=== PATIENT | female | born 1930 | race Caucasian/White ===

== ENCOUNTER 2016-07-10 12:25 | Emergency (ER) | payer OTHER ==
[2016-07-10 12:43] VITALS: BP 145/77; PULSE 73; TEMP 97.9; BMI 31.8
--- NOTE | 2016-07-10 13:23 | PDOC ---
History of Present Illness - General Chief Complaint: Rash Stated Complaint: FEVER Time Seen by Provider: 07/10/16 13:22 History Source: Patient Exam Limitations: No Limitations - History of Present Illness Timing/Duration: reports: other, constant Past History - Travel Traveled outside of the country in the last 30 days: No Close contact w/someone who was outside of country & ill: No - Past Medical History Allergies/Adverse Reactions: Allergies Allergy/AdvReac Type Severity Reaction Status Date / Time Penicillins Allergy Rash Verified 07/10/16 12:43 Home Medications: Ambulatory Orders Aspirin [ASA -] 81 mg PO DAILY 03/24/13 Multivitamin [Multivitamins] 1 each PO DAILY 03/24/13 Rosuvastatin Calcium [Crestor] 5 mg PO DAILY 03/24/13 Amlodipine Besylate [Norvasc -] 5 mg PO DAILY 12/28/13 Docusate Sodium [Colace] 100 mg PO HS 12/28/13 Omeprazole Magnesium [Prilosec (OTC)] 20 mg PO DAILY 12/28/13 Tiotropium [place] [Spiriva -] 1 inh PO DAILY 12/28/13 Valsartan/Hydrochlorothiazide [Diovan Hct 160-25 mg Tablet] 80 combo PO DAILY Chlorhexidine Gluconate [Peridex -] 15 ml MM BID #480 cup 05/27/14 HTN: Yes Hypercholesterolemia: Yes - Surgical History Orthopedic Surgery: Yes (R. Shoulder) - Psycho/Social/Smoking Cessation Hx Anxiety: No Suicidal Ideation: No Smoking Status: No Smoking History: Never smoked Have you smoked in the past 12 months: No Number of Cigarettes Smoked Daily: 0 Information on smoking cessation initiated: No Hx Alcohol Use: No Drug/Substance Use Hx: No Substance Use Type: None Hx Substance Use Treatment: No Review of Systems - Review of Systems Able to Perform ROS?: Yes Is the patient limited [place]ani proficient: Yes Constitutional: Yes: Symptoms Reported, See HPI. No: Malaise HEENTM: No: Symptoms Reported Respiratory: Yes: See HPI. No: Symptoms reported Integumentary: Yes: Symptoms Reported, See HPI, Lesions Neurological: Yes: See HPI. No: Symptoms reported All Other Systems: Reviewed and Negative *Physical Exam - Vital Signs Last Vital Signs Temp Pulse Resp BP Pulse Ox 97.9 F 73 18 145/77 97 07/10/16 12:39 07/10/16 12:39 07/10/16 12:39 07/10/16 12:39 07/10/16 12:39 - Physical Exam General Appearance: Yes: Nourished, Appropriately Dressed. No: Apparent Distress HEENT: positive: ANDREZ, Normal ENT Inspection, TMs Normal, Pharynx Normal (no facial swelling or lip swelling tongue swelling or problems with airway) Neck: positive: Tender, Supple. negative: Lymphadenopathy (R), Lymphadenopathy (L) Respiratory/Chest: positive: Lungs Clear, Respiratory Distress Cardiovascular: positive: Regular Rhythm Extremity: positive: Normal Capillary Refill, Normal Inspection, Normal Range of Motion Integumentary: positive: Normal Color, Pale, Bruising (has some healing bruising to anterior thigh, with 2 faint erythematous lesions, none elevated, nonvesicular, without any evidence of cellulitis. 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 Potential insect bites, discussed use of antihistamines and conservative measures as there is no evidence of anaphylaxis , cellulitis, contagiousness to any of these lesions. *DC/Admit/Observation/Transfer Diagnosis at time of Disposition: Insect bite Qualifiers: Encounter type: initial encounter Qualified Code(s): W57.XXXA - Bitten or stung by nonvenomous insect and other nonvenomous arthropods, initial encounter - Discharge Dispostion Disposition: HOME Condition at time of disposition: Stable Admit: No - Patient Instructions Printed Discharge Instructions: DI for Insect Bites and Stings Additional Instructions: Rest, keep cool and dry- avoid strenuous activity or hot /humid environments Less hot showers, no abrasive soaps May use heavy creams like Eucerin or Cetaphil to keep skin moist May apply Aveeno, calamine lotion, [id number] hydrocortisone creams as needed for symptoms May use Benadryl at night for antihistamine, Zyrtec/ Ronda or Claritin for daytime antihistamine use to help with itching May use ucir-jis-fzosfen hydrocortisone cream on all areas except face Try to identify cause for rash and avoid exposures Followup with PMD in one week if no resolution Make appointment with bingo checker for evaluation when possible
[2016-07-10] MEDS ORDERED: diphenhydrAMINE HCL 25 MG CAPSULE (FP) PO ONE ×2 (13:53→13:56)
== END 2016-07-10 14:02 | disposition home or self-care (01) ==
LOC: JERFT 12:25
DX: L29.8 Other pruritus (principal); S70.369A Insect bite (nonvenomous), unspecified thigh, initial encounter; S60.861A Insect bite (nonvenomous) of right wrist, initial encounter; W57.XXXA Bitten or stung by nonvenomous insect and other nonvenomous arthropods, initial encounter; Y93.89 Activity, other specified; Y92.098 Other place in other non-institutional residence as the place of occurrence of the external cause; I10 Essential (primary) hypertension; E78.00 Pure hypercholesterolemia, unspecified
CPT/HCPCS: 99281-25

== ENCOUNTER 2017-07-31 20:17 | Inpatient (IN) | payer OTHER ==
--- NOTE | 2017-07-31 20:24 | PDOC ---
History of Present Illness <Trish Gregg - Last Filed: 07/31/17 23:52> - General History Source: Patient, Family Exam Limitations: No Limitations - History of Present Illness Initial Comments: 07/31/17 21:03 The patient is a 86 year old female, with a significant past medical history of hypertension, hyperlipidemia, arthritis, and GERD, who presents to the emergency department via EMS 3 hours s/p mechanical fall with, back pain. As per patient, she slipped and fell backwards in water in her backyard. She reports pressed her medical alert button, however, did not receive a response. She reports rolling over on her knees and crawling into the house where her son found her after work 2 hours later. She reports difficulty ambulating and that she cannot move her back. She does not recall if she had any loss of consciousness. Secondary to her symptoms, the patient reports chills. She denies any head or neck pain. She denies recent fevers or dizziness. She denies recent nausea, vomit, diarrhea or constipation. She denies recent dysuria, frequency, urgency or hematuria. She denies recent chest pain or shortness of breath. Allergies: Penicillin Past surgical history: None reported. Social history: Nonsmoker. Denies EtOH use and recreational drug use. <Maria Luisa Franco - Last Filed: 08/01/17 00:30> - General Stated Complaint: FALL Time Seen by Provider: 07/31/17 20:24 Past History - Past Medical History HTN: Yes Hypercholesterolemia: Yes - Surgical History Orthopedic Surgery: Yes (R. Shoulder) - Suicide/Smoking/Psychosocial Hx Smoking Status: No Smoking History: Unknown if ever smoked Have you smoked in the past 12 months: No Number of Cigarettes Smoked Daily: 0 Hx Alcohol Use: No Drug/Substance Use Hx: No Substance Use Type: None Hx Substance Use Treatment: No <Trish Gregg - Last Filed: 07/31/17 23:52> <Maria Luisa Franco - Last Filed: 08/01/17 00:30> - Past Medical History Allergies/Adverse Reactions: Allergies Allergy/AdvReac Type Severity Reaction Status Date / Time Penicillins Allergy Rash Verified 07/31/17 20:45 Home Medications: Ambulatory Orders Aspirin [ASA -] 81 mg PO DAILY 03/24/13 Multivitamin [Multivitamins] 1 each PO DAILY 03/24/13 Rosuvastatin Calcium [Crestor] 5 mg PO DAILY 03/24/13 Amlodipine Besylate [Norvasc -] 5 mg PO DAILY 12/28/13 Docusate Sodium [Colace] 200 mg PO HS 12/28/13 Omeprazole Magnesium [Prilosec (OTC)] 20 mg PO DAILY 12/28/13 Tiotropium [place] [Spiriva -] 1 inh PO DAILY 12/28/13 Valsartan/Hydrochlorothiazide [Diovan Hct 160-25 mg Tablet] 80 combo PO DAILY Review of Systems - Review of Systems Able to Perform ROS?: Yes Comments:: 07/31/17 21:03 (+)CONSTITUTIONAL: Chills. No fever, no fatigue EYES: No visual changes ENT: No ear pain, no sore throat CARDIOVASCULAR: No chest pain, no palpitations RESPIRATORY: No cough, no SOB GI: No abdominal pain, no nausea, no vomiting, no constipation, no diarrhea GENITOURINARY: No dysuria, no frequency, no hematuria (+)MUSKULOSKELETAL: Back pain.No joint pain, no myalgias SKIN: No rash NEURO: No headache All Other Systems: Reviewed and Negative <Maria Luisa Franco - Last Filed: 08/01/17 00:30> *Physical Exam - Vital Signs Last Vital Signs Temp Pulse Resp BP Pulse Ox 97.5 F L 77 18 162/69 96 07/31/17 20:40 07/31/17 20:40 07/31/17 20:40 07/31/17 20:40 07/31/17 20:40 - Physical Exam Comments: 07/31/17 21:08 GENERAL: The patient is in no acute distress. HEAD: Normal with no signs of trauma. EYES: PERRLA, EOMI, sclera anicteric, conjunctiva clear. ENT: Ears normal, nares patent, oropharynx clear without exudates. Moist mucous membranes. NECK: No midline tenderness. Normal range of motion, supple without lymphadenopathy, JVD, or masses. LUNGS: Breath sounds equal, clear to auscultation bilaterally. No wheezes, and no crackles. HEART:Regular rate and rhythm, normal S1 and S2 without murmur, rub or gallop. ABDOMEN: Soft, nontender, normoactive bowel sounds. No guarding, no rebound. No masses palpable. EXTREMITIES: Normal range of motion, no edema. No clubbing or cyanosis. No erythema, or tenderness. NEUROLOGICAL: Cranial nerves II through XII grossly intact. Normal speech. No focal neurological deficits. MUSCULOSKELETAL: Midline lumbar tenderness without deformity. No CVA tenderness SKIN: Warm, Dry, normal turgor, no rashes or lesions noted. <Maria Luisa Franco - Last Filed: 08/01/17 00:30> ED Treatment Course - LABORATORY CBC & Chemistry Diagram: 07/31/17 21:00 07/31/17 21:00 <Trish Gregg - Last Filed: 07/31/17 23:52> - LABORATORY CBC & Chemistry Diagram: 07/31/17 21:00 07/31/17 21:00 <Maria Luisa Franco - Last Filed: 08/01/17 00:30> Medical Decision Making - Medical Decision Making Ms Tracey is an 86 yo F With a history of hypertension who presents emergency department status post a fall. Patient was in her usual state of health, apparently slipped and fell in her backyard on some water. Patient states she landed on her bottom. She denies head trauma, loss of consciousness, neck pain, nausea, vomiting. Patient was unable to get herself to standing. She was able to roll onto her knees, and crawl back into the home. She was unable to get up to standing position. Her son came home and found on the ground. He call 911 immediately. We estimate that she was on the ground for approximately one and a half hours. On examination: This patient is awake and alert, answers all questions appropriate leg Heart is regular Lungs are clear No midline cervical spine, thoracic tenderness to palpation. Patient had lumbar tenderness to palpation Patient is able to move all extremities independently with no assistance. No deformities, no bruising. DD: Lumbar fracture vs dislocation vs. musculoskeletal pain Pt has no radicular symptoms Will : do basic labs CT head/c spine/lumbar spine Pain management Anticipate discharge 07/31/17 21:56 Laboratory Tests 07/31/17 21:00 WBC 11.4 H D Hgb 13.7 D Hct 41.1 Plt Count 284 D 07/31/17 22:42 Laboratory Tests 07/31/17 21:00 Sodium 138 Potassium 2.8 L* Chloride 99 Carbon Dioxide 31 BUN 19 H Creatinine 0.6 Random Glucose 89 Creatine Kinase 434 H Troponin I 1.10 H* ASA ordered Potassium ordered EKG still pending 07/31/17 23:09 EKG: Normal sinus rhythm, rate of 80 bpm, left axis deviation, LVH ST changes V2, no T wave elevations, QTC prolonged at 567 MS Only EKG available for comparison is from 2011 G at that time was normal Sinus rhythm, rate of 69 bpm, normal axis, no ST elevations or depressions, upright T waves Copy of pt current and prior EKG Agrees with plan for Aspirin and admission All CT imaging is still pending Clinical Impression: mechanical fall, initial presentation 07/31/17 23:18 Case reviewed with Hospitalist Will admit to Tele I have clarified with Dr Salgado plan for management with Aspirin <Trish Gregg - Last Filed: 07/31/17 23:52> - Medical Decision Making 11:[address] Salgado, industrial refrigeration mechanic oncology rn, case was discussed. EXAM: HEAD CT WITHOUT CONTRAST HISTORY: Status post fall COMPARISON: None. FINDINGS: The ventricular system is midline and nondilated. Mild involutional changes are noted. There is no bleed, mass, extra-axial fluid collection or mass effect. No skull fracture or skull lesion is identified. The visualized paranasal sinuses and mastoid air cells are clear. IMPRESSION: No evidence of acute pathology. Read by: Cruz Styles MD <Maria Luisa Franco - Last Filed: 08/01/17 00:30> *DC/Admit/Observation/Transfer - Discharge Dispostion Admit: Yes <Trish Gregg - Last Filed: 07/31/17 23:52> - Attestations Scribe Attestion: 07/31/17 21:03 Documentation prepared by Maria Luisa Franco, acting as emergency medical technician for Trish Gregg MD. <Maria Luisa Franco - Last Filed: 08/01/17 00:30> Diagnosis at time of Disposition: NSTEMI (non-ST elevated myocardial infarction) - Discharge Dispostion Condition at time of disposition: Stable
[2017-07-31] MEDS ORDERED: ACETAMINOPHEN 1000 MG/100 ML VIAL (NON FORMULARY) IVPB ONE (20:53)
[2017-07-31] MEDS ORDERED: METHOCARBAMOL 500 MG TABLET PO ONE (20:56)
[2017-07-31] MEDS ORDERED: METHOCARBAMOL 500 MG TABLET ONE (21:26)
[2017-07-31] MEDS ORDERED: ACETAMINOPHEN INJECTION 100 ML IVPB ONE (21:27)
[2017-07-31 21:43] VITALS: BMI 33.7
[2017-07-31 21:48] LABS: BASO % 0.7 % (0-2.0); EOS % 0.4 % (0-4.5); HEMATOCRIT 41.1 % (32.4-45.2); HEMOGLOBIN 13.7 GM/dL (10.7-15.3); LYMPH % 13.8 % (8-40); MCH 28.5 pg (25.7-33.7); MCHC 33.2 g/dl (32.0-36.0); MEAN CELL VOLUME 85.8 fl (80-96); MEAN PLT VOLUME 9.6 fl (7.5-11.1); MONO % 6.3 % (3.8-10.2); NEUT % 78.8 % (42.8-82.8); PLATELET COUNT 284 K/MM3 (134-434); WHITE BLOOD COUNT 11.4 K/mm3 (4.0-10.0)
[2017-07-31 22:11] LABS: ALBUMIN 3.8 g/dl (3.4-5.0); ANION GAP 8 (8-16); BLOOD UREA NITROGEN 19 mg/dL (7-18); CALCIUM 9.1 mg/dL (8.5-10.1); CHLORIDE 99 mmol/L (98-107); CO2 31 mmol/L (21-32); CREATININE 0.6 mg/dL (0.55-1.02); GLUCOSE,RANDOM 89 mg/dL (74-106); SGOT/AST 24 U/L (15-37); SGPT/ALT 27 U/L (12-78); SODIUM 138 mmol/L (136-145)
[2017-07-31 22:26] LABS: ALK PHOS 62 U/L (45-117); BILIRUBIN,TOTAL 0.4 mg/dL (0.2-1.0); TOT PROT 7.3 g/dl (6.4-8.2)
[2017-07-31 22:33] LABS: POTASSIUM 2.8 mmol/L (3.5-5.1)
[2017-07-31] MEDS ORDERED: POTASSIUM CHLORIDE 20 MEQ PREMIX IVPB 100 ML IVPB ONE (22:34)
[2017-07-31] MEDS ORDERED: ASPIRIN 81 MG CHEWABLE TABLETS PO ONE (22:34)
[2017-07-31] MEDS ORDERED: POTASSIUM CHLORIDE TABS 20 MEQ TABLET.ER (FP) PO ONE ×2 (22:55→22:57)
[2017-07-31] MEDS ORDERED: ASPIRIN 81 MG CHEWABLE TABLETS ONE (22:57)
--- NOTE | 2017-08-01 00:05 | HP ---
CHIEF COMPLAINT: Fall PCP: Not on Staff HISTORY OF PRESENT ILLNESS: 86 year old F with pmh of HTN, HLD, arthritis, and GERD presented s/p mechanical fall. Patient states she was in her backyard, when she slipped on water and fell on concrete. She states she landed on her back and could not get up. She crawled back to the house and her son found her 1 hour later in the bedroom. Patient was brought in by EMS. Patient denies any preceding symptoms, such as chest pain, shortness of breath, or lightheadedness. Patient endorses significant low back pain, nonradiating, 02/02. Patient denies numbness, tingling, weakness, bladder/bowel incontinence. ER course was notable for: (1) VS (2) Labs, cardiac profile (3) EKG Recent Travel: denies PAST MEDICAL HISTORY: as per hpi PAST SURGICAL HISTORY: denies Social History: Smoking: denies Alcohol: denies Drugs: denies Family History: Allergies Penicillins Allergy (Verified 07/31/17 20:45) Rash HOME MEDICATIONS: Home Medications Medication Instructions Recorded Aspirin [ASA -] 81 mg PO DAILY 03/24/13 Multivitamin [Multivitamins] 1 each PO DAILY 03/24/13 Rosuvastatin Calcium [Crestor] 5 mg PO DAILY 03/24/13 Amlodipine Besylate [Norvasc -] 5 mg PO DAILY 12/28/13 Docusate Sodium [Colace] 100 mg PO HS 12/28/13 Omeprazole Magnesium [Prilosec 20 mg PO DAILY 12/28/13 (OTC)] Tiotropium [place] [Spiriva -] 1 inh PO DAILY 12/28/13 Valsartan/Hydrochlorothiazide 80 combo PO DAILY 12/28/13 [Diovan Hct 160-25 mg Tablet] Chlorhexidine Gluconate [Peridex -] 15 ml MM BID #480 cup 05/27/14 REVIEW OF SYSTEMS CONSTITUTIONAL: Absent: fever, chills, diaphoresis, generalized weakness, malaise, loss of appetite, weight change HEENT: Absent: rhinorrhea, nasal congestion, throat pain, throat swelling, difficulty swallowing, mouth swelling, ear pain, eye pain, visual changes CARDIOVASCULAR: Absent: chest pain, syncope, palpitations, irregular heart rate, lightheadedness , peripheral edema RESPIRATORY: Absent: cough, shortness of breath, dyspnea with exertion, orthopnea, wheezing, stridor, hemoptysis GASTROINTESTINAL: Absent: abdominal pain, abdominal distension, nausea, vomiting, diarrhea, constipation, melena, hematochezia GENITOURINARY: Absent: dysuria, frequency, urgency, hesitancy, hematuria, flank pain, genital pain MUSCULOSKELETAL: Absent: myalgia, arthralgia, joint swelling, back pain, neck pain SKIN: Absent: rash, itching, pallor HEMATOLOGIC/IMMUNOLOGIC: Absent: easy bleeding, easy bruising, lymphadenopathy, frequent infections ENDOCRINE: Absent: unexplained weight gain, unexplained weight loss, heat intolerance, cold intolerance NEUROLOGIC: Absent: headache, focal weakness or paresthesias, dizziness, unsteady gait, seizure, mental status changes, bladder or bowel incontinence PSYCHIATRIC: Absent: anxiety, depression, suicidal or homicidal ideation, hallucinations. PHYSICAL EXAMINATION Vital Signs - 24 hr 07/31/17 20:40 Temperature 97.5 F L Pulse Rate 77 Respiratory 18 Rate Blood Pressure 162/69 O2 Sat by Pulse 96 Oximetry (%) GENERAL: Awake, alert, and fully oriented, in no acute distress. HEAD: Normal with no signs of trauma. EYES: Pupils equal, round and reactive to light, extraocular movements intact, sclera anicteric, conjunctiva clear. No lid lag. EARS, NOSE, THROAT: Ears normal, nares patent, oropharynx clear without exudates. Dry mucous membranes. NECK: Normal range of motion, supple without lymphadenopathy, JVD, or masses. LUNGS: Breath sounds equal, clear to auscultation bilaterally. No wheezes, and no crackles. No accessory muscle use. HEART: Irregular rhythm, regular rate, normal S1 and S2, +OZZIE 2/6 ABDOMEN: Soft, obese, mildly distended, nontender, normoactive bowel sounds, no guarding, no rebound, no masses. No hepatomegaly or splenomegaly. MUSCULOSKELETAL: +Lower back paraspinal tenderness bilaterally. no central spine tenderness UPPER EXTREMITIES: 2+ pulses, warm, well-perfused. No cyanosis. No clubbing. No peripheral edema. LOWER EXTREMITIES: 2+ pulses, warm, well-perfused. No calf tenderness. No peripheral edema. NEUROLOGICAL: Cranial nerves II-XII intact. Normal speech. strenght unable to be assessed 2/2 to pain, sensation intact b/l PSYCHIATRIC: Cooperative. Good eye contact. Appropriate mood and affect. SKIN: Warm, dry, normal turgor, no rashes or lesions noted, normal capillary refill. Laboratory Results - last 24 hr 07/31/17 07/31/17 21:00 21:00 WBC 11.4 H D RBC 4.80 Hgb 13.7 D Hct 41.1 MCV 85.8 MCH 28.5 MCHC 33.2 RDW 14.0 Plt Count 284 D MPV 9.6 D Neutrophils % 78.8 D Lymphocytes % 13.8 D Monocytes % 6.3 Eosinophils % 0.4 Basophils % 0.7 Sodium 138 Potassium 2.8 L* Chloride 99 Carbon Dioxide 31 Anion Gap 8 BUN 19 H Creatinine 0.6 Creat Clearance w eGFR > 60 Random Glucose 89 Calcium 9.1 Total Bilirubin 0.4 AST 24 ALT 27 Alkaline Phosphatase 62 Creatine Kinase 434 H Creatine Kinase Index 2.9 CK-MB (CK-2) 12.912 H Troponin I 1.10 H* Total Protein 7.3 Albumin 3.8 ASSESSMENT/PLAN: 86 year old F with pmh of HTN, HLD, arthritis, and GERD presented s/p mechanical fall found to have elevated troponins #mechanical fall, lumbar pain -Pain control -f/u CT pelvis, lumbar spine -Head ct negative #elevated creatine kinase -IVF gentle hydration -monitor in the AM #elevated troponins -Cardiology consult -telemetry monitoring -Asa given in er -No heparin drip per Dr. Salgado -Trend troponins -echocardiogram to evaluate heart function #htn -Continue home meds -Will hold HCTZ given hypokalemia #hld -Continue crestor #overactive bladder -Continue tolterodine #copd -Continue Spiriva #fen/gi -NS @ 42 cc/hr for 500 ml -wnl -sodium/cholesterol diet #ppx -Heparin 5000 sq tid Visit type - Emergency Visit Emergency Visit: Yes ED Registration Date: 07/31/17 Care time: The patient presented to the Emergency Department on the above date and was hospitalized for further evaluation of their emergent condition. - New Patient This patient is new to me today: Yes Date on this admission: 08/01/17 - Critical Care Critical Care patient: No Hospitalist Screening - Colonoscopy Questionnaire Colonoscopy Questionnaire: Colonoscopy Questionnaire - Patient: 50 - 75 years old and never had a screening colonoscopy: Unknown History of colon or rectal polyps, or CA: Unknown History of IBD, Crohn's disease or UC: Unknown History of abdominal radiation therapy as a child: Unknown - Relative: 1 with colon or rectal CA, or polyps at age 60 or younger: Unknown Colon or rectal CA diagnosed at age 45 or younger: Unknown Multiple relatives with colon or rectal CA: Unknown - Outcome: Screening Result: Negative Screen
[2017-08-01] MEDS ORDERED: POTASSIUM CHLORIDE TABS 10 MEQ TABLET.ER (FP) PO ONE (00:59)
--- NOTE | 2017-08-01 01:05 | PN ---
Teaching Attending Note Name of Resident: Carlitos Cortés ATTENDING PHYSICIAN STATEMENT I saw and evaluated the patient. Chart, data, imaging reviewed. I reviewed the resident's note and discussed the case with the resident. I agree with the resident's findings and plan as documented. SUBJECTIVE: 86 year old F with pmh of HTN, HLD, arthritis, and GERD presented after a mechanical on 07/31 after she slipped on a wet surface and landed on her back. She was subsequently brought to hospital and complained of some mild back pain. She denied any shortness of breath, chest pain, or syncope episode. She was coincidentally found to have elevated troponin and CK -MB on blood work. OBJECTIVE: Last Vital Signs Temp Pulse Resp BP Pulse Ox 97.5 F L 77 18 162/69 96 07/31/17 20:40 07/31/17 20:40 07/31/17 20:40 07/31/17 20:40 07/31/17 20:40 general- nad, not in visible pain, aaox3, obese heent- at, normocephalic neck -supple, no neck masses cv - s1+s2+ mumur+ chest - cta b/l abdomen- obese, nt, BS+ Back - perispinal tenderness skin - no rashes Abnormal Lab Results 07/31/17 07/31/17 21:00 21:00 WBC 11.4 H D Potassium 2.8 L* BUN 19 H Creatine Kinase 434 H CK-MB (CK-2) 12.912 H Troponin I 1.10 H* EKG- normal sinus rhythm CXR- wnl Head CT -reviewed, no acute intracranial events C spine - no fracture pending pelvis CT ASSESSMENT AND PLAN: #86yo woman s/p fall with elevated cardiac markers, however clinically lacking signs of ACS. Cardiology - telecommunications manager (Dr. Salgado) was contacted and recommended to treat with aspirin and trend troponins. -admit to telemetry -ASA 81mg -trend troponin -repeat EKG -transthoracic echo -cardiology evaluation #Mechanical fall -bed rest -gait evaluation with physical therapy -r/o pelvic/lower back fracture with CT of lumbar spine/sacrum -ibuprofen and robaxin for back pain #Elevated CK -mild IV fluid hydration #DVT ppx -heparin sc
[2017-08-01] MEDS ORDERED: SODIUM CHLORIDE 500 ML IV SCH (01:15)
[2017-08-01] MEDS ORDERED: POTASSIUM CHLORIDE TABS 20 MEQ TABLET.ER (FP) PO ONE ×2 (01:35→01:36)
[2017-08-01] MEDS: HEPARIN NA (PORCINE) 5,000 UNITS/ML 1ML VIAL SQ SCH ×2 (06:00→14:20)
[2017-08-01 06:27] LABS: BASO % 0.8 % (0-2.0); EOS % 0.8 % (0-4.5); HEMOGLOBIN 13.2 GM/dL (10.7-15.3); LYMPH % 27.6 % (8-40); MCH 28.9 pg (25.7-33.7); MCHC 33.8 g/dl (32.0-36.0); MEAN CELL VOLUME 85.5 fl (80-96); MEAN PLT VOLUME 8.4 fl (7.5-11.1); MONO % 8.7 % (3.8-10.2); NEUT % 62.1 % (42.8-82.8); PLATELET COUNT 274 K/MM3 (134-434); RBC 4.56 M/mm3 (3.60-5.2); RDW 13.9 % (11.6-15.6); WHITE BLOOD COUNT 7.4 K/mm3 (4.0-10.0)
[2017-08-01] MEDS ORDERED: HEPARIN NA (PORCINE) 5,000 UNITS/ML 1ML VIAL ONE (06:52)
[2017-08-01 07:17] LABS: ANION GAP 7 (8-16); BLOOD UREA NITROGEN 20 mg/dL (7-18); CALCIUM 8.7 mg/dL (8.5-10.1); CHLORIDE 103 mmol/L (98-107); CO2 30 mmol/L (21-32); CREATININE 0.5 mg/dL (0.55-1.02); GLUCOSE,RANDOM 126 mg/dL (74-106); PHOSPHOROUS 3.6 mg/dL (2.5-4.9); POTASSIUM 3.6 mmol/L (3.5-5.1); SODIUM 140 mmol/L (136-145)
--- NOTE | 2017-08-01 09:01 | EKG ---
Test Reason : Blood Pressure : / mmHG Vent. Rate : 080 BPM Atrial Rate : 080 BPM P-R Int : 178 ms QRS Dur : 114 ms QT Int : 492 ms P-R-T Axes : 064 -44 012 degrees QTc Int : 567 ms NORMAL SINUS RHYTHM LEFT AXIS DEVIATION VOLTAGE CRITERIA FOR LEFT VENTRICULAR HYPERTROPHY CANNOT RULE OUT SEPTAL INFARCT , AGE UNDETERMINED PROLONGED QT ABNORMAL ECG WHEN COMPARED WITH ECG OF 19-DEC-2011 09:42, QUESTIONABLE CHANGE IN QRS DURATION MINIMAL CRITERIA FOR SEPTAL INFARCT ARE NOW PRESENT Confirmed by MARINO HOYT, VIVIENNE ([id number]) on 08/01/2017 9:01:06 AM Referred By: Confirmed By:VIVIENNE PICHARDO MD
--- NOTE | 2017-08-01 10:11 | CON.CARD ---
Consult Consult Specialty:: Cardiology Referred by:: Hospitalist Medicine Reason for Consultation:: +Troponins - History of Present Illness Chief Complaint: s/p mechanical fall and back pain History of Present Illness: 86 year old F with pmh of HTN, HLD, arthritis, and GERD presented after a mechanical fall without near or true syncope on 07/31 after she slipped on a wet surface and landed on her back. She was subsequently brought to hospital and complained of some mild back pain. She denied any shortness of breath, chest pain, palpitations, orthopnea, mear or syncope episode. She was coincidentally found to have elevated troponin and CK -MB on blood work. - History Source History Provided By: Family Member Limitations to Obtaining History: Poor Historian - Past Medical History Cardio/Vascular: Yes: HTN, Hyperlipdemia - Alcohol/Substance Use Hx Alcohol Use: No - Smoking History Smoking history: Unknown if ever smoked Have you smoked in the past 12 months: No Aproximately how many cigarettes per day: 0 Home Medications - Allergies Allergies/Adverse Reactions: Allergies Allergy/AdvReac Type Severity Reaction Status Date / Time Penicillins Allergy Rash Verified 07/31/17 20:45 - Home Medications Home Medications: Ambulatory Orders Aspirin [ASA -] 81 mg PO DAILY 03/24/13 Multivitamin [Multivitamins] 1 each PO DAILY 03/24/13 Rosuvastatin Calcium [Crestor] 5 mg PO DAILY 03/24/13 Amlodipine Besylate [Norvasc -] 5 mg PO DAILY 12/28/13 Docusate Sodium [Colace] 200 mg PO HS 12/28/13 Omeprazole Magnesium [Prilosec (OTC)] 20 mg PO DAILY 12/28/13 Tiotropium [place] [Spiriva -] 1 inh PO DAILY 12/28/13 Valsartan/Hydrochlorothiazide [Diovan Hct 160-25 mg Tablet] 80 combo PO DAILY Diclofenac Sodium [Voltaren] 0 gm TP QID PRN 08/01/17 Diphenhydramine HCl [Benadryl -] 25 mg PO Q6H PRN 08/01/17 Ibuprofen 600 mg PO BID PRN 08/01/17 Neomycin/Polymyx/Hc Ophth Susp [Cortisporin Ophthalmic Suspension -] 1 - 4 drop AU TID 08/01/17 Review of Systems - Review of Systems Musculoskeletal: reports: Back Pain Vital Signs: Vital Signs Temperature 98.3 F 08/01/17 07:45 Pulse Rate 86 08/01/17 07:45 Respiratory Rate 16 08/01/17 07:45 Blood Pressure 131/60 08/01/17 07:45 O2 Sat by Pulse Oximetry (%) 96 08/01/17 07:45 Constitutional: Yes: No Distress, Calm Neck: Yes: Supple Respiratory: Yes: Regular, Diminished Gastrointestinal: Yes: Normal Bowel Sounds, Soft, Abdomen, Obese Cardiovascular: Yes: Regular Rate and Rhythm JVD: No Carotid Bruit: No Heart Sounds: Yes: S1, S2 - Other Data Labs, Other Data: CBC, BMP 08/01/17 06:20 08/01/17 06:20 Troponin, BNP 07/31/17 21:00 Troponin I 1.10 H* Troponin, BNP 07/31/17 21:00 Troponin I 1.10 H* NSR @ 80 LAD, LVH Echo: Pending Problem List - Problems (1) Demand ischemia Code(s): I24.8 - OTHER FORMS OF ACUTE ISCHEMIC HEART DISEASE (2) Hypertensive cardiovascular disease Code(s): I11.9 - HYPERTENSIVE HEART DISEASE WITHOUT HEART FAILURE Qualifiers: Heart failure presence: without heart failure Qualified Code(s): I11.9 - Hypertensive heart disease without heart failure (3) Hyperlipidemia Code(s): E78.5 - HYPERLIPIDEMIA, UNSPECIFIED Qualifiers: Hyperlipidemia type: pure hypercholesterolemia Qualified Code(s): E78.00 - Pure hypercholesterolemia, unspecified; E78.0 - Pure hypercholesterolemia (4) Antiplatelet or antithrombotic long-term use Code(s): 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 s/p mechanical slip and fall without syncope 2. Demand ischemia 3. HTN/HCVD 4. Hyperlipidemia P:1. Troponins have peaked 2. F/u echocardiogram to assess ventricular and valve fxn 3. Pharm stress as outpatient to assess severity of CAD 4. Continue ASA 8 qd, Crestor 5 qd, Exforge HCT 5/160/25 qd 5. Analgesia as needed, PT as tolerated, GI and DVT prophylaxis 6. Thank you for consultative opportunity
[2017-08-01] MEDS: amLODIPine BESYLATE 5 MG TABLET (FP) PO SCH (10:20)
[2017-08-01] MEDS: TOLTERODINE TARTRATE LA 4 MG CAP.SR.24H (FP) PO SCH (10:20)
[2017-08-01] MEDS: VALSARTAN 80 MG TABLET (UD) PO SCH (10:20)
[2017-08-01] MEDS: PANTOPRAZOLE 20 MG TABLET (FP) PO SCH (10:20)
[2017-08-01] MEDS: ASPIRIN 81 MG CHEWABLE TABLETS PO SCH (10:20)
[2017-08-01] MEDS: TIOTROPIUM BROMIDE 18 MCG CAPSULES IH SCH (10:24)
[2017-08-01] MEDS: IBUPROFEN 400 MG TABLET (FP) PO PRN ×2 (13:34→21:26)
[2017-08-01 17:21] LABS: URINE APPEARANCE CLEAR; URINE BILIRUBIN NEGATIVE (<2.0 mg/dL); URINE BLOOD NEGATIVE (NEGATIVE); URINE COLOR YELLOW; URINE GLUCOSE (UA) NEGATIVE (NEGATIVE); URINE KETONE TRACE (NEGATIVE); URINE NITRITE NEGATIVE (NEGATIVE); URINE PROTEIN NEGATIVE (NEGATIVE); URINE UROBILINOGEN NEGATIVE mg/dL (0.2-1.0)
[2017-08-01 17:22] LABS: URINE LEUK ESTERASE 1+ (NEGATIVE)
[2017-08-01 17:25] LABS: EPI CELLS RARE /HPF (FEW); URINE BACTERIA RARE /hpf (NONE SEEN)
--- NOTE | 2017-08-01 19:41 | PN ---
Physical Exam: SUBJECTIVE: Patient seen and examined. She complains of constipation. OBJECTIVE: Vital Signs Period Temp Pulse Resp BP Sys/Seth Pulse Ox Last 24 Hr 97.5 F-99.2 F 77-104 16-18 131-162/60-95 92-96 GENERAL: The patient is awake, alert, and fully oriented, in no acute distress. LUNGS: Breath sounds equal, clear to auscultation bilaterally, no wheezes, no crackles, no accessory muscle use. HEART: Regular rate and rhythm, S1, S2 without murmur, rub or gallop. ABDOMEN: Soft, nontender, distended, normoactive bowel sounds, no guarding, no rebound, no hepatosplenomegaly, no masses. EXTREMITIES: 2+ pulses, warm, well-perfused, no edema. Laboratory Results - last 24 hr 07/31/17 07/31/17 08/01/17 21:00 21:00 06:20 WBC 11.4 H D 7.4 D RBC 4.80 4.56 Hgb 13.7 D 13.2 Hct 41.1 39.0 MCV 85.8 85.5 MCH 28.5 28.9 MCHC 33.2 33.8 RDW 14.0 13.9 Plt Count 284 D 274 MPV 9.6 D 8.4 D Neutrophils % 78.8 D 62.1 D Lymphocytes % 13.8 D 27.6 D Monocytes % 6.3 8.7 Eosinophils % 0.4 0.8 D Basophils % 0.7 0.8 Sodium 138 Potassium 2.8 L* Chloride 99 Carbon Dioxide 31 Anion Gap 8 BUN 19 H Creatinine 0.6 Creat Clearance w eGFR > 60 Random Glucose 89 Calcium 9.1 Phosphorus Magnesium Total Bilirubin 0.4 AST 24 ALT 27 Alkaline Phosphatase 62 Creatine Kinase 434 H Creatine Kinase Index 2.9 CK-MB (CK-2) 12.912 H Troponin I 1.10 H* Total Protein 7.3 Albumin 3.8 Urine Color Urine Appearance Urine pH Ur Specific [place] Urine Protein Urine Glucose (UA) Urine Ketones Urine Blood Urine Nitrite Urine Bilirubin Urine Urobilinogen Ur Leukocyte Esterase Urine WBC (Auto) Urine RBC (Auto) Ur Epithelial Cells Urine Bacteria 08/01/17 08/01/17 08/01/17 06:20 09:30 17:08 WBC RBC Hgb Hct MCV MCH MCHC RDW Plt Count MPV Neutrophils % Lymphocytes % Monocytes % Eosinophils % Basophils % Sodium 140 Potassium 3.6 Chloride 103 Carbon Dioxide 30 Anion Gap 7 L BUN 20 H Creatinine 0.5 L Creat Clearance w eGFR Random Glucose 126 H Calcium 8.7 Phosphorus 3.6 Magnesium 2.0 Total Bilirubin AST ALT Alkaline Phosphatase Creatine Kinase 522 H Cancelled Creatine Kinase Index 2.0 CK-MB (CK-2) 10.473 H Troponin I 0.93 H* Cancelled Total Protein Albumin Urine Color Yellow Urine Appearance Clear Urine pH 6.0 Ur Specific [place] 1.023 Urine Protein Negative Urine Glucose (UA) Negative Urine Ketones Trace H Urine Blood Negative Urine Nitrite Negative Urine Bilirubin Negative Urine Urobilinogen Negative Ur Leukocyte Esterase 1+ H Urine WBC (Auto) 8 Urine RBC (Auto) 1 Ur Epithelial Cells Rare Urine Bacteria Rare Active Medications Generic Name Dose Route Start Last Admin Trade Name Freq PRN Reason Stop Dose Admin Amlodipine Besylate 5 mg 08/01/17 10:00 08/01/17 10:20 Norvasc - PO 5 mg DAILY GIOVANNA Administration Aspirin 81 mg 08/01/17 10:00 08/01/17 10:20 Asa - PO 81 mg DAILY GIOVANNA Administration Heparin Sodium (Porcine) 5,000 unit 08/01/17 06:00 08/01/17 14:20 Heparin - SQ 5,000 unit TID GIOVANNA Administration Ibuprofen 400 mg 08/01/17 01:30 08/01/17 13:34 Motrin - PO 400 mg Q6H PRN Administration PAIN LEVEL 6-10 Pantoprazole Sodium 20 mg 08/01/17 10:00 08/01/17 10:20 Protonix - PO 20 mg DAILY GIOVANNA Administration Rosuvastatin Calcium 5 mg 08/01/17 22:00 Crestor - PO HS GIOVANNA Tiotropium [place] 1 puff 08/01/17 10:00 08/01/17 10:24 Spiriva - IH Not Given DAILY GIOVANNA Tolterodine Tartrate 4 mg 08/01/17 10:00 08/01/17 10:20 Detrol La - PO 4 mg DAILY GIOVANNA Administration Valsartan 80 mg 08/01/17 10:00 08/01/17 10:20 Diovan - PO 80 mg DAILY GIOVANNA Administration ASSESSMENT/PLAN: This is an 86 year old woman with a history of HTN, hyperlipidemia, DJD, GERD who presented to the ED after a fall and who was found to have elevated troponin. #mechanical fall, lumbar pain -Pain control -f/u CT pelvis, lumbar spine -Head ct negative #elevated creatine kinase -IVF gentle hydration -monitor in the AM #elevated troponins -Cardiology consult -telemetry monitoring -Asa given in er -No heparin drip per Dr. Salgado -Trend troponins -echocardiogram to evaluate heart function #htn -Continue home meds -Will hold HCTZ given hypokalemia #hld -Continue crestor #overactive bladder -Continue tolterodine #copd -Continue Spiriva
[2017-08-01] MEDS ORDERED: IBUPROFEN 400 MG TABLET (FP) PO ONE (21:18)
[2017-08-01] MEDS: ROSUVASTATIN CA 5 MG TABLET (FP) PO SCH (22:47)
[2017-08-02] MEDS ORDERED: HEPARIN NA (PORCINE) 5,000 UNITS/ML 1ML VIAL ONE (00:24)
[2017-08-02] MEDS: HEPARIN NA (PORCINE) 5,000 UNITS/ML 1ML VIAL SQ SCH ×4 (07:12→23:15)
[2017-08-02] MEDS ORDERED: IBUPROFEN 400 MG TABLET (FP) PO ONE (08:22)
[2017-08-02] MEDS: IBUPROFEN 400 MG TABLET (FP) PO PRN ×2 (08:31→20:33)
[2017-08-02] MEDS: ASPIRIN 81 MG CHEWABLE TABLETS PO SCH (10:14)
[2017-08-02] MEDS: PANTOPRAZOLE 20 MG TABLET (FP) PO SCH (10:54)
[2017-08-02] MEDS: amLODIPine BESYLATE 5 MG TABLET (FP) PO SCH (10:54)
[2017-08-02] MEDS: TOLTERODINE TARTRATE LA 4 MG CAP.SR.24H (FP) PO SCH (10:54)
[2017-08-02] MEDS: VALSARTAN 80 MG TABLET (UD) PO SCH (10:54)
--- NOTE | 2017-08-02 10:57 | PN ---
Progress Note, Physician History of Present Illness: 86 year old F with pmh of HTN, HLD, arthritis, and GERD presented after a mechanical fall without near or true syncope on 07/31 after she slipped on a wet surface and landed on her back. She was subsequently brought to hospital and complained of some mild back pain. She denied any shortness of breath, chest pain, palpitations, orthopnea, mear or syncope episode. She was coincidentally found to have elevated troponin and CK -MB on blood work. PMH Cholelithiasis 2011 HTN Hyperlipidemia Negative MIBI stress test [address] Nov 2011 [place] - Current Medication List Current Medications: Active Medications Amlodipine Besylate (Norvasc -) 5 mg PO DAILY [facility] Last Admin: 08/01/17 10:20 Dose: 5 mg Aspirin (Asa -) 81 mg PO DAILY [facility] Last Admin: 08/01/17 10:20 Dose: 81 mg Heparin Sodium (Porcine) (Heparin -) 5,000 unit SQ TID [facility] Last Admin: 08/02/17 07:12 Dose: 5,000 unit Ibuprofen (Motrin -) 400 mg PO Q6H PRN PRN Reason: PAIN LEVEL 6-10 Last Admin: 08/02/17 08:31 Dose: 400 mg Pantoprazole Sodium (Protonix -) 20 mg PO DAILY [facility] Last Admin: 08/01/17 10:20 Dose: 20 mg Rosuvastatin Calcium (Crestor -) 5 mg PO HS [facility] Last Admin: 08/01/17 22:47 Dose: 5 mg Tiotropium [place] (Spiriva -) 1 puff IH DAILY [facility] Last Admin: 08/01/17 10:24 Dose: Not Given Tolterodine Tartrate (Detrol La -) 4 mg PO DAILY [facility] Last Admin: 08/01/17 10:20 Dose: 4 mg Valsartan (Diovan -) 80 mg PO DAILY [facility] Last Admin: 08/01/17 10:20 Dose: 80 mg - Objective Vital Signs: Vital Signs Temperature 98.5 F 08/02/17 07:35 Pulse Rate 84 08/02/17 07:35 Respiratory Rate 16 08/02/17 07:57 Blood Pressure 110/56 08/02/17 07:35 O2 Sat by Pulse Oximetry (%) 98 08/02/17 07:57 Eyes: Yes: WNL, Conjunctiva Clear, EOM Intact HENT: Yes: WNL, Atraumatic, Normocephalic Neck: Yes: WNL, Supple, Trachea Midline Cardiovascular: Yes: WNL, Regular Rate and Rhythm Respiratory: Yes: WNL, Regular, CTA Bilaterally Gastrointestinal: Yes: WNL, Normal Bowel Sounds Genitourinary: Yes: WNL Musculoskeletal: Yes: WNL Extremities: Yes: WNL Edema: No Integumentary: Yes: WNL Neurological: Yes: WNL, Alert, Oriented ...Motor Strength: WNL Psychiatric: Yes: WNL Labs: CBC, BMP 08/01/17 06:20 08/01/17 06:20 Problem List - Problems (1) Antiplatelet or antithrombotic long-term use Code(s): Z79.02 - ALF (CURRENT) USE OF ANTITHROMBOTICS/ANTIPLATELETS (2) Demand ischemia Code(s): I24.8 - OTHER FORMS OF ACUTE ISCHEMIC HEART DISEASE (3) Hyperlipidemia Code(s): E78.5 - HYPERLIPIDEMIA, UNSPECIFIED Qualifiers: Hyperlipidemia type: pure hypercholesterolemia Qualified Code(s): E78.00 - Pure hypercholesterolemia, unspecified; E78.0 - Pure hypercholesterolemia (4) Hypertensive cardiovascular disease Code(s): I11.9 - HYPERTENSIVE HEART DISEASE WITHOUT HEART FAILURE Qualifiers: Heart failure presence: without heart failure Qualified Code(s): I11.9 - Hypertensive heart disease without heart failure (5) NSTEMI (non-ST elevated myocardial infarction) Code(s): I21.4 - NON-ST ELEVATION (NSTEMI) MYOCARDIAL INFARCTION (6) Back pain Code(s): M54.9 - DORSALGIA, UNSPECIFIED Qualifiers: Back pain location: low back pain Chronicity: acute (7) DJD (degenerative joint disease) Code(s): M19.90 - UNSPECIFIED OSTEOARTHRITIS, UNSPECIFIED SITE (8) Insect bite Code(s): W57.XXXA - BIT/STUNG BY NONVENOM INSECT & OTH NONVENOM ARTHROPODS, INIT Qualifiers: Encounter type: initial encounter Qualified Code(s): W57.XXXA - Bitten or stung by nonvenomous insect and other nonvenomous arthropods, initial encounter (9) Knee pain Code(s): M25.569 - PAIN IN UNSPECIFIED KNEE (10) Skin irritation due to topical agent Code(s): R23.8 - OTHER SKIN CHANGES; T49.95XA - ADVERSE EFFECT OF UNSPECIFIED TOPICAL AGENT, INIT ENCNTR (11) Ulcer (traumatic) of oral mucosa Code(s): K12.1 - OTHER FORMS OF STOMATITIS Assessment/Plan s/p fall - mechanical no syncope positive tni's hypokalemia HTN Hyperlipidemia Negative MIBI stress test 2013 Negative Persantine MIBI Nov 2011 [place] Plan asa bp control dvt plx telemetry monitoring risk stratification with MIBI ?outpatient depending on echo and patient course
[2017-08-02] MEDS: TIOTROPIUM BROMIDE 18 MCG CAPSULES IH SCH (14:13)
[2017-08-02] MEDS: POLYETHYLENE GLYCOL 3350 119 GM BTL PO SCH (16:25)
--- NOTE | 2017-08-02 16:34 | PN ---
Physical Exam: SUBJECTIVE: Patient seen and examined No acute events overnight. Patient continues to have low back pain. Desaturating on room air. OBJECTIVE: Vital Signs Period Temp Pulse Resp BP Sys/Seth Pulse Ox Last 24 Hr 98.3 F-99.2 F 83-104 16-18 108-155/53-95 92-99 GENERAL: Awake, alert, and fully oriented, in no acute distress. HEAD: Normal with no signs of trauma. EYES: Pupils equal, round and reactive to light, Extraocular movements intact, sclera anicteric, conjunctiva clear. No lid lag. EARS, NOSE, THROAT: Oropharynx clear without exudates. Dry mucous membranes. NECK: Normal range of motion, supple without lymphadenopathy, JVD, or masses. LUNGS: Breath sounds equal, mild crackles at bases. No wheezes. No accessory muscle use. HEART: Regular rhythm, regular rate, normal S1 and S2, +OZZIE 2/6 ABDOMEN: Soft, obese, mildly distended, nontender, normoactive bowel sounds, no guarding, no rebound, no masses. No hepatomegaly or splenomegaly. MUSCULOSKELETAL: +Lower back paraspinal tenderness bilaterally. no central spine tenderness UPPER EXTREMITIES: 2+ pulses, warm, well-perfused. No cyanosis. No clubbing. No peripheral edema. LOWER EXTREMITIES: 2+ pulses, warm, well-perfused. No calf tenderness. No peripheral edema. NEUROLOGICAL: Cranial nerves II-XII intact. Normal speech. strenght unable to be assessed 2/2 to pain, sensation intact b/l PSYCHIATRIC: Cooperative. Good eye contact. Appropriate mood and affect. SKIN: Warm, dry, normal turgor, no rashes or lesions noted, normal capillary refill. Laboratory Results - last 24 hr 08/01/17 17:08 Urine Color Yellow Urine Appearance Clear Urine pH 6.0 Ur Specific [place] 1.023 Urine Protein Negative Urine Glucose (UA) Negative Urine Ketones Trace H Urine Blood Negative Urine Nitrite Negative Urine Bilirubin Negative Urine Urobilinogen Negative Ur Leukocyte Esterase 1+ H Urine WBC (Auto) 8 Urine RBC (Auto) 1 Ur Epithelial Cells Rare Urine Bacteria Rare Active Medications Generic Name Dose Route Start Last Admin Trade Name Freq PRN Reason Stop Dose Admin Albuterol/Ipratropium 1 amp 08/02/17 15:19 Duoneb - NEB Q4H PRN SHORTNESS OF BREATH Amlodipine Besylate 5 mg 08/01/17 10:00 08/02/17 10:54 Norvasc - PO 5 mg DAILY GIOVANNA Administration Aspirin 81 mg 08/01/17 10:00 08/02/17 10:14 Asa - PO 81 mg DAILY GIOVANNA Administration Heparin Sodium (Porcine) 5,000 unit 08/01/17 06:00 08/02/17 14:13 Heparin - SQ 5,000 unit TID GIOVANNA Administration Ibuprofen 400 mg 08/01/17 01:30 08/02/17 08:31 Motrin - PO 400 mg Q6H PRN Administration PAIN LEVEL 6-10 Pantoprazole Sodium 20 mg 08/01/17 10:00 08/02/17 10:54 Protonix - PO 20 mg DAILY GIOVANNA Administration Polyethylene Glycol 17 gm 08/02/17 15:45 08/02/17 16:25 Miralax (For Daily Use) - PO 17 gm DAILY GIOVANNA Administration Rosuvastatin Calcium 5 mg 08/01/17 22:00 08/01/17 22:47 Crestor - PO 5 mg HS GIOVANNA Administration Tiotropium [place] 1 puff 08/01/17 10:00 08/02/17 14:13 Spiriva - IH 1 puff DAILY GIOVANNA Administration Tolterodine Tartrate 4 mg 08/01/17 10:00 08/02/17 10:54 Detrol La - PO 4 mg DAILY GIOVANNA Administration Valsartan 80 mg 08/01/17 10:00 08/02/17 10:54 Diovan - PO 80 mg DAILY GIOVANNA Administration ASSESSMENT/PLAN: 86 year old F with pmh of HTN, HLD, arthritis, and GERD presented s/p mechanical fall found to have elevated troponins #mechanical fall, lumbar pain -Pain control -CT pelvis negative -Abd xray- no acute fx -Head ct negative #COPD -Duonebs qidr prn -Incentive spirometer -Spiriva -CXR reviewed -Ventimask, wean as tolerated #elevated creatine kinase -Continue to monitor #elevated troponins -Cardiology consult -telemetry monitoring -Asa given in er -No heparin drip per Dr. Salgado -Troponins improving -echocardiogram pending #htn -Continue home meds -Will hold HCTZ given hypokalemia #hld -Continue crestor #overactive bladder -Continue tolterodine #fen/gi -no ivf -wnl -sodium/cholesterol diet #ppx -Heparin 5000 sq tid Visit type - Emergency Visit Emergency Visit: Yes ED Registration Date: 07/31/17 Care time: The patient presented to the Emergency Department on the above date and was hospitalized for further evaluation of their emergent condition. - New Patient This patient is new to me today: No - Critical Care Critical Care patient: No
--- NOTE | 2017-08-02 17:56 | PN ---
Teaching Attending Note Name of Resident: Carlitos Cortés ATTENDING PHYSICIAN STATEMENT I saw and evaluated the patient. I reviewed the resident's note and discussed the case with the resident. I agree with the resident's findings and plan as documented. SUBJECTIVE: Patient complains of back pain. She had bowel movement and denies having abdominal pain. OBJECTIVE: Vital Signs Period Temp Pulse Resp BP Sys/Seth Pulse Ox Last 24 Hr 98.3 F-99.2 F 83-104 16-24 108-155/53-95 92-99 HEART: S1S2, RRR LUNGS: Clear ABDOMEN: Soft, distended, non-tender, normal BS EXTREMITIES: No edema Current Medications Generic Name Dose Route Start Last Admin Trade Name Freq PRN Reason Stop Dose Admin Albuterol/Ipratropium 1 amp 08/02/17 15:19 Duoneb - NEB Q4H PRN SHORTNESS OF BREATH Amlodipine Besylate 5 mg 08/01/17 10:00 08/02/17 10:54 Norvasc - PO 5 mg DAILY GIOVANNA Administration Aspirin 81 mg 08/01/17 10:00 08/02/17 10:14 Asa - PO 81 mg DAILY GIOVANNA Administration Heparin Sodium (Porcine) 5,000 unit 08/01/17 06:00 08/02/17 14:13 Heparin - SQ 5,000 unit TID GIOVANNA Administration Ibuprofen 400 mg 08/01/17 01:30 08/02/17 08:31 Motrin - PO 400 mg Q6H PRN Administration PAIN LEVEL 6-10 Pantoprazole Sodium 20 mg 08/01/17 10:00 08/02/17 10:54 Protonix - PO 20 mg DAILY GIOVANNA Administration Polyethylene Glycol 17 gm 08/02/17 15:45 08/02/17 16:25 Miralax (For Daily Use) - PO 17 gm DAILY GIOVANNA Administration Rosuvastatin Calcium 5 mg 08/01/17 22:00 08/01/17 22:47 Crestor - PO 5 mg HS GIOVANNA Administration Tiotropium [place] 1 puff 08/01/17 10:00 08/02/17 14:13 Spiriva - IH 1 puff DAILY GIOVANNA Administration Tolterodine Tartrate 4 mg 08/01/17 10:00 08/02/17 10:54 Detrol La - PO 4 mg DAILY GIOVANNA Administration Valsartan 80 mg 08/01/17 10:00 08/02/17 10:54 Diovan - PO 80 mg DAILY GIOVANNA Administration ASSESSMENT AND PLAN:
[2017-08-02] MEDS: ROSUVASTATIN CA 5 MG TABLET (FP) PO SCH (23:14)
[2017-08-03] MEDS: HEPARIN NA (PORCINE) 5,000 UNITS/ML 1ML VIAL SQ SCH (06:55)
[2017-08-03 08:08] LABS: ANION GAP 7 (8-16); BLOOD UREA NITROGEN 26 mg/dL (7-18); CALCIUM 8.3 mg/dL (8.5-10.1); CHLORIDE 103 mmol/L (98-107); CO2 32 mmol/L (21-32); CREATININE 0.7 mg/dL (0.55-1.02); GLUCOSE,RANDOM 125 mg/dL (74-106); POTASSIUM 3.8 mmol/L (3.5-5.1); SODIUM 142 mmol/L (136-145)
[2017-08-03 08:17] LABS: BASO % 0.5 % (0-2.0); EOS % 3.3 % (0-4.5); HEMATOCRIT 36.8 % (32.4-45.2); HEMOGLOBIN 12.3 GM/dL (10.7-15.3); LYMPH % 25.3 % (8-40); MCH 29.2 pg (25.7-33.7); MCHC 33.3 g/dl (32.0-36.0); MEAN CELL VOLUME 87.5 fl (80-96); MEAN PLT VOLUME 9.1 fl (7.5-11.1); MONO % 9.4 % (3.8-10.2); NEUT % 61.5 % (42.8-82.8); PLATELET COUNT 205 K/MM3 (134-434); RBC 4.21 M/mm3 (3.60-5.2); RDW 14.6 % (11.6-15.6); WHITE BLOOD COUNT 6.9 K/mm3 (4.0-10.0)
[2017-08-03] MEDS: ALBUTEROL SO4 2.5/IPRATROPIUM 0.5 INH SOL 3 ML VIAL.NEB. NEB PRN (08:36)
[2017-08-03] MEDS ORDERED: PT OWN MED DRAWER 7, Y5N ONE ×3 (11:07→11:17)
[2017-08-03] MEDS: ASPIRIN 81 MG CHEWABLE TABLETS PO SCH (11:10)
[2017-08-03] MEDS: TOLTERODINE TARTRATE LA 4 MG CAP.SR.24H (FP) PO SCH (11:11)
[2017-08-03] MEDS: PANTOPRAZOLE 20 MG TABLET (FP) PO SCH (11:11)
[2017-08-03] MEDS: VALSARTAN 80 MG TABLET (UD) PO SCH (11:11)
[2017-08-03] MEDS: amLODIPine BESYLATE 5 MG TABLET (FP) PO SCH (11:11)
[2017-08-03] MEDS: TIOTROPIUM BROMIDE 18 MCG CAPSULES IH SCH (11:12)
[2017-08-03 11:38] LABS: ARTERIAL BLD GAS O2 SATURATION 94.5 % (90-98.9); ARTERIAL BLOOD GAS BASE EXCESS 4.5 meq/l (-2-2); ARTERIAL BLOOD GAS PCO2 42.9 mmHg (35-45); ARTERIAL BLOOD GAS PO2 67.7 mmHg (68-100); ARTERIAL BLOOD GAS pH 7.44 (7.35-7.45)
--- NOTE | 2017-08-03 11:38 | PN ---
Physical Exam: SUBJECTIVE: Patient seen and examined Overnight, patient continued to be hypoxic on venti mask. Still complains of low back pain. OBJECTIVE: Vital Signs Period Temp Pulse Resp BP Sys/Seth Pulse Ox Last 24 Hr 97.7 F-99.2 F 84-99 20-24 114-130/51-57 94-95 GENERAL: Awake, alert, and fully oriented, in mild respiratory distress. HEAD: Normal with no signs of trauma. EYES: Pupils equal, round and reactive to light, Extraocular movements intact, sclera anicteric, conjunctiva clear. No lid lag. EARS, NOSE, THROAT: Oropharynx clear without exudates. Dry mucous membranes. NECK: Normal range of motion, supple without lymphadenopathy, JVD, or masses. LUNGS: Breath sounds equal, mild crackles at bases. No wheezes. No accessory muscle use. HEART: Regular rhythm, regular rate, normal S1 and S2, +OZZIE 2/6 ABDOMEN: Soft, obese, mildly distended, nontender, normoactive bowel sounds, no guarding, no rebound, no masses. No hepatomegaly or splenomegaly. MUSCULOSKELETAL: +Lower back paraspinal tenderness bilaterally. no central spine tenderness UPPER EXTREMITIES: 2+ pulses, warm, well-perfused. No cyanosis. No clubbing. No peripheral edema. LOWER EXTREMITIES: 2+ pulses, warm, well-perfused. No calf tenderness. No peripheral edema. NEUROLOGICAL: Cranial nerves II-XII intact. Normal speech. strenght unable to be assessed 2/2 to pain, sensation intact b/l PSYCHIATRIC: Cooperative. Good eye contact. Appropriate mood and affect. SKIN: Warm, dry, normal turgor, no rashes or lesions noted, normal capillary refill. Laboratory Results - last 24 hr 08/03/17 08/03/17 07:00 07:00 WBC 6.9 RBC 4.21 Hgb 12.3 Hct 36.8 MCV 87.5 MCH 29.2 MCHC 33.3 RDW 14.6 Plt Count 205 D MPV 9.1 Neutrophils % 61.5 Lymphocytes % 25.3 Monocytes % 9.4 Eosinophils % 3.3 D Basophils % 0.5 Sodium 142 Potassium 3.8 Chloride 103 Carbon Dioxide 32 Anion Gap 7 L BUN 26 H Creatinine 0.7 Random Glucose 125 H Calcium 8.3 L Creatine Kinase 1480 H Creatine Kinase Index 0.6 CK-MB (CK-2) 10.265 H Active Medications Generic Name Dose Route Start Last Admin Trade Name Freq PRN Reason Stop Dose Admin Albuterol/Ipratropium 1 amp 08/02/17 15:19 08/03/17 08:36 Duoneb - NEB 1 amp Q4H PRN Administration SHORTNESS OF BREATH Amlodipine Besylate 5 mg 08/01/17 10:00 08/03/17 11:11 Norvasc - PO 5 mg DAILY GIOVANNA Administration Aspirin 81 mg 08/01/17 10:00 08/03/17 11:10 Asa - PO 81 mg DAILY GIOVANNA Administration Heparin Sodium (Porcine) 5,000 unit 08/01/17 06:00 08/03/17 06:55 Heparin - SQ 5,000 unit TID GIOVANNA Administration Ibuprofen 400 mg 08/01/17 01:30 08/02/17 20:33 Motrin - PO 400 mg Q6H PRN Administration PAIN LEVEL 6-10 Pantoprazole Sodium 20 mg 08/01/17 10:00 08/03/17 11:11 Protonix - PO 20 mg DAILY GIOVANNA Administration Polyethylene Glycol 17 gm 08/02/17 15:45 08/02/17 16:25 Miralax (For Daily Use) - PO 17 gm DAILY GIOVANNA Administration Rosuvastatin Calcium 5 mg 08/01/17 22:00 08/02/17 23:14 Crestor - PO 5 mg HS GIOVANNA Administration Tiotropium [place] 1 puff 08/01/17 10:00 08/03/17 11:12 Spiriva - IH 1 puff DAILY GIOVANNA Administration Tolterodine Tartrate 4 mg 08/01/17 10:00 08/03/17 11:11 Detrol La - PO 4 mg DAILY GIOVANNA Administration Valsartan 80 mg 08/01/17 10:00 08/03/17 11:11 Diovan - PO 80 mg DAILY GIOVANNA Administration ASSESSMENT/PLAN: 86 year old F with pmh of HTN, HLD, arthritis, and GERD presented s/p mechanical fall found to have elevated troponins #mechanical fall, lumbar pain -Pain control -CT pelvis negative -Abd xray- no acute fx -Head ct negative #Pulmonary embolism -ABG unremarkable -Chest CTA- extensive pulmonary embolism -Pulmonary Consult, Dr. Lerma -IR consult, Dr. Murillo -Ventimask, wean as tolerated -Tx to ICU #elevated creatine kinase, increasing -Continue to monitor -may consider ivf if echocardiogram allows #elevated troponins -Cardiology consult -telemetry monitoring -Asa given in er -No heparin drip per Dr. Salgado -Troponins improving -echocardiogram pending #htn -Continue home meds -Will hold HCTZ given hypokalemia #hld -Continue crestor #overactive bladder -Continue tolterodine #fen/gi -no ivf -wnl -sodium/cholesterol diet #ppx -Heparin 5000 sq tid Visit type - Emergency Visit Emergency Visit: Yes ED Registration Date: 07/31/17 Care time: The patient presented to the Emergency Department on the above date and was hospitalized for further evaluation of their emergent condition. - New Patient This patient is new to me today: No - Critical Care Critical Care patient: No
[2017-08-03 11:40] LABS: ALLENS TEST POSITIVE
[2017-08-03] MEDS ORDERED: HEPARIN NA (PORCINE) 5,000 UNITS/ML 1ML VIAL IVPUSH PRN ×2 (12:57)
[2017-08-03] MEDS ORDERED: HEPARIN - 25,000 UNIT in SODIUM CHLORIDE 495 ML IV SCH (13:00)
[2017-08-03] MEDS ORDERED: ALTEPLASE 50MG 25 MG in SODIUM CHLORIDE 250 ML IVPB ONE ×2 (13:40→14:40)
[2017-08-03] MEDS: POLYETHYLENE GLYCOL 3350 119 GM BTL PO SCH (14:32)
--- NOTE | 2017-08-03 14:41 | PN ---
Progress Note, Physician Chief Complaint: Pt alert & oriented; conversant, but in respiratory distress. Son is at bedside. History of Present Illness: The patient is an 86 year old female, with a significant past medical history of hypertension, hyperlipidemia, arthritis, and GERD, who presents to the emergency department via EMS 3 hours s/p mechanical fall with, back pain. As per patient, she slipped and fell backwards in water in her backyard. She reports pressed her medical alert button, however, did not receive a response. She reports rolling over on her knees and crawling into the house where her son found her after work 2 hours later. She reports difficulty ambulating and that she cannot move her back. She does not recall if she had any loss of consciousness. Secondary to her symptoms, the patient reports chills. She denies any head or neck pain. She denies recent fevers or dizziness. She denies recent nausea, vomit, diarrhea or constipation. She denies recent dysuria, frequency, urgency or hematuria. She denies recent chest pain or shortness of breath. Allergies: Penicillin Past surgical history: None reported. Social history: Nonsmoker. Denies EtOH use and recreational drug use. - Current Medication List Current Medications: Active Medications Albuterol/Ipratropium (Duoneb -) 1 amp NEB Q4H PRN PRN Reason: SHORTNESS OF BREATH Last Admin: 08/03/17 08:36 Dose: 1 amp Amlodipine Besylate (Norvasc -) 5 mg PO DAILY [facility] Last Admin: 08/03/17 11:11 Dose: 5 mg Aspirin (Asa -) 81 mg PO DAILY [facility] Last Admin: 08/03/17 11:10 Dose: 81 mg Heparin Sodium (Porcine) (Heparin -) 1,000 unit IVPUSH PRN PRN PRN Reason: Heparin Heparin Sodium (Porcine) (Heparin -) 5,000 unit IVPUSH PRN PRN PRN Reason: Heparin Heparin Sodium (Porcine) 25, (000 unit/ Sodium Chloride) 500 mls @ 32.4 mls/hr IV TITR GIOVANNA; 1,620 UNIT/HR PRN Reason: Protocol Ibuprofen (Motrin -) 400 mg PO Q6H PRN PRN Reason: PAIN LEVEL 6-10 Last Admin: 08/02/17 20:33 Dose: 400 mg Pantoprazole Sodium (Protonix -) 20 mg PO DAILY [facility] Last Admin: 08/03/17 11:11 Dose: 20 mg Polyethylene Glycol (Miralax (For Daily Use) -) 17 gm PO DAILY [facility] Last Admin: 08/03/17 14:32 Dose: Not Given Rosuvastatin Calcium (Crestor -) 5 mg PO HS [facility] Last Admin: 08/02/17 23:14 Dose: 5 mg Tiotropium [place] (Spiriva -) 1 puff IH DAILY [facility] Last Admin: 08/03/17 11:12 Dose: 1 puff Tolterodine Tartrate (Detrol La -) 4 mg PO DAILY [facility] Last Admin: 08/03/17 11:11 Dose: 4 mg Valsartan (Diovan -) 80 mg PO DAILY [facility] Last Admin: 08/03/17 11:11 Dose: 80 mg - Objective Vital Signs: Vital Signs Temperature 97.7 F 08/03/17 06:00 Pulse Rate 84 08/03/17 06:00 Respiratory Rate 20 08/03/17 06:00 Blood Pressure 114/57 08/03/17 06:00 O2 Sat by Pulse Oximetry (%) 94 L 08/02/17 21:00 Constitutional: Yes: Anxious, Moderate Distress Eyes: Yes: WNL HENT: Yes: WNL Neck: Yes: WNL Cardiovascular: Yes: S1, S2 Respiratory: Yes: Diminished, Tachypnea Gastrointestinal: Yes: Soft ...Rectal Exam: Yes: Deferred Genitourinary: No: Anuria Breast(s): Yes: WNL Musculoskeletal: Yes: Muscle Weakness Extremities: Yes: Cool Edema: No Peripheral Pulses WNL: Yes Integumentary: Yes: WNL Neurological: Yes: Alert, Oriented Labs: CBC, BMP 08/03/17 07:00 08/03/17 07:00 - ....Imaging Chest X-ray: Image Reviewed (pruning of bronchi) Problem List - Problems (1) Pulmonary emboli Assessment/Plan: extensive bilateral pulmonary emboli by CTA. For thrombectomy and tPA. F/u ECHO for LVEF, RVEF, chambers sizes and wall motion. Code(s): I26.99 - OTHER PULMONARY EMBOLISM WITHOUT ACUTE COR PULMONALE (2) Hyperlipidemia Assessment/Plan: on statin; f/u lipid profile; keep LDL cholesterol < 70 mg/dL. Code(s): E78.5 - HYPERLIPIDEMIA, UNSPECIFIED Qualifiers: Hyperlipidemia type: pure hypercholesterolemia Qualified Code(s): E78.00 - Pure hypercholesterolemia, unspecified; E78.0 - Pure hypercholesterolemia (3) Hypertensive cardiovascular disease Code(s): I11.9 - HYPERTENSIVE HEART DISEASE WITHOUT HEART FAILURE Qualifiers: Heart failure presence: without heart failure Qualified Code(s): I11.9 - Hypertensive heart disease without heart failure
[2017-08-03 14:49] LABS: INR 1.1 (0.82-1.09); PROTHROMBIN TIME (PATIENT) 12.4 SEC (9.98-11.88)
[2017-08-03] MEDS: HEPARIN - 25,000 UNIT in SODIUM CHLORIDE 495 ML IV SCH ×2 (14:57→22:47)
--- NOTE | 2017-08-03 15:10 | CONSULT ---
Consult Consult Specialty:: PULMONARY/CCM Referred by:: Dr. Cortés Reason for Consultation:: pulmonary embolism - History of Present Illness Chief Complaint: s/p fall History of Present Illness: 86yo female with h/o HTN, hyperlipidemia, arthritis, GERD who was admitted s/p mechanical fall. She fell on a wet surface with trauma to right arm and back. During admission noted to be short of breath without chest pain. Desaturated to 60s on room air. CTA chest done showing bilateral pulmonary emboli. She denies any chest pain or palpitations. No leg pain or swelling. No prior history of clots. No family history, she is a never smoker, not on any hormone replacement. Reportedly up to date on her colonoscopy, mammogram and pap smears. - History Source History Provided By: Patient, Family Member, Medical Record Limitations to Obtaining History: Clinical Condition - Past Medical History Cardio/Vascular: Yes: HTN, Hyperlipdemia - Alcohol/Substance Use Hx Alcohol Use: No - Smoking History Smoking history: Unknown if ever smoked Have you smoked in the past 12 months: No Aproximately how many cigarettes per day: 0 Home Medications - Allergies Allergies/Adverse Reactions: Allergies Allergy/AdvReac Type Severity Reaction Status Date / Time Penicillins Allergy Rash Verified 07/31/17 20:45 - Home Medications Home Medications: Ambulatory Orders Aspirin [ASA -] 81 mg PO DAILY 03/24/13 Multivitamin [Multivitamins] 1 each PO DAILY 03/24/13 Rosuvastatin Calcium [Crestor] 5 mg PO DAILY 03/24/13 Amlodipine Besylate [Norvasc -] 5 mg PO DAILY 12/28/13 Docusate Sodium [Colace] 200 mg PO HS 12/28/13 Omeprazole Magnesium [Prilosec (OTC)] 20 mg PO DAILY 12/28/13 Tiotropium [place] [Spiriva -] 1 inh PO DAILY 12/28/13 Valsartan/Hydrochlorothiazide [Diovan Hct 160-25 mg Tablet] 80 combo PO DAILY Diclofenac Sodium [Voltaren] 0 gm TP QID PRN 08/01/17 Diphenhydramine HCl [Benadryl -] 25 mg PO Q6H PRN 08/01/17 Ibuprofen 600 mg PO BID PRN 08/01/17 Neomycin/Polymyx/Hc Ophth Susp [Cortisporin Ophthalmic Suspension -] 1 - 4 drop AU TID 08/01/17 Review of Systems - Review of Systems Constitutional: reports: Weakness. denies: Chills, Fever Eyes: denies: Recent Change in Vision HENT: denies: Nasal Congestion, Throat Pain Neck: denies: Pain on Movement, Tenderness Cardiovascular: reports: Shortness of Breath. denies: Chest Pain, Edema, Palpitations Respiratory: denies: Cough, Hemoptysis, SOB on Exertion, Wheezing Gastrointestinal: denies: Abdominal Pain, Nausea, Vomiting Genitourinary: denies: Dysuria, Hematuria Neurological: denies: Dizziness, Headache Physical Exam Vital Signs: Vital Signs Temperature 97.7 F 08/03/17 06:00 Pulse Rate 84 08/03/17 06:00 Respiratory Rate 20 08/03/17 06:00 Blood Pressure 114/57 08/03/17 06:00 O2 Sat by Pulse Oximetry (%) 94 L 08/02/17 21:00 Constitutional: Yes: Mild Distress (mildly tachypneic at rest) Eyes: Yes: Conjunctiva Clear, EOM Intact HENT: Yes: Atraumatic, Normocephalic Neck: Yes: Supple, Trachea Midline Cardiovascular: Yes: Tachycardia Respiratory: Yes: Diminished (decreased breath sounds at the bases) Gastrointestinal: Yes: Normal Bowel Sounds, Soft. No: Tenderness Edema: No Neurological: Yes: Alert, Oriented Labs: CBC, BMP 08/03/17 07:00 08/03/17 07:00 Imaging - Results Chest X-ray: Report Reviewed, Image Reviewed Cat Scan: Report Reviewed, Image Reviewed (bilateral PE, R>L) Assessment/Plan Acute Hypoxic Respiratory Failure Submassive Pulmonary Emboli r/o Right Heart Strain r/o DVT +Troponins likely from above s/p Fall HTN Hyperlipidemia - for catheter directed thrombectomy/thrombolysis - anticoagulation - O2 to keep SpO2 >90% - echocardiogram - LE dopplers - monitor H/H on anticoagulation - will need at least 6 months of anticoagulation for 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
[2017-08-03 17:04] LABS: CHOLESTEROL 127 mg/dL (50-200); HDL CHOLESTEROL 49 mg/dL (40-60); LDL CHOLESTEROL (ONLY SJRH) 70 mg/dL (5-100); TRIGLYCERIDES 124 mg/dL (35-160)
--- NOTE | 2017-08-03 17:13 | PN ---
Teaching Attending Note Name of Resident: Carlitos Cortés ATTENDING PHYSICIAN STATEMENT I saw and evaluated the patient. I reviewed the resident's note and discussed the case with the resident. I agree with the resident's findings and plan as documented. SUBJECTIVE: OBJECTIVE: Vital Signs Period Temp Pulse Resp BP Sys/Seth Pulse Ox Last 24 Hr 97.3 F-99.2 F 80-99 20-24 114-130/53-58 91-94 Laboratory Results - last 24 hr 08/03/17 08/03/17 08/03/17 07:00 07:00 11:26 WBC 6.9 RBC 4.21 Hgb 12.3 Hct 36.8 MCV 87.5 MCH 29.2 MCHC 33.3 RDW 14.6 Plt Count 205 D MPV 9.1 Neutrophils % 61.5 Lymphocytes % 25.3 Monocytes % 9.4 Eosinophils % 3.3 D Basophils % 0.5 PT with INR INR PTT (Actin FS) D-Dimer Puncture Site Left radial ABG pH 7.44 ABG pCO2 at Pt Temp 42.9 ABG pO2 at Pt Temp 67.7 L ABG HCO3 28.7 H ABG O2 Sat (Measured) 94.5 ABG O2 Content 15.5 ABG Base Excess 4.5 H Chuy Test Positive O2 Delivery Device Venturi mask Oxygen Flow Rate 50% Mechanical Rate No PEEP 0.0 Sodium 142 Potassium 3.8 Chloride 103 Carbon Dioxide 32 Anion Gap 7 L BUN 26 H Creatinine 0.7 Random Glucose 125 H Calcium 8.3 L Creatine Kinase 1480 H Creatine Kinase Index 0.6 CK-MB (CK-2) 10.265 H 08/03/17 08/03/17 08/03/17 14:15 14:15 14:15 WBC RBC Hgb Hct MCV MCH MCHC RDW Plt Count MPV Neutrophils % Lymphocytes % Monocytes % Eosinophils % Basophils % PT with INR 12.40 H INR 1.10 PTT (Actin FS) 26.9 D-Dimer 7851 H Puncture Site ABG pH ABG pCO2 at Pt Temp ABG pO2 at Pt Temp ABG HCO3 ABG O2 Sat (Measured) ABG O2 Content ABG Base Excess Chuy Test O2 Delivery Device Oxygen Flow Rate Mechanical Rate PEEP Sodium Potassium Chloride Carbon Dioxide Anion Gap BUN Creatinine Random Glucose Calcium Creatine Kinase Creatine Kinase Index CK-MB (CK-2) Current Medications Generic Name Dose Route Start Last Admin Trade Name Freq PRN Reason Stop Dose Admin Albuterol/Ipratropium 1 amp 08/02/17 15:19 08/03/17 08:36 Duoneb - NEB 1 amp Q4H PRN Administration SHORTNESS OF BREATH Amlodipine Besylate 5 mg 08/01/17 10:00 08/03/17 11:11 Norvasc - PO 5 mg DAILY GIOVANNA Administration Aspirin 81 mg 08/01/17 10:00 08/03/17 11:10 Asa - PO 81 mg DAILY GIOVANNA Administration Heparin Sodium (Porcine) 1,000 unit 08/03/17 12:57 Heparin - IVPUSH PRN PRN Heparin Heparin Sodium (Porcine) 5,000 unit 08/03/17 12:57 Heparin - IVPUSH PRN PRN Heparin Heparin Sodium (Porcine) 25, 500 mls @ 32.4 mls/hr 08/03/17 13:35 08/03/17 14 :57 000 unit/ Sodium Chloride IV 1,620 unit/hr TITR GIOVANNA 32.4 mls/hr Protocol Administration 1,620 UNIT/HR Alteplase, Recombinant 25 mg/ 250 mls @ 5 mls/hr 08/03/17 13:40 Sodium Chloride IVPB 08/05/17 15:39 ONCE ONE Alteplase, Recombinant 25 mg/ 250 mls @ 5 mls/hr 08/03/17 14:40 Sodium Chloride IVPB 08/05/17 16:39 ONCE ONE Ibuprofen 400 mg 08/01/17 01:30 08/02/17 20:33 Motrin - PO 400 mg Q6H PRN Administration PAIN LEVEL 6-10 Pantoprazole Sodium 20 mg 08/01/17 10:00 08/03/17 11:11 Protonix - PO 20 mg DAILY GIOVANNA Administration Polyethylene Glycol 17 gm 08/02/17 15:45 08/03/17 14:32 Miralax (For Daily Use) - PO Not Given DAILY [facility] Rosuvastatin Calcium 5 mg 08/01/17 22:00 08/02/17 23:14 Crestor - PO 5 mg HS GIOVANNA Administration Tiotropium [place] 1 puff 08/01/17 10:00 08/03/17 11:12 Spiriva - IH 1 puff DAILY GIOVANNA Administration Tolterodine Tartrate 4 mg 08/01/17 10:00 08/03/17 11:11 Detrol La - PO 4 mg DAILY GIOVANNA Administration Valsartan 80 mg 08/01/17 10:00 08/03/17 11:11 Diovan - PO 80 mg DAILY GIOVANNA Administration ASSESSMENT AND PLAN:
[2017-08-03] MEDS ORDERED: DOPAMINE 400 MG/D5W - 400,000 MCG/250 ML INFUS.BAG IVPB ONE (21:49)
--- NOTE | 2017-08-03 22:03 | HOSP ---
Subjective - Review of Symptoms Events since last encounter: It's noted that patient's BP was becoming increasingly tachycardic, tachypenic and persistently hypotensive with MAP < 60. After discussing with Dr. Olvera and patient's family, decision was made to start dopamine instead of fluid resuscitation because R heart strain was not ruled out. Family members continue to refuse tPA. Risks and benefits were explained to them at bedside. Pulmonary: Yes: Dyspnea, Cough <Kvng Vidales - Last Filed: 08/03/17 21:52> - Review of Symptoms Subjective: Agree with resident Pt. on Dopamine at bedside with MAP of 65 HR 120-130s IF pressure drops Central line to be placed <Merlin Henry - Last Filed: 08/04/17 06:56> Physical Examination Vital Signs: Vital Signs Temperature 97.6 F 08/03/17 20:28 Pulse Rate 104 H 08/03/17 21:00 Respiratory Rate 29 H 08/03/17 21:00 Blood Pressure 94/55 08/03/17 21:00 O2 Sat by Pulse Oximetry (%) 91 L 08/03/17 21:00 Constitutional: Yes: Moderate Distress Cardiovascular: Yes: Tachycardia, S1, S2 Respiratory: Yes: Accessory Muscle Use, Cough, Rhonchi, SOB, Tachypnea Labs: CBC, BMP 08/03/17 07:00 08/03/17 07:00 <Kvng Vidales - Last Filed: 08/03/17 21:52> Vital Signs: Vital Signs Temperature 98 F 08/04/17 02:00 Pulse Rate 137 H 08/04/17 04:10 Respiratory Rate 29 H 08/04/17 04:10 Blood Pressure 97/63 08/04/17 04:10 O2 Sat by Pulse Oximetry (%) 91 L 08/03/17 21:00 Labs: CBC, BMP 08/04/17 04:00 08/04/17 04:00 <Merlin Henry - Last Filed: 08/04/17 06:56> Visit type - Emergency Visit Emergency Visit: No - New Patient This patient is new to me today: Yes Date on this admission: 08/03/17 - Critical Care Critical Care patient: Yes Total Critical Care Time (in minutes): 15 <Kvng Vidales - Last Filed: 08/03/17 21:52>
[2017-08-03] MEDS ORDERED: ONDANSETRON 4 MG/2 ML VIAL IVPUSH PRN (22:07)
[2017-08-03] MEDS: ROSUVASTATIN CA 5 MG TABLET (FP) PO SCH (22:43)
[2017-08-03] MEDS: CHLORHEXIDINE GLUCONATE 4% CLEANSER FOR DECOLONIZATION TP SCH (22:43)
[2017-08-03] MEDS: DOPAMINE 400 MG/D5W - 400,000 MCG/250 ML INFUS.BAG IVPB SCH ×2 (22:43→23:50)
[2017-08-03] MEDS: MUPIROCIN 2% TOPICAL OINTMENT FOR DECOLONIZATION NS SCH (22:44)
--- NOTE | 2017-08-04 01:50 | PN ---
Progress Note (short form) - Note Progress Note: Anesthesiology Note: Called to bedside by ICU nursing staff for evaluation. Patient is suffering from large pulmonary embolus with right heart strain. Patient was alert and breathing at 30 breaths per minute with saturation of 100% on pulseox. heart rate was in the 130s. The patient was deemed not a candidate for intubation because of her right heart strain, elevated heart rate and hypotension requiring dopamine. She was able to maintain her oxygenation and respiration without the need for mechanical ventilation and her mental status enabled her to protect her own airway. Her son was at bedside and I discussed the risks of intubation. It was agreed that should her condition deteriorate, intubation might become necessary but until then, she will be monitored.
[2017-08-04] MEDS: VASOPRESSIN 50 UNITS in SODIUM CHLORIDE 97.5 ML IVPB SCH ×2 (02:47→06:00)
[2017-08-04] MEDS: DOPAMINE 400 MG/D5W - 400,000 MCG/250 ML INFUS.BAG IVPB SCH ×3 (02:47→05:00)
[2017-08-04 04:28] LABS: HEMATOCRIT 37.6 % (32.4-45.2); HEMOGLOBIN 12.5 GM/dL (10.7-15.3); MCH 29.1 pg (25.7-33.7); MCHC 33.3 g/dl (32.0-36.0); MEAN CELL VOLUME 87.4 fl (80-96); MEAN PLT VOLUME 9.6 fl (7.5-11.1); PLATELET COUNT 225 K/MM3 (134-434); RBC 4.31 M/mm3 (3.60-5.2); RDW 14.5 % (11.6-15.6); WHITE BLOOD COUNT 7.9 K/mm3 (4.0-10.0)
[2017-08-04 04:53] LABS: MAGNESIUM 2.5 mg/dL (1.8-2.4); PHOSPHOROUS 5.3 mg/dL (2.5-4.9)
[2017-08-04 06:28] LABS: ALBUMIN 3.4 g/dl (3.4-5.0); ANION GAP 14 (8-16); BILIRUBIN,TOTAL 0.6 mg/dL (0.2-1.0); BLOOD UREA NITROGEN 33 mg/dL (7-18); CALCIUM 8.4 mg/dL (8.5-10.1); CHLORIDE 102 mmol/L (98-107); CO2 26 mmol/L (21-32); CREATININE 1.4 mg/dL (0.55-1.02); GLUCOSE,RANDOM 193 mg/dL (74-106); POTASSIUM 4.2 mmol/L (3.5-5.1); SGOT/AST 75 U/L (15-37); SGPT/ALT 42 U/L (12-78); SODIUM 142 mmol/L (136-145)
[2017-08-04] MEDS: HEPARIN - 25,000 UNIT in SODIUM CHLORIDE 495 ML IV SCH ×2 (06:30→14:50)
[2017-08-04 06:42] LABS: ALK PHOS 55 U/L (45-117)
[2017-08-04 07:09] LABS: ARTERIAL BLOOD GAS BASE EXCESS -1.8 meq/l (-2-2); ARTERIAL BLOOD GAS PCO2 47.5 mmHg (35-45); ARTERIAL BLOOD GAS PO2 87.3 mmHg (68-100); ARTERIAL BLOOD GAS pH 7.32 (7.35-7.45)
[2017-08-04 07:24] LABS: ALLENS TEST POSITIVE
[2017-08-04 08:34] LABS: BASO % 0.3 % (0-2.0); HEMATOCRIT 38.5 % (32.4-45.2); HEMOGLOBIN 12.6 GM/dL (10.7-15.3); LYMPH % 8.9 % (8-40); MCH 28.5 pg (25.7-33.7); MCHC 32.8 g/dl (32.0-36.0); MEAN CELL VOLUME 86.8 fl (80-96); MEAN PLT VOLUME 9.2 fl (7.5-11.1); NEUT % 80.8 % (42.8-82.8); PLATELET COUNT 219 K/MM3 (134-434); RBC 4.43 M/mm3 (3.60-5.2); RDW 14.6 % (11.6-15.6); WHITE BLOOD COUNT 10.9 K/mm3 (4.0-10.0)
[2017-08-04] MEDS ORDERED: ALTEPLASE 50MG 25 MG in SODIUM CHLORIDE 250 ML IVPB ONE ×2 (09:00→09:30)
[2017-08-04] MEDS ORDERED: ALTEPLASE 50MG 25 MG in SODIUM CHLORIDE 250 ML IVPB SCH (09:00)
[2017-08-04 09:05] LABS: ALBUMIN 3.3 g/dl (3.4-5.0); ALK PHOS 54 U/L (45-117); ANION GAP 13 (8-16); BILIRUBIN,TOTAL 0.7 mg/dL (0.2-1.0); BLOOD UREA NITROGEN 37 mg/dL (7-18); CALCIUM 8.4 mg/dL (8.5-10.1); CHLORIDE 104 mmol/L (98-107); CO2 25 mmol/L (21-32); CREATININE 1.5 mg/dL (0.55-1.02); GLUCOSE,RANDOM 220 mg/dL (74-106); POTASSIUM 4.4 mmol/L (3.5-5.1); SGOT/AST 77 U/L (15-37); SGPT/ALT 45 U/L (12-78); SODIUM 142 mmol/L (136-145); TOT PROT 7.1 g/dl (6.4-8.2)
[2017-08-04] MEDS ORDERED: PT OWN MED DRAWER 7, Y5N ONE (10:03)
[2017-08-04] MEDS: amLODIPine BESYLATE 5 MG TABLET (FP) PO SCH (11:53)
[2017-08-04] MEDS: TOLTERODINE TARTRATE LA 4 MG CAP.SR.24H (FP) PO SCH (11:54)
[2017-08-04] MEDS: VALSARTAN 80 MG TABLET (UD) PO SCH (11:54)
--- NOTE | 2017-08-04 12:13 | PN ---
<Carlitos Cortés - Last Filed: 08/04/17 16:47> Physical Exam: SUBJECTIVE: Patient seen and examined Overnight, patient became hypotensive. She was started on dopamine and vasopressin for pressure support. Family agreed to catheter directed tPA this morning and patient went for procedure in IR. OBJECTIVE: Vital Signs Period Temp Pulse Resp BP Sys/Seth Pulse Ox Last 24 Hr 97.5 F-98.6 F 96-137 20-45 74-121/21-104 91-100 GENERAL: Lethargic, +respiratory distress HEAD: Normal with no signs of trauma. EYES: Extraocular movements intact, sclera anicteric, conjunctiva clear. No lid lag. EARS, NOSE, THROAT: Dry mucous membranes. On Venti mask NECK: Normal range of motion, supple without lymphadenopathy, JVD, or masses. LUNGS: Breath sounds equal, scattered rhonchi. No wheezes. No accessory muscle use. HEART: Regular rhythm, regular rate, normal S1 and S2, +OZZIE 2/6 ABDOMEN: Soft, obese, mildly distended, nontender, normoactive bowel sounds, no guarding, no rebound, no masses. No hepatomegaly or splenomegaly. MUSCULOSKELETAL: +Lower back paraspinal tenderness bilaterally. no central spine tenderness UPPER EXTREMITIES: 2+ pulses, warm, well-perfused. No cyanosis. No clubbing. No peripheral edema. LOWER EXTREMITIES: 2+ pulses, warm, well-perfused. No calf tenderness. No peripheral edema. NEUROLOGICAL: Cranial nerves II-XII intact. Laboratory Results - last 24 hr 08/03/17 08/03/17 08/03/17 07:00 14:15 14:15 WBC RBC Hgb Hct MCV MCH MCHC RDW Plt Count MPV Neutrophils % Lymphocytes % Monocytes % Eosinophils % Basophils % PT with INR 12.40 H INR 1.10 PTT (Actin FS) 26.9 D-Dimer Puncture Site ABG pH ABG pCO2 at Pt Temp ABG pO2 at Pt Temp ABG HCO3 ABG O2 Sat (Measured) ABG O2 Content ABG Base Excess Chuy Test O2 Delivery Device Oxygen Flow Rate Sodium 142 Potassium 3.8 Chloride 103 Carbon Dioxide 32 Anion Gap 7 L BUN 26 H Creatinine 0.7 Creat Clearance w eGFR Random Glucose 125 H Lactic Acid Calcium 8.3 L Phosphorus Magnesium Total Bilirubin AST ALT Alkaline Phosphatase Creatine Kinase 1480 H Creatine Kinase Index 0.6 CK-MB (CK-2) 10.265 H Troponin I Total Protein Albumin Triglycerides 124 Cholesterol 127 Total LDL Cholesterol 70 HDL Cholesterol 49 TSH Free T4 08/03/17 08/03/17 08/03/17 14:15 17:40 20:30 WBC RBC Hgb Hct MCV MCH MCHC RDW Plt Count MPV Neutrophils % Lymphocytes % Monocytes % Eosinophils % Basophils % PT with INR INR PTT (Actin FS) 55.4 H D D-Dimer 7851 H Puncture Site ABG pH ABG pCO2 at Pt Temp ABG pO2 at Pt Temp ABG HCO3 ABG O2 Sat (Measured) ABG O2 Content ABG Base Excess Chuy Test O2 Delivery Device Oxygen Flow Rate Sodium Potassium Chloride Carbon Dioxide Anion Gap BUN Creatinine Creat Clearance w eGFR Random Glucose Lactic Acid Calcium Phosphorus Magnesium Total Bilirubin AST ALT Alkaline Phosphatase Creatine Kinase Creatine Kinase Index CK-MB (CK-2) Troponin I Total Protein Albumin Triglycerides Cholesterol Total LDL Cholesterol HDL Cholesterol TSH 0.26 L Free T4 1.25 08/04/17 08/04/17 08/04/17 00:01 04:00 04:00 WBC 7.9 RBC 4.31 Hgb 12.5 Hct 37.6 MCV 87.4 MCH 29.1 MCHC 33.3 RDW 14.5 Plt Count 225 MPV 9.6 Neutrophils % Lymphocytes % Monocytes % Eosinophils % Basophils % PT with INR INR PTT (Actin FS) 56.2 H D-Dimer Puncture Site ABG pH ABG pCO2 at Pt Temp ABG pO2 at Pt Temp ABG HCO3 ABG O2 Sat (Measured) ABG O2 Content ABG Base Excess Chuy Test O2 Delivery Device Oxygen Flow Rate Sodium Potassium Chloride Carbon Dioxide Anion Gap BUN Creatinine Creat Clearance w eGFR Random Glucose Lactic Acid Calcium Phosphorus Magnesium Total Bilirubin AST ALT Alkaline Phosphatase Creatine Kinase 1526 H Creatine Kinase Index 1.6 CK-MB (CK-2) 25.855 H Troponin I 4.93 H* Total Protein Albumin Triglycerides Cholesterol Total LDL Cholesterol HDL Cholesterol TSH Free T4 08/04/17 08/04/17 08/04/17 04:00 04:00 04:00 WBC RBC Hgb Hct MCV MCH MCHC RDW Plt Count MPV Neutrophils % Lymphocytes % Monocytes % Eosinophils % Basophils % PT with INR INR PTT (Actin FS) D-Dimer Puncture Site ABG pH ABG pCO2 at Pt Temp ABG pO2 at Pt Temp ABG HCO3 ABG O2 Sat (Measured) ABG O2 Content ABG Base Excess Chuy Test O2 Delivery Device Oxygen Flow Rate Sodium 142 Potassium 4.2 Chloride 102 Carbon Dioxide 26 Anion Gap 14 BUN 33 H Creatinine 1.4 H Creat Clearance w eGFR 35.82 Random Glucose 193 H Lactic Acid 1.6 Calcium 8.4 L Phosphorus 5.3 H Magnesium 2.5 H Total Bilirubin 0.6 D AST 75 H ALT 42 Alkaline Phosphatase 55 Creatine Kinase 1500 H Creatine Kinase Index 2.2 CK-MB (CK-2) 33.012 H Troponin I 4.27 H* Total Protein 7.0 Albumin 3.4 Triglycerides Cholesterol Total LDL Cholesterol HDL Cholesterol TSH Free T4 08/04/17 08/04/17 08/04/17 06:40 08:20 08:20 WBC 10.9 H D RBC 4.43 Hgb 12.6 Hct 38.5 MCV 86.8 MCH 28.5 MCHC 32.8 RDW 14.6 Plt Count 219 MPV 9.2 Neutrophils % 80.8 D Lymphocytes % 8.9 D Monocytes % 10.0 Eosinophils % 0.0 D Basophils % 0.3 PT with INR INR PTT (Actin FS) D-Dimer Puncture Site Right radial ABG pH 7.32 L ABG pCO2 at Pt Temp 47.5 H ABG pO2 at Pt Temp 87.3 D ABG HCO3 24.0 ABG O2 Sat (Measured) 96.0 ABG O2 Content 16.9 ABG Base Excess -1.8 Chuy Test Positive O2 Delivery Device Non rebreathable mas Oxygen Flow Rate 100% Sodium 142 Potassium 4.4 Chloride 104 Carbon Dioxide 25 Anion Gap 13 BUN 37 H Creatinine 1.5 H Creat Clearance w eGFR 33.08 Random Glucose 220 H Lactic Acid Calcium 8.4 L Phosphorus Magnesium Total Bilirubin 0.7 AST 77 H ALT 45 Alkaline Phosphatase 54 Creatine Kinase Creatine Kinase Index CK-MB (CK-2) Troponin I Total Protein 7.1 Albumin 3.3 L Triglycerides Cholesterol Total LDL Cholesterol HDL Cholesterol TSH Free T4 Active Medications Generic Name Dose Route Start Last Admin Trade Name Freq PRN Reason Stop Dose Admin Albuterol/Ipratropium 1 amp 08/02/17 15:19 08/03/17 08:36 Duoneb - NEB 1 amp Q4H PRN Administration SHORTNESS OF BREATH Amlodipine Besylate 5 mg 08/01/17 10:00 08/04/17 11:53 Norvasc - PO Not Given DAILY GIOVANNA Chlorhexidine Gluconate 1 applic 08/03/17 22:00 08/03/17 22:43 Hibiclens For Decolonization - TP 1 applic HS GIOVANNA Administration Heparin Sodium (Porcine) 1,000 unit 08/03/17 12:57 Heparin - IVPUSH PRN PRN Heparin Heparin Sodium (Porcine) 5,000 unit 08/03/17 12:57 Heparin - IVPUSH PRN PRN Heparin Heparin Sodium (Porcine) 25, 500 mls @ 32.4 mls/hr 08/03/17 13:35 08/04/17 06 :30 000 unit/ Sodium Chloride IV 1,800 unit/hr TITR GIOVANNA 36 mls/hr Protocol Administration 1,620 UNIT/HR Dopamine HCl/Dextrose 400,000 mcg in 250 mls @ 16.755 mls/hr 08/03/17 22:00 08/04/17 05:00 Dopamine 400 Mg/D5w - IVPB 12 mcg/kg/min TITR GIOVANNA 40.211 mls/hr Protocol Administration 5 MCG/KG/MIN Vasopressin 50 units/ Sodium 100 mls @ 4 mls/hr 08/04/17 02:30 08/04/17 06:00 Chloride IVPB 2.5 units/hr TITR GIOVANNA 5 mls/hr Protocol Administration 2 UNITS/HR Alteplase, Recombinant 25 mg/ 250 mls @ 5 mls/hr 08/04/17 09:30 Sodium Chloride IVPB 08/06/17 11:29 ONCE ONE Alteplase, Recombinant 25 mg/ 250 mls @ 5 mls/hr 08/04/17 09:00 Sodium Chloride IVPB 08/06/17 10:59 ONCE ONE Ceftriaxone Sodium 1 gm/ 100 mls @ 200 mls/hr 08/04/17 12:15 Dextrose IVPB DAILY REPLACED BY [facility] Mupirocin 1 applic 08/03/17 22:00 08/03/17 22:44 Bactroban Ointment (For Decolonization) - NS 08/08/17 21:59 1 applic BID GIOVANNA Administration Ondansetron HCl 4 mg 08/03/17 22:07 Zofran Injection IVPUSH Q4H PRN NAUSEA AND/OR VOMITING Pantoprazole Sodium 40 mg 08/04/17 12:15 Protonix Iv IVPUSH DAILY REPLACED BY [facility] Polyethylene Glycol 17 gm 08/02/17 15:45 04/10/18 14:32 Miralax (For Daily Use) - PO Not Given DAILY GIOVANNA Rosuvastatin Calcium 5 mg 08/01/17 22:00 08/03/17 22:43 Crestor - PO Not Given HS GIOVANNA Tiotropium [place] 1 puff 08/01/17 10:00 08/03/17 11:12 Spiriva - IH 1 puff DAILY GIOVANNA Administration Tolterodine Tartrate 4 mg 08/01/17 10:00 08/04/17 11:54 Detrol La - PO Not Given DAILY GIOVANNA Valsartan 80 mg 08/01/17 10:00 08/04/17 11:54 Diovan - PO Not Given DAILY GIOVANNA ASSESSMENT/PLAN: 86 year old F with pmh of HTN, HLD, arthritis, and GERD presented s/p mechanical fall found to have elevated troponins #Pulmonary embolism, s/p catheter directed tPA -Chest CTA- extensive pulmonary embolism -Pulmonary Consult, Dr. Lerma -IR consult, Dr. Murillo -Nonrebreather, wean as tolerated -ICU management -monitor H/H -Monitor for altered mental status, will get head CT if pt becomes altered -O2 sats >90% -MAP >65 -Taper pressors as tolerated -Patient will need to continue anticoagulation -troponins elevated #elevated creatine kinase -Continue to monitor #mechanical fall, lumbar pain -Pain control -CT pelvis negative -Abd xray- no acute fx -Head ct negative #htn -Continue home meds -Will hold HCTZ given hypokalemia #hld -Continue crestor #overactive bladder -Continue tolterodine #fen/gi -no ivf -wnl -NPO #ppx -Heparin 5000 sq tid Visit type - Emergency Visit Emergency Visit: Yes ED Registration Date: 07/31/17 Care time: The patient presented to the Emergency Department on the above date and was hospitalized for further evaluation of their emergent condition. - New Patient This patient is new to me today: No - Critical Care Critical Care patient: Yes Total Critical Care Time (in minutes): 90 Critical Care Statement: The care of this patient involved high complexity decision making to prevent further life threatening deterioration of the patient 's condition and/or to evaluate & treat vital organ system(s) failure or risk of failure. <Darion Lynn - Last Filed: 08/04/17 18:20> Physical Exam: Patient is s/p catheter directed tPA by IR. Prior to procedure patient's family was at bedside, the son consented for the procedure. Patient returned to ICU on Dopamine now titrating down, off Vasopressin drip now. will continue to monitor the patient in ICU. On TPA drip as per IR, also Vascular surgeon was consulted. On 100% NR. Vital Signs Temperature 98.1 F 08/04/17 17:00 Pulse Rate 95 H 08/04/17 17:00 Respiratory Rate 28 H 08/04/17 17:00 Blood Pressure 97/62 08/04/17 17:00 O2 Sat by Pulse Oximetry (%) 91 L 08/04/17 10:31 CBCD WBC 10.9 K/mm3 (4.0-10.0) H D 08/04/17 08:20 RBC 4.43 M/mm3 (3.60-5.2) 08/04/17 08:20 Hgb 12.6 GM/dL (10.7-15.3) 08/04/17 08:20 Hct 38.5 % (32.4-45.2) 08/04/17 08:20 MCV 86.8 fl (80-96) 08/04/17 08:20 MCHC 32.8 g/dl (32.0-36.0) 08/04/17 08:20 RDW 14.6 % (11.6-15.6) 08/04/17 08:20 Plt Count 219 K/MM3 (134-434) 08/04/17 08:20 MPV 9.2 fl (7.5-11.1) 08/04/17 08:20 CMP Sodium 142 mmol/L (136-145) 08/04/17 08:20 Potassium 4.4 mmol/L (3.5-5.1) 08/04/17 08:20 Chloride 104 mmol/L (98-107) 08/04/17 08:20 Carbon Dioxide 25 mmol/L (21-32) 08/04/17 08:20 Anion Gap 13 (8-16) 08/04/17 08:20 BUN 37 mg/dL (7-18) H 08/04/17 08:20 Creatinine 1.5 mg/dL (0.55-1.02) H 08/04/17 08:20 Creat Clearance w eGFR 33.08 (>60) 08/04/17 08:20 Random Glucose 220 mg/dL (74-106) H 08/04/17 08:20 Calcium 8.4 mg/dL (8.5-10.1) L 08/04/17 08:20 Total Bilirubin 0.7 mg/dL (0.2-1.0) 08/04/17 08:20 AST 77 U/L (15-37) H 08/04/17 08:20 ALT 45 U/L (12-78) 08/04/17 08:20 Alkaline Phosphatase 54 U/L (45-117) 08/04/17 08:20 Total Protein 7.1 g/dl (6.4-8.2) 08/04/17 08:20 Albumin 3.3 g/dl (3.4-5.0) L 08/04/17 08:20 CARDIAC ENZYMES Creatine Kinase 1500 IU/L (26-192) H 08/04/17 04:00 Troponin I 4.27 ng/ml (0.00-0.05) H* 08/04/17 04:00 Current Medications Generic Name Dose Route Start Last Admin Trade Name Freq PRN Reason Stop Dose Admin Albuterol/Ipratropium 1 amp 08/02/17 15:19 08/03/17 08:36 Duoneb - NEB 1 amp Q4H PRN Administration SHORTNESS OF BREATH Amlodipine Besylate 5 mg 08/01/17 10:00 08/04/17 11:53 Norvasc - PO Not Given DAILY GIOVANNA Chlorhexidine Gluconate 1 applic 08/03/17 22:00 08/03/17 22:43 Hibiclens For Decolonization - TP 1 applic HS GIOVANNA Administration Heparin Sodium (Porcine) 1,000 unit 08/03/17 12:57 Heparin - IVPUSH PRN PRN Heparin Heparin Sodium (Porcine) 5,000 unit 08/03/17 12:57 Heparin - IVPUSH PRN PRN Heparin Heparin Sodium (Porcine) 25, 500 mls @ 32.4 mls/hr 08/03/17 13:35 08/04/17 13 :31 000 unit/ Sodium Chloride IV 0 unit/hr TITR GIOVANNA 0 mls/hr Protocol Titration 1,620 UNIT/HR Dopamine HCl/Dextrose 400,000 mcg in 250 mls @ 16.755 mls/hr 08/03/17 22:00 08/04/17 16:30 Dopamine 400 Mg/D5w - IVPB 8 mcg/kg/min TITR GIOVANNA 26.807 mls/hr Protocol Titration 5 MCG/KG/MIN Vasopressin 50 units/ Sodium 100 mls @ 4 mls/hr 08/04/17 02:30 08/04/17 12:30 Chloride IVPB 0 units/hr TITR GIOVANNA 0 mls/hr Protocol Titration 2 UNITS/HR Alteplase, Recombinant 25 mg/ 250 mls @ 5 mls/hr 08/04/17 09:30 Sodium Chloride IVPB 08/06/17 11:29 ONCE ONE Alteplase, Recombinant 25 mg/ 250 mls @ 5 mls/hr 08/04/17 09:00 08/04/17 10: 40 Sodium Chloride IVPB 08/06/17 10:59 20 mls/hr ONCE ONE Administration Ceftriaxone Sodium 1 gm/ 50 mls @ 100 mls/hr 08/04/17 12:15 08/04/17 14:14 Dextrose IVPB 100 mls/hr DAILY GIOVANNA Administration Mupirocin 1 applic 08/03/17 22:00 08/04/17 12:44 Bactroban Ointment (For Decolonization) - NS 08/08/17 21:59 1 applic BID GIOVANNA Administration Ondansetron HCl 4 mg 08/03/17 22:07 Zofran Injection IVPUSH Q4H PRN NAUSEA AND/OR VOMITING Pantoprazole Sodium 40 mg 08/04/17 12:15 08/04/17 17:27 Protonix Iv IVPUSH Not Given DAILY REPLACED BY [facility] Polyethylene Glycol 17 gm 08/02/17 15:45 08/04/17 12:43 Miralax (For Daily Use) - PO Not Given DAILY REPLACED BY [facility] Rosuvastatin Calcium 5 mg 08/01/17 22:00 08/03/17 22:43 Crestor - PO Not Given [facility] Tiotropium [place] 1 puff 08/01/17 10:00 08/04/17 17:44 Spiriva - IH Not Given DAILY REPLACED BY [facility] Tolterodine Tartrate 4 mg 08/01/17 10:00 08/04/17 11:54 Detrol La - PO Not Given DAILY REPLACED BY [facility] Valsartan 80 mg 08/01/17 10:00 08/04/17 11:54 Diovan - PO Not Given DAILY REPLACED BY [facility] Home Medications Medication Instructions Recorded Aspirin [ASA -] 81 mg PO DAILY 03/24/13 Multivitamin [Multivitamins] 1 each PO DAILY 03/24/13 Rosuvastatin Calcium [Crestor] 5 mg PO DAILY 03/24/13 Amlodipine Besylate [Norvasc -] 5 mg PO DAILY 12/28/13 Docusate Sodium [Colace] 200 mg PO HS 12/28/13 Omeprazole Magnesium [Prilosec 20 mg PO DAILY 12/28/13 (OTC)] Tiotropium [place] [Spiriva -] 1 inh PO DAILY 12/28/13 Valsartan/Hydrochlorothiazide 80 combo PO DAILY 12/28/13 [Diovan Hct 160-25 mg Tablet] Diclofenac Sodium [Voltaren] 0 gm TP QID PRN 08/01/17 Diphenhydramine HCl [Benadryl -] 25 mg PO Q6H PRN 08/01/17 Ibuprofen 600 mg PO BID PRN 08/01/17 Neomycin/Polymyx/Hc Ophth Susp 1 - 4 drop AU TID 08/01/17 [Cortisporin Ophthalmic Suspension -] A/P: # Acute extensive PE on TPA drip continue as per IR radiologist. Off VAsopressin now, continue Dopamine taper. Discussed with family member x 2
[2017-08-04] MEDS: POLYETHYLENE GLYCOL 3350 119 GM BTL PO SCH (12:43)
[2017-08-04] MEDS: MUPIROCIN 2% TOPICAL OINTMENT FOR DECOLONIZATION NS SCH ×2 (12:44→21:39)
--- NOTE | 2017-08-04 12:50 | PN ---
Teaching Attending Note Name of Resident: Reta Romano ATTENDING PHYSICIAN STATEMENT I saw and evaluated the patient. I reviewed the resident's note and discussed the case with the resident. I agree with the resident's findings and plan as documented. SUBJECTIVE: Pt seen and examined in the ICU and in the interventional suite after rapid response called for brief ?syncopal episode post tPA initiation. Started on dopamine and vasopressin peripherally for hypotension, family finally agreed to catheter directed thrombolysis this AM. OBJECTIVE: Last Vital Signs Temp Pulse Resp BP Pulse Ox 98 F 103 H 36 H 110/61 91 L 08/04/17 06:00 08/04/17 12:30 08/04/17 12:06 08/04/17 12:30 08/04/17 10:31 Intake & Output 08/01/17 08/02/17 08/03/17 08/04/17 23:59 23:59 23:59 23:59 Intake Total 200 400 830 Balance 200 400 830 Weight 89.358 kg 88 kg Gen: lethargic but arousable Heart: tachycardic, regular Lung: scattered rhonchi Abd: soft, nontender Ext: no edema CBC, BMP 08/04/17 08:20 08/04/17 08:20 Active Medications Albuterol/Ipratropium (Duoneb -) 1 amp NEB Q4H PRN PRN Reason: SHORTNESS OF BREATH Last Admin: 08/03/17 08:36 Dose: 1 amp Amlodipine Besylate (Norvasc -) 5 mg PO DAILY GIOVANNA Last Admin: 08/04/17 11:53 Dose: Not Given Chlorhexidine Gluconate (Hibiclens For Decolonization -) 1 applic TP HS GIOVANNA Last Admin: 08/03/17 22:43 Dose: 1 applic Heparin Sodium (Porcine) (Heparin -) 1,000 unit IVPUSH PRN PRN PRN Reason: Heparin Heparin Sodium (Porcine) (Heparin -) 5,000 unit IVPUSH PRN PRN PRN Reason: Heparin Heparin Sodium (Porcine) 25, (000 unit/ Sodium Chloride) 500 mls @ 32.4 mls/hr IV TITR GIOVANNA; 1,620 UNIT/HR PRN Reason: Protocol Last Admin: 08/04/17 06:30 Dose: 1,800 unit/hr, 36 mls/hr Dopamine HCl/Dextrose (Dopamine 400 Mg/D5w -) 400,000 mcg in 250 mls @ 16.755 mls/hr IVPB TITR GIOVANNA; 5 MCG/KG/MIN PRN Reason: Protocol Last Admin: 08/04/17 05:00 Dose: 12 mcg/kg/min, 40.211 mls/hr Vasopressin 50 units/ Sodium (Chloride) 100 mls @ 4 mls/hr IVPB TITR GIOVANNA; 2 UNITS/HR PRN Reason: Protocol Last Titration: 08/04/17 12:30 Dose: 0 units/hr, 0 mls/hr Alteplase, Recombinant 25 mg/ (Sodium Chloride) 250 mls @ 5 mls/hr IVPB ONCE ONE Stop: 08/06/17 11:29 Alteplase, Recombinant 25 mg/ (Sodium Chloride) 250 mls @ 5 mls/hr IVPB ONCE ONE Stop: 08/06/17 10:59 Last Admin: 08/04/17 10:40 Dose: 20 mls/hr Ceftriaxone Sodium 1 gm/ (Dextrose) 50 mls @ 100 mls/hr IVPB DAILY [facility] Mupirocin (Bactroban Ointment (For Decolonization) -) 1 applic NS BID [facility] Stop: 08/08/17 21:59 Last Admin: 08/04/17 12:44 Dose: 1 applic Ondansetron HCl (Zofran Injection) 4 mg IVPUSH Q4H PRN PRN Reason: NAUSEA AND/OR VOMITING Pantoprazole Sodium (Protonix Iv) 40 mg IVPUSH DAILY [facility] Polyethylene Glycol (Miralax (For Daily Use) -) 17 gm PO DAILY [facility] Last Admin: 08/04/17 12:43 Dose: Not Given Rosuvastatin Calcium (Crestor -) 5 mg PO HS [facility] Last Admin: 08/03/17 22:43 Dose: Not Given Tiotropium [place] (Spiriva -) 1 puff IH DAILY [facility] Last Admin: 08/03/17 11:12 Dose: 1 puff Tolterodine Tartrate (Detrol La -) 4 mg PO DAILY [facility] Last Admin: 08/04/17 11:54 Dose: Not Given Valsartan (Diovan -) 80 mg PO DAILY [facility] Last Admin: 08/04/17 11:54 Dose: Not Given ASSESSMENT AND PLAN: Acute Hypoxic Respiratory Failure Massive Pulmonary Emboli Obstructive Shock Likely Right Heart Strain Acute Kidney Injury +Troponins likely from above s/p Fall HTN Hyperlipidemia r/o UTI - continue catheter directed thrombolysis - O2 to keep SpO2 >90% - monitor H/H - taper vasopressin off, continue dopamine gtt for now for inotropic support - antibiotics for possible UTI - inhaled bronchodilators - will need at least 6 months of 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
--- NOTE | 2017-08-04 13:12 | EKG ---
Test Reason : Blood Pressure : / mmHG Vent. Rate : 108 BPM Atrial Rate : 108 BPM P-R Int : 158 ms QRS Dur : 134 ms QT Int : 366 ms P-R-T Axes : 072 -63 010 degrees QTc Int : 490 ms SINUS TACHYCARDIA RIGHT BUNDLE BRANCH BLOCK LEFT ANTERIOR FASCICULAR BLOCK BIFASCICULAR BLOCK VOLTAGE CRITERIA FOR LEFT VENTRICULAR HYPERTROPHY ABNORMAL ECG WHEN COMPARED WITH ECG OF 31-JUL-2017 22:51, (RBBB AND LEFT ANTERIOR FASCICULAR BLOCK) IS NOW PRESENT MINIMAL CRITERIA FOR SEPTAL INFARCT ARE NO LONGER PRESENT Confirmed by MARINO HOYT, VIVIENNE ([id number]) on 08/04/2017 1:12:06 PM Referred By: Alejandra NIXON Confirmed By:VIVIENNE PICHARDO MD
--- NOTE | 2017-08-04 13:44 | PN ---
Progress Note, Physician History of Present Illness: 86 year old F with pmh of HTN, HLD, arthritis, and GERD presented after a mechanical fall without near or true syncope on 07/31 after she slipped on a wet surface and landed on her back. She was subsequently brought to hospital and complained of some mild back pain. She denied any shortness of breath, chest pain, palpitations, orthopnea, mear or syncope episode. She was coincidentally found to have elevated troponin and CK -MB on blood work. PMH Cholelithiasis 2011 HTN Hyperlipidemia Negative MIBI stress test [address] Nov 2011 [place] - Current Medication List Current Medications: Active Medications Albuterol/Ipratropium (Duoneb -) 1 amp NEB Q4H PRN PRN Reason: SHORTNESS OF BREATH Last Admin: 08/03/17 08:36 Dose: 1 amp Amlodipine Besylate (Norvasc -) 5 mg PO DAILY [facility] Last Admin: 08/04/17 11:53 Dose: Not Given Chlorhexidine Gluconate (Hibiclens For Decolonization -) 1 applic TP HS [facility] Last Admin: 08/03/17 22:43 Dose: 1 applic Heparin Sodium (Porcine) (Heparin -) 1,000 unit IVPUSH PRN PRN PRN Reason: Heparin Heparin Sodium (Porcine) (Heparin -) 5,000 unit IVPUSH PRN PRN PRN Reason: Heparin Heparin Sodium (Porcine) 25, (000 unit/ Sodium Chloride) 500 mls @ 32.4 mls/hr IV TITR [facility]; 1,620 UNIT/HR PRN Reason: Protocol Last Titration: 08/04/17 13:31 Dose: 0 unit/hr, 0 mls/hr Dopamine HCl/Dextrose (Dopamine 400 Mg/D5w -) 400,000 mcg in 250 mls @ 16.755 mls/hr IVPB TITR [facility]; 5 MCG/KG/MIN PRN Reason: Protocol Last Admin: 08/04/17 05:00 Dose: 12 mcg/kg/min, 40.211 mls/hr Vasopressin 50 units/ Sodium (Chloride) 100 mls @ 4 mls/hr IVPB TITR [facility]; 2 UNITS/HR PRN Reason: Protocol Last Titration: 08/04/17 12:30 Dose: 0 units/hr, 0 mls/hr Alteplase, Recombinant 25 mg/ (Sodium Chloride) 250 mls @ 5 mls/hr IVPB ONCE ONE Stop: 08/06/17 11:29 Alteplase, Recombinant 25 mg/ (Sodium Chloride) 250 mls @ 5 mls/hr IVPB ONCE ONE Stop: 08/06/17 10:59 Last Admin: 08/04/17 10:40 Dose: 20 mls/hr Ceftriaxone Sodium 1 gm/ (Dextrose) 50 mls @ 100 mls/hr IVPB DAILY [facility] Mupirocin (Bactroban Ointment (For Decolonization) -) 1 applic NS BID [facility] Stop: 08/08/17 21:59 Last Admin: 08/04/17 12:44 Dose: 1 applic Ondansetron HCl (Zofran Injection) 4 mg IVPUSH Q4H PRN PRN Reason: NAUSEA AND/OR VOMITING Pantoprazole Sodium (Protonix Iv) 40 mg IVPUSH DAILY [facility] Polyethylene Glycol (Miralax (For Daily Use) -) 17 gm PO DAILY [facility] Last Admin: 08/04/17 12:43 Dose: Not Given Rosuvastatin Calcium (Crestor -) 5 mg PO HS [facility] Last Admin: 08/03/17 22:43 Dose: Not Given Tiotropium [place] (Spiriva -) 1 puff IH DAILY [facility] Last Admin: 08/03/17 11:12 Dose: 1 puff Tolterodine Tartrate (Detrol La -) 4 mg PO DAILY [facility] Last Admin: 08/04/17 11:54 Dose: Not Given Valsartan (Diovan -) 80 mg PO DAILY [facility] Last Admin: 08/04/17 11:54 Dose: Not Given - Objective Vital Signs: Vital Signs Temperature 97.7 F 08/04/17 12:30 Pulse Rate 105 H 08/04/17 13:00 Respiratory Rate 29 H 08/04/17 13:00 Blood Pressure 105/65 08/04/17 13:00 O2 Sat by Pulse Oximetry (%) 91 L 08/04/17 10:31 Eyes: Yes: WNL, Conjunctiva Clear, EOM Intact HENT: Yes: WNL, Atraumatic, Normocephalic Neck: Yes: WNL, Supple, Trachea Midline Cardiovascular: Yes: WNL, Regular Rate and Rhythm Respiratory: Yes: WNL, Regular, CTA Bilaterally Gastrointestinal: Yes: WNL, Normal Bowel Sounds Genitourinary: Yes: WNL Musculoskeletal: Yes: WNL Extremities: Yes: WNL Edema: No Integumentary: Yes: WNL Neurological: Yes: WNL, Alert, Oriented ...Motor Strength: WNL Psychiatric: Yes: WNL Labs: CBC, BMP 08/04/17 08:20 08/04/17 08:20 INR, PTT INR 1.10 (0.82-1.09) 08/03/17 14:15 Problem List - Problems (1) Antiplatelet or antithrombotic long-term use Code(s): Z79.02 - POTATO SPOTTER (CURRENT) USE OF ANTITHROMBOTICS/ANTIPLATELETS (2) Demand ischemia Code(s): I24.8 - OTHER FORMS OF ACUTE ISCHEMIC HEART DISEASE (3) Hyperlipidemia Code(s): E78.5 - HYPERLIPIDEMIA, UNSPECIFIED Qualifiers: Hyperlipidemia type: pure hypercholesterolemia Qualified Code(s): E78.00 - Pure hypercholesterolemia, unspecified; E78.0 - Pure hypercholesterolemia (4) Hypertensive cardiovascular disease Code(s): I11.9 - HYPERTENSIVE HEART DISEASE WITHOUT HEART FAILURE Qualifiers: Heart failure presence: without heart failure Qualified Code(s): I11.9 - Hypertensive heart disease without heart failure (5) NSTEMI (non-ST elevated myocardial infarction) Code(s): I21.4 - NON-ST ELEVATION (NSTEMI) MYOCARDIAL INFARCTION (6) Back pain Code(s): M54.9 - DORSALGIA, UNSPECIFIED Qualifiers: Back pain location: low back pain Chronicity: acute (7) DJD (degenerative joint disease) Code(s): M19.90 - UNSPECIFIED OSTEOARTHRITIS, UNSPECIFIED SITE (8) Insect bite Code(s): W57.XXXA - BIT/STUNG BY NONVENOM INSECT & OTH NONVENOM ARTHROPODS, INIT Qualifiers: Encounter type: initial encounter Qualified Code(s): W57.XXXA - Bitten or stung by nonvenomous insect and other nonvenomous arthropods, initial encounter (9) Knee pain Code(s): M25.569 - PAIN IN UNSPECIFIED KNEE (10) Skin irritation due to topical agent Code(s): R23.8 - OTHER SKIN CHANGES; T49.95XA - ADVERSE EFFECT OF UNSPECIFIED TOPICAL AGENT, INIT ENCNTR (11) Ulcer (traumatic) of oral mucosa Code(s): K12.1 - OTHER FORMS OF STOMATITIS Assessment/Plan Builateral PE family refused tPA yesterday hypotension /shock due to PE / obstructive shock s/p tPA Improving - off vassopresine echo tds RV not well visualized ARF s/p fall - mechanical no syncope positive tni's hypokalemia HTN Hyperlipidemia Negative MIBI stress test [address] Nov 2011 [place] Plan cont diopamine and ICU support as per ICU team condition guarded
[2017-08-04] MEDS ORDERED: DEXTROSE 5%-WATER - 50 ML IVPB ONE (14:12)
[2017-08-04] MEDS ORDERED: cefTRIAXone SODIUM 1 GM VIAL ONE (14:12)
[2017-08-04] MEDS: CEFTRIAXONE 1 GM in DEXTROSE 5%-WATER - 50 ML IVPB SCH (14:14)
--- NOTE | 2017-08-04 16:51 | PN ---
Physical Exam: SUBJECTIVE: Patient seen and examined by me at bedside. Patient overnight was brought to the ICU on a heparin drip and started having hypotension. Patient was then placed on Dopamine for pressure support. Son initially refused tPA yesterday and opted for Heparin drip. All risks and benefits were explained to him by the IR team, ICU team, and Primary care team. This morning, patient was hypotensive on two pressors, Dopamine and Vasopressin. She became tachycardic and lethargic. Patient's daughter at bedside and explained to her that she will need emergent IR procedure for catheter directed thrombolysis. Patient's daughter informed me that her brother is the final decision maker. I spoke to son over the phone and he gave consent to proceed with the procedure. Patient was taken to IR and a rapid response was called for rapid AMS and possible syncopal episode s/p tPA initiation. Patient is currently in bed tachycardic and now on weaned off vasopressin and maintining adequate BP control with Dopamine. OBJECTIVE: Vital Signs Period Temp Pulse Resp BP Sys/Seth Pulse Ox Last 24 Hr 97.5 F-98.8 F 96-137 19-45 74-123/21-104 91-100 GENERAL: The patient is ill-appearing, diaphoretic, cool and clammy, lethargic but arousable, in mild resp distress HEAD: Normal with no signs of trauma. LUNGS: Scattered rhonchi throughout lung bases bilaterally. On Non-rebreather in mild respiratory distress. HEART: Tachycardic with regular rhythm, 2/6 systolic ejection murmur ABDOMEN: Soft, nontender, nondistended, normoactive bowel sounds, no guarding or rebound EXTREMITIES: No peripheral edema. NEUROLOGICAL: unable to assess due to patients lethargic state. Laboratory Results - last 24 hr CBC, BMP 08/04/17 08:20 08/04/17 08:20 Laboratory Tests 08/04/17 08/04/17 08/04/17 04:00 06:40 08:20 PTT (Actin FS) 56.2 H Puncture Site Right radial ABG pH 7.32 L ABG pCO2 at Pt Temp 47.5 H ABG pO2 at Pt Temp 87.3 D ABG HCO3 24.0 AST 77 H ALT 45 Alkaline Phosphatase 54 Active Medications Generic Name Dose Route Start Last Admin Trade Name Freq PRN Reason Stop Dose Admin Albuterol/Ipratropium 1 amp 08/02/17 15:19 08/03/17 08:36 Duoneb - NEB 1 amp Q4H PRN Administration SHORTNESS OF BREATH Amlodipine Besylate 5 mg 08/01/17 10:00 08/04/17 11:53 Norvasc - PO Not Given DAILY [facility] Chlorhexidine Gluconate 1 applic 08/03/17 22:00 08/03/17 22:43 Hibiclens For Decolonization - TP 1 applic HS [facility] Administration Heparin Sodium (Porcine) 1,000 unit 08/03/17 12:57 Heparin - IVPUSH PRN PRN Heparin Heparin Sodium (Porcine) 5,000 unit 08/03/17 12:57 Heparin - IVPUSH PRN PRN Heparin Heparin Sodium (Porcine) 25, 500 mls @ 32.4 mls/hr 08/03/17 13:35 08/04/17 13 :31 000 unit/ Sodium Chloride IV 0 unit/hr TITR [facility] 0 mls/hr Protocol Titration 1,620 UNIT/HR Dopamine HCl/Dextrose 400,000 mcg in 250 mls @ 16.755 mls/hr 08/03/17 22:00 08/04/17 15:19 Dopamine 400 Mg/D5w - IVPB 10 mcg/kg/min TITR [facility] 33.509 mls/hr Protocol Titration 5 MCG/KG/MIN Vasopressin 50 units/ Sodium 100 mls @ 4 mls/hr 08/04/17 02:30 08/04/17 12:30 Chloride IVPB 0 units/hr TITR [facility] 0 mls/hr Protocol Titration 2 UNITS/HR Alteplase, Recombinant 25 mg/ 250 mls @ 5 mls/hr 08/04/17 09:30 Sodium Chloride IVPB 08/06/17 11:29 ONCE ONE Alteplase, Recombinant 25 mg/ 250 mls @ 5 mls/hr 08/04/17 09:00 08/04/17 10: 40 Sodium Chloride IVPB 08/06/17 10:59 20 mls/hr ONCE ONE Administration Ceftriaxone Sodium 1 gm/ 50 mls @ 100 mls/hr 08/04/17 12:15 08/04/17 14:14 Dextrose IVPB 100 mls/hr DAILY [facility] Administration Mupirocin 1 applic 08/03/17 22:00 08/04/17 12:44 Bactroban Ointment (For Decolonization) - NS 08/08/17 21:59 1 applic BID [facility] Administration Ondansetron HCl 4 mg 08/03/17 22:07 Zofran Injection IVPUSH Q4H PRN NAUSEA AND/OR VOMITING Pantoprazole Sodium 40 mg 08/04/17 12:15 Protonix Iv IVPUSH DAILY [facility] Polyethylene Glycol 17 gm 08/02/17 15:45 08/04/17 12:43 Miralax (For Daily Use) - PO Not Given DAILY [facility] Rosuvastatin Calcium 5 mg 08/01/17 22:00 08/03/17 22:43 Crestor - PO Not Given HS [facility] Tiotropium [place] 1 puff 08/01/17 10:00 08/03/17 11:12 Spiriva - IH 1 puff DAILY [facility] Administration Tolterodine Tartrate 4 mg 08/01/17 10:00 08/04/17 11:54 Detrol La - PO Not Given DAILY [facility] Valsartan 80 mg 08/01/17 10:00 08/04/17 11:54 Diovan - PO Not Given DAILY [facility] ASSESSMENT/PLAN: Patient is an 86 year old female who presented for s/p mechanical fall and was found to have elevated troponins. Patient throughout her hospital course became hypoxic and was found to have bilateral Pulmonary embolisms. Patient decompensated and was transferred to ICU for further monitoring and management. Pulmonology #Massive Pulmonary Embolism w/ Obstructive shock -Chest CTA revealing Extensive PE -ECHO did not visualize RV but likely right heart strain -Patient is now s/p catheter directed tPA. -Will continue anticoagulation tPA untul 10:30 tomorrow and continue Heparin drip with serial PTT's -Currently saturating mid 90's on nonrebreather. Maintain SpO2>90% -Continue Dopamine for pressure support and inotropic support -Continue Duo-nebs -Continue to monitor BP and maintain MAP >65 -Will need minimum 6months of AC after discharge. Cardiovascular #Elevated Troponins -Likely secondary to demand ischemia from obstructive shock and ELLIS -Troponins trended down -Will repeat EKG -Patient currently on Heparin ggt #Elevated Creatinine Kinase -Trended down today. Will continue to monitor #Hypertension -Patient currently hypotensive on pressors -BP medications on hold -Continue to monitor BP #HLD -Continue Crestor 5mg HS Nephrology #ELLIS -Likely secondary to obstructive shock and Urinary Retention -Patient retaining almost a liter of urine, likely contributing to the ELLIS. -Live order placed -Will continue to monitor BMP Infectious Disease #Rule out UTI -LE +1 w/ WBC >5 -Ceftriaxone 1gm daily started -Live placed to relieve retention Orthopedic #S/P Mechanical Fall w/ Lumbar Pain -Pain currently controlled. Will need to avoid any medications that can potentially lower her Blood pressure in the setting of massive PE. -CT revealed no acute pathology -Head CT negative -Abdominal X-ray negative for acute pathology F/E/N -On no fluids -No electrolytes abnormalities -NPO Prophylaxis -High risk. Heparin drip and tPA for DVT -Protonix 40mg IVP daily for GI Disposition -Full code -Will need to continue tPA for a total of 24 hours and requires ICU monitoring. Reta Romano [id number] Visit type - Emergency Visit Emergency Visit: Yes ED Registration Date: 07/31/17 Care time: The patient presented to the Emergency Department on the above date and was hospitalized for further evaluation of their emergent condition. - New Patient This patient is new to me today: Yes Date on this admission: 08/05/17 - Critical Care Critical Care patient: Yes Total Critical Care Time (in minutes): 45 Critical Care Statement: The care of this patient involved high complexity decision making to prevent further life threatening deterioration of the patient 's condition and/or to evaluate & treat vital organ system(s) failure or risk of failure.
[2017-08-04] MEDS: PANTOPRAZOLE SODIUM 40 MG VIAL IVPUSH SCH (17:27)
[2017-08-04] MEDS: TIOTROPIUM BROMIDE 18 MCG CAPSULES IH SCH (17:44)
[2017-08-04] MEDS ORDERED: DOPAMINE 400 MG/D5W - 400,000 MCG/250 ML INFUS.BAG IVPB ONE (18:29)
[2017-08-04] MEDS ORDERED: ACETAMINOPHEN 1000 MG/100 ML VIAL (NON FORMULARY) IVPB ONE ×2 (19:45→21:15)
[2017-08-04] MEDS: CHLORHEXIDINE GLUCONATE 4% CLEANSER FOR DECOLONIZATION TP SCH (21:40)
[2017-08-04] MEDS: ROSUVASTATIN CA 5 MG TABLET (FP) PO SCH (21:40)
[2017-08-04 21:42] LABS: HEMATOCRIT 35.7 % (32.4-45.2); MCH 29.4 pg (25.7-33.7); MCHC 33.7 g/dl (32.0-36.0); MEAN CELL VOLUME 87.4 fl (80-96); MEAN PLT VOLUME 9.8 fl (7.5-11.1); PLATELET COUNT 171 K/MM3 (134-434); RBC 4.08 M/mm3 (3.60-5.2); RDW 14.6 % (11.6-15.6); WHITE BLOOD COUNT 10.5 K/mm3 (4.0-10.0)
[2017-08-04 22:12] LABS: INR 1.19 (0.82-1.09); PROTHROMBIN TIME (PATIENT) 13.5 SEC (9.98-11.88)
[2017-08-04 22:13] LABS: ANION GAP 8 (8-16); BLOOD UREA NITROGEN 51 mg/dL (7-18); CALCIUM 7.6 mg/dL (8.5-10.1); CHLORIDE 107 mmol/L (98-107); CO2 26 mmol/L (21-32); CREATININE 2.2 mg/dL (0.55-1.02); GLUCOSE,RANDOM 164 mg/dL (74-106); MAGNESIUM 2.6 mg/dL (1.8-2.4); PHOSPHOROUS 6.4 mg/dL (2.5-4.9); POTASSIUM 4.8 mmol/L (3.5-5.1); SODIUM 141 mmol/L (136-145)
[2017-08-04] MEDS ORDERED: ALTEPLASE 50 MG VIAL IVPB ONE (22:57)
[2017-08-04] MEDS ORDERED: SODIUM CHLORIDE IVPB ONE (23:15)
[2017-08-04] MEDS ORDERED: ALTEPLASE IVPB ONE (23:15)
[2017-08-05] MEDS: VASOPRESSIN 50 UNITS in SODIUM CHLORIDE 97.5 ML IVPB SCH (06:30)
[2017-08-05 06:59] LABS: HEMATOCRIT 34.4 % (32.4-45.2); HEMOGLOBIN 11.6 GM/dL (10.7-15.3); MCH 29.4 pg (25.7-33.7); MCHC 33.6 g/dl (32.0-36.0); MEAN CELL VOLUME 87.4 fl (80-96); MEAN PLT VOLUME 9.9 fl (7.5-11.1); PLATELET COUNT 163 K/MM3 (134-434); RBC 3.94 M/mm3 (3.60-5.2); RDW 14.8 % (11.6-15.6); WHITE BLOOD COUNT 10.6 K/mm3 (4.0-10.0)
[2017-08-05 07:23] LABS: BLOOD UREA NITROGEN 60 mg/dL (7-18); CHLORIDE 104 mmol/L (98-107); GLUCOSE,RANDOM 142 mg/dL (74-106); PHOSPHOROUS 6.6 mg/dL (2.5-4.9); POTASSIUM 4.6 mmol/L (3.5-5.1); SGOT/AST 227 U/L (15-37); SODIUM 141 mmol/L (136-145)
[2017-08-05 07:25] LABS: ALK PHOS 52 U/L (45-117); ANION GAP 12 (8-16); BILIRUBIN,TOTAL 0.5 mg/dL (0.2-1.0); CALCIUM 7.5 mg/dL (8.5-10.1); CO2 25 mmol/L (21-32); CREATININE 2.8 mg/dL (0.55-1.02); MAGNESIUM 2.7 mg/dL (1.8-2.4); SGPT/ALT 221 U/L (12-78); TOT PROT 6.5 g/dl (6.4-8.2)
--- NOTE | 2017-08-05 09:15 | PN ---
Physical Exam: SUBJECTIVE: Patient seen and examined. sleeping with venti-mask to maintain O2 TPA catheter in place being weaned off pressors. due to have tpa catheter removed today OBJECTIVE: Vital Signs Period Temp Pulse Resp BP Sys/Seth Pulse Ox Last 24 Hr 97.7 F-100.7 F 81-113 19-45 82-123/31-102 91-100 GENERAL: The patient is no acute distress, HEAD: Normal with no signs of trauma. ENT: oropharynx clear without exudates, moist mucous membranes. NECK: Trachea midline, full range of motion, LUNGS: asuc anterior to avoid moving tpa catheter, poor inspiratory effort, no wheezing HEART: Regular rate and rhythm, S1, S2 +systolic murmur ABDOMEN: Soft, nontender, mildly distended, normoactive bowel sounds, no guarding, EXTREMITIES: 2+ DP and radial pulses, warm, well-perfused, SKIN: Warm, dry, normal turgor, healing bruises around left knee and right lateral side (s/p mechanical fall) Laboratory Results - last 24 hr 08/04/17 08/04/17 08/04/17 12:10 20:55 20:55 WBC RBC Hgb Hct MCV MCH MCHC RDW Plt Count MPV Neutrophils % Lymphocytes % PT with INR INR PTT (Actin FS) 200.9 H 40.6 H D Sodium 141 Potassium 4.8 Chloride 107 Carbon Dioxide 26 Anion Gap 8 BUN 51 H Creatinine 2.2 H Creat Clearance w eGFR Random Glucose 164 H Lactic Acid Calcium 7.6 L Phosphorus 6.4 H Magnesium 2.6 H Total Bilirubin AST ALT Alkaline Phosphatase Total Protein Albumin 08/04/17 08/04/17 08/04/17 20:55 20:55 20:55 WBC 10.5 H RBC 4.08 Hgb 12.0 Hct 35.7 MCV 87.4 MCH 29.4 MCHC 33.7 RDW 14.6 Plt Count 171 D MPV 9.8 Neutrophils % Lymphocytes % PT with INR 13.50 H INR 1.19 H PTT (Actin FS) Sodium Potassium Chloride Carbon Dioxide Anion Gap BUN Creatinine Creat Clearance w eGFR Random Glucose Lactic Acid 2.4 H* Calcium Phosphorus Magnesium Total Bilirubin AST ALT Alkaline Phosphatase Total Protein Albumin 08/05/17 08/05/17 08/05/17 06:20 06:20 06:20 WBC 10.6 H RBC 3.94 Hgb 11.6 Hct 34.4 MCV 87.4 MCH 29.4 MCHC 33.6 RDW 14.8 Plt Count 163 MPV 9.9 Neutrophils % No Result Required. Lymphocytes % No Result Required. PT with INR INR PTT (Actin FS) 51.4 H Sodium 141 Potassium 4.6 Chloride 104 Carbon Dioxide 25 Anion Gap 12 BUN 60 H Creatinine 2.8 H Creat Clearance w eGFR 16.10 Random Glucose 142 H Lactic Acid Calcium 7.5 L Phosphorus 6.6 H Magnesium 2.7 H Total Bilirubin 0.5 D AST 227 H ALT 221 H Alkaline Phosphatase 52 Total Protein 6.5 Albumin 3.0 L Active Medications Albuterol/Ipratropium (Duoneb -) 1 amp NEB Q4H PRN PRN Reason: SHORTNESS OF BREATH Last Admin: 08/03/17 08:36 Dose: 1 amp Amlodipine Besylate (Norvasc -) 5 mg PO DAILY [facility] Last Admin: 08/05/17 12:06 Dose: Not Given Chlorhexidine Gluconate (Hibiclens For Decolonization -) 1 applic TP HS [facility] Last Admin: 08/04/17 21:40 Dose: 1 applic Heparin Sodium (Porcine) (Heparin -) 1,000 unit IVPUSH PRN PRN PRN Reason: Heparin Heparin Sodium (Porcine) (Heparin -) 5,000 unit IVPUSH PRN PRN PRN Reason: Heparin Heparin Sodium (Porcine) 25, (000 unit/ Sodium Chloride) 500 mls @ 32.4 mls/hr IV TITR [facility]; 1,620 UNIT/HR PRN Reason: Protocol Last Titration: 08/05/17 09:00 Dose: 1,700 unit/hr, 34 mls/hr Ceftriaxone Sodium 1 gm/ (Dextrose) 50 mls @ 100 mls/hr IVPB DAILY [facility] Last Admin: 08/05/17 11:27 Dose: 100 mls/hr Sodium Chloride (Normal Saline -) 1,000 mls @ 50 mls/hr IV [facility] Stop: 08/06/17 12:28 Last Admin: 08/05/17 14:13 Dose: 50 mls/hr Mupirocin (Bactroban Ointment (For Decolonization) -) 1 applic NS BID [facility] Stop: 08/08/17 21:59 Last Admin: 08/05/17 11:27 Dose: 1 applic Ondansetron HCl (Zofran Injection) 4 mg IVPUSH Q4H PRN PRN Reason: NAUSEA AND/OR VOMITING Pantoprazole Sodium (Protonix Iv) 40 mg IVPUSH DAILY [facility] Last Admin: 08/05/17 11:27 Dose: 40 mg Polyethylene Glycol (Miralax (For Daily Use) -) 17 gm PO DAILY [facility] Last Admin: 08/05/17 12:06 Dose: Not Given Rosuvastatin Calcium (Crestor -) 5 mg PO HS [facility] Last Admin: 08/04/17 21:40 Dose: Not Given Tiotropium [place] (Spiriva -) 1 puff IH DAILY [facility] Last Admin: 08/05/17 13:45 Dose: Not Given Tolterodine Tartrate (Detrol La -) 4 mg PO DAILY [facility] Last Admin: 08/05/17 12:05 Dose: Not Given Valsartan (Diovan -) 80 mg PO DAILY [facility] Last Admin: 08/05/17 12:05 Dose: Not Given ASSESSMENT/PLAN: 86 year old woman with HTN, HLD, arthritis, and GERD presented s/p mechanical fall found to have elevated troponins and bilataral pulmonary emboli causing #acute bilateral PE likely causing her hypoxia and hypotension -s/p TPA thrombectomy/thrombolysis with catheter to be removed today via IR and to have IVC filter placed - being weaned off pressors - continue heparin drip protocol for PE, will transition to oral when acute treatment completed - may need repeat echo to evaluate cardiac function - will need outpatient evaluation of unprovoked PE and AC for 6months post-dc #elevated troponins, creatine kinase - likely from PE causing obstructive shock - now downtrending #hld -Continue crestor #ELLIS- likely due to pre-renal hypoperfusion due to hypotension vs JEN post CTA - hold diovan and norvasc - gently hydration ns @50cc due to concern for fluid overload - Dr. Heredia consulted #urinary retention - carlos placed -hold tolterodine # Spiriva/duonebs prn #fen/gi -NS @ 42 cc/hr for 500 ml -wnl -sodium/cholesterol diet - gi prophylaxis 40mg IV dialy Visit type - Emergency Visit Emergency Visit: No - New Patient This patient is new to me today: Yes Date on this admission: 08/05/17 - Critical Care Critical Care patient: Yes Total Critical Care Time (in minutes): 32 Critical Care Statement: The care of this patient involved high complexity decision making to prevent further life threatening deterioration of the patient 's condition and/or to evaluate & treat vital organ system(s) failure or risk of failure.
[2017-08-05] MEDS ORDERED: ALTEPLASE (CATHFLO) 25 MG in SODIUM CHLORIDE 250 ML IVPB ONE (11:00)
[2017-08-05] MEDS ORDERED: cefTRIAXone SODIUM 1 GM VIAL ONE (11:23)
[2017-08-05] MEDS ORDERED: DEXTROSE 5%-WATER - 50 ML IVPB ONE (11:23)
[2017-08-05] MEDS: CEFTRIAXONE 1 GM in DEXTROSE 5%-WATER - 50 ML IVPB SCH (11:27)
[2017-08-05] MEDS: PANTOPRAZOLE SODIUM 40 MG VIAL IVPUSH SCH (11:27)
[2017-08-05] MEDS: MUPIROCIN 2% TOPICAL OINTMENT FOR DECOLONIZATION NS SCH ×2 (11:27→21:27)
[2017-08-05] MEDS: VALSARTAN 80 MG TABLET (UD) PO SCH (12:05)
[2017-08-05] MEDS: TOLTERODINE TARTRATE LA 4 MG CAP.SR.24H (FP) PO SCH (12:05)
[2017-08-05] MEDS: amLODIPine BESYLATE 5 MG TABLET (FP) PO SCH (12:06)
[2017-08-05] MEDS: POLYETHYLENE GLYCOL 3350 119 GM BTL PO SCH (12:06)
--- NOTE | 2017-08-05 12:06 | PN ---
Teaching Attending Note Name of Resident: Jaziel Hopkins ATTENDING PHYSICIAN STATEMENT I saw and evaluated the patient. I reviewed the resident's note and discussed the case with the resident. I agree with the resident's findings and plan as documented. SUBJECTIVE: Pt seen and examined in the ICU. Thrombolysis infusing. States breathing is improving. Off vasopressin gtt, dopamine gtt tapered off this AM. No chest pain. No signs of bleeding. OBJECTIVE: Last Vital Signs Temp Pulse Resp BP Pulse Ox 98.5 F 90 26 H 111/55 94 L 08/05/17 10:00 08/05/17 10:00 08/05/17 10:00 08/05/17 10:00 08/04/17 19:55 Intake & Output 08/02/17 08/03/17 08/04/17 08/05/17 23:59 23:59 23:59 23:59 Intake Total 690 710 8613 572 Output Total 900 100 Balance 200 400 753 472 Weight 88 kg 89.6 kg Gen: more alert, awake Heart: RRR Lung: decreased breath sounds at the bases Abd: soft, nontender Ext: no edema CBC, BMP 08/05/17 06:20 08/05/17 06:20 Active Medications Albuterol/Ipratropium (Duoneb -) 1 amp NEB Q4H PRN PRN Reason: SHORTNESS OF BREATH Last Admin: 08/03/17 08:36 Dose: 1 amp Amlodipine Besylate (Norvasc -) 5 mg PO DAILY [facility] Last Admin: 08/04/17 11:53 Dose: Not Given Chlorhexidine Gluconate (Hibiclens For Decolonization -) 1 applic TP HS [facility] Last Admin: 08/04/17 21:40 Dose: 1 applic Heparin Sodium (Porcine) (Heparin -) 1,000 unit IVPUSH PRN PRN PRN Reason: Heparin Heparin Sodium (Porcine) (Heparin -) 5,000 unit IVPUSH PRN PRN PRN Reason: Heparin Heparin Sodium (Porcine) 25, (000 unit/ Sodium Chloride) 500 mls @ 32.4 mls/hr IV TITR [facility]; 1,620 UNIT/HR PRN Reason: Protocol Last Titration: 08/05/17 09:00 Dose: 1,700 unit/hr, 34 mls/hr Dopamine HCl/Dextrose (Dopamine 400 Mg/D5w -) 400,000 mcg in 250 mls @ 16.755 mls/hr IVPB TITR [facility]; 5 MCG/KG/MIN PRN Reason: Protocol Last Titration: 08/05/17 10:00 Dose: 0 mcg/kg/min, 0 mls/hr Vasopressin 50 units/ Sodium (Chloride) 100 mls @ 4 mls/hr IVPB TITR [facility]; 2 UNITS/HR PRN Reason: Protocol Last Admin: 08/05/17 06:30 Dose: Not Given Ceftriaxone Sodium 1 gm/ (Dextrose) 50 mls @ 100 mls/hr IVPB DAILY [facility] Last Admin: 08/05/17 11:27 Dose: 100 mls/hr Alteplase, Recombinant 25 mg/ (Sodium Chloride) 250 mls @ 20 mls/hr IVPB ONCE ONE Stop: 08/05/17 23:29 Last Admin: 08/05/17 11:33 Dose: 20 mls/hr Mupirocin (Bactroban Ointment (For Decolonization) -) 1 applic NS BID [facility] Stop: 08/08/17 21:59 Last Admin: 08/05/17 11:27 Dose: 1 applic Ondansetron HCl (Zofran Injection) 4 mg IVPUSH Q4H PRN PRN Reason: NAUSEA AND/OR VOMITING Pantoprazole Sodium (Protonix Iv) 40 mg IVPUSH DAILY [facility] Last Admin: 08/05/17 11:27 Dose: 40 mg Polyethylene Glycol (Miralax (For Daily Use) -) 17 gm PO DAILY [facility] Last Admin: 08/04/17 12:43 Dose: Not Given Rosuvastatin Calcium (Crestor -) 5 mg PO HS [facility] Last Admin: 08/04/17 21:40 Dose: Not Given Tiotropium [place] (Spiriva -) 1 puff IH DAILY [facility] Last Admin: 08/04/17 17:44 Dose: Not Given Tolterodine Tartrate (Detrol La -) 4 mg PO DAILY [facility] Last Admin: 08/04/17 11:54 Dose: Not Given Valsartan (Diovan -) 80 mg PO DAILY [facility] Last Admin: 08/04/17 11:54 Dose: Not Given ASSESSMENT AND PLAN: Acute Hypoxic Respiratory Failure Massive Pulmonary Emboli on catheter directed thrombectomy/thrombolysis Obstructive Shock improving Likely Right Heart Strain Acute Kidney Injury +Troponins likely from above s/p Fall HTN Hyperlipidemia r/o UTI - continue catheter directed thrombolysis - O2 to keep SpO2 >90% - monitor H/H - monitor off pressors, maintain MAP >65 - antibiotics for possible UTI - inhaled bronchodilators - start IVF - monitor urine output, creatinine - consider renal consult - will need at least 6 months of anticoagulation for presumed unprovoked VTE - continue ICU monitoring critical care time spent in reviewing chart, evaluating patient and formulating plan 35 min
[2017-08-05] MEDS ORDERED: SODIUM CHLORIDE 1,000 ML IV SCH (12:30)
--- NOTE | 2017-08-05 13:33 | PN ---
Progress Note, Physician Chief Complaint: Pt alert & oriented; denies chest pain or dyspnea; feels fatigued and weak. Son is at bedside. History of Present Illness: The patient is an 86 year old female, with a significant past medical history of hypertension, hyperlipidemia, arthritis, and GERD, who presents to the emergency department via EMS 3 hours s/p mechanical fall with, back pain. As per patient, she slipped and fell backwards in water in her backyard. She reports pressed her medical alert button, however, did not receive a response. She reports rolling over on her knees and crawling into the house where her son found her after work 2 hours later. She reports difficulty ambulating and that she cannot move her back. She does not recall if she had any loss of consciousness. Secondary to her symptoms, the patient reports chills. She denies any head or neck pain. She denies recent fevers or dizziness. She denies recent nausea, vomit, diarrhea or constipation. She denies recent dysuria, frequency, urgency or hematuria. She denies recent chest pain or shortness of breath. Allergies: Penicillin Past surgical history: None reported. Social history: Nonsmoker. Denies EtOH use and recreational drug use. - Current Medication List Current Medications: Active Medications Albuterol/Ipratropium (Duoneb -) 1 amp NEB Q4H PRN PRN Reason: SHORTNESS OF BREATH Last Admin: 08/03/17 08:36 Dose: 1 amp Amlodipine Besylate (Norvasc -) 5 mg PO DAILY GIOVANNA Last Admin: 08/05/17 12:06 Dose: Not Given Chlorhexidine Gluconate (Hibiclens For Decolonization -) 1 applic TP HS GIOVANNA Last Admin: 08/04/17 21:40 Dose: 1 applic Heparin Sodium (Porcine) (Heparin -) 1,000 unit IVPUSH PRN PRN PRN Reason: Heparin Heparin Sodium (Porcine) (Heparin -) 5,000 unit IVPUSH PRN PRN PRN Reason: Heparin Heparin Sodium (Porcine) 25, (000 unit/ Sodium Chloride) 500 mls @ 32.4 mls/hr IV TITR GIOVANNA; 1,620 UNIT/HR PRN Reason: Protocol Last Titration: 08/05/17 09:00 Dose: 1,700 unit/hr, 34 mls/hr Vasopressin 50 units/ Sodium (Chloride) 100 mls @ 4 mls/hr IVPB TITR GIOVANNA; 2 UNITS/HR PRN Reason: Protocol Last Admin: 08/05/17 06:30 Dose: Not Given Ceftriaxone Sodium 1 gm/ (Dextrose) 50 mls @ 100 mls/hr IVPB DAILY [facility] Last Admin: 08/05/17 11:27 Dose: 100 mls/hr Alteplase, Recombinant 25 mg/ (Sodium Chloride) 250 mls @ 20 mls/hr IVPB ONCE ONE Stop: 08/05/17 23:29 Last Admin: 08/05/17 11:33 Dose: 20 mls/hr Sodium Chloride (Normal Saline -) 1,000 mls @ 50 mls/hr IV ASDIR [facility] Stop: 08/06/17 12:28 Mupirocin (Bactroban Ointment (For Decolonization) -) 1 applic NS BID [facility] Stop: 08/08/17 21:59 Last Admin: 08/05/17 11:27 Dose: 1 applic Ondansetron HCl (Zofran Injection) 4 mg IVPUSH Q4H PRN PRN Reason: NAUSEA AND/OR VOMITING Pantoprazole Sodium (Protonix Iv) 40 mg IVPUSH DAILY [facility] Last Admin: 08/05/17 11:27 Dose: 40 mg Polyethylene Glycol (Miralax (For Daily Use) -) 17 gm PO DAILY [facility] Last Admin: 08/05/17 12:06 Dose: Not Given Rosuvastatin Calcium (Crestor -) 5 mg PO HS [facility] Last Admin: 08/04/17 21:40 Dose: Not Given Tiotropium [place] (Spiriva -) 1 puff IH DAILY [facility] Last Admin: 08/04/17 17:44 Dose: Not Given Tolterodine Tartrate (Detrol La -) 4 mg PO DAILY [facility] Last Admin: 08/05/17 12:05 Dose: Not Given Valsartan (Diovan -) 80 mg PO DAILY [facility] Last Admin: 08/05/17 12:05 Dose: Not Given - Objective Vital Signs: Vital Signs Temperature 98.5 F 08/05/17 10:00 Pulse Rate 84 08/05/17 12:00 Respiratory Rate 25 H 08/05/17 12:00 Blood Pressure 103/60 08/05/17 12:00 O2 Sat by Pulse Oximetry (%) 94 L 08/05/17 09:00 Constitutional: Yes: Anxious Eyes: Yes: WNL HENT: Yes: WNL Neck: Yes: WNL Cardiovascular: Yes: S1, S2 Respiratory: Yes: Diminished, Tachypnea Gastrointestinal: Yes: Soft ...Rectal Exam: Yes: Deferred Genitourinary: No: Anuria Breast(s): Yes: WNL Musculoskeletal: Yes: Muscle Weakness Extremities: Yes: Cool Edema: No Peripheral Pulses WNL: Yes Integumentary: Yes: WNL Neurological: Yes: Alert, Oriented, Weakness Psychiatric: Yes: WNL, Alert, Oriented Labs: CBC, BMP 08/05/17 06:20 08/05/17 06:20 INR, PTT INR 1.19 (0.82-1.09) H 08/04/17 20:55 Abnormal Lab Results 08/05/17 08/05/17 08/05/17 06:20 06:20 06:20 WBC 10.6 H Monocytes % (Manual) 11 H PTT (Actin FS) 51.4 H BUN 60 H Creatinine 2.8 H Random Glucose 142 H Calcium 7.5 L Phosphorus 6.6 H Magnesium 2.7 H AST 227 H ALT 221 H Troponin I 5.76 H* Albumin 3.0 L Ur Specific [place] Urine Protein Urine Blood Urine Urobilinogen 08/05/17 08/05/17 17:00 17:00 WBC Monocytes % (Manual) PTT (Actin FS) BUN Creatinine Random Glucose Calcium Phosphorus Magnesium AST ALT Troponin I 3.13 H* Albumin Ur Specific [place] 1.044 H Urine Protein 1+ H Urine Blood 2+ H Urine Urobilinogen 2.0 H - ....Imaging Other: Image Reviewed (telemetry: NSR) Problem List - Problems (1) Pulmonary emboli Assessment/Plan: extensive bilateral pulmonary emboli by CTA. s/p mechanical thrombectomy and guided tPA; now on tPA drip. ECHO: normal LVEF; ? Normal RVEF(RV "not well visualized"); mild TR; mild pulmonary HTN.; Now off vasopressors. Cautious use of fluids (renal dysfunction post-CT and thrombectomy);f/u BUN/Cr, electrolytes, Is and Os, daily weight. Code(s): I26.99 - OTHER PULMONARY EMBOLISM WITHOUT ACUTE COR PULMONALE Qualifiers: Pulmonary embolism type: other Chronicity: acute Acute cor pulmonale presence: with acute cor pulmonale Qualified Code(s): I26.09 - Other pulmonary embolism with acute cor pulmonale (2) Hyperlipidemia Assessment/Plan: on statin; f/u lipid profile; keep LDL cholesterol < 70 mg/dL. Code(s): E78.5 - HYPERLIPIDEMIA, UNSPECIFIED Qualifiers: Hyperlipidemia type: pure hypercholesterolemia Qualified Code(s): E78.00 - Pure hypercholesterolemia, unspecified; E78.0 - Pure hypercholesterolemia (3) Hypertensive cardiovascular disease Assessment/Plan: off pressors. Code(s): I11.9 - HYPERTENSIVE HEART DISEASE WITHOUT HEART FAILURE Qualifiers: Heart failure presence: without heart failure Qualified Code(s): I11.9 - Hypertensive heart disease without heart failure (4) Anxiety Assessment/Plan: Pt is anxious (Pt's son is under a great deal of stress; worries whether he made the right decision because his mother "might have a stroke in 10 days due to the thrombectomy", though he simultaneously realizes she may owe her life to the same procedure). Code(s): F41.9 - ANXIETY DISORDER, UNSPECIFIED Assessment/Plan CCU time spent examining pt, forulatin plan: 40 minutes.
[2017-08-05] MEDS: TIOTROPIUM BROMIDE 18 MCG CAPSULES IH SCH (13:45)
--- NOTE | 2017-08-05 15:16 | PN ---
Physical Exam: SUBJECTIVE: Patient seen and examined in ICU. Feeling better, reports no chest pain. Denies fevers, chills. OBJECTIVE: Vital Signs Period Temp Pulse Resp BP Sys/Seth Pulse Ox Last 24 Hr 98.1 F-100.7 F 81-105 17-36 90-132/46-92 94-94 GENERAL: The patient is awake, alert, and fully oriented, in no acute distress. LUNGS: Breath sounds equal, clear to auscultation bilaterally, no wheezes, no crackles, no accessory muscle use. HEART: Regular rate and rhythm, S1, S2 without murmur, rub or gallop. EXTREMITIES: 2+ pulses, warm, well-perfused, no edema. NEUROLOGICAL: Cranial nerves II through XII grossly intact. Normal speech, gait not observed. SKIN: Warm, dry, normal turgor, no rashes or lesions noted Laboratory Results - last 24 hr 08/04/17 08/04/17 08/04/17 20:55 20:55 20:55 WBC 10.5 H RBC 4.08 Hgb 12.0 Hct 35.7 MCV 87.4 MCH 29.4 MCHC 33.7 RDW 14.6 Plt Count 171 D MPV 9.8 Neutrophils % Neutrophils % (Manual) Band Neutrophils % Lymphocytes % Lymphocytes % (Manual) Monocytes % (Manual) Eosinophils % (Manual) Basophils % (Manual) Myelocytes % (Man) Promyelocytes % (Man) Blast Cells % (Manual) Nucleated RBC % Metamyelocytes PT with INR INR PTT (Actin FS) 40.6 H D Sodium 141 Potassium 4.8 Chloride 107 Carbon Dioxide 26 Anion Gap 8 BUN 51 H Creatinine 2.2 H Creat Clearance w eGFR Random Glucose 164 H Lactic Acid Calcium 7.6 L Phosphorus 6.4 H Magnesium 2.6 H Total Bilirubin AST ALT Alkaline Phosphatase Troponin I Total Protein Albumin 08/04/17 08/04/17 08/05/17 20:55 20:55 06:20 WBC RBC Hgb Hct MCV MCH MCHC RDW Plt Count MPV Neutrophils % Neutrophils % (Manual) Band Neutrophils % Lymphocytes % Lymphocytes % (Manual) Monocytes % (Manual) Eosinophils % (Manual) Basophils % (Manual) Myelocytes % (Man) Promyelocytes % (Man) Blast Cells % (Manual) Nucleated RBC % Metamyelocytes PT with INR 13.50 H INR 1.19 H PTT (Actin FS) 51.4 H Sodium Potassium Chloride Carbon Dioxide Anion Gap BUN Creatinine Creat Clearance w eGFR Random Glucose Lactic Acid 2.4 H* Calcium Phosphorus Magnesium Total Bilirubin AST ALT Alkaline Phosphatase Troponin I Total Protein Albumin 08/05/17 08/05/17 06:20 06:20 WBC 10.6 H RBC 3.94 Hgb 11.6 Hct 34.4 MCV 87.4 MCH 29.4 MCHC 33.6 RDW 14.8 Plt Count 163 MPV 9.9 Neutrophils % No Result Required. Neutrophils % (Manual) 68.0 Band Neutrophils % 1.0 Lymphocytes % No Result Required. Lymphocytes % (Manual) 15.0 Monocytes % (Manual) 11 H Eosinophils % (Manual) 0.0 Basophils % (Manual) 0.0 Myelocytes % (Man) 0 Promyelocytes % (Man) 0 Blast Cells % (Manual) 0 Nucleated RBC % 0 Metamyelocytes 0 PT with INR INR PTT (Actin FS) Sodium 141 Potassium 4.6 Chloride 104 Carbon Dioxide 25 Anion Gap 12 BUN 60 H Creatinine 2.8 H Creat Clearance w eGFR 16.10 Random Glucose 142 H Lactic Acid Calcium 7.5 L Phosphorus 6.6 H Magnesium 2.7 H Total Bilirubin 0.5 D AST 227 H ALT 221 H Alkaline Phosphatase 52 Troponin I 5.76 H* Total Protein 6.5 Albumin 3.0 L Active Medications Generic Name Dose Route Start Last Admin Trade Name Freq PRN Reason Stop Dose Admin Albuterol/Ipratropium 1 amp 08/02/17 15:19 08/03/17 08:36 Duoneb - NEB 1 amp Q4H PRN Administration SHORTNESS OF BREATH Amlodipine Besylate 5 mg 08/01/17 10:00 08/05/17 12:06 Norvasc - PO Not Given DAILY GIOVANNA Chlorhexidine Gluconate 1 applic 08/03/17 22:00 08/04/17 21:40 Hibiclens For Decolonization - TP 1 applic HS GIOVANNA Administration Heparin Sodium (Porcine) 1,000 unit 08/03/17 12:57 Heparin - IVPUSH PRN PRN Heparin Heparin Sodium (Porcine) 5,000 unit 08/03/17 12:57 Heparin - IVPUSH PRN PRN Heparin Heparin Sodium (Porcine) 25, 500 mls @ 32.4 mls/hr 08/03/17 13:35 08/05/17 09 :00 000 unit/ Sodium Chloride IV 1,700 unit/hr TITR GIOVANNA 34 mls/hr Protocol Titration 1,620 UNIT/HR Vasopressin 50 units/ Sodium 100 mls @ 4 mls/hr 08/04/17 02:30 08/05/17 06:30 Chloride IVPB Not Given TITR GIOVANNA Protocol 2 UNITS/HR Ceftriaxone Sodium 1 gm/ 50 mls @ 100 mls/hr 08/04/17 12:15 08/05/17 11:27 Dextrose IVPB 100 mls/hr DAILY GIOVANNA Administration Alteplase, Recombinant 25 mg/ 250 mls @ 20 mls/hr 08/05/17 11:00 08/05/17 11: 33 Sodium Chloride IVPB 08/05/17 23:29 20 mls/hr ONCE ONE Administration Sodium Chloride 1,000 mls @ 50 mls/hr 08/05/17 12:30 08/05/17 14:13 Normal Saline - IV 08/06/17 12:28 50 mls/hr ASDIR GIOVANNA Administration Mupirocin 1 applic 08/03/17 22:00 08/05/17 11:27 Bactroban Ointment (For Decolonization) - NS 08/08/17 21:59 1 applic BID GIOVANNA Administration Ondansetron HCl 4 mg 08/03/17 22:07 Zofran Injection IVPUSH Q4H PRN NAUSEA AND/OR VOMITING Pantoprazole Sodium 40 mg 08/04/17 12:15 08/05/17 11:27 Protonix Iv IVPUSH 40 mg DAILY GIOVANNA Administration Polyethylene Glycol 17 gm 08/02/17 15:45 08/05/17 12:06 Miralax (For Daily Use) - PO Not Given DAILY GIOVANNA Rosuvastatin Calcium 5 mg 08/01/17 22:00 08/04/17 21:40 Crestor - PO Not Given HS GIOVANNA Tiotropium [place] 1 puff 08/01/17 10:00 08/05/17 13:45 Spiriva - IH Not Given DAILY GIOVANNA Tolterodine Tartrate 4 mg 08/01/17 10:00 08/05/17 12:05 Detrol La - PO Not Given DAILY GIOVANNA Valsartan 80 mg 08/01/17 10:00 08/05/17 12:05 Diovan - PO Not Given DAILY GIOVANNA ASSESSMENT/PLAN: Patient is an 86 year old female who presented for s/p mechanical fall and was found to have elevated troponins. Patient throughout her hospital course became hypoxic and was found to have bilateral Pulmonary embolisms. Patient decompensated and was transferred to ICU for further monitoring and management. Pulmonology #Massive Pulmonary Embolism w/ Obstructive shock -Chest CTA revealing Extensive PE -ECHO did not visualize RV but likely right heart strain -Patient is now s/p catheter directed tPA. -tPA to be continued until second pulmonary angiogram performed and continue Heparin drip with serial PTT's -IVC filter to be placed this afternoon. -Currently saturating mid 90's on nonrebreather. Maintain SpO2>90% -Dopamine weaned -Continue Duo-nebs -Continue to monitor BP and maintain MAP >65 -Will need minimum 6months of AC after discharge. Cardiovascular #Elevated Troponins -Likely secondary to demand ischemia from obstructive shock and ELLIS -Troponins trended down initially, now 5.2 -Will repeat this afternoon -Patient currently on Heparin ggt #Elevated Creatinine Kinase -Trended down today. Will continue to monitor #Hypertension -Patient currently hypotensive on pressors -BP medications on hold -Continue to monitor BP #HLD -Continue Crestor 5mg HS Nephrology #ELLIS -Likely secondary to obstructive shock and Urinary Retention -Patient retaining almost a liter of urine, likely contributing to the ELLIS. -Live order placed -Cr has continued to rise, now 2.8, up from 1.4 initially -Will continue to monitor BMP Infectious Disease #Rule out UTI -LE +1 w/ WBC >5 -Ceftriaxone 1gm daily started -Live placed to relieve retention Orthopedic #S/P Mechanical Fall w/ Lumbar Pain -Pain currently controlled. Will need to avoid any medications that can potentially lower her Blood pressure in the setting of massive PE. -CT revealed no acute pathology -Head CT negative -Abdominal X-ray negative for acute pathology F/E/N -On no fluids -No electrolytes abnormalities -NPO Prophylaxis -High risk. Heparin drip and tPA for DVT -Protonix 40mg IVP daily for GI Disposition -Full code -Will need to continue tPA for a total of 24 hours and requires ICU monitoring. Visit type - Emergency Visit Emergency Visit: Yes ED Registration Date: 07/31/17 Care time: The patient presented to the Emergency Department on the above date and was hospitalized for further evaluation of their emergent condition. - New Patient This patient is new to me today: No - Critical Care Critical Care patient: Yes Total Critical Care Time (in minutes): 60 Critical Care Statement: The care of this patient involved high complexity decision making to prevent further life threatening deterioration of the patient 's condition and/or to evaluate & treat vital organ system(s) failure or risk of failure.
--- NOTE | 2017-08-05 15:24 | CONSULT ---
Consultation: REQUESTING PROVIDER: hospitalist service CONSULT REQUEST: We have been asked to medically evaluate this patient for ELLIS. HISTORY OF PRESENT ILLNESS: 86 year old F with pmhx of HTN, HLD, arthritis, and GERD presented s/p mechanical fall. Patient suffered a fall at home on 07/31/17 when she slipped on wet surface. She subsequently became SOB and became to desat to 60's on RA. She was taken for CTA which reveled bilateral PE. She has no history of blood clots in past and did not have any leg swelling. She was treated conservatively at first with anticoagulation as per family request but quickly deteriorated and was then taken to IR where emergent thrombectomy was performed and TPA was administered. She then became hypotensive requiring BP support with vasopressin and dopamine. Her subsequent labs showed decrease in kidney function. She has no history of kidney problems in past. Denies HESS,palpitations, abdominal pain, nausea or vomiting. REVIEW OF SYSTEMS: CONSTITUTIONAL: Absent: fever, chills, diaphoresis, generalized weakness, malaise, loss of appetite, weight change HEENT: Absent: rhinorrhea, nasal congestion, throat pain, throat swelling, difficulty swallowing, mouth swelling, ear pain, eye pain, visual changes CARDIOVASCULAR: Absent: chest pain, syncope, palpitations, irregular heart rate, lightheadedness , peripheral edema RESPIRATORY:+ shortness of breath Absent: cough, , dyspnea with exertion, orthopnea, wheezing, stridor, hemoptysis GASTROINTESTINAL: Absent: abdominal pain, abdominal distension, nausea, vomiting, diarrhea, constipation, melena, hematochezia GENITOURINARY: Absent: dysuria, frequency, urgency, hesitancy, hematuria, flank pain, genital pain MUSCULOSKELETAL: Absent: myalgia, arthralgia, joint swelling, back pain, neck pain SKIN: Absent: rash, itching, pallor HEMATOLOGIC/IMMUNOLOGIC: Absent: easy bleeding, easy bruising, lymphadenopathy, frequent infections ENDOCRINE: Absent: unexplained weight gain, unexplained weight loss, heat intolerance, cold intolerance NEUROLOGIC: Absent: headache, focal weakness or paresthesias, dizziness, unsteady gait, seizure, mental status changes, bladder or bowel incontinence PSYCHIATRIC: Absent: anxiety, depression, suicidal or homicidal ideation, hallucinations. PHYSICAL EXAMINATION Vital Signs - 24 hr 08/04/17 08/04/17 08/04/17 15:19 15:29 16:30 Temperature Pulse Rate 105 H 102 H 100 H Respiratory 19 Rate Blood Pressure 123/92 123/92 97/62 O2 Sat by Pulse Oximetry (%) GENERAL: awake and alert. lethargic but arousable. HEAD: NC/AT. EYES: PERRLA,EOMI LUNGS: decreased breath sounds bilaterally, scatter rhonchi, HEART: tachycardic, NL s1s2, 2/6 OZZIE ABDOMEN: Soft, obese, nontender, not distended, normoactive bowel sounds, no guarding, no rebound, no masses. MUSCULOSKELETAL: Normal range of motion at all joints. No bony deformities or tenderness. No CVA tenderness. LOWER EXTREMITIES: 2+ pulses, warm, well-perfused. No calf tenderness. No peripheral edema. Laboratory Results - last 24 hr 08/04/17 08/04/17 08/04/17 20:55 20:55 20:55 WBC 10.5 H RBC 4.08 Hgb 12.0 Hct 35.7 MCV 87.4 MCH 29.4 MCHC 33.7 RDW 14.6 Plt Count 171 D MPV 9.8 Neutrophils % Neutrophils % (Manual) Band Neutrophils % Lymphocytes % Lymphocytes % (Manual) Monocytes % (Manual) Eosinophils % (Manual) Basophils % (Manual) Myelocytes % (Man) Promyelocytes % (Man) Blast Cells % (Manual) Nucleated RBC % Metamyelocytes PT with INR INR PTT (Actin FS) 40.6 H D Sodium 141 Potassium 4.8 Chloride 107 Carbon Dioxide 26 Anion Gap 8 BUN 51 H Creatinine 2.2 H Creat Clearance w eGFR Random Glucose 164 H Lactic Acid Calcium 7.6 L Phosphorus 6.4 H Magnesium 2.6 H Total Bilirubin AST ALT Alkaline Phosphatase Troponin I Total Protein Albumin 08/04/17 08/04/17 08/05/17 20:55 20:55 06:20 WBC RBC Hgb Hct MCV MCH MCHC RDW Plt Count MPV Neutrophils % Neutrophils % (Manual) Band Neutrophils % Lymphocytes % Lymphocytes % (Manual) Monocytes % (Manual) Eosinophils % (Manual) Basophils % (Manual) Myelocytes % (Man) Promyelocytes % (Man) Blast Cells % (Manual) Nucleated RBC % Metamyelocytes PT with INR 13.50 H INR 1.19 H PTT (Actin FS) 51.4 H Sodium Potassium Chloride Carbon Dioxide Anion Gap BUN Creatinine Creat Clearance w eGFR Random Glucose Lactic Acid 2.4 H* Calcium Phosphorus Magnesium Total Bilirubin AST ALT Alkaline Phosphatase Troponin I Total Protein Albumin 08/05/17 08/05/17 06:20 06:20 WBC 10.6 H RBC 3.94 Hgb 11.6 Hct 34.4 MCV 87.4 MCH 29.4 MCHC 33.6 RDW 14.8 Plt Count 163 MPV 9.9 Neutrophils % No Result Required. Neutrophils % (Manual) 68.0 Band Neutrophils % 1.0 Lymphocytes % No Result Required. Lymphocytes % (Manual) 15.0 Monocytes % (Manual) 11 H Eosinophils % (Manual) 0.0 Basophils % (Manual) 0.0 Myelocytes % (Man) 0 Promyelocytes % (Man) 0 Blast Cells % (Manual) 0 Nucleated RBC % 0 Metamyelocytes 0 PT with INR INR PTT (Actin FS) Sodium 141 Potassium 4.6 Chloride 104 Carbon Dioxide 25 Anion Gap 12 BUN 60 H Creatinine 2.8 H Creat Clearance w eGFR 16.10 Random Glucose 142 H Lactic Acid Calcium 7.5 L Phosphorus 6.6 H Magnesium 2.7 H Total Bilirubin 0.5 D AST 227 H ALT 221 H Alkaline Phosphatase 52 Troponin I 5.76 H* Total Protein 6.5 Albumin 3.0 L Active Medications Generic Name Dose Route Start Last Admin Trade Name Freq PRN Reason Stop Dose Admin Albuterol/Ipratropium 1 amp 08/02/17 15:19 08/03/17 08:36 Duoneb - NEB 1 amp Q4H PRN Administration SHORTNESS OF BREATH Amlodipine Besylate 5 mg 08/01/17 10:00 08/05/17 12:06 Norvasc - PO Not Given DAILY GIOVANNA Chlorhexidine Gluconate 1 applic 08/03/17 22:00 08/04/17 21:40 Hibiclens For Decolonization - TP 1 applic HS GIOVANNA Administration Heparin Sodium (Porcine) 1,000 unit 08/03/17 12:57 Heparin - IVPUSH PRN PRN Heparin Heparin Sodium (Porcine) 5,000 unit 08/03/17 12:57 Heparin - IVPUSH PRN PRN Heparin Heparin Sodium (Porcine) 25, 500 mls @ 32.4 mls/hr 08/03/17 13:35 08/05/17 09 :00 000 unit/ Sodium Chloride IV 1,700 unit/hr TITR GIOVANNA 34 mls/hr Protocol Titration 1,620 UNIT/HR Vasopressin 50 units/ Sodium 100 mls @ 4 mls/hr 08/04/17 02:30 08/05/17 06:30 Chloride IVPB Not Given TITR GIOVANNA Protocol 2 UNITS/HR Ceftriaxone Sodium 1 gm/ 50 mls @ 100 mls/hr 08/04/17 12:15 08/05/17 11:27 Dextrose IVPB 100 mls/hr DAILY GIOVANNA Administration Alteplase, Recombinant 25 mg/ 250 mls @ 20 mls/hr 08/05/17 11:00 08/05/17 11: 33 Sodium Chloride IVPB 08/05/17 23:29 20 mls/hr ONCE ONE Administration Sodium Chloride 1,000 mls @ 50 mls/hr 08/05/17 12:30 08/05/17 14:13 Normal Saline - IV 08/06/17 12:28 50 mls/hr ASDIR GIOVANNA Administration Mupirocin 1 applic 08/03/17 22:00 08/05/17 11:27 Bactroban Ointment (For Decolonization) - NS 08/08/17 21:59 1 applic BID GIOVANNA Administration Ondansetron HCl 4 mg 08/03/17 22:07 Zofran Injection IVPUSH Q4H PRN NAUSEA AND/OR VOMITING Pantoprazole Sodium 40 mg 08/04/17 12:15 08/05/17 11:27 Protonix Iv IVPUSH 40 mg DAILY GIOVANNA Administration Polyethylene Glycol 17 gm 08/02/17 15:45 08/05/17 12:06 Miralax (For Daily Use) - PO Not Given DAILY GIOVANNA Rosuvastatin Calcium 5 mg 08/01/17 22:00 08/04/17 21:40 Crestor - PO Not Given HS GIOVANNA Tiotropium [place] 1 puff 08/01/17 10:00 08/05/17 13:45 Spiriva - IH Not Given DAILY GIOVANNA Tolterodine Tartrate 4 mg 08/01/17 10:00 08/05/17 12:05 Detrol La - PO Not Given DAILY GIOVANNA Valsartan 80 mg 08/01/17 10:00 08/05/17 12:05 Diovan - PO Not Given DAILY GIOVANNA ASSESSMENT/PLAN: 86 year old F with pmhx of HTN, HLD, arthritis, and GERD presented s/p mechanical fall found to have massive PE s/p thrombectomy and TPA currently managed in ICU. Dispo: We will continue to follow the patient. Thank you for this consultative opportunity. Problem List - Problems (1) ELLIS (acute kidney injury) Assessment/Plan: most likely pre-renal secondary to hypotension. * continue IV hydration * will order Kidney and bladder US to r/o obstruction. * Urine lytes and Cr. pending. * check UA * avoid nephrotoxic medications. * repeat labs in AM (2) Pulmonary emboli Assessment/Plan: Massive PE seen on CTA s/p thrombectomy * She will go today for repeat CTA * on dopamine for pressure support. * currently on non rebreather for supplemental oxygen. (3) Hyperlipidemia (4) Hypertensive cardiovascular disease Visit type - Emergency Visit Emergency Visit: Yes ED Registration Date: 07/31/17 Care time: The patient presented to the Emergency Department on the above date and was hospitalized for further evaluation of their emergent condition. - New Patient This patient is new to me today: Yes Date on this admission: 08/05/17 - Critical Care Critical Care patient: Yes Total Critical Care Time (in minutes): 47 Critical Care Statement: The care of this patient involved high complexity decision making to prevent further life threatening deterioration of the patient 's condition and/or to evaluate & treat vital organ system(s) failure or risk of failure.
--- NOTE | 2017-08-05 16:48 | PN ---
Teaching Attending Note Name of Resident: Gold Menon ATTENDING PHYSICIAN STATEMENT I saw and evaluated the patient. I reviewed the resident's note and discussed the case with the resident. I agree with the resident's findings and plan as documented. SUBJECTIVE: Patient is in ICU, off the pressors now. OBJECTIVE: Vital Signs Temperature 98.1 F 08/05/17 13:00 Pulse Rate 96 H 08/05/17 16:10 Respiratory Rate 24 08/05/17 16:10 Blood Pressure 116/61 08/05/17 16:10 O2 Sat by Pulse Oximetry (%) 96 08/05/17 16:10 CBCD WBC 10.6 K/mm3 (4.0-10.0) H 08/05/17 06:20 RBC 3.94 M/mm3 (3.60-5.2) 08/05/17 06:20 Hgb 11.6 GM/dL (10.7-15.3) 08/05/17 06:20 Hct 34.4 % (32.4-45.2) 08/05/17 06:20 MCV 87.4 fl (80-96) 08/05/17 06:20 MCHC 33.6 g/dl (32.0-36.0) 08/05/17 06:20 RDW 14.8 % (11.6-15.6) 08/05/17 06:20 Plt Count 163 K/MM3 (134-434) 08/05/17 06:20 MPV 9.9 fl (7.5-11.1) 08/05/17 06:20 CMP Sodium 141 mmol/L (136-145) 08/05/17 06:20 Potassium 4.6 mmol/L (3.5-5.1) 08/05/17 06:20 Chloride 104 mmol/L (98-107) 08/05/17 06:20 Carbon Dioxide 25 mmol/L (21-32) 08/05/17 06:20 Anion Gap 12 (8-16) 08/05/17 06:20 BUN 60 mg/dL (7-18) H 08/05/17 06:20 Creatinine 2.8 mg/dL (0.55-1.02) H 08/05/17 06:20 Creat Clearance w eGFR 16.10 (>60) 08/05/17 06:20 Random Glucose 142 mg/dL (74-106) H 08/05/17 06:20 Calcium 7.5 mg/dL (8.5-10.1) L 08/05/17 06:20 Total Bilirubin 0.5 mg/dL (0.2-1.0) D 08/05/17 06:20 AST 227 U/L (15-37) H 08/05/17 06:20 ALT 221 U/L (12-78) H 08/05/17 06:20 Alkaline Phosphatase 52 U/L (45-117) 08/05/17 06:20 Total Protein 6.5 g/dl (6.4-8.2) 08/05/17 06:20 Albumin 3.0 g/dl (3.4-5.0) L 08/05/17 06:20 CARDIAC ENZYMES Creatine Kinase 1500 IU/L (26-192) H 08/04/17 04:00 Troponin I 5.76 ng/ml (0.00-0.05) H* 08/05/17 06:20 Current Medications Generic Name Dose Route Start Last Admin Trade Name Freq PRN Reason Stop Dose Admin Albuterol/Ipratropium 1 amp 08/02/17 15:19 08/03/17 08:36 Duoneb - NEB 1 amp Q4H PRN Administration SHORTNESS OF BREATH Amlodipine Besylate 5 mg 08/01/17 10:00 08/05/17 12:06 Norvasc - PO Not Given DAILY [facility] Chlorhexidine Gluconate 1 applic 08/03/17 22:00 08/04/17 21:40 Hibiclens For Decolonization - TP 1 applic HS [facility] Administration Heparin Sodium (Porcine) 1,000 unit 08/03/17 12:57 Heparin - IVPUSH PRN PRN Heparin Heparin Sodium (Porcine) 5,000 unit 08/03/17 12:57 Heparin - IVPUSH PRN PRN Heparin Heparin Sodium (Porcine) 25, 500 mls @ 32.4 mls/hr 08/03/17 13:35 08/05/17 09 :00 000 unit/ Sodium Chloride IV 1,700 unit/hr TITR [facility] 34 mls/hr Protocol Titration 1,620 UNIT/HR Ceftriaxone Sodium 1 gm/ 50 mls @ 100 mls/hr 08/04/17 12:15 08/05/17 11:27 Dextrose IVPB 100 mls/hr DAILY [facility] Administration Alteplase, Recombinant 25 mg/ 250 mls @ 20 mls/hr 08/05/17 11:00 08/05/17 11: 33 Sodium Chloride IVPB 08/05/17 23:29 20 mls/hr ONCE ONE Administration Sodium Chloride 1,000 mls @ 50 mls/hr 08/05/17 12:30 08/05/17 14:13 Normal Saline - IV 08/06/17 12:28 50 mls/hr ASDIR [facility] Administration Mupirocin 1 applic 08/03/17 22:00 08/05/17 11:27 Bactroban Ointment (For Decolonization) - NS 08/08/17 21:59 1 applic BID [facility] Administration Ondansetron HCl 4 mg 08/03/17 22:07 Zofran Injection IVPUSH Q4H PRN NAUSEA AND/OR VOMITING Pantoprazole Sodium 40 mg 08/04/17 12:15 08/05/17 11:27 Protonix Iv IVPUSH 40 mg DAILY [facility] Administration Polyethylene Glycol 17 gm 08/02/17 15:45 08/05/17 12:06 Miralax (For Daily Use) - PO Not Given DAILY [facility] Rosuvastatin Calcium 5 mg 08/01/17 22:00 08/04/17 21:40 Crestor - PO Not Given [facility] Tiotropium [place] 1 puff 08/01/17 10:00 08/05/17 13:45 Spiriva - IH Not Given DAILY [facility] Tolterodine Tartrate 4 mg 08/01/17 10:00 08/05/17 12:05 Detrol La - PO Not Given DAILY [facility] Valsartan 80 mg 08/01/17 10:00 08/05/17 12:05 Diovan - PO Not Given DAILY [facility] Home Medications Medication Instructions Recorded Aspirin [ASA -] 81 mg PO DAILY 03/24/13 Multivitamin [Multivitamins] 1 each PO DAILY 03/24/13 Rosuvastatin Calcium [Crestor] 5 mg PO DAILY 03/24/13 Amlodipine Besylate [Norvasc -] 5 mg PO DAILY 12/28/13 Docusate Sodium [Colace] 200 mg PO HS 12/28/13 Omeprazole Magnesium [Prilosec 20 mg PO DAILY 12/28/13 (OTC)] Tiotropium [place] [Spiriva -] 1 inh PO DAILY 12/28/13 Valsartan/Hydrochlorothiazide 80 combo PO DAILY 12/28/13 [Diovan Hct 160-25 mg Tablet] Diclofenac Sodium [Voltaren] 0 gm TP QID PRN 08/01/17 Diphenhydramine HCl [Benadryl -] 25 mg PO Q6H PRN 08/01/17 Ibuprofen 600 mg PO BID PRN 08/01/17 Neomycin/Polymyx/Hc Ophth Susp 1 - 4 drop AU TID 08/01/17 [Cortisporin Ophthalmic Suspension -] PE: as per resident's note ASSESSMENT AND PLAN: Patient is 86yo female with pmhx of HTN, HLD, arthritis, and GERD presented s/p mechanical fall. Was found to have an extensive PE s/p TPA by IR , on TPA. # Patient is going for IVC filter today By IR , to prevent further clots. #Massive Pulmonary Embolism s/p CTA with extensive PE , off IV pressers now, s/ p TPA. Continue ICU monitoring on IV Heparin. 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 #ELLIS most likely due to ATN due to Ischemia . Nephro on the case. will continue to monitor. #Elevated Troponins most likely due to demand ischemia. On heparin drip continue # Hx of HTN now normotensive s/p IV pressers continue to monitor BP #HLD continue Crestor 5mg HS #S/P Mechanical Fall w/ Lumbar Pain currently controlled. DVT Px; Heparin
[2017-08-05 18:18] LABS: URINE APPEARANCE SLCLOUDY; URINE BILIRUBIN NEGATIVE (<2.0 mg/dL); URINE BLOOD 2+ (NEGATIVE); URINE COLOR DKYELLOW; URINE GLUCOSE (UA) NEGATIVE (NEGATIVE); URINE KETONE NEGATIVE (NEGATIVE); URINE LEUK ESTERASE TRACE (NEGATIVE); URINE NITRITE NEGATIVE (NEGATIVE)
[2017-08-05 18:19] LABS: URINE PROTEIN 1+ (NEGATIVE)
[2017-08-05 18:21] LABS: EPI CELLS RARE /HPF (FEW); URINE MUCUS RARE
--- NOTE | 2017-08-05 21:08 | PN ---
Teaching Attending Note Name of Resident: Niles Grace (Nephrology) ATTENDING PHYSICIAN STATEMENT I saw and evaluated the patient. I reviewed the resident's note and discussed the case with the resident. I agree with the resident's findings and plan as documented. Renal Pt is an 86 year old female with pmhx of HTH, GERD, arthritis and HLD who presents to the ER initially after a fall at home. She was on the floor for several hours and presented with back pain. She was admitted to the hospital. She became hypoxic and a ct angio was done and the patient was found to have extensive pulmonary emboli. She was taken for thrombolysis on the however family opted out of the procedure. The patient became hypotensive and was not stable that night. Family then agreed to procedure and she went for thrombylysis on the . I was called to evaluate her today for acute renal failure. She denies history of kidney disease. Her son is at bedside and did assist with some history. She was getting nsaids and she was on an arb. xray reports reviewed ir procedure report reviewed pmhx htn gerd arthritis hld allergies pcn family hx non contrib social hx neg ros dyspnea Current Medications Generic Name Dose Route Start Last Admin Trade Name Freq PRN Reason Stop Dose Admin Albuterol/Ipratropium 1 amp 08/02/17 15:19 08/03/17 08:36 Duoneb - NEB 1 amp Q4H PRN Administration SHORTNESS OF BREATH Amlodipine Besylate 5 mg 08/01/17 10:00 08/05/17 12:06 Norvasc - PO Not Given DAILY [facility] Chlorhexidine Gluconate 1 applic 08/03/17 22:00 08/04/17 21:40 Hibiclens For Decolonization - TP 1 applic HS [facility] Administration Heparin Sodium (Porcine) 1,000 unit 08/03/17 12:57 Heparin - IVPUSH PRN PRN Heparin Heparin Sodium (Porcine) 5,000 unit 08/03/17 12:57 Heparin - IVPUSH PRN PRN Heparin Heparin Sodium (Porcine) 25, 500 mls @ 32.4 mls/hr 08/03/17 13:35 08/05/17 09 :00 000 unit/ Sodium Chloride IV 1,700 unit/hr TITR [facility] 34 mls/hr Protocol Titration 1,620 UNIT/HR Ceftriaxone Sodium 1 gm/ 50 mls @ 100 mls/hr 08/04/17 12:15 08/05/17 11:27 Dextrose IVPB 100 mls/hr DAILY [facility] Administration Sodium Chloride 1,000 mls @ 50 mls/hr 08/05/17 12:30 08/05/17 14:13 Normal Saline - IV 08/06/17 12:28 50 mls/hr ASDIR [facility] Administration Mupirocin 1 applic 08/03/17 22:00 08/05/17 11:27 Bactroban Ointment (For Decolonization) - NS 08/08/17 21:59 1 applic BID [facility] Administration Ondansetron HCl 4 mg 08/03/17 22:07 Zofran Injection IVPUSH Q4H PRN NAUSEA AND/OR VOMITING Pantoprazole Sodium 40 mg 08/04/17 12:15 08/05/17 11:27 Protonix Iv IVPUSH 40 mg DAILY [facility] Administration Polyethylene Glycol 17 gm 08/02/17 15:45 08/05/17 12:06 Miralax (For Daily Use) - PO Not Given DAILY [facility] Rosuvastatin Calcium 5 mg 08/01/17 22:00 08/04/17 21:40 Crestor - PO Not Given [facility] Tiotropium [place] 1 puff 08/01/17 10:00 08/05/17 13:45 Spiriva - IH Not Given DAILY [facility] Tolterodine Tartrate 4 mg 08/01/17 10:00 08/05/17 12:05 Detrol La - PO Not Given DAILY [facility] Valsartan 80 mg 08/01/17 10:00 08/05/17 12:05 Diovan - PO Not Given DAILY [facility] Last Vital Signs Temp Pulse Resp BP Pulse Ox 98.1 F 80 24 135/64 96 08/05/17 18:00 08/05/17 19:35 08/05/17 19:35 08/05/17 19:35 08/05/17 16:10 Laboratory Tests 07/31/17 08/01/17 08/03/17 21:00 06:20 07:00 WBC Hgb Plt Count Creatinine 0.6 0.5 L 0.7 Troponin I Urine Protein Urine Blood Ur Random Sodium 08/04/17 08/04/17 08/04/17 04:00 08:20 20:55 WBC Hgb Plt Count Creatinine 1.4 H 1.5 H 2.2 H Troponin I 4.27 H* Urine Protein Urine Blood Ur Random Sodium 08/05/17 08/05/17 08/05/17 06:20 06:20 17:00 WBC 10.6 H Hgb 11.6 Plt Count 163 Creatinine 2.8 H Troponin I 5.76 H* 3.13 H* Urine Protein Urine Blood Ur Random Sodium 08/05/17 08/05/17 17:00 17:00 WBC Hgb Plt Count Creatinine Troponin I Urine Protein 1+ H Urine Blood 2+ H Ur Random Sodium 11 cardio s1s2 pulm on oxygen GI soft ext neg edema neuro awake and alert skin neg rash psych calm and appropriate circ pos pulses heent maricarmen Impression 1. ELLIS 2. pulmonary emboli on catheter thrombolysis 3. acute resp failrue 4. hypotension with shock requiring pressors 5. positive troponins 6. arthritis 7. gerd 8. s/p fall at home 9. hx HTN 10. shock Plan - ELLIS is likely multifactorial - pt was hypotensive and this may have contributed to the renal failures - she was also on diovan and nsaids, which should be held - pt did receive IV contrast on the - cont with fluids - check renal ultrasound - monitor urine output - maintain carlos for now - cont to monitor renal function - pt likely has ATN - will follow - monitor in ICU
[2017-08-05] MEDS: HEPARIN - 25,000 UNIT in SODIUM CHLORIDE 495 ML IV SCH (21:25)
[2017-08-05] MEDS: CHLORHEXIDINE GLUCONATE 4% CLEANSER FOR DECOLONIZATION TP SCH (21:27)
[2017-08-05] MEDS: ROSUVASTATIN CA 5 MG TABLET (FP) PO SCH (21:27)
[2017-08-05] MEDS: ALBUTEROL SO4 2.5/IPRATROPIUM 0.5 INH SOL 3 ML VIAL.NEB. NEB PRN (21:50)
[2017-08-06] MEDS ORDERED: ACETAMINOPHEN 1000 MG/100 ML VIAL (NON FORMULARY) IVPB PRN (02:33)
--- NOTE | 2017-08-06 08:43 | PN ---
Progress Note, Physician History of Present Illness: 86 year old F with pmh of HTN, HLD, arthritis, and GERD presented after a mechanical fall without near or true syncope on 07/31 after she slipped on a wet surface and landed on her back. She was subsequently brought to hospital and complained of some mild back pain. She denied any shortness of breath, chest pain, palpitations, orthopnea, mear or syncope episode. She was coincidentally found to have elevated troponin and CK -MB on blood work. PMH Cholelithiasis 2011 HTN Hyperlipidemia Negative MIBI stress test [address] Nov 2011 [place] - Current Medication List Current Medications: Active Medications Acetaminophen (Ofirmev Injection -) 1,000 mg IVPB Q6H PRN PRN Reason: MILD PAIN Last Admin: 08/06/17 02:37 Dose: 1,000 mg Albuterol/Ipratropium (Duoneb -) 1 amp NEB Q4H PRN PRN Reason: SHORTNESS OF BREATH Last Admin: 08/05/17 21:50 Dose: 1 amp Amlodipine Besylate (Norvasc -) 5 mg PO DAILY [facility] Last Admin: 08/05/17 12:06 Dose: Not Given Chlorhexidine Gluconate (Hibiclens For Decolonization -) 1 applic TP HS [facility] Last Admin: 08/05/17 21:27 Dose: 1 applic Heparin Sodium (Porcine) (Heparin -) 1,000 unit IVPUSH PRN PRN PRN Reason: Heparin Heparin Sodium (Porcine) (Heparin -) 5,000 unit IVPUSH PRN PRN PRN Reason: Heparin Heparin Sodium (Porcine) 25, (000 unit/ Sodium Chloride) 500 mls @ 32.4 mls/hr IV TITR [facility]; 1,620 UNIT/HR PRN Reason: Protocol Last Admin: 08/05/17 21:25 Dose: Not Given Ceftriaxone Sodium 1 gm/ (Dextrose) 50 mls @ 100 mls/hr IVPB DAILY [facility] Last Admin: 08/05/17 11:27 Dose: 100 mls/hr Sodium Chloride (Normal Saline -) 1,000 mls @ 50 mls/hr IV ASDIR [facility] Stop: 08/06/17 12:28 Last Admin: 08/05/17 14:13 Dose: 50 mls/hr Mupirocin (Bactroban Ointment (For Decolonization) -) 1 applic NS BID [facility] Stop: 08/08/17 21:59 Last Admin: 08/05/17 21:27 Dose: 1 applic Ondansetron HCl (Zofran Injection) 4 mg IVPUSH Q4H PRN PRN Reason: NAUSEA AND/OR VOMITING Pantoprazole Sodium (Protonix Iv) 40 mg IVPUSH DAILY [facility] Last Admin: 08/05/17 11:27 Dose: 40 mg Polyethylene Glycol (Miralax (For Daily Use) -) 17 gm PO DAILY [facility] Last Admin: 08/05/17 12:06 Dose: Not Given Rosuvastatin Calcium (Crestor -) 5 mg PO HS [facility] Last Admin: 08/05/17 21:27 Dose: Not Given Tiotropium [place] (Spiriva -) 1 puff IH DAILY [facility] Last Admin: 08/05/17 13:45 Dose: Not Given Tolterodine Tartrate (Detrol La -) 4 mg PO DAILY [facility] Last Admin: 08/05/17 12:05 Dose: Not Given - Objective Vital Signs: Vital Signs Temperature 98.4 F 08/06/17 05:59 Pulse Rate 78 08/06/17 05:59 Respiratory Rate 20 08/06/17 05:59 Blood Pressure 104/61 08/06/17 05:59 O2 Sat by Pulse Oximetry (%) 96 08/05/17 21:00 Eyes: Yes: WNL, Conjunctiva Clear, EOM Intact HENT: Yes: WNL, Atraumatic, Normocephalic Neck: Yes: WNL, Supple, Trachea Midline Cardiovascular: Yes: WNL, Regular Rate and Rhythm Respiratory: Yes: WNL, Regular, CTA Bilaterally Gastrointestinal: Yes: WNL, Normal Bowel Sounds Genitourinary: Yes: WNL Musculoskeletal: Yes: WNL Extremities: Yes: WNL Edema: No Integumentary: Yes: WNL Neurological: Yes: WNL, Alert, Oriented ...Motor Strength: WNL Psychiatric: Yes: WNL Labs: CBC, BMP 08/05/17 06:20 08/05/17 06:20 INR, PTT INR 1.19 (0.82-1.09) H 08/04/17 20:55 Problem List - Problems (1) Antiplatelet or antithrombotic long-term use Code(s): Z79.02 - MCC (CURRENT) USE OF ANTITHROMBOTICS/ANTIPLATELETS (2) Demand ischemia Code(s): I24.8 - OTHER FORMS OF ACUTE ISCHEMIC HEART DISEASE (3) Hyperlipidemia Code(s): E78.5 - HYPERLIPIDEMIA, UNSPECIFIED Qualifiers: Hyperlipidemia type: pure hypercholesterolemia Qualified Code(s): E78.00 - Pure hypercholesterolemia, unspecified; E78.0 - Pure hypercholesterolemia (4) Hypertensive cardiovascular disease Code(s): I11.9 - HYPERTENSIVE HEART DISEASE WITHOUT HEART FAILURE Qualifiers: Heart failure presence: without heart failure Qualified Code(s): I11.9 - Hypertensive heart disease without heart failure (5) NSTEMI (non-ST elevated myocardial infarction) Code(s): I21.4 - NON-ST ELEVATION (NSTEMI) MYOCARDIAL INFARCTION (6) Back pain Code(s): M54.9 - DORSALGIA, UNSPECIFIED Qualifiers: Back pain location: low back pain Chronicity: acute (7) DJD (degenerative joint disease) Code(s): M19.90 - UNSPECIFIED OSTEOARTHRITIS, UNSPECIFIED SITE (8) Insect bite Code(s): W57.XXXA - BIT/STUNG BY NONVENOM INSECT & OTH NONVENOM ARTHROPODS, INIT Qualifiers: Encounter type: initial encounter Qualified Code(s): W57.XXXA - Bitten or stung by nonvenomous insect and other nonvenomous arthropods, initial encounter (9) Knee pain Code(s): M25.569 - PAIN IN UNSPECIFIED KNEE (10) Skin irritation due to topical agent Code(s): R23.8 - OTHER SKIN CHANGES; T49.95XA - ADVERSE EFFECT OF UNSPECIFIED TOPICAL AGENT, INIT ENCNTR (11) Ulcer (traumatic) of oral mucosa Code(s): K12.1 - OTHER FORMS OF STOMATITIS Assessment/Plan - Problems (1) Pulmonary emboli Assessment/Plan: extensive bilateral pulmonary emboli by CTA. s/p mechanical thrombectomy and guided tPA; ECHO: normal LVEF; ? Normal RVEF(RV "not well visualized"); mild TR; mild pulmonary HTN.; Now off vasopressors. Cautious use of fluids (renal dysfunction post-CT and thrombectomy);f/u BUN/Cr, electrolytes, Is and Os, daily weight. Code(s): I26.99 - OTHER PULMONARY EMBOLISM WITHOUT ACUTE COR PULMONALE Qualifiers: Pulmonary embolism type: other Chronicity: acute Acute cor pulmonale presence: with acute cor pulmonale Qualified Code(s): I26.09 - Other pulmonary embolism with acute cor pulmonale (2) Hyperlipidemia Assessment/Plan: on statin; f/u lipid profile; keep LDL cholesterol < 70 mg/dL. Code(s): E78.5 - HYPERLIPIDEMIA, UNSPECIFIED Qualifiers: Hyperlipidemia type: pure hypercholesterolemia Qualified Code(s): E78.00 - Pure hypercholesterolemia, unspecified; E78.0 - Pure hypercholesterolemia (3) Hypertensive cardiovascular disease Assessment/Plan: off pressors. Code(s): I11.9 - HYPERTENSIVE HEART DISEASE WITHOUT HEART FAILURE Qualifiers: Heart failure presence: without heart failure Qualified Code(s): I11.9 - Hypertensive heart disease without heart failure (4) Anxiety Assessment/Plan: Pt is anxious Code(s): F41.9 - ANXIETY DISORDER, UNSPECIFIED ATN renal consult appreciated CCU time spent examining pt, forulatin plan: 40 minutes.
--- NOTE | 2017-08-06 09:47 | PN ---
Physical Exam: SUBJECTIVE: Patient seen and examined at bedside. No overnight events. her breathing still bothers her and complaining of back pain. S/P angio and IVC filter yesterday and tolerated procedure well. Denies CP, HESS, abdominal pain, Nausea or vomiting. OBJECTIVE: Vital Signs Period Temp Pulse Resp BP Sys/Seth Pulse Ox Last 24 Hr 98 F-98.5 F 78-96 20-26 103-135/48-72 95-97 GENERAL: awake and alert. mild distress HEAD: NC/AT. EYES: PERRLA,EOMI LUNGS: decreased breath sounds bilaterally, scatter rhonchi, HEART: tachycardic, NL s1s2, 2/6 OZZIE ABDOMEN: Soft, obese, nontender, not distended, normoactive bowel sounds, no guarding, no rebound, no masses. MUSCULOSKELETAL: No CVA tenderness. LOWER EXTREMITIES: 2+ pulses, warm, well-perfused. No calf tenderness. Laboratory Results - last 24 hr 08/05/17 08/05/17 08/05/17 06:20 06:20 17:00 Neutrophils % (Manual) 68.0 Band Neutrophils % 1.0 Lymphocytes % (Manual) 15.0 Monocytes % (Manual) 11 H Eosinophils % (Manual) 0.0 Basophils % (Manual) 0.0 Myelocytes % (Man) 0 Promyelocytes % (Man) 0 Blast Cells % (Manual) 0 Nucleated RBC % 0 Metamyelocytes 0 Sodium 141 Potassium 4.6 Chloride 104 Carbon Dioxide 25 Anion Gap 12 BUN 60 H Creatinine 2.8 H Creat Clearance w eGFR 16.10 Random Glucose 142 H Calcium 7.5 L Phosphorus 6.6 H Magnesium 2.7 H Total Bilirubin 0.5 D AST 227 H ALT 221 H Alkaline Phosphatase 52 Troponin I 5.76 H* 3.13 H* Total Protein 6.5 Albumin 3.0 L Urine Color Urine Appearance Urine pH Ur Specific [place] Urine Protein Urine Glucose (UA) Urine Ketones Urine Blood Urine Nitrite Urine Bilirubin Urine Urobilinogen Ur Leukocyte Esterase Urine WBC (Auto) Urine RBC (Auto) Ur Epithelial Cells Urine Mucus Ur Random Sodium Urine Creatinine 08/05/17 08/05/17 08/05/17 17:00 17:00 17:00 Neutrophils % (Manual) Band Neutrophils % Lymphocytes % (Manual) Monocytes % (Manual) Eosinophils % (Manual) Basophils % (Manual) Myelocytes % (Man) Promyelocytes % (Man) Blast Cells % (Manual) Nucleated RBC % Metamyelocytes Sodium Potassium Chloride Carbon Dioxide Anion Gap BUN Creatinine Creat Clearance w eGFR Random Glucose Calcium Phosphorus Magnesium Total Bilirubin AST ALT Alkaline Phosphatase Troponin I Total Protein Albumin Urine Color Dkyellow Urine Appearance Slcloudy Urine pH 5.0 Ur Specific [place] 1.044 H Urine Protein 1+ H Urine Glucose (UA) Negative Urine Ketones Negative Urine Blood 2+ H Urine Nitrite Negative Urine Bilirubin Negative Urine Urobilinogen 2.0 H Ur Leukocyte Esterase Trace Urine WBC (Auto) 10 Urine RBC (Auto) 52 Ur Epithelial Cells Rare Urine Mucus Rare Ur Random Sodium 11 Urine Creatinine 164.0 Active Medications Generic Name Dose Route Start Last Admin Trade Name Freq PRN Reason Stop Dose Admin Albuterol/Ipratropium 1 amp 08/02/17 15:19 08/05/17 21:50 Duoneb - NEB 1 amp Q4H PRN Administration SHORTNESS OF BREATH Amlodipine Besylate 5 mg 08/01/17 10:00 08/05/17 12:06 Norvasc - PO Not Given DAILY [facility] Chlorhexidine Gluconate 1 applic 08/03/17 22:00 08/05/17 21:27 Hibiclens For Decolonization - TP 1 applic HS [facility] Administration Heparin Sodium (Porcine) 1,000 unit 08/03/17 12:57 Heparin - IVPUSH PRN PRN Heparin Heparin Sodium (Porcine) 5,000 unit 08/03/17 12:57 Heparin - IVPUSH PRN PRN Heparin Heparin Sodium (Porcine) 25, 500 mls @ 32.4 mls/hr 08/03/17 13:35 08/05/17 21 :25 000 unit/ Sodium Chloride IV Not Given TITR [facility] Protocol 1,620 UNIT/HR Ceftriaxone Sodium 1 gm/ 50 mls @ 100 mls/hr 08/04/17 12:15 08/05/17 11:27 Dextrose IVPB 100 mls/hr DAILY [facility] Administration Sodium Chloride 1,000 mls @ 50 mls/hr 08/05/17 12:30 08/05/17 14:13 Normal Saline - IV 08/06/17 12:28 50 mls/hr ASDIR [facility] Administration Mupirocin 1 applic 08/03/17 22:00 08/05/17 21:27 Bactroban Ointment (For Decolonization) - NS 08/08/17 21:59 1 applic BID [facility] Administration Ondansetron HCl 4 mg 08/03/17 22:07 Zofran Injection IVPUSH Q4H PRN NAUSEA AND/OR VOMITING Pantoprazole Sodium 40 mg 08/04/17 12:15 08/05/17 11:27 Protonix Iv IVPUSH 40 mg DAILY [facility] Administration Polyethylene Glycol 17 gm 08/02/17 15:45 08/05/17 12:06 Miralax (For Daily Use) - PO Not Given DAILY [facility] Rosuvastatin Calcium 5 mg 08/01/17 22:00 08/05/17 21:27 Crestor - PO Not Given HS [facility] Tiotropium [place] 1 puff 08/01/17 10:00 08/05/17 13:45 Spiriva - IH Not Given DAILY [facility] Tolterodine Tartrate 4 mg 08/01/17 10:00 08/05/17 12:05 Detrol La - PO Not Given DAILY [facility] ASSESSMENT/PLAN: ASSESSMENT/PLAN: 86 year old F with pmhx of HTN, HLD, arthritis, and GERD presented s/p mechanical fall found to have massive PE s/p thrombectomy and TPA currently managed in ICU. Problem List - Problems (1) ELLIS (acute kidney injury) Assessment/Plan: most likely pre-renal secondary to hypotension v. ATN * CMP pending today to asses kidney function because needs 24hrs from TPa to draw labs; this will be at 1600 today. * continue IV hydration as she recieved contrast yesterday for angio * Kidney and bladder US to r/o obstruction pending. * FeNa= 0.13% suggestive of pre-renal * UA reviewed. * avoid nephrotoxic medications. * repeat labs in AM (2) Pulmonary emboli Assessment/Plan: Massive PE seen on CTA s/p thrombectomy * angio and IVC filter yesterday; tolerated procedure well * Off pressors. * currently on non rebreather for supplemental oxygen. (3) Hyperlipidemia (4) Hypertensive cardiovascular disease Visit type - Emergency Visit Emergency Visit: Yes ED Registration Date: 07/31/17 Care time: The patient presented to the Emergency Department on the above date and was hospitalized for further evaluation of their emergent condition. - New Patient This patient is new to me today: Yes Date on this admission: 08/06/17 - Critical Care Critical Care patient: Yes Total Critical Care Time (in minutes): 48 Critical Care Statement: The care of this patient involved high complexity decision making to prevent further life threatening deterioration of the patient 's condition and/or to evaluate & treat vital organ system(s) failure or risk of failure.
[2017-08-06] MEDS ORDERED: cefTRIAXone SODIUM 1 GM VIAL ONE (10:16)
[2017-08-06] MEDS ORDERED: DEXTROSE 5%-WATER - 50 ML IVPB ONE (10:16)
[2017-08-06] MEDS: PANTOPRAZOLE SODIUM 40 MG VIAL IVPUSH SCH (10:22)
[2017-08-06] MEDS: MUPIROCIN 2% TOPICAL OINTMENT FOR DECOLONIZATION NS SCH ×2 (10:22→22:40)
[2017-08-06] MEDS: CEFTRIAXONE 1 GM in DEXTROSE 5%-WATER - 50 ML IVPB SCH (10:23)
[2017-08-06] MEDS: TOLTERODINE TARTRATE LA 4 MG CAP.SR.24H (FP) PO SCH (10:33)
[2017-08-06] MEDS: amLODIPine BESYLATE 5 MG TABLET (FP) PO SCH (10:34)
[2017-08-06] MEDS ORDERED: morphine SULFATE 4 MG/ML VIAL IVPUSH PRN (12:27)
--- NOTE | 2017-08-06 12:52 | PN ---
Physical Exam: SUBJECTIVE: Patient seen and examined No acute events overnight. Patient comfortable on venti-mask this morning. Patient feels hungry. Denies any fever, chills. OBJECTIVE: Vital Signs Period Temp Pulse Resp BP Sys/Seth Pulse Ox Last 24 Hr 98 F-98.8 F 74-96 20-26 104-135/48-89 95-97 General: patient is awake alert and in no acute distress, Feeling hungry Chest: Decreased Breath sounds b/l. satting well on venti mask Heart: S1S2 positive, +OZZIE 2/6 Abdomen: positive bowel sounds, no tenderness Neuro: awake, follows commands. CN intact MSK: paraspinal tenderness : positive for Carlos Laboratory Results - last 24 hr 08/05/17 08/05/17 08/05/17 06:20 17:00 17:00 Troponin I 5.76 H* 3.13 H* Urine Color Urine Appearance Urine pH Ur Specific [place] Urine Protein Urine Glucose (UA) Urine Ketones Urine Blood Urine Nitrite Urine Bilirubin Urine Urobilinogen Ur Leukocyte Esterase Urine WBC (Auto) Urine RBC (Auto) Ur Epithelial Cells Urine Mucus Ur Random Sodium 11 Urine Creatinine 08/05/17 08/05/17 17:00 17:00 Troponin I Urine Color Dkyellow Urine Appearance Slcloudy Urine pH 5.0 Ur Specific [place] 1.044 H Urine Protein 1+ H Urine Glucose (UA) Negative Urine Ketones Negative Urine Blood 2+ H Urine Nitrite Negative Urine Bilirubin Negative Urine Urobilinogen 2.0 H Ur Leukocyte Esterase Trace Urine WBC (Auto) 10 Urine RBC (Auto) 52 Ur Epithelial Cells Rare Urine Mucus Rare Ur Random Sodium Urine Creatinine 164.0 Active Medications Generic Name Dose Route Start Last Admin Trade Name Freq PRN Reason Stop Dose Admin Albuterol/Ipratropium 1 amp 08/02/17 15:19 08/05/17 21:50 Duoneb - NEB 1 amp Q4H PRN Administration SHORTNESS OF BREATH Amlodipine Besylate 5 mg 08/01/17 10:00 08/06/17 10:34 Norvasc - PO 5 mg DAILY [facility] Administration Chlorhexidine Gluconate 1 applic 08/03/17 22:00 08/05/17 21:27 Hibiclens For Decolonization - TP 1 applic HS [facility] Administration Heparin Sodium (Porcine) 1,000 unit 08/03/17 12:57 Heparin - IVPUSH PRN PRN Heparin Heparin Sodium (Porcine) 5,000 unit 08/03/17 12:57 Heparin - IVPUSH PRN PRN Heparin Heparin Sodium (Porcine) 25, 500 mls @ 32.4 mls/hr 08/03/17 13:35 08/05/17 21 :25 000 unit/ Sodium Chloride IV Not Given TITR [facility] Protocol 1,620 UNIT/HR Ceftriaxone Sodium 1 gm/ 50 mls @ 100 mls/hr 08/04/17 12:15 08/06/17 10:23 Dextrose IVPB 100 mls/hr DAILY [facility] Administration Morphine Sulfate 2 mg 08/06/17 12:27 Morphine Sulfate IVPUSH Q4H PRN PAIN LEVEL 6-10 Mupirocin 1 applic 08/03/17 22:00 08/06/17 10:22 Bactroban Ointment (For Decolonization) - NS 08/08/17 21:59 1 applic BID [facility] Administration Ondansetron HCl 4 mg 08/03/17 22:07 Zofran Injection IVPUSH Q4H PRN NAUSEA AND/OR VOMITING Pantoprazole Sodium 40 mg 08/04/17 12:15 08/06/17 10:22 Protonix Iv IVPUSH 40 mg DAILY [facility] Administration Polyethylene Glycol 17 gm 08/02/17 15:45 08/05/17 12:06 Miralax (For Daily Use) - PO Not Given DAILY [facility] Rosuvastatin Calcium 5 mg 08/01/17 22:00 08/05/17 21:27 Crestor - PO Not Given HS [facility] Tiotropium [place] 1 puff 08/01/17 10:00 08/05/17 13:45 Spiriva - IH Not Given DAILY [facility] Tolterodine Tartrate 4 mg 08/01/17 10:00 08/06/17 10:33 Detrol La - PO 4 mg DAILY [facility] Administration ASSESSMENT/PLAN: 86 year old woman with HTN, HLD, arthritis, and GERD presented s/p mechanical fall found to have elevated troponins and bilataral pulmonary emboli #acute bilateral PE with obstructive shock -s/p TPA thrombectomy/thrombolysis and s/p IVC filter - weaned off of pressors - continue heparin drip protocol for PE, will transition to oral when acute treatment completed - may need repeat echo to evaluate cardiac function - will need outpatient evaluation of unprovoked PE and AC for 6months post-dc #elevated troponins, creatine kinase - likely from PE causing obstructive shock - labs pending, because pt needs 24hrs from tPa to draw labs #hld -Continue crestor #ELLIS- likely due to pre-renal hypoperfusion - hold diovan and norvasc - gently hydration ns @50cc due to concern for fluid overload - Dr. Heredia consulted #urinary retention - carlos placed - hold tolterodine # COPD - Spiriva/duonebs prn #fen/gi -no IVF -wnl -regular diet -protonix 40mg IV dialy Visit type - Emergency Visit Emergency Visit: Yes ED Registration Date: 07/31/17 Care time: The patient presented to the Emergency Department on the above date and was hospitalized for further evaluation of their emergent condition. - New Patient This patient is new to me today: No - Critical Care Critical Care patient: Yes Total Critical Care Time (in minutes): 40 Critical Care Statement: The care of this patient involved high complexity decision making to prevent further life threatening deterioration of the patient 's condition and/or to evaluate & treat vital organ system(s) failure or risk of failure.
--- NOTE | 2017-08-06 13:06 | PN ---
Teaching Attending Note Name of Resident: Jaziel Hopkins ATTENDING PHYSICIAN STATEMENT I saw and evaluated the patient. I reviewed the resident's note and discussed the case with the resident. I agree with the resident's findings and plan as documented. SUBJECTIVE: Patient seen and examined in the ICU. Reports breathing is improving. Off pressors. No occult bleeding. Denies CP or SOB, but mildly tachypneic at rest. Loud snoring with periods of apnea noted when she is sleeping. Intake & Output 08/03/17 08/04/17 08/05/17 08/06/17 23:59 23:59 23:59 23:59 Intake Total 400 1653 1664 575 Output Total 900 500 620 Balance 110 128 7576 -45 Weight 194 lb 0.108 oz 197 lb 8.547 oz 200 lb Last Vital Signs Temp Pulse Resp BP Pulse Ox 98.8 F 76 20 124/62 96 08/06/17 10:00 08/06/17 12:00 08/06/17 12:00 08/06/17 12:00 08/05/17 21:00 Active Medications Albuterol/Ipratropium (Duoneb -) 1 amp NEB Q4H PRN PRN Reason: SHORTNESS OF BREATH Last Admin: 08/05/17 21:50 Dose: 1 amp Amlodipine Besylate (Norvasc -) 5 mg PO DAILY [facility] Last Admin: 08/06/17 10:34 Dose: 5 mg Chlorhexidine Gluconate (Hibiclens For Decolonization -) 1 applic TP HS [facility] Last Admin: 08/05/17 21:27 Dose: 1 applic Heparin Sodium (Porcine) (Heparin -) 1,000 unit IVPUSH PRN PRN PRN Reason: Heparin Heparin Sodium (Porcine) (Heparin -) 5,000 unit IVPUSH PRN PRN PRN Reason: Heparin Heparin Sodium (Porcine) 25, (000 unit/ Sodium Chloride) 500 mls @ 32.4 mls/hr IV TITR [facility]; 1,620 UNIT/HR PRN Reason: Protocol Last Admin: 08/05/17 21:25 Dose: Not Given Ceftriaxone Sodium 1 gm/ (Dextrose) 50 mls @ 100 mls/hr IVPB DAILY [facility] Last Admin: 08/06/17 10:23 Dose: 100 mls/hr Morphine Sulfate (Morphine Sulfate) 2 mg IVPUSH Q4H PRN PRN Reason: PAIN LEVEL 6-10 Mupirocin (Bactroban Ointment (For Decolonization) -) 1 applic NS BID [facility] Stop: 08/08/17 21:59 Last Admin: 08/06/17 10:22 Dose: 1 applic Ondansetron HCl (Zofran Injection) 4 mg IVPUSH Q4H PRN PRN Reason: NAUSEA AND/OR VOMITING Pantoprazole Sodium (Protonix Iv) 40 mg IVPUSH DAILY [facility] Last Admin: 08/06/17 10:22 Dose: 40 mg Polyethylene Glycol (Miralax (For Daily Use) -) 17 gm PO DAILY [facility] Last Admin: 08/05/17 12:06 Dose: Not Given Rosuvastatin Calcium (Crestor -) 5 mg PO HS [facility] Last Admin: 08/05/17 21:27 Dose: Not Given Tiotropium [place] (Spiriva -) 1 puff IH DAILY [facility] Last Admin: 08/05/17 13:45 Dose: Not Given Tolterodine Tartrate (Detrol La -) 4 mg PO DAILY [facility] Last Admin: 08/06/17 10:33 Dose: 4 mg Gen: alert, awake, mildly tachypneic at rest Heart: RRR Lung: decreased breath sounds at the bases Abd: soft, nontender Ext: no edema [employer]: non-focal Laboratory Results - last 24 hr 08/05/17 08/05/17 08/05/17 17:00 17:00 17:00 Troponin I 3.13 H* Urine Color Dkyellow Urine Appearance Slcloudy Urine pH 5.0 Ur Specific [place] 1.044 H Urine Protein 1+ H Urine Glucose (UA) Negative Urine Ketones Negative Urine Blood 2+ H Urine Nitrite Negative Urine Bilirubin Negative Urine Urobilinogen 2.0 H Ur Leukocyte Esterase Trace Urine WBC (Auto) 10 Urine RBC (Auto) 52 Ur Epithelial Cells Rare Urine Mucus Rare Ur Random Sodium 11 Urine Creatinine 08/05/17 17:00 Troponin I Urine Color Urine Appearance Urine pH Ur Specific [place] Urine Protein Urine Glucose (UA) Urine Ketones Urine Blood Urine Nitrite Urine Bilirubin Urine Urobilinogen Ur Leukocyte Esterase Urine WBC (Auto) Urine RBC (Auto) Ur Epithelial Cells Urine Mucus Ur Random Sodium Urine Creatinine 164.0 ASSESSMENT AND PLAN: Acute Hypoxic Respiratory Failure Massive Pulmonary Emboli S/P catheter directed thrombectomy/thrombolysis Obstructive Shock improving Likely Right Heart Strain Acute Kidney Injury +Troponins likely from above s/p Fall HTN Hyperlipidemia r/o UTI - Follow H&H - O2 to keep SpO2 >90% - Noted antibiotics for possible UTI - inhaled bronchodilators - monitor urine output, creatinine - IV Heparin per protocol - will need at least 6 months of anticoagulation for 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
--- NOTE | 2017-08-06 13:53 | PN ---
Teaching Attending Note Name of Resident: Carlitos Cortés ATTENDING PHYSICIAN STATEMENT I saw and evaluated the patient. I reviewed the resident's note and discussed the case with the resident. I agree with the resident's findings and plan as documented. SUBJECTIVE: Patient is comfortable , on Venti mask .In ICu, off NR, patient feels very hungry and wants to eat. OBJECTIVE: Vital Signs Temperature 98.8 F 08/06/17 10:00 Pulse Rate 76 08/06/17 12:00 Respiratory Rate 20 08/06/17 12:00 Blood Pressure 124/62 08/06/17 12:00 O2 Sat by Pulse Oximetry (%) 96 08/05/17 21:00 Patient is more awake, asking for food. Chest: Decreased BS BL.On VM now Heart: S1S2 positive abdomen: positve BC Neuro: awake, follows commands : positive for Carlos CBCD WBC 10.6 K/mm3 (4.0-10.0) H 08/05/17 06:20 RBC 3.94 M/mm3 (3.60-5.2) 08/05/17 06:20 Hgb 11.6 GM/dL (10.7-15.3) 08/05/17 06:20 Hct 34.4 % (32.4-45.2) 08/05/17 06:20 MCV 87.4 fl (80-96) 08/05/17 06:20 MCHC 33.6 g/dl (32.0-36.0) 08/05/17 06:20 RDW 14.8 % (11.6-15.6) 08/05/17 06:20 Plt Count 163 K/MM3 (134-434) 08/05/17 06:20 MPV 9.9 fl (7.5-11.1) 08/05/17 06:20 CMP Sodium 141 mmol/L (136-145) 08/05/17 06:20 Potassium 4.6 mmol/L (3.5-5.1) 08/05/17 06:20 Chloride 104 mmol/L (98-107) 08/05/17 06:20 Carbon Dioxide 25 mmol/L (21-32) 08/05/17 06:20 Anion Gap 12 (8-16) 08/05/17 06:20 BUN 60 mg/dL (7-18) H 08/05/17 06:20 Creatinine 2.8 mg/dL (0.55-1.02) H 08/05/17 06:20 Creat Clearance w eGFR 16.10 (>60) 08/05/17 06:20 Random Glucose 142 mg/dL (74-106) H 08/05/17 06:20 Calcium 7.5 mg/dL (8.5-10.1) L 08/05/17 06:20 Total Bilirubin 0.5 mg/dL (0.2-1.0) D 08/05/17 06:20 AST 227 U/L (15-37) H 08/05/17 06:20 ALT 221 U/L (12-78) H 08/05/17 06:20 Alkaline Phosphatase 52 U/L (45-117) 08/05/17 06:20 Total Protein 6.5 g/dl (6.4-8.2) 08/05/17 06:20 Albumin 3.0 g/dl (3.4-5.0) L 08/05/17 06:20 CARDIAC ENZYMES Creatine Kinase 1500 IU/L (26-192) H 08/04/17 04:00 Troponin I 3.13 ng/ml (0.00-0.05) H* 08/05/17 17:00 Current Medications Generic Name Dose Route Start Last Admin Trade Name Freq PRN Reason Stop Dose Admin Albuterol/Ipratropium 1 amp 08/02/17 15:19 08/05/17 21:50 Duoneb - NEB 1 amp Q4H PRN Administration SHORTNESS OF BREATH Amlodipine Besylate 5 mg 08/01/17 10:00 08/06/17 10:34 Norvasc - PO 5 mg DAILY [facility] Administration Chlorhexidine Gluconate 1 applic 08/03/17 22:00 08/05/17 21:27 Hibiclens For Decolonization - TP 1 applic HS [facility] Administration Heparin Sodium (Porcine) 1,000 unit 08/03/17 12:57 Heparin - IVPUSH PRN PRN Heparin Heparin Sodium (Porcine) 5,000 unit 08/03/17 12:57 Heparin - IVPUSH PRN PRN Heparin Heparin Sodium (Porcine) 25, 500 mls @ 32.4 mls/hr 08/03/17 13:35 08/05/17 21 :25 000 unit/ Sodium Chloride IV Not Given TITR [facility] Protocol 1,620 UNIT/HR Ceftriaxone Sodium 1 gm/ 50 mls @ 100 mls/hr 08/04/17 12:15 08/06/17 10:23 Dextrose IVPB 100 mls/hr DAILY [facility] Administration Morphine Sulfate 2 mg 08/06/17 12:27 Morphine Sulfate IVPUSH Q4H PRN PAIN LEVEL 6-10 Mupirocin 1 applic 08/03/17 22:00 08/06/17 10:22 Bactroban Ointment (For Decolonization) - NS 08/08/17 21:59 1 applic BID [facility] Administration Ondansetron HCl 4 mg 08/03/17 22:07 Zofran Injection IVPUSH Q4H PRN NAUSEA AND/OR VOMITING Pantoprazole Sodium 40 mg 08/04/17 12:15 08/06/17 10:22 Protonix Iv IVPUSH 40 mg DAILY [facility] Administration Polyethylene Glycol 17 gm 08/02/17 15:45 08/05/17 12:06 Miralax (For Daily Use) - PO Not Given DAILY [facility] Rosuvastatin Calcium 5 mg 08/01/17 22:00 08/05/17 21:27 Crestor - PO Not Given [facility] Tiotropium [place] 1 puff 08/01/17 10:00 08/05/17 13:45 Spiriva - IH Not Given DAILY [facility] Tolterodine Tartrate 4 mg 08/01/17 10:00 08/06/17 10:33 Detrol La - will discontinue for now PO 4 mg DAILY [facility] Administration Home Medications Medication Instructions Recorded Aspirin [ASA -] 81 mg PO DAILY 03/24/13 Multivitamin [Multivitamins] 1 each PO DAILY 03/24/13 Rosuvastatin Calcium [Crestor] 5 mg PO DAILY 03/24/13 Amlodipine Besylate [Norvasc -] 5 mg PO DAILY 12/28/13 Docusate Sodium [Colace] 200 mg PO HS 12/28/13 Omeprazole Magnesium [Prilosec 20 mg PO DAILY 12/28/13 (OTC)] Tiotropium [place] [Spiriva -] 1 inh PO DAILY 12/28/13 Valsartan/Hydrochlorothiazide 80 combo PO DAILY 12/28/13 [Diovan Hct 160-25 mg Tablet] Diclofenac Sodium [Voltaren] 0 gm TP QID PRN 08/01/17 Diphenhydramine HCl [Benadryl -] 25 mg PO Q6H PRN 08/01/17 Ibuprofen 600 mg PO BID PRN 08/01/17 Neomycin/Polymyx/Hc Ophth Susp 1 - 4 drop AU TID 08/01/17 [Cortisporin Ophthalmic Suspension -] ASSESSMENT AND PLAN: Patient is 86yo female with pmhx of HTN, HLD, arthritis, and GERD presented s/p mechanical fall. Was found to have an extensive PE s/p TPA by IR , on TPA. #Massive Pulmonary Embolism s/p CTA , extensive PE s/p IVC filter , off IV pressers now. Continue ICU monitoring on IV Heparin. Patient is s/p catheter directed tPA., tPA to be continued until second pulmonary angiogram performed. 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 #ELLIS most likely due to ATN due to Ischemia . Nephro on the case. will continue to monitor. No Labs were done today due to TPA. #Elevated Troponins most likely due to demand ischemia. On heparin drip continue # Hx of HTN now normotensive s/p IV pressers continue to monitor BP #HLD continue Crestor 5mg HS #S/P Mechanical Fall DVT Px; Heparin will discontinue the Detrol LA since patient has carlos at this time. She can be evaluated further use by urologist as an outpatient.
--- NOTE | 2017-08-06 14:58 | PN ---
Physical Exam: SUBJECTIVE: Patient seen and examined in ICU. No acute events overnight. Patient denies chest pain shortness of breath, fevers, chills. Endorsing pain to her lower back. OBJECTIVE: Vital Signs Period Temp Pulse Resp BP Sys/Seth Pulse Ox Last 24 Hr 98 F-98.8 F 74-96 20-24 104-135/48-89 95-97 GENERAL: The patient is awake, alert, and fully oriented, in no acute distress. HEAD: Normal with no signs of trauma. EYES: PERRL, extraocular movements intact, sclera anicteric, conjunctiva clear. ENT: Ears normal, nares patent, oropharynx clear without exudates, moist mucous membranes. NECK: Trachea midline, full range of motion, supple. LUNGS: Breath sounds equal, clear to auscultation bilaterally, no wheezes, no crackles, no accessory muscle use. HEART: Regular rate and rhythm, S1, S2 without murmur, rub or gallop. EXTREMITIES: 2+ pulses, warm, well-perfused, no edema. Laboratory Results - last 24 hr 08/05/17 08/05/17 08/05/17 17:00 17:00 17:00 Troponin I 3.13 H* Urine Color Dkyellow Urine Appearance Slcloudy Urine pH 5.0 Ur Specific [place] 1.044 H Urine Protein 1+ H Urine Glucose (UA) Negative Urine Ketones Negative Urine Blood 2+ H Urine Nitrite Negative Urine Bilirubin Negative Urine Urobilinogen 2.0 H Ur Leukocyte Esterase Trace Urine WBC (Auto) 10 Urine RBC (Auto) 52 Ur Epithelial Cells Rare Urine Mucus Rare Ur Random Sodium 11 Urine Creatinine 08/05/17 17:00 Troponin I Urine Color Urine Appearance Urine pH Ur Specific [place] Urine Protein Urine Glucose (UA) Urine Ketones Urine Blood Urine Nitrite Urine Bilirubin Urine Urobilinogen Ur Leukocyte Esterase Urine WBC (Auto) Urine RBC (Auto) Ur Epithelial Cells Urine Mucus Ur Random Sodium Urine Creatinine 164.0 Active Medications Generic Name Dose Route Start Last Admin Trade Name Freq PRN Reason Stop Dose Admin Albuterol/Ipratropium 1 amp 08/02/17 15:19 08/05/17 21:50 Duoneb - NEB 1 amp Q4H PRN Administration SHORTNESS OF BREATH Amlodipine Besylate 5 mg 08/01/17 10:00 08/06/17 10:34 Norvasc - PO 5 mg DAILY [facility] Administration Chlorhexidine Gluconate 1 applic 08/03/17 22:00 08/05/17 21:27 Hibiclens For Decolonization - TP 1 applic HS [facility] Administration Heparin Sodium (Porcine) 1,000 unit 08/03/17 12:57 Heparin - IVPUSH PRN PRN Heparin Heparin Sodium (Porcine) 5,000 unit 08/03/17 12:57 Heparin - IVPUSH PRN PRN Heparin Heparin Sodium (Porcine) 25, 500 mls @ 32.4 mls/hr 08/03/17 13:35 08/05/17 21 :25 000 unit/ Sodium Chloride IV Not Given TITR [facility] Protocol 1,620 UNIT/HR Ceftriaxone Sodium 1 gm/ 50 mls @ 100 mls/hr 08/04/17 12:15 08/06/17 10:23 Dextrose IVPB 100 mls/hr DAILY [facility] Administration Morphine Sulfate 2 mg 08/06/17 12:27 Morphine Sulfate IVPUSH Q4H PRN PAIN LEVEL 6-10 Mupirocin 1 applic 08/03/17 22:00 08/06/17 10:22 Bactroban Ointment (For Decolonization) - NS 08/08/17 21:59 1 applic BID [facility] Administration Pantoprazole Sodium 40 mg 08/04/17 12:15 08/06/17 10:22 Protonix Iv IVPUSH 40 mg DAILY [facility] Administration Polyethylene Glycol 17 gm 08/02/17 15:45 08/05/17 12:06 Miralax (For Daily Use) - PO Not Given DAILY [facility] Rosuvastatin Calcium 5 mg 08/01/17 22:00 08/05/17 21:27 Crestor - PO Not Given HS [facility] Tiotropium [place] 1 puff 08/01/17 10:00 08/05/17 13:45 Spiriva - IH Not Given DAILY [facility] ASSESSMENT/PLAN: Patient is an 86 year old female who presented for s/p mechanical fall and was found to have elevated troponins. Patient throughout her hospital course became hypoxic and was found to have bilateral Pulmonary embolisms. Patient decompensated and was transferred to ICU for further monitoring and management. Pulmonology #Massive Pulmonary Embolism w/ Obstructive shock -Chest CTA revealing Extensive PE -ECHO did not visualize RV but likely right heart strain -Patient is now s/p catheter directed tPA. -IVC placed -tPA d/c 4pm yesterday, holding blood draws until 24 hours clear -Currently saturating mid 90's on nasal cannula Maintain SpO2>90% -Dopamine weaned -Continue Duo-nebs -Continue to monitor BP and maintain MAP >65 -Will need minimum 6months of AC after discharge. Cardiovascular #Elevated Troponins -Likely secondary to demand ischemia from obstructive shock and ELLIS -Troponins trended down to 3.1 -Will repeat this evening after blood draws possible again -Patient currently on Heparin ggt #Elevated Creatinine Kinase -Trended down today. Will continue to monitor #Hypertension -Patient currently normotensive, recenting in [facility] -BP medications on hold -Continue to monitor BP #HLD -Continue Crestor 5mg HS Nephrology #ELLIS -Likely secondary to obstructive shock and Urinary Retention -Patient retaining almost a liter of urine, likely contributing to the ELLIS. -Live order placed -Cr has continued to rise, now 2.8, up from 1.4 initially, pending today's Cr after draws allowed -Will continue to monitor BMP Infectious Disease #Rule out UTI -LE +1 w/ WBC >5 -Ceftriaxone 1gm daily started -Live placed to relieve retention Orthopedic #S/P Mechanical Fall w/ Lumbar Pain -Pain currently controlled. Will need to avoid any medications that can potentially lower her Blood pressure in the setting of massive PE. -CT revealed no acute pathology -Head CT negative -Abdominal X-ray negative for acute pathology F/E/N -On no fluids, tolerating PO -No electrolytes abnormalities -NPO Prophylaxis -High risk. Heparin drip and tPA for DVT -Protonix 40mg IVP daily for GI Disposition -Full code -Tele after 24 hours after tPA completion Visit type - Emergency Visit Emergency Visit: Yes ED Registration Date: 07/31/17 Care time: The patient presented to the Emergency Department on the above date and was hospitalized for further evaluation of their emergent condition. - New Patient This patient is new to me today: No - Critical Care Critical Care patient: No Total Critical Care Time (in minutes): 35 Critical Care Statement: The care of this patient involved high complexity decision making to prevent further life threatening deterioration of the patient 's condition and/or to evaluate & treat vital organ system(s) failure or risk of failure.
--- NOTE | 2017-08-06 15:32 | PN ---
Teaching Attending Note Name of Resident: Niles Grace (Nephrology) ATTENDING PHYSICIAN STATEMENT I saw and evaluated the patient. I reviewed the resident's note and discussed the case with the resident. I agree with the resident's findings and plan as documented. Nephrology Pt seen and examined at bedside. She is awake and feels that her breathing is improving. She is now on nasal canula. Current Medications Generic Name Dose Route Start Last Admin Trade Name Freq PRN Reason Stop Dose Admin Albuterol/Ipratropium 1 amp 08/02/17 15:19 08/05/17 21:50 Duoneb - NEB 1 amp Q4H PRN Administration SHORTNESS OF BREATH Amlodipine Besylate 5 mg 08/01/17 10:00 08/06/17 10:34 Norvasc - PO 5 mg DAILY [facility] Administration Chlorhexidine [place] 1 applic 08/03/17 22:00 08/05/17 21:27 Hibiclens For Decolonization - TP 1 applic HS [facility] Administration Heparin Sodium (Porcine) 1,000 unit 08/03/17 12:57 Heparin - IVPUSH PRN PRN Heparin Heparin Sodium (Porcine) 5,000 unit 08/03/17 12:57 Heparin - IVPUSH PRN PRN Heparin Heparin Sodium (Porcine) 25, 500 mls @ 32.4 mls/hr 08/03/17 13:35 08/05/17 21 :25 000 unit/ Sodium Chloride IV Not Given TITR [facility] Protocol 1,620 UNIT/HR Ceftriaxone Sodium 1 gm/ 50 mls @ 100 mls/hr 08/04/17 12:15 08/06/17 10:23 Dextrose IVPB 100 mls/hr DAILY [facility] Administration Morphine Sulfate 2 mg 08/06/17 12:27 Morphine Sulfate IVPUSH Q4H PRN PAIN LEVEL 6-10 Mupirocin 1 applic 08/03/17 22:00 08/06/17 10:22 Bactroban Ointment (For Decolonization) - NS 08/08/17 21:59 1 applic BID [facility] Administration Pantoprazole Sodium 40 mg 08/04/17 12:15 08/06/17 10:22 Protonix Iv IVPUSH 40 mg DAILY [facility] Administration Polyethylene Glycol 17 gm 08/02/17 15:45 08/05/17 12:06 Miralax (For Daily Use) - PO Not Given DAILY [facility] Rosuvastatin Calcium 5 mg 08/01/17 22:00 08/05/17 21:27 Crestor - PO Not Given HS [facility] Tiotropium [place] 1 puff 08/01/17 10:00 08/05/17 13:45 Spiriva - IH Not Given DAILY [facility] Selected Entries 08/04/17 08/04/17 08/04/17 16:30 17:00 19:00 Blood Pressure 97/62 97/62 99/48 08/04/17 20:00 Blood Pressure 90/63 Last Vital Signs Temp Pulse Resp BP Pulse Ox 98.8 F 76 20 124/62 96 08/06/17 10:00 08/06/17 12:00 08/06/17 12:00 08/06/17 12:00 08/05/17 21:00 cardio s1s2 pulm on oxygen GI soft ext neg edema neuro awake and alert skin neg rash psych calm and appropriate circ pos pulses heent maricarmen Impression 1. ELLIS 2. pulmonary emboli on catheter thrombolysis 3. acute resp failrue 4. hypotension with shock requiring pressors 5. positive troponins 6. arthritis 7. gerd 8. s/p fall at home 9. hx HTN 10. shock 11. rhabdo Plan - labs will be drawn today at 4 as IR did not want any venupunctures - pt is making urine - monitor urine output - renal ultrasound reviewed - maintain carlso for now - cont to monitor renal function - pt likely has ATN - will follow
[2017-08-06 17:57] LABS: BASO % 0.3 % (0-2.0); EOS % 0.4 % (0-4.5); HEMATOCRIT 30.4 % (32.4-45.2); HEMOGLOBIN 10.1 GM/dL (10.7-15.3); LYMPH % 17.4 % (8-40); MCH 28.9 pg (25.7-33.7); MCHC 33.4 g/dl (32.0-36.0); MEAN CELL VOLUME 86.6 fl (80-96); MEAN PLT VOLUME 9.5 fl (7.5-11.1); MONO % 10.1 % (3.8-10.2); NEUT % 71.8 % (42.8-82.8); PLATELET COUNT 136 K/MM3 (134-434); RBC 3.51 M/mm3 (3.60-5.2); RDW 14.9 % (11.6-15.6)
[2017-08-06 18:46] LABS: ALBUMIN 2.5 g/dl (3.4-5.0); ANION GAP 6 (8-16); BILIRUBIN,TOTAL 0.1 mg/dL (0.2-1.0); BLOOD UREA NITROGEN 69 mg/dL (7-18); CALCIUM 7.4 mg/dL (8.5-10.1); CHLORIDE 111 mmol/L (98-107); CO2 25 mmol/L (21-32); CREATININE 1.2 mg/dL (0.55-1.02); GLUCOSE,RANDOM 100 mg/dL (74-106); MAGNESIUM 2.7 mg/dL (1.8-2.4); PHOSPHOROUS 3.7 mg/dL (2.5-4.9); POTASSIUM 4.2 mmol/L (3.5-5.1); SGOT/AST 94 U/L (15-37); SGPT/ALT 199 U/L (12-78); SODIUM 142 mmol/L (136-145); TOT PROT 5.6 g/dl (6.4-8.2)
[2017-08-06 19:01] LABS: ALK PHOS 51 U/L (45-117)
[2017-08-06] MEDS: HEPARIN - 25,000 UNIT in SODIUM CHLORIDE 495 ML IV SCH (22:12)
[2017-08-06] MEDS ORDERED: PT OWN MED DRAWER 7, Y5N ONE (22:19)
[2017-08-06] MEDS: CHLORHEXIDINE GLUCONATE 4% CLEANSER FOR DECOLONIZATION TP SCH (22:40)
[2017-08-06] MEDS: ROSUVASTATIN CA 5 MG TABLET (FP) PO SCH (22:40)
[2017-08-07 06:57] LABS: BASO % 0.3 % (0-2.0); EOS % 1.4 % (0-4.5); HEMATOCRIT 29.9 % (32.4-45.2); HEMOGLOBIN 10.1 GM/dL (10.7-15.3); LYMPH % 21.4 % (8-40); MCH 29.3 pg (25.7-33.7); MCHC 33.8 g/dl (32.0-36.0); MEAN CELL VOLUME 86.8 fl (80-96); MEAN PLT VOLUME 10.5 fl (7.5-11.1); MONO % 11.5 % (3.8-10.2); NEUT % 65.4 % (42.8-82.8); PLATELET COUNT 158 K/MM3 (134-434); RBC 3.45 M/mm3 (3.60-5.2); RDW 14.9 % (11.6-15.6); WHITE BLOOD COUNT 5.9 K/mm3 (4.0-10.0)
[2017-08-07] MEDS: ALBUTEROL SO4 2.5/IPRATROPIUM 0.5 INH SOL 3 ML VIAL.NEB. NEB PRN (07:06)
[2017-08-07] MEDS: HEPARIN - 25,000 UNIT in SODIUM CHLORIDE 495 ML IV SCH ×2 (07:47→08:00)
--- NOTE | 2017-08-07 08:04 | PN ---
Teaching Attending Note Name of Resident: Carlitos Cortés ATTENDING PHYSICIAN STATEMENT I saw and evaluated the patient. I reviewed the resident's note and discussed the case with the resident. I agree with the resident's findings and plan as documented. SUBJECTIVE: Patient is in ICU more stable now. comfortable with no acute distress. OBJECTIVE: Vital Signs Temperature 98.4 F 08/07/17 06:00 Pulse Rate 89 08/07/17 06:00 Respiratory Rate 16 08/07/17 06:00 Blood Pressure 117/78 08/07/17 06:00 O2 Sat by Pulse Oximetry (%) 96 08/06/17 21:00 GENERAL: The patient is awake, alert, and fully oriented, in no acute distress. LUNGS: Breath sounds equal, clear to auscultation bilaterally, no wheezes, no crackles, no accessory muscle use. HEART: Regular rate and rhythm, S1, S2 without murmur, rub or gallop. EXTREMITIES: 2+ pulses, warm, well-perfused, no edema. NEUROLOGICAL: Cranial nerves II through XII grossly intact. Normal speech, gait not observed. SKIN: Warm, dry, normal turgor, no rashes or lesions noted CBCD WBC 5.9 K/mm3 (4.0-10.0) 08/07/17 05:35 RBC 3.45 M/mm3 (3.60-5.2) L 08/07/17 05:35 Hgb 10.1 GM/dL (10.7-15.3) L 08/07/17 05:35 Hct 29.9 % (32.4-45.2) L 08/07/17 05:35 MCV 86.8 fl (80-96) 08/07/17 05:35 MCHC 33.8 g/dl (32.0-36.0) 08/07/17 05:35 RDW 14.9 % (11.6-15.6) 08/07/17 05:35 Plt Count 158 K/MM3 (134-434) 08/07/17 05:35 MPV 10.5 fl (7.5-11.1) D 08/07/17 05:35 CMP Sodium 142 mmol/L (136-145) 08/06/17 17:25 Potassium 4.2 mmol/L (3.5-5.1) 04/13/18 17:25 Chloride 111 mmol/L (98-107) H 08/06/17 17:25 Carbon Dioxide 25 mmol/L (21-32) 08/06/17 17:25 Anion Gap 6 (8-16) L 08/06/17 17:25 BUN 69 mg/dL (7-18) H 08/06/17 17:25 Creatinine 1.2 mg/dL (0.55-1.02) H 08/06/17 17:25 Creat Clearance w eGFR 42.80 (>60) 08/06/17 17:25 Random Glucose 100 mg/dL (74-106) 08/06/17 17:25 Calcium 7.4 mg/dL (8.5-10.1) L 08/06/17 17:25 Total Bilirubin 0.1 mg/dL (0.2-1.0) L D 08/06/17 17:25 AST 94 U/L (15-37) H 08/06/17 17:25 ALT 199 U/L (12-78) H 08/06/17 17:25 Alkaline Phosphatase 51 U/L (45-117) 08/06/17 17:25 Total Protein 5.6 g/dl (6.4-8.2) L 08/06/17 17:25 Albumin 2.5 g/dl (3.4-5.0) L 08/06/17 17:25 CARDIAC ENZYMES Creatine Kinase 191 IU/L (26-192) 08/06/17 17:25 Troponin I 1.14 ng/ml (0.00-0.05) H* 08/06/17 17:25 Current Medications Generic Name Dose Route Start Last Admin Trade Name Ryanne PRN Reason Stop Dose Admin Albuterol/Ipratropium 1 amp 08/02/17 15:19 08/07/17 07:06 Duoneb - NEB 1 amp Q4H PRN Administration SHORTNESS OF BREATH Amlodipine Besylate 5 mg 08/01/17 10:00 08/06/17 10:34 Norvasc - PO 5 mg DAILY GIOVANNA Administration Chlorhexidine Gluconate 1 applic 08/03/17 22:00 08/06/17 22:40 Hibiclens For Decolonization - TP 1 applic HS [facility]ANNA Administration Heparin Sodium (Porcine) 1,000 unit 08/03/17 12:57 08/07/17 07:47 Heparin - IVPUSH 1,000 unit PRN PRN Administration Heparin Heparin Sodium (Porcine) 5,000 unit 08/03/17 12:57 08/06/17 22:13 Heparin - IVPUSH 5,000 unit PRN PRN Administration Heparin Heparin Sodium (Porcine) 25, 500 mls @ 32.4 mls/hr 08/03/17 13:35 08/07/17 07 :47 000 unit/ Sodium Chloride IV 1,950 unit/hr TITR GIOVANNA 39 mls/hr Protocol Administration 1,620 UNIT/HR Ceftriaxone Sodium 1 gm/ 50 mls @ 100 mls/hr 08/04/17 12:15 08/06/17 10:23 Dextrose IVPB 100 mls/hr DAILY [facility]NA Administration Morphine Sulfate 2 mg 08/06/17 12:27 Morphine Sulfate IVPUSH Q4H PRN PAIN LEVEL 6-10 Mupirocin 1 applic 08/03/17 22:00 08/06/17 22:40 Bactroban Ointment (For Decolonization) - NS 08/08/17 21:59 1 applic BID [facility] Administration Pantoprazole Sodium 40 mg 08/04/17 12:15 08/06/17 10:22 Protonix Iv IVPUSH 40 mg DAILY GI[facility]ANNA Administration Polyethylene Glycol 17 gm 08/02/17 15:45 08/05/17 12:06 Miralax (For Daily Use) - PO Not Given DAILY [facility] Rosuvastatin Calcium 5 mg 08/01/17 22:00 08/06/17 22:40 Crestor - PO 5 mg HS [facility] Administration Tiotropium [place] 1 puff 08/01/17 10:00 08/05/17 13:45 Spiriva - IH Not Given DAILY [facility] Home Medications Medication Instructions Recorded Aspirin [ASA -] 81 mg PO DAILY 03/24/13 Multivitamin [Multivitamins] 1 each PO DAILY 03/24/13 Rosuvastatin Calcium [Crestor] 5 mg PO DAILY 03/24/13 Amlodipine Besylate [Norvasc -] 5 mg PO DAILY 12/28/13 Docusate Sodium [Colace] 200 mg PO HS 12/28/13 Omeprazole Magnesium [Prilosec 20 mg PO DAILY 12/28/13 (OTC)] Tiotropium [place] [Spiriva -] 1 inh PO DAILY 12/28/13 Valsartan/Hydrochlorothiazide 80 combo PO DAILY 12/28/13 [Diovan Hct 160-25 mg Tablet] Diclofenac Sodium [Voltaren] 0 gm TP QID PRN 08/01/17 Diphenhydramine HCl [Benadryl -] 25 mg PO Q6H PRN 08/01/17 Ibuprofen 600 mg PO BID PRN 08/01/17 Neomycin/Polymyx/Hc Ophth Susp 1 - 4 drop AU TID 08/01/17 [Cortisporin Ophthalmic Suspension -] Microbiology 08/01/17 17:08 Urine - Urine Clean Catch Urine Culture - Final ASSESSMENT AND PLAN: Patient is 86yo female with pmhx of HTN, HLD, arthritis, and GERD presented s/p mechanical fall. Was found to have an extensive PE s/p TPA by IR , on TPA. #Massive Pulmonary Embolism s/p CTA , extensive PE s/p IVC filter , off IV pressers now.ON IV heparin continue ICU monitoring Patient is s/p catheter directed tPA., tPA to be continued until second pulmonary angiogram performed. Patient will need jail anticoagulation. #ELLIS improving almost back to her baseline , most likely due to ATN due to Ischemia . Nephro on the case. will continue to monitor. #Elevated Troponins most likely due to demand ischemia. On heparin drip continue # Hx of HTN now normotensive s/p IV pressers continue to monitor BP #HLD continue Crestor 5mg HS #S/P Mechanical Fall DVT Px; Heparin will discontinue the Detrol LA since patient has carlos at this time. She can be evaluated further use by urologist as an outpatient. will discontinue Rocephin Urine culture is a contaminant.
--- NOTE | 2017-08-07 08:11 | PN ---
Progress Note, Physician Chief Complaint: COVERAGE FOR MARINO TELE: NSR Seen and examined in ICU Alert, no new complaints O2 sat 97% on 4L NC - Current Medication List Current Medications: Active Medications Albuterol/Ipratropium (Duoneb -) 1 amp NEB Q4H PRN PRN Reason: SHORTNESS OF BREATH Last Admin: 08/07/17 07:06 Dose: 1 amp Amlodipine Besylate (Norvasc -) 5 mg PO DAILY [facility] Last Admin: 08/06/17 10:34 Dose: 5 mg Chlorhexidine Gluconate (Hibiclens For Decolonization -) 1 applic TP HS [facility] Last Admin: 08/06/17 22:40 Dose: 1 applic Heparin Sodium (Porcine) (Heparin -) 1,000 unit IVPUSH PRN PRN PRN Reason: Heparin Last Admin: 08/07/17 07:47 Dose: 1,000 unit Heparin Sodium (Porcine) (Heparin -) 5,000 unit IVPUSH PRN PRN PRN Reason: Heparin Last Admin: 08/06/17 22:13 Dose: 5,000 unit Heparin Sodium (Porcine) 25, (000 unit/ Sodium Chloride) 500 mls @ 32.4 mls/hr IV TITR GIOVANNA; 1,620 UNIT/HR PRN Reason: Protocol Last Admin: 08/07/17 07:47 Dose: 1,950 unit/hr, 39 mls/hr Ceftriaxone Sodium 1 gm/ (Dextrose) 50 mls @ 100 mls/hr IVPB DAILY [facility] Last Admin: 08/06/17 10:23 Dose: 100 mls/hr Morphine Sulfate (Morphine Sulfate) 2 mg IVPUSH Q4H PRN PRN Reason: PAIN LEVEL 6-10 Mupirocin (Bactroban Ointment (For Decolonization) -) 1 applic NS BID [facility] Stop: 08/08/17 21:59 Last Admin: 08/06/17 22:40 Dose: 1 applic Pantoprazole Sodium (Protonix Iv) 40 mg IVPUSH DAILY [facility] Last Admin: 08/06/17 10:22 Dose: 40 mg Polyethylene Glycol (Miralax (For Daily Use) -) 17 gm PO DAILY [facility] Last Admin: 08/05/17 12:06 Dose: Not Given Rosuvastatin Calcium (Crestor -) 5 mg PO HS [facility] Last Admin: 08/06/17 22:40 Dose: 5 mg Tiotropium [place] (Spiriva -) 1 puff IH DAILY [facility] Last Admin: 08/05/17 13:45 Dose: Not Given - Objective Vital Signs: Vital Signs Temperature 98.4 F 08/07/17 06:00 Pulse Rate 89 08/07/17 06:00 Respiratory Rate 16 08/07/17 06:00 Blood Pressure 117/78 08/07/17 06:00 O2 Sat by Pulse Oximetry (%) 96 08/06/17 21:00 Constitutional: Yes: No Distress Cardiovascular: Yes: Regular Rate and Rhythm Respiratory: Yes: CTA Bilaterally (no wheezing) Gastrointestinal: Yes: Soft Edema: No Neurological: Yes: Alert Labs: CBC, BMP 08/07/17 05:35 INR, PTT INR 1.19 (0.82-1.09) H 08/04/17 20:55 Laboratory Tests 08/06/17 08/07/17 08/07/17 17:25 05:35 05:35 WBC 5.9 Hgb 10.1 L Plt Count 158 PTT (Actin FS) 58.2 H D Sodium Potassium Creatinine Troponin I 1.14 H* 08/07/17 07:45 WBC Hgb Plt Count PTT (Actin FS) Sodium Pending Potassium Pending Creatinine Pending Troponin I - ....Imaging EKG: Image Reviewed Assessment/Plan ASSESSMENT AND PLAN: Acute Hypoxic Respiratory Failure Massive Pulmonary Emboli S/P catheter directed thrombectomy/thrombolysis Obstructive Shock improving Likely Right Heart Strain Acute Kidney Injury +Troponins likely from above s/p Fall HTN Hyperlipidemia r/o UTI - Follow H&H - O2 to keep SpO2 >90% - antibiotics for possible UTI as per Critical Care - inhaled bronchodilators - monitor urine output, creatinine - IV Heparin per protocol - continue ICU monitoring
[2017-08-07] MEDS ORDERED: ALBUTEROL SO4 2.5/IPRATROPIUM 0.5 INH SOL 3 ML VIAL.NEB. NEB PRN (08:20)
[2017-08-07] MEDS ORDERED: HEPARIN NA (PORCINE) 5,000 UNITS/ML 1ML VIAL IVPUSH PRN ×4 (08:20)
[2017-08-07 08:48] LABS: ALBUMIN 2.6 g/dl (3.4-5.0); ALK PHOS 51 U/L (45-117); ANION GAP 5 (8-16); BILIRUBIN,TOTAL 0.2 mg/dL (0.2-1.0); BLOOD UREA NITROGEN 50 mg/dL (7-18); CALCIUM 7.8 mg/dL (8.5-10.1); CHLORIDE 114 mmol/L (98-107); CO2 27 mmol/L (21-32); CREATININE 0.7 mg/dL (0.55-1.02); GLUCOSE,RANDOM 94 mg/dL (74-106); MAGNESIUM 2.9 mg/dL (1.8-2.4); PHOSPHOROUS 2.5 mg/dL (2.5-4.9); POTASSIUM 3.9 mmol/L (3.5-5.1); SGOT/AST 97 U/L (15-37); SGPT/ALT 206 U/L (12-78); SODIUM 146 mmol/L (136-145); TOT PROT 5.7 g/dl (6.4-8.2)
[2017-08-07] MEDS ORDERED: cefTRIAXone SODIUM 1 GM VIAL ONE (09:15)
[2017-08-07] MEDS ORDERED: DEXTROSE 5%-WATER - 50 ML IVPB ONE (09:16)
--- NOTE | 2017-08-07 10:27 | PN ---
Progress Note (short form) - Note Progress Note: Patient seen and examined in the ICU. Breathing feels stable today. Remains off pressors. No occult bleeding. Denies CP or SOB. Intake & Output 08/04/17 08/05/17 08/06/17 08/07/17 23:59 23:59 23:59 23:59 Intake Total 1653 1664 1033 970 Output Total 692 857 5524 500 Balance 753 1164 -1287 470 Weight 194 lb 0.108 oz 197 lb 8.547 oz 200 lb 196 lb 10.437 oz Last Vital Signs Temp Pulse Resp BP Pulse Ox 98.4 F 81 28 H 148/57 96 08/07/17 10:00 08/07/17 10:00 08/07/17 10:00 08/07/17 10:00 08/06/17 21:00 Active Medications Albuterol/Ipratropium (Duoneb -) 1 amp NEB Q4H PRN PRN Reason: SHORTNESS OF BREATH Amlodipine Besylate (Norvasc -) 5 mg PO DAILY [facility] Chlorhexidine Gluconate (Hibiclens For Decolonization -) 1 applic TP HS [facility] Last Admin: 08/06/17 22:40 Dose: 1 applic Heparin Sodium (Porcine) (Heparin -) 1,000 unit IVPUSH PRN PRN PRN Reason: Heparin Heparin Sodium (Porcine) (Heparin -) 5,000 unit IVPUSH PRN PRN PRN Reason: Heparin Ceftriaxone Sodium 1 gm/ (Dextrose) 50 mls @ 100 mls/hr IVPB DAILY [facility] Last Admin: 08/06/17 10:23 Dose: 100 mls/hr Heparin Sodium (Porcine) 25, (000 unit/ Sodium Chloride) 500 mls @ 32.4 mls/hr IV TITR GIOVANNA; 1,620 UNIT/HR PRN Reason: Protocol Morphine Sulfate (Morphine Sulfate) 2 mg IVPUSH Q4H PRN PRN Reason: PAIN LEVEL 6-10 Mupirocin (Bactroban Ointment (For Decolonization) -) 1 applic NS BID [facility] Stop: 08/08/17 21:59 Last Admin: 08/06/17 22:40 Dose: 1 applic Pantoprazole Sodium (Protonix Iv) 40 mg IVPUSH DAILY [facility] Last Admin: 08/06/17 10:22 Dose: 40 mg Polyethylene Glycol (Miralax (For Daily Use) -) 17 gm PO DAILY [facility] Rosuvastatin Calcium (Crestor -) 5 mg PO HS [facility] Tiotropium [place] (Spiriva -) 1 puff IH DAILY [facility]AN[facility] Gen: alert, awake, NAD Heart: RRR Lung: decreased breath sounds at the bases Abd: soft, nontender Ext: no edema 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: non-focal Laboratory Results - last 24 hr 08/06/17 08/06/17 08/06/17 17:25 17:25 18:20 WBC 7.0 D RBC 3.51 L Hgb 10.1 L D Hct 30.4 L MCV 86.6 MCH 28.9 MCHC 33.4 RDW 14.9 Plt Count 136 MPV 9.5 Neutrophils % 71.8 Lymphocytes % 17.4 D Monocytes % 10.1 Eosinophils % 0.4 D Basophils % 0.3 PTT (Actin FS) 39.8 H Sodium 142 Potassium 4.2 Chloride 111 H Carbon Dioxide 25 Anion Gap 6 L BUN 69 H Creatinine 1.2 H Creat Clearance w eGFR 42.80 Random Glucose 100 Calcium 7.4 L Phosphorus 3.7 Magnesium 2.7 H Total Bilirubin 0.1 L D AST 94 H ALT 199 H Alkaline Phosphatase 51 Creatine Kinase 191 Creatine Kinase Index 2.4 CK-MB (CK-2) 4.751 H Troponin I 1.14 H* Total Protein 5.6 L Albumin 2.5 L 08/07/17 08/07/17 08/07/17 05:35 05:35 05:35 WBC 5.9 RBC 3.45 L Hgb 10.1 L Hct 29.9 L MCV 86.8 MCH 29.3 MCHC 33.8 RDW 14.9 Plt Count 158 MPV 10.5 D Neutrophils % 65.4 Lymphocytes % 21.4 D Monocytes % 11.5 H Eosinophils % 1.4 D Basophils % 0.3 PTT (Actin FS) 58.2 H D Sodium Cancelled Potassium Cancelled Chloride Cancelled Carbon Dioxide Cancelled Anion Gap Cancelled BUN Cancelled Creatinine Cancelled Creat Clearance w eGFR Cancelled Random Glucose Cancelled Calcium Cancelled Phosphorus Cancelled Magnesium Cancelled Total Bilirubin Cancelled AST Cancelled ALT Cancelled Alkaline Phosphatase Cancelled Creatine Kinase Creatine Kinase Index CK-MB (CK-2) Troponin I Total Protein Cancelled Albumin Cancelled 08/07/17 07:45 WBC RBC Hgb Hct MCV MCH MCHC RDW Plt Count MPV Neutrophils % Lymphocytes % Monocytes % Eosinophils % Basophils % PTT (Actin FS) Sodium 146 H Potassium 3.9 Chloride 114 H Carbon Dioxide 27 Anion Gap 5 L BUN 50 H Creatinine 0.7 Creat Clearance w eGFR > 60 Random Glucose 94 Calcium 7.8 L Phosphorus 2.5 Magnesium 2.9 H Total Bilirubin 0.2 D AST 97 H ALT 206 H Alkaline Phosphatase 51 Creatine Kinase Creatine Kinase Index CK-MB (CK-2) Troponin I Total Protein 5.7 L Albumin 2.6 L ASSESSMENT AND PLAN: Acute Hypoxic Respiratory Failure Massive Pulmonary Emboli S/P catheter directed thrombectomy/thrombolysis Obstructive Shock improving Likely Right Heart Strain Acute Kidney Injury +Troponins likely from above s/p Fall HTN Hyperlipidemia r/o UTI - IV Heparin per protocol - Follow H&H - O2 to keep SpO2 >90% - Noted antibiotics for possible UTI - inhaled bronchodilators - monitor urine output, creatinine - will need at least 6 months of anticoagulation for 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
[2017-08-07] MEDS: MUPIROCIN 2% TOPICAL OINTMENT FOR DECOLONIZATION NS SCH ×2 (10:39→22:02)
[2017-08-07] MEDS: amLODIPine BESYLATE 5 MG TABLET (FP) PO SCH (10:40)
[2017-08-07] MEDS: CEFTRIAXONE 1 GM in DEXTROSE 5%-WATER - 50 ML IVPB SCH (10:41)
[2017-08-07] MEDS: PANTOPRAZOLE SODIUM 40 MG VIAL IVPUSH SCH (10:41)
[2017-08-07] MEDS: TIOTROPIUM BROMIDE 18 MCG CAPSULES IH SCH (11:00)
[2017-08-07 12:40] LABS: ALBUMIN 2.5 g/dl (3.4-5.0); ALK PHOS 51 U/L (45-117); ANION GAP 4 (8-16); BILIRUBIN,TOTAL 0.1 mg/dL (0.2-1.0); BLOOD UREA NITROGEN 46 mg/dL (7-18); CALCIUM 7.6 mg/dL (8.5-10.1); CHLORIDE 115 mmol/L (98-107); CO2 26 mmol/L (21-32); CREATININE 0.7 mg/dL (0.55-1.02); POTASSIUM 4.2 mmol/L (3.5-5.1); SGOT/AST 94 U/L (15-37); SGPT/ALT 198 U/L (12-78); SODIUM 145 mmol/L (136-145); TOT PROT 5.4 g/dl (6.4-8.2)
[2017-08-07 12:42] LABS: GLUCOSE,RANDOM 120 mg/dL (74-106)
--- NOTE | 2017-08-07 15:20 | PN ---
Progress Note (short form) - Note Progress Note: covering dr ma icu 1. ELLIS 2. pulmonary emboli on catheter thrombolysis 3. acute resp failrue 4. hypotension with shock requiring pressors 5. positive troponins 6. arthritis 7. gerd 8. s/p fall at home 9. hx HTN 10. shock 11. rhabdo Current Medications Albuterol/Ipratropium (Duoneb -) 1 amp NEB Q4H PRN PRN Reason: SHORTNESS OF BREATH Amlodipine Besylate (Norvasc -) 5 mg PO DAILY [facility] Last Admin: 08/07/17 10:40 Dose: 5 mg Chlorhexidine Gluconate (Hibiclens For Decolonization -) 1 applic TP HS [facility] Last Admin: 08/06/17 22:40 Dose: 1 applic Heparin Sodium (Porcine) (Heparin -) 1,000 unit IVPUSH PRN PRN PRN Reason: Heparin Heparin Sodium (Porcine) (Heparin -) 5,000 unit IVPUSH PRN PRN PRN Reason: Heparin Ceftriaxone Sodium 1 gm/ (Dextrose) 50 mls @ 100 mls/hr IVPB DAILY [facility] Last Admin: 08/07/17 10:41 Dose: 100 mls/hr Heparin Sodium (Porcine) 25, (000 unit/ Sodium Chloride) 500 mls @ 32.4 mls/hr IV TITR GIOVANNA; 1,620 UNIT/HR PRN Reason: Protocol Morphine Sulfate (Morphine Sulfate) 2 mg IVPUSH Q4H PRN PRN Reason: PAIN LEVEL 6-10 Mupirocin (Bactroban Ointment (For Decolonization) -) 1 applic NS BID [facility] Stop: 08/08/17 21:59 Last Admin: 08/07/17 10:39 Dose: 1 applic Pantoprazole Sodium (Protonix Iv) 40 mg IVPUSH DAILY [facility] Last Admin: 08/07/17 10:41 Dose: 40 mg Polyethylene Glycol (Miralax (For Daily Use) -) 17 gm PO DAILY [facility] Rosuvastatin Calcium (Crestor -) 5 mg PO HS [facility] Tiotropium [place] (Spiriva -) 1 puff IH DAILY [facility] Last Admin: 08/07/17 11:00 Dose: Not Given Last Vital Signs Temp Pulse Resp BP Pulse Ox 98.4 F 80 22 150/62 96 08/07/17 10:00 08/07/17 14:00 08/07/17 14:00 08/07/17 14:00 08/07/17 09:00 CBC, BMP 08/07/17 05:35 08/07/17 11:22 IMP- s/p ELLIS improved renal function Acute Hypoxic Respiratory Failure Massive Pulmonary Emboli S/P catheter directed thrombectomy/thrombolysis Obstructive Shock improving Likely Right Heart Strain Acute Kidney Injury +Troponins likely from above s/p Fall HTN Hyperlipidemia r/o UTI Plan - monitor urine output continue maintain carlos for now monitor renal function for residual prerenal
[2017-08-07] MEDS: POLYETHYLENE GLYCOL 3350 119 GM BTL PO SCH (17:57)
[2017-08-07] MEDS: ROSUVASTATIN CA 5 MG TABLET (FP) PO SCH (22:02)
[2017-08-07] MEDS: CHLORHEXIDINE GLUCONATE 4% CLEANSER FOR DECOLONIZATION TP SCH (22:03)
[2017-08-08 06:51] LABS: HEMATOCRIT 30.7 % (32.4-45.2); HEMOGLOBIN 10.3 GM/dL (10.7-15.3); MCH 28.8 pg (25.7-33.7); MCHC 33.4 g/dl (32.0-36.0); MEAN CELL VOLUME 86.1 fl (80-96); MEAN PLT VOLUME 8.7 fl (7.5-11.1); PLATELET COUNT 151 K/MM3 (134-434); RBC 3.56 M/mm3 (3.60-5.2); RDW 14.6 % (11.6-15.6); WHITE BLOOD COUNT 5.6 K/mm3 (4.0-10.0)
--- NOTE | 2017-08-08 07:48 | PN ---
Progress Note, Physician Chief Complaint: Coverage for Fermin TELE: NSR Alert, no distress - Current Medication List Current Medications: Active Medications Albuterol/Ipratropium (Duoneb -) 1 amp NEB Q4H PRN PRN Reason: SHORTNESS OF BREATH Amlodipine Besylate (Norvasc -) 5 mg PO DAILY [facility] Last Admin: 08/07/17 10:40 Dose: 5 mg Chlorhexidine Gluconate (Hibiclens For Decolonization -) 1 applic TP HS [facility] Last Admin: 08/07/17 22:03 Dose: 1 applic Heparin Sodium (Porcine) (Heparin -) 1,000 unit IVPUSH PRN PRN PRN Reason: Heparin Heparin Sodium (Porcine) (Heparin -) 5,000 unit IVPUSH PRN PRN PRN Reason: Heparin Heparin Sodium (Porcine) 25, (000 unit/ Sodium Chloride) 500 mls @ 32.4 mls/hr IV TITR GIOVANNA; 1,620 UNIT/HR PRN Reason: Protocol Last Titration: 08/07/17 18:18 Dose: 1,850 unit/hr, 37 mls/hr Morphine Sulfate (Morphine Sulfate) 2 mg IVPUSH Q4H PRN PRN Reason: PAIN LEVEL 6-10 Mupirocin (Bactroban Ointment (For Decolonization) -) 1 applic NS BID [facility] Stop: 08/08/17 21:59 Last Admin: 08/07/17 22:02 Dose: 1 applic Pantoprazole Sodium (Protonix Iv) 40 mg IVPUSH DAILY [facility] Last Admin: 08/07/17 10:41 Dose: 40 mg Polyethylene Glycol (Miralax (For Daily Use) -) 17 gm PO DAILY [facility] Last Admin: 08/07/17 17:57 Dose: Not Given Rosuvastatin Calcium (Crestor -) 5 mg PO HS [facility] Last Admin: 08/07/17 22:02 Dose: 5 mg Tiotropium [place] (Spiriva -) 1 puff IH DAILY [facility] Last Admin: 08/07/17 11:00 Dose: Not Given - Objective Vital Signs: Vital Signs Temperature 98.6 F 08/08/17 06:00 Pulse Rate 71 08/08/17 06:00 Respiratory Rate 24 08/08/17 06:00 Blood Pressure 130/77 08/08/17 06:00 O2 Sat by Pulse Oximetry (%) 96 08/07/17 21:00 Constitutional: Yes: No Distress Cardiovascular: Yes: Regular Rate and Rhythm Respiratory: Yes: CTA Bilaterally Gastrointestinal: Yes: Soft, Abdomen, Obese Edema: Yes Edema: LLE: 1+, RLE: 1+ Neurological: Yes: Alert, Oriented ...Motor Strength: WNL Labs: CBC, BMP 08/08/17 05:55 08/07/17 11:22 INR, PTT INR 1.19 (0.82-1.09) H 08/04/17 20:55 Laboratory Tests 08/07/17 08/08/17 08/08/17 11:22 05:55 05:55 WBC 5.6 Plt Count 151 PTT (Actin FS) 82.6 H Sodium 145 Potassium 4.2 BUN 46 H Creatinine 0.7 AST 94 H ALT 198 H - ....Imaging EKG: Image Reviewed Assessment/Plan ASSESSMENT AND PLAN: Acute Hypoxic Respiratory Failure Massive Pulmonary Emboli S/P catheter directed thrombectomy/thrombolysis Obstructive Shock improving Likely Right Heart Strain Acute Kidney Injury +Troponins likely from above s/p Fall HTN Hyperlipidemia r/o UTI - Follow H&H - O2 to keep SpO2 >90% - antibiotics for possible UTI as per Critical Care - inhaled bronchodilators - monitor urine output, creatinine - IV Heparin per protocol - continue ICU monitoring Hemodynamically stable at this time.
--- NOTE | 2017-08-08 09:29 | PN ---
Progress Note (short form) - Note Progress Note: Patient seen and examined in the ICU. Breathing feels stable today. Remains off pressors. No occult bleeding. Denies CP or SOB. Intake & Output 08/05/17 08/06/17 08/07/17 08/08/17 23:59 23:59 23:59 23:59 Intake Total 1664 1033 2066 890 Output Total 500 2320 2200 900 Balance 1164 -1287 -134 -10 Weight 197 lb 8.547 oz 200 lb 196 lb 10.437 oz 198 lb 13.711 oz Last Vital Signs Temp Pulse Resp BP Pulse Ox 98.6 F 72 20 152/70 96 08/08/17 06:00 08/08/17 08:00 08/08/17 08:00 08/08/17 08:00 08/08/17 08:35 Active Medications Albuterol/Ipratropium (Duoneb -) 1 amp NEB Q4H PRN PRN Reason: SHORTNESS OF BREATH Amlodipine Besylate (Norvasc -) 5 mg PO DAILY [facility] Last Admin: 08/07/17 10:40 Dose: 5 mg Chlorhexidine Gluconate (Hibiclens For Decolonization -) 1 applic TP HS [facility] Last Admin: 08/07/17 22:03 Dose: 1 applic Heparin Sodium (Porcine) (Heparin -) 1,000 unit IVPUSH PRN PRN PRN Reason: Heparin Heparin Sodium (Porcine) (Heparin -) 5,000 unit IVPUSH PRN PRN PRN Reason: Heparin Heparin Sodium (Porcine) 25, (000 unit/ Sodium Chloride) 500 mls @ 32.4 mls/hr IV TITR GIOVANNA; 1,620 UNIT/HR PRN Reason: Protocol Last Titration: 08/08/17 07:40 Dose: 1,800 unit/hr, 36 mls/hr Morphine Sulfate (Morphine Sulfate) 2 mg IVPUSH Q4H PRN PRN Reason: PAIN LEVEL 6-10 Mupirocin (Bactroban Ointment (For Decolonization) -) 1 applic NS BID [facility] Stop: 08/08/17 21:59 Last Admin: 08/07/17 22:02 Dose: 1 applic Pantoprazole Sodium (Protonix Iv) 40 mg IVPUSH DAILY [facility] Last Admin: 08/07/17 10:41 Dose: 40 mg Polyethylene Glycol (Miralax (For Daily Use) -) 17 gm PO DAILY [facility] Last Admin: 08/07/17 17:57 Dose: Not Given Rosuvastatin Calcium (Crestor -) 5 mg PO HS [facility] Last Admin: 08/07/17 22:02 Dose: 5 mg Tiotropium [place] (Spiriva -) 1 puff IH DAILY [facility] Last Admin: 08/07/17 11:00 Dose: Not Given Gen: alert, awake, NAD Heart: RRR Lung: decreased breath sounds at the bases Abd: soft, nontender Ext: no edema 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: non-focal Laboratory Results - last 24 hr 08/07/17 08/07/17 08/08/17 11:22 17:30 05:55 WBC 5.6 RBC 3.56 L Hgb 10.3 L Hct 30.7 L MCV 86.1 MCH 28.8 MCHC 33.4 RDW 14.6 Plt Count 151 MPV 8.7 D PTT (Actin FS) 90.6 H D Sodium 145 Potassium 4.2 Chloride 115 H Carbon Dioxide 26 Anion Gap 4 L BUN 46 H Creatinine 0.7 Creat Clearance w eGFR > 60 Random Glucose 120 H Calcium 7.6 L Total Bilirubin 0.1 L D AST 94 H ALT 198 H Alkaline Phosphatase 51 Total Protein 5.4 L Albumin 2.5 L 08/08/17 05:55 WBC RBC Hgb Hct MCV MCH MCHC RDW Plt Count MPV PTT (Actin FS) 82.6 H Sodium Potassium Chloride Carbon Dioxide Anion Gap BUN Creatinine Creat Clearance w eGFR Random Glucose Calcium Total Bilirubin AST ALT Alkaline Phosphatase Total Protein Albumin ASSESSMENT AND PLAN: Acute Hypoxic Respiratory Failure Massive Pulmonary Emboli S/P catheter directed thrombectomy/thrombolysis Obstructive Shock improving Likely Right Heart Strain Acute Kidney Injury +Troponins likely from above s/p Fall HTN Hyperlipidemia r/o UTI - IV Heparin per protocol / will need to decide on oral therapy - Follow H&H - O2 to keep SpO2 >90% - Noted antibiotics for possible UTI - inhaled bronchodilators - monitor urine output, creatinine - will need at least 6 months of anticoagulation for 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
[2017-08-08] MEDS: POLYETHYLENE GLYCOL 3350 119 GM BTL PO SCH (09:59)
[2017-08-08] MEDS: MUPIROCIN 2% TOPICAL OINTMENT FOR DECOLONIZATION NS SCH (09:59)
[2017-08-08] MEDS: TIOTROPIUM BROMIDE 18 MCG CAPSULES IH SCH ×2 (10:01→15:44)
[2017-08-08] MEDS: amLODIPine BESYLATE 5 MG TABLET (FP) PO SCH (10:01)
[2017-08-08] MEDS ORDERED: PT OWN MED DRAWER 7, Y5N ONE (10:01)
[2017-08-08] MEDS: PANTOPRAZOLE SODIUM 40 MG VIAL IVPUSH SCH (10:02)
[2017-08-08] MEDS: HEPARIN - 25,000 UNIT in SODIUM CHLORIDE 495 ML IV SCH ×2 (10:02→22:00)
--- NOTE | 2017-08-08 12:03 | PN ---
Physical Exam: SUBJECTIVE: Patient seen and examined. She is comfortable. She denies CP, SOB. OBJECTIVE: Vital Signs Period Temp Pulse Resp BP Sys/Seth Pulse Ox Last 24 Hr 98.2 F-98.7 F 70-81 19-27 117-166/59-79 94-96 GENERAL: The patient is awake, alert, and in no acute distress. LUNGS: Breath sounds equal, clear to auscultation bilaterally, no wheezes, no crackles, no accessory muscle use. HEART: Regular rate and rhythm, S1, S2 without murmur, rub or gallop. ABDOMEN: Obese, soft, nontender, nondistended, normoactive bowel sounds, no guarding, no rebound, no hepatosplenomegaly, no masses. EXTREMITIES: 2+ pulses, warm, well-perfused, no edema. Laboratory Results - last 24 hr 08/07/17 08/07/17 08/08/17 11:22 17:30 05:55 WBC 5.6 RBC 3.56 L Hgb 10.3 L Hct 30.7 L MCV 86.1 MCH 28.8 MCHC 33.4 RDW 14.6 Plt Count 151 MPV 8.7 D PTT (Actin FS) 90.6 H D Sodium 145 Potassium 4.2 Chloride 115 H Carbon Dioxide 26 Anion Gap 4 L BUN 46 H Creatinine 0.7 Creat Clearance w eGFR > 60 Random Glucose 120 H Calcium 7.6 L Total Bilirubin 0.1 L D AST 94 H ALT 198 H Alkaline Phosphatase 51 Total Protein 5.4 L Albumin 2.5 L 08/08/17 05:55 WBC RBC Hgb Hct MCV MCH MCHC RDW Plt Count MPV PTT (Actin FS) 82.6 H Sodium Potassium Chloride Carbon Dioxide Anion Gap BUN Creatinine Creat Clearance w eGFR Random Glucose Calcium Total Bilirubin AST ALT Alkaline Phosphatase Total Protein Albumin Active Medications Generic Name Dose Route Start Last Admin Trade Name Freq PRN Reason Stop Dose Admin Albuterol/Ipratropium 1 amp 08/07/17 08:20 Duoneb - NEB Q4H PRN SHORTNESS OF BREATH Amlodipine Besylate 5 mg 08/07/17 10:00 08/08/17 10:01 Norvasc - PO 5 mg DAILY GIOVANNA Administration Chlorhexidine Gluconate 1 applic 08/03/17 22:00 08/07/17 22:03 Hibiclens For Decolonization - TP 1 applic HS GIOVANNA Administration Heparin Sodium (Porcine) 1,000 unit 08/07/17 08:20 Heparin - IVPUSH PRN PRN Heparin Heparin Sodium (Porcine) 5,000 unit 08/07/17 08:20 Heparin - IVPUSH PRN PRN Heparin Heparin Sodium (Porcine) 25, 500 mls @ 32.4 mls/hr 08/07/17 08:20 08/08/17 10 :02 000 unit/ Sodium Chloride IV 1,800 unit/hr TITR GIOVANNA 36 mls/hr Protocol Administration 1,620 UNIT/HR Morphine Sulfate 2 mg 08/06/17 12:27 Morphine Sulfate IVPUSH Q4H PRN PAIN LEVEL 6-10 Mupirocin 1 applic 08/03/17 22:00 08/08/17 09:59 Bactroban Ointment (For Decolonization) - NS 08/08/17 21:59 1 applic BID GIOVANNA Administration Pantoprazole Sodium 40 mg 08/04/17 12:15 08/08/17 10:02 Protonix Iv IVPUSH 40 mg DAILY GIOVANNA Administration Polyethylene Glycol 17 gm 08/07/17 10:00 08/08/17 09:59 Miralax (For Daily Use) - PO 17 grams DAILY GIOVANNA Administration Rosuvastatin Calcium 5 mg 08/07/17 22:00 08/07/17 22:02 Crestor - PO 5 mg HS GIOVANNA Administration Tiotropium [place] 1 puff 08/07/17 10:00 08/08/17 10:01 Spiriva - IH 1 puff DAILY GIOVANNA Administration ASSESSMENT/PLAN: This is an 86 year old woman with a history of HTN, hyperlipidemia, OA, GERD who presented with back pain after a fall. 1. Acute hypoxic respiratory failure secondary to massive pulmonary embolism with right heart strain and shock - s/p thrombectomy and catheter-directed thrombolysis - Continue heparin IV drip - Off pressors 2. Demand ischemia 3. Acute kidney injury secondary to ATN from hypotension - Resolved 4. HTN - Continue Norvasc 5. Hyperlipidemia - Continue Crestor 6. Back pain s/p fall - Resume PT once stable 7. Rhabdomyolysis - Resolved 8. GERD - Continue Protonix Visit type - Emergency Visit Emergency Visit: Yes ED Registration Date: 07/31/17 Care time: The patient presented to the Emergency Department on the above date and was hospitalized for further evaluation of their emergent condition. - New Patient This patient is new to me today: No - Critical Care Critical Care patient: No - Discharge Referral Referred to [facility] Med P.C[facility] No
--- NOTE | 2017-08-08 12:45 | PN ---
Progress Note (short form) - Note Progress Note: covering dr ma icu 1. ELLIS 2. pulmonary emboli on catheter thrombolysis 3. acute resp failrue 4. hypotension with shock requiring pressors 5. positive troponins 6. arthritis 7. gerd 8. s/p fall at home 9. hx HTN 10. shock 11. rhabdo Current Medications Albuterol/Ipratropium (Duoneb -) 1 amp NEB Q4H PRN PRN Reason: SHORTNESS OF BREATH Amlodipine Besylate (Norvasc -) 5 mg PO DAILY [facility] Last Admin: 08/08/17 10:01 Dose: 5 mg Chlorhexidine Gluconate (Hibiclens For Decolonization -) 1 applic TP HS [facility] Last Admin: 08/07/17 22:03 Dose: 1 applic Heparin Sodium (Porcine) (Heparin -) 1,000 unit IVPUSH PRN PRN PRN Reason: Heparin Heparin Sodium (Porcine) (Heparin -) 5,000 unit IVPUSH PRN PRN PRN Reason: Heparin Heparin Sodium (Porcine) 25, (000 unit/ Sodium Chloride) 500 mls @ 32.4 mls/hr IV TITR GIOVANNA; 1,620 UNIT/HR PRN Reason: Protocol Last Admin: 08/08/17 10:02 Dose: 1,800 unit/hr, 36 mls/hr Morphine Sulfate (Morphine Sulfate) 2 mg IVPUSH Q4H PRN PRN Reason: PAIN LEVEL 6-10 Mupirocin (Bactroban Ointment (For Decolonization) -) 1 applic NS BID [facility] Stop: 08/08/17 21:59 Last Admin: 08/08/17 09:59 Dose: 1 applic Pantoprazole Sodium (Protonix Iv) 40 mg IVPUSH DAILY [facility] Last Admin: 08/08/17 10:02 Dose: 40 mg Polyethylene Glycol (Miralax (For Daily Use) -) 17 gm PO DAILY [facility] Last Admin: 08/08/17 09:59 Dose: 17 grams Rosuvastatin Calcium (Crestor -) 5 mg PO HS [facility] Last Admin: 08/07/17 22:02 Dose: 5 mg Tiotropium [place] (Spiriva -) 1 puff IH DAILY [facility] Last Admin: 08/08/17 10:01 Dose: 1 puff Last Vital Signs Temp Pulse Resp BP Pulse Ox 98.5 F 67 26 H 159/83 96 08/08/17 10:00 08/08/17 12:00 08/08/17 12:00 08/08/17 12:00 08/08/17 08:35 alert in nad Lungs clear Heart reg Abd soft ext no edema CBC, BMP 08/08/17 05:55 08/07/17 11:22 CBC, BMP 08/07/17 05:35 08/07/17 11:22 IMP- s/p ELLIS improved renal function Acute Hypoxic Respiratory Failure Massive Pulmonary Emboli S/P catheter directed thrombectomy/thrombolysis Obstructive Shock improving Likely Right Heart Strain Acute Kidney Injury +Troponins likely from above s/p Fall HTN Hyperlipidemia r/o UTI Plan - monitor urine output continue maintain carlos for now monitor renal function for residual prerenal
[2017-08-08] MEDS: CHLORHEXIDINE GLUCONATE 4% CLEANSER FOR DECOLONIZATION TP SCH (21:25)
[2017-08-08] MEDS: ROSUVASTATIN CA 5 MG TABLET (FP) PO SCH (21:25)
[2017-08-09 06:21] LABS: HEMATOCRIT 33.9 % (32.4-45.2); HEMOGLOBIN 11.5 GM/dL (10.7-15.3); MCH 29.1 pg (25.7-33.7); MCHC 33.8 g/dl (32.0-36.0); MEAN PLT VOLUME 9.1 fl (7.5-11.1); PLATELET COUNT 184 K/MM3 (134-434); RBC 3.94 M/mm3 (3.60-5.2); RDW 14.3 % (11.6-15.6); WHITE BLOOD COUNT 5.7 K/mm3 (4.0-10.0)
[2017-08-09 06:52] LABS: ALBUMIN 2.8 g/dl (3.4-5.0); ANION GAP 8 (8-16); BLOOD UREA NITROGEN 8 mg/dL (7-18); CALCIUM 8.1 mg/dL (8.5-10.1); CHLORIDE 101 mmol/L (98-107); CO2 31 mmol/L (21-32); CREATININE 0.4 mg/dL (0.55-1.02); GLUCOSE,RANDOM 96 mg/dL (74-106); PHOSPHOROUS 2.6 mg/dL (2.5-4.9); POTASSIUM 3.4 mmol/L (3.5-5.1); SGOT/AST 54 U/L (15-37); SGPT/ALT 147 U/L (12-78); SODIUM 140 mmol/L (136-145)
[2017-08-09 06:54] LABS: ALK PHOS 53 U/L (45-117); BILIRUBIN,TOTAL 0.7 mg/dL (0.2-1.0); TOT PROT 5.8 g/dl (6.4-8.2)
[2017-08-09] MEDS: HEPARIN - 25,000 UNIT in SODIUM CHLORIDE 495 ML IV SCH ×2 (07:07→09:44)
[2017-08-09] MEDS: amLODIPine BESYLATE 5 MG TABLET (FP) PO SCH (09:43)
[2017-08-09] MEDS: PANTOPRAZOLE SODIUM 40 MG VIAL IVPUSH SCH (09:44)
[2017-08-09] MEDS: POLYETHYLENE GLYCOL 3350 119 GM BTL PO SCH (09:44)
[2017-08-09] MEDS: TIOTROPIUM BROMIDE 18 MCG CAPSULES IH SCH (09:46)
--- NOTE | 2017-08-09 13:29 | PN ---
Progress Note, Physician History of Present Illness: 86 year old F with pmh of HTN, HLD, arthritis, and GERD presented after a mechanical fall without near or true syncope on 07/31 after she slipped on a wet surface and landed on her back. She was subsequently brought to hospital and complained of some mild back pain. She denied any shortness of breath, chest pain, palpitations, orthopnea, mear or syncope episode. She was coincidentally found to have elevated troponin and CK -MB on blood work. PMH Cholelithiasis 2011 HTN Hyperlipidemia Negative MIBI stress test [address] Nov 2011 [place] - Current Medication List Current Medications: Active Medications Albuterol/Ipratropium (Duoneb -) 1 amp NEB Q4H PRN PRN Reason: SHORTNESS OF BREATH Amlodipine Besylate (Norvasc -) 5 mg PO DAILY [facility] Last Admin: 08/09/17 09:43 Dose: 5 mg Chlorhexidine Gluconate (Hibiclens For Decolonization -) 1 applic TP HS [facility] Last Admin: 08/08/17 21:25 Dose: 1 applic Heparin Sodium (Porcine) (Heparin -) 1,000 unit IVPUSH PRN PRN PRN Reason: Heparin Heparin Sodium (Porcine) (Heparin -) 5,000 unit IVPUSH PRN PRN PRN Reason: Heparin Hydrochlorothiazide (Hctz -) 25 mg PO DAILY [facility] Heparin Sodium (Porcine) 25, (000 unit/ Sodium Chloride) 500 mls @ 32.4 mls/hr IV TITR GIOVANNA; 1,620 UNIT/HR PRN Reason: Protocol Last Admin: 08/09/17 09:44 Dose: 1,650 unit/hr, 33 mls/hr Pantoprazole Sodium (Protonix Iv) 40 mg IVPUSH DAILY [facility] Last Admin: 08/09/17 09:44 Dose: 40 mg Polyethylene Glycol (Miralax (For Daily Use) -) 17 gm PO DAILY [facility] Last Admin: 08/09/17 09:44 Dose: 17 grams Potassium Chloride (K-Dur -) 40 meq PO ONCE ONE Stop: 08/09/17 11:50 Rosuvastatin Calcium (Crestor -) 5 mg PO HS [facility] Last Admin: 08/08/17 21:25 Dose: 5 mg Tiotropium [place] (Spiriva -) 1 puff IH DAILY [facility] Last Admin: 08/09/17 09:46 Dose: 1 puff - Objective Vital Signs: Vital Signs Temperature 99.5 F 08/09/17 10:00 Pulse Rate 79 08/09/17 10:00 Respiratory Rate 24 08/09/17 10:00 Blood Pressure 150/65 08/09/17 10:00 O2 Sat by Pulse Oximetry (%) 93 L 08/09/17 09:00 Eyes: Yes: WNL, Conjunctiva Clear, EOM Intact HENT: Yes: WNL, Atraumatic, Normocephalic Neck: Yes: WNL, Supple, Trachea Midline Cardiovascular: Yes: WNL, Regular Rate and Rhythm Respiratory: Yes: WNL, Regular, CTA Bilaterally Gastrointestinal: Yes: WNL, Normal Bowel Sounds Genitourinary: Yes: WNL Musculoskeletal: Yes: WNL Extremities: Yes: WNL Edema: Yes Integumentary: Yes: WNL Neurological: Yes: WNL, Alert, Oriented ...Motor Strength: WNL Psychiatric: Yes: WNL Labs: CBC, BMP 08/09/17 05:40 08/09/17 05:40 INR, PTT INR 1.19 (0.82-1.09) H 08/04/17 20:55 Problem List - Problems (1) Antiplatelet or antithrombotic long-term use Code(s): Z79.02 - RADIOTELEPHONE OPERATOR (CURRENT) USE OF ANTITHROMBOTICS/ANTIPLATELETS (2) Demand ischemia Code(s): I24.8 - OTHER FORMS OF ACUTE ISCHEMIC HEART DISEASE (3) Hyperlipidemia Code(s): E78.5 - HYPERLIPIDEMIA, UNSPECIFIED Qualifiers: Hyperlipidemia type: pure hypercholesterolemia Qualified Code(s): E78.00 - Pure hypercholesterolemia, unspecified; E78.0 - Pure hypercholesterolemia (4) Hypertensive cardiovascular disease Code(s): I11.9 - HYPERTENSIVE HEART DISEASE WITHOUT HEART FAILURE Qualifiers: Heart failure presence: without heart failure Qualified Code(s): I11.9 - Hypertensive heart disease without heart failure (5) NSTEMI (non-ST elevated myocardial infarction) Code(s): I21.4 - NON-ST ELEVATION (NSTEMI) MYOCARDIAL INFARCTION (6) Back pain Code(s): M54.9 - DORSALGIA, UNSPECIFIED Qualifiers: Back pain location: low back pain Chronicity: acute (7) DJD (degenerative joint disease) Code(s): M19.90 - UNSPECIFIED OSTEOARTHRITIS, UNSPECIFIED SITE (8) Insect bite Code(s): W57.XXXA - BIT/STUNG BY NONVENOM INSECT & OTH NONVENOM ARTHROPODS, INIT Qualifiers: Encounter type: initial encounter Qualified Code(s): W57.XXXA - Bitten or stung by nonvenomous insect and other nonvenomous arthropods, initial encounter (9) Knee pain Code(s): M25.569 - PAIN IN UNSPECIFIED KNEE (10) Skin irritation due to topical agent Code(s): R23.8 - OTHER SKIN CHANGES; T49.95XA - ADVERSE EFFECT OF UNSPECIFIED TOPICAL AGENT, INIT ENCNTR (11) Ulcer (traumatic) of oral mucosa Code(s): K12.1 - OTHER FORMS OF STOMATITIS Assessment/Plan Acute Hypoxic Respiratory Failure Massive Pulmonary Emboli S/P catheter directed thrombectomy/thrombolysis Obstructive Shock improving Likely Right Heart Strain Acute Kidney Injury +Troponins likely from above s/p Fall HTN Hyperlipidemia r/o UTI - Follow H&H - O2 to keep SpO2 >90% - antibiotics for possible UTI as per Critical Care - inhaled bronchodilators - monitor urine output, creatinine - IV Heparin per protocol - continue ICU monitoring Hemodynamically stable at this time.
--- NOTE | 2017-08-09 13:39 | PN ---
Physical Exam: SUBJECTIVE: Patient seen and examined No acute events overnight. Patient is comfortable in bed this morning. Satting well on 2L O2. Patient denies fever, chills, chest pain, shortness of breath. OBJECTIVE: Vital Signs Period Temp Pulse Resp BP Sys/Seth Pulse Ox Last 24 Hr 98.3 F-99.5 F 73-81 20-24 127-170/60-85 93-96 General: Patient is awake, alert and in no acute distress Chest: Decreased Breath sounds b/l. satting well on NC Heart: S1S2 positive, +OZZIE 2/6 Abdomen: positive bowel sounds, no tenderness Neuro: awake, follows commands. CN intact 2-12 MSK: paraspinal tenderness Laboratory Results - last 24 hr 08/08/17 08/09/17 08/09/17 20:15 05:40 05:40 WBC 5.7 RBC 3.94 Hgb 11.5 D Hct 33.9 MCV 86.0 MCH 29.1 MCHC 33.8 RDW 14.3 Plt Count 184 D MPV 9.1 PTT (Actin FS) 89.8 H 77.3 H Sodium Potassium Chloride Carbon Dioxide Anion Gap BUN Creatinine Creat Clearance w eGFR Random Glucose Calcium Phosphorus Magnesium Total Bilirubin AST ALT Alkaline Phosphatase Total Protein Albumin 08/09/17 05:40 WBC RBC Hgb Hct MCV MCH MCHC RDW Plt Count MPV PTT (Actin FS) Sodium 140 Potassium 3.4 L Chloride 101 Carbon Dioxide 31 Anion Gap 8 BUN 8 D Creatinine 0.4 L Creat Clearance w eGFR > 60 Random Glucose 96 Calcium 8.1 L Phosphorus 2.6 Magnesium 2.0 Total Bilirubin 0.7 D AST 54 H ALT 147 H Alkaline Phosphatase 53 Total Protein 5.8 L Albumin 2.8 L Active Medications Generic Name Dose Route Start Last Admin Trade Name Freq PRN Reason Stop Dose Admin Albuterol/Ipratropium 1 amp 08/07/17 08:20 Duoneb - NEB Q4H PRN SHORTNESS OF BREATH Amlodipine Besylate 5 mg 08/07/17 10:00 08/09/17 09:43 Norvasc - PO 5 mg DAILY GIOVANNA Administration Chlorhexidine Gluconate 1 applic 08/03/17 22:00 08/08/17 21:25 Hibiclens For Decolonization - TP 1 applic HS GIOVANNA Administration Heparin Sodium (Porcine) 1,000 unit 08/07/17 08:20 Heparin - IVPUSH PRN PRN Heparin Heparin Sodium (Porcine) 5,000 unit 08/07/17 08:20 Heparin - IVPUSH PRN PRN Heparin Hydrochlorothiazide 25 mg 08/09/17 11:45 Hctz - PO DAILY GIOVANNA Heparin Sodium (Porcine) 25, 500 mls @ 32.4 mls/hr 08/07/17 08:20 08/09/17 09 :44 000 unit/ Sodium Chloride IV 1,650 unit/hr TITR GIOVANNA 33 mls/hr Protocol Administration 1,620 UNIT/HR Pantoprazole Sodium 40 mg 08/04/17 12:15 08/09/17 09:44 Protonix Iv IVPUSH 40 mg DAILY GIOVANNA Administration Polyethylene Glycol 17 gm 08/07/17 10:00 08/09/17 09:44 Miralax (For Daily Use) - PO 17 grams DAILY GIOVANNA Administration Potassium Chloride 40 meq 08/09/17 11:49 K-Dur - PO 08/09/17 11:50 ONCE ONE Rosuvastatin Calcium 5 mg 08/07/17 22:00 08/08/17 21:25 Crestor - PO 5 mg HS GIOVANNA Administration Tiotropium [place] 1 puff 08/07/17 10:00 08/09/17 09:46 Spiriva - IH 1 puff DAILY GIOVANNA Administration ASSESSMENT/PLAN: 86 year old woman with HTN, HLD, arthritis, and GERD presented s/p mechanical fall found to have elevated troponins and bilataral pulmonary emboli #Acute hypoxic respiratory failure 2/2 to bilateral PE with obstructive shock, shock resolved. Likely present on admission. -s/p TPA thrombectomy/thrombolysis and s/p IVC filter - weaned off of pressors - continue heparin drip protocol for PE, will transition to oral when acute treatment completed - will need outpatient evaluation of unprovoked PE and AC for 6months post-dc #elevated troponins, creatine kinase - likely from PE causing obstructive shock vs demand ischemia - Resolving #HLD -Continue crestor #HTN -HCTZ and Norvasc #ELLIS- likely due to pre-renal hypoperfusion, resolved - Dr. Heredia consulted #urinary retention, resolved - carlos removed today - hold tolterodine # COPD - Spiriva/duonebs prn #fen/gi -no IVF -hypokalemia, replete -regular diet -protonix 40mg IV dialy Patient will need physical therapy, possible NEVAEH Visit type - Emergency Visit Emergency Visit: Yes ED Registration Date: 07/31/17 Care time: The patient presented to the Emergency Department on the above date and was hospitalized for further evaluation of their emergent condition. - New Patient This patient is new to me today: No - Critical Care Critical Care patient: Yes Total Critical Care Time (in minutes): 40 Critical Care Statement: The care of this patient involved high complexity decision making to prevent further life threatening deterioration of the patient 's condition and/or to evaluate & treat vital organ system(s) failure or risk of failure.
--- NOTE | 2017-08-09 14:10 | PN ---
Physical Exam: SUBJECTIVE: Patient seen and examined in ICU. No acute events overnight. Patient denies chest pain, shortness of breath. Endorses lower back pain. OBJECTIVE: Vital Signs Period Temp Pulse Resp BP Sys/Seth Pulse Ox Last 24 Hr 98.3 F-99.5 F 73-81 20-24 139-170/65-85 93-96 GENERAL: The patient is awake, alert, and fully oriented, in no acute distress. HEAD: Normal with no signs of trauma. EYES: PERRL, extraocular movements intact, sclera anicteric, conjunctiva clear. LUNGS: Breath sounds equal, clear to auscultation bilaterally, no wheezes, no crackles, no accessory muscle use. HEART: Regular rate and rhythm, S1, S2 without murmur, rub or gallop. EXTREMITIES: 2+ pulses, warm, well-perfused, no edema. NEUROLOGICAL: Cranial nerves II through XII grossly intact. Normal speech, gait not observed. SKIN: Warm, dry, normal turgor, no rashes or lesions noted Laboratory Results - last 24 hr 08/08/17 08/09/17 08/09/17 20:15 05:40 05:40 WBC 5.7 RBC 3.94 Hgb 11.5 D Hct 33.9 MCV 86.0 MCH 29.1 MCHC 33.8 RDW 14.3 Plt Count 184 D MPV 9.1 PTT (Actin FS) 89.8 H 77.3 H Sodium Potassium Chloride Carbon Dioxide Anion Gap BUN Creatinine Creat Clearance w eGFR Random Glucose Calcium Phosphorus Magnesium Total Bilirubin AST ALT Alkaline Phosphatase Total Protein Albumin 08/09/17 05:40 WBC RBC Hgb Hct MCV MCH MCHC RDW Plt Count MPV PTT (Actin FS) Sodium 140 Potassium 3.4 L Chloride 101 Carbon Dioxide 31 Anion Gap 8 BUN 8 D Creatinine 0.4 L Creat Clearance w eGFR > 60 Random Glucose 96 Calcium 8.1 L Phosphorus 2.6 Magnesium 2.0 Total Bilirubin 0.7 D AST 54 H ALT 147 H Alkaline Phosphatase 53 Total Protein 5.8 L Albumin 2.8 L Active Medications Generic Name Dose Route Start Last Admin Trade Name Freq PRN Reason Stop Dose Admin Albuterol/Ipratropium 1 amp 08/07/17 08:20 Duoneb - NEB Q4H PRN SHORTNESS OF BREATH Amlodipine Besylate 5 mg 08/07/17 10:00 08/09/17 09:43 Norvasc - PO 5 mg DAILY GIOVANNA Administration Chlorhexidine Gluconate 1 applic 08/03/17 22:00 08/08/17 21:25 Hibiclens For Decolonization - TP 1 applic HS GIOVANNA Administration Heparin Sodium (Porcine) 1,000 unit 08/07/17 08:20 Heparin - IVPUSH PRN PRN Heparin Heparin Sodium (Porcine) 5,000 unit 08/07/17 08:20 Heparin - IVPUSH PRN PRN Heparin Hydrochlorothiazide 25 mg 08/09/17 14:00 Hctz - PO DAILY GIOVANNA Heparin Sodium (Porcine) 25, 500 mls @ 32.4 mls/hr 08/07/17 08:20 08/09/17 09 :44 000 unit/ Sodium Chloride IV 1,650 unit/hr TITR GIOVANNA 33 mls/hr Protocol Administration 1,620 UNIT/HR Pantoprazole Sodium 40 mg 08/04/17 12:15 08/09/17 09:44 Protonix Iv IVPUSH 40 mg DAILY GIOVANNA Administration Polyethylene Glycol 17 gm 08/07/17 10:00 08/09/17 09:44 Miralax (For Daily Use) - PO 17 grams DAILY GIOVANNA Administration Potassium Chloride 40 meq 08/09/17 11:49 K-Dur - PO 08/09/17 11:50 ONCE ONE Rosuvastatin Calcium 5 mg 08/07/17 22:00 08/08/17 21:25 Crestor - PO 5 mg HS GIOVANNA Administration Tiotropium [place] 1 puff 08/07/17 10:00 08/09/17 09:46 Spiriva - IH 1 puff DAILY GIOVANNA Administration ASSESSMENT/PLAN: Patient is an 86 year old female who presented for s/p mechanical fall and was found to have elevated troponins. Patient throughout her hospital course became hypoxic and was found to have bilateral Pulmonary embolisms. Patient decompensated and was transferred to ICU for further monitoring and management. Pulmonology #Massive Pulmonary Embolism w/ Obstructive shock -Chest CTA revealing Extensive PE -ECHO did not visualize RV but likely right heart strain -Patient is now s/p catheter directed tPA. -IVC placed -tPA d/c 4pm yesterday, holding blood draws until 24 hours clear -Currently saturating mid 90's on nasal cannula Maintain SpO2>90% -Dopamine weaned -Continue Duo-nebs -Continue to monitor BP and maintain MAP >65 -Will need minimum 6months of AC after discharge. -Patient now maintaining spO2 of 91-93% with no oxygen Cardiovascular #Elevated Troponins -Likely secondary to demand ischemia from obstructive shock and ELLIS -Troponins trended down to 3.1 -Will repeat this evening after blood draws possible again -Patient currently on Heparin ggt #Elevated Creatinine Kinase -Resolved #Hypertension -Patient currently hypertensive -Given home dose of amlodipine and hctz. -Continue to monitor BP #HLD -Continue Crestor 5mg HS Nephrology #ELLIS -Likely secondary to obstructive shock and Urinary Retention -Patient retaining almost a liter of urine, likely contributing to the ELLIS. -Live order placed -Cr has continued to rise, now 2.8, up from 1.4 initially, now resolved -Will continue to monitor BMP Infectious Disease #UTI -Resolved -Live removed Orthopedic #S/P Mechanical Fall w/ Lumbar Pain -Pain currently controlled. Will need to avoid any medications that can potentially lower her Blood pressure in the setting of massive PE. -CT revealed no acute pathology -Head CT negative -Abdominal X-ray negative for acute pathology F/E/N -On no fluids, tolerating PO -No electrolytes abnormalities -NPO Prophylaxis -High risk. Heparin drip and tPA for DVT -Protonix 40mg IVP daily for GI Disposition -Full code -Transfer to tele Visit type - Emergency Visit Emergency Visit: Yes ED Registration Date: 07/31/17 Care time: The patient presented to the Emergency Department on the above date and was hospitalized for further evaluation of their emergent condition. - New Patient This patient is new to me today: No - Critical Care Critical Care patient: Yes Total Critical Care Time (in minutes): 35 Critical Care Statement: The care of this patient involved high complexity decision making to prevent further life threatening deterioration of the patient 's condition and/or to evaluate & treat vital organ system(s) failure or risk of failure.
[2017-08-09] MEDS ORDERED: POTASSIUM CHLORIDE TABS 20 MEQ TABLET.ER (FP) PO ONE ×2 (14:30→18:00)
--- NOTE | 2017-08-09 14:50 | PN ---
Teaching Attending Note Name of Resident: Jaziel Hopkins ATTENDING PHYSICIAN STATEMENT I saw and evaluated the patient. I reviewed the resident's note and discussed the case with the resident. I agree with the resident's findings and plan as documented. SUBJECTIVE: Patient seen and examined in the ICU. Breathing feels stable today. Remains off pressors. No occult bleeding. IV Heparin infusing. Denies CP or SOB. Intake & Output 08/06/17 08/07/17 08/08/17 08/09/17 23:59 23:59 23:59 23:59 Intake Total 1033 2066 2256 Output Total 2320 2200 3350 2300 Balance -1287 -134 -1094 -2300 Weight 200 lb 196 lb 10.437 oz 198 lb 13.711 oz 183 lb 6.793 oz Last Vital Signs Temp Pulse Resp BP Pulse Ox 99.5 F 79 24 150/65 93 L 08/09/17 10:00 08/09/17 10:00 08/09/17 10:00 08/09/17 10:00 08/09/17 09:00 Active Medications Albuterol/Ipratropium (Duoneb -) 1 amp NEB Q4H PRN PRN Reason: SHORTNESS OF BREATH Amlodipine Besylate (Norvasc -) 5 mg PO DAILY [facility] Last Admin: 08/09/17 09:43 Dose: 5 mg Chlorhexidine Gluconate (Hibiclens For Decolonization -) 1 applic TP HS [facility] Last Admin: 08/08/17 21:25 Dose: 1 applic Heparin Sodium (Porcine) (Heparin -) 1,000 unit IVPUSH PRN PRN PRN Reason: Heparin Heparin Sodium (Porcine) (Heparin -) 5,000 unit IVPUSH PRN PRN PRN Reason: Heparin Hydrochlorothiazide (Hctz -) 25 mg PO DAILY [facility] Heparin Sodium (Porcine) 25, (000 unit/ Sodium Chloride) 500 mls @ 32.4 mls/hr IV TITR [facility]; 1,620 UNIT/HR PRN Reason: Protocol Last Admin: 08/09/17 09:44 Dose: 1,650 unit/hr, 33 mls/hr Pantoprazole Sodium (Protonix Iv) 40 mg IVPUSH DAILY [facility] Last Admin: 08/09/17 09:44 Dose: 40 mg Polyethylene Glycol (Miralax (For Daily Use) -) 17 gm PO DAILY [facility] Last Admin: 08/09/17 09:44 Dose: 17 grams Rosuvastatin Calcium (Crestor -) 5 mg PO HS [facility] Last Admin: 08/08/17 21:25 Dose: 5 mg Tiotropium [place] (Spiriva -) 1 puff IH DAILY [facility] Last Admin: 08/09/17 09:46 Dose: 1 puff Gen: alert, awake, NAD Heart: RRR Lung: decreased breath sounds at the bases Abd: soft, nontender Ext: no edema COMPLIANCE REPRESENTATIVE DEALER: non-focal Laboratory Results - last 24 hr 08/08/17 08/09/17 08/09/17 20:15 05:40 05:40 WBC 5.7 RBC 3.94 Hgb 11.5 D Hct 33.9 MCV 86.0 MCH 29.1 MCHC 33.8 RDW 14.3 Plt Count 184 D MPV 9.1 PTT (Actin FS) 89.8 H 77.3 H Sodium Potassium Chloride Carbon Dioxide Anion Gap BUN Creatinine Creat Clearance w eGFR Random Glucose Calcium Phosphorus Magnesium Total Bilirubin AST ALT Alkaline Phosphatase Total Protein Albumin 08/09/17 05:40 WBC RBC Hgb Hct MCV MCH MCHC RDW Plt Count MPV PTT (Actin FS) Sodium 140 Potassium 3.4 L Chloride 101 Carbon Dioxide 31 Anion Gap 8 BUN 8 D Creatinine 0.4 L Creat Clearance w eGFR > 60 Random Glucose 96 Calcium 8.1 L Phosphorus 2.6 Magnesium 2.0 Total Bilirubin 0.7 D AST 54 H ALT 147 H Alkaline Phosphatase 53 Total Protein 5.8 L Albumin 2.8 L ASSESSMENT AND PLAN: Acute Hypoxic Respiratory Failure Massive Pulmonary Emboli S/P catheter directed thrombectomy/thrombolysis Obstructive Shock improving Likely Right Heart Strain Acute Kidney Injury +Troponins likely from above s/p Fall HTN Hyperlipidemia r/o UTI - IV Heparin per protocol / will need to decide on oral therapy -> Appears to be no contraindication for NOAC - Follow H&H - O2 to keep SpO2 >90% - Noted antibiotics for possible UTI - inhaled bronchodilators - monitor urine output, creatinine - will need at least 6 months of anticoagulation for presumed unprovoked VTE - Cardiac telemetry monitoring Dr Wang Critical care time spent in reviewing chart, evaluating patient and formulating plan 35 min
--- NOTE | 2017-08-09 16:49 | PN ---
Progress Note, Physician History of Present Illness: Pt seen and examined at bedside. She is out of bed to chair. She feels that her breathing is markedly improved. - Current Medication List Current Medications: Active Medications Albuterol/Ipratropium (Duoneb -) 1 amp NEB Q4H PRN PRN Reason: SHORTNESS OF BREATH Amlodipine Besylate (Norvasc -) 5 mg PO DAILY [facility] Last Admin: 08/09/17 09:43 Dose: 5 mg Chlorhexidine Gluconate (Hibiclens For Decolonization -) 1 applic TP HS [facility] Last Admin: 08/08/17 21:25 Dose: 1 applic Heparin Sodium (Porcine) (Heparin -) 1,000 unit IVPUSH PRN PRN PRN Reason: Heparin Heparin Sodium (Porcine) (Heparin -) 5,000 unit IVPUSH PRN PRN PRN Reason: Heparin Hydrochlorothiazide (Hctz -) 25 mg PO DAILY [facility] Heparin Sodium (Porcine) 25, (000 unit/ Sodium Chloride) 500 mls @ 32.4 mls/hr IV TITR [facility]; 1,620 UNIT/HR PRN Reason: Protocol Last Admin: 08/09/17 09:44 Dose: 1,650 unit/hr, 33 mls/hr Pantoprazole Sodium (Protonix Iv) 40 mg IVPUSH DAILY [facility] Last Admin: 08/09/17 09:44 Dose: 40 mg Polyethylene Glycol (Miralax (For Daily Use) -) 17 gm PO DAILY [facility] Last Admin: 08/09/17 09:44 Dose: 17 grams Rosuvastatin Calcium (Crestor -) 5 mg PO HS [facility] Last Admin: 08/08/17 21:25 Dose: 5 mg Tiotropium [place] (Spiriva -) 1 puff IH DAILY [facility] Last Admin: 08/09/17 09:46 Dose: 1 puff - Objective Vital Signs: Vital Signs Temperature 99.5 F 08/09/17 10:00 Pulse Rate 79 08/09/17 10:00 Respiratory Rate 24 08/09/17 10:00 Blood Pressure 150/65 08/09/17 10:00 O2 Sat by Pulse Oximetry (%) 93 L 08/09/17 09:00 Constitutional: Yes: Calm Eyes: Yes: Conjunctiva Clear HENT: Yes: Atraumatic Neck: Yes: Supple Cardiovascular: Yes: S1, S2 Respiratory: Yes: On Nasal O2 Gastrointestinal: Yes: Soft Genitourinary: Yes: Carlos Present Musculoskeletal: Yes: WNL Edema: No Neurological: Yes: Oriented Psychiatric: Yes: Oriented Labs: CBC, BMP 08/09/17 05:40 08/09/17 05:40 INR, PTT INR 1.19 (0.82-1.09) H 08/04/17 20:55 - ....Imaging Chest X-ray: Report Reviewed Problem List - Problems (1) ELLIS (acute kidney injury) Code(s): N17.9 - ACUTE KIDNEY FAILURE, UNSPECIFIED Assessment/Plan Current Medications Generic Name Dose Route Start Last Admin Trade Name Freq PRN Reason Stop Dose Admin Albuterol/Ipratropium 1 amp 08/07/17 08:20 Duoneb - NEB Q4H PRN SHORTNESS OF BREATH Amlodipine Besylate 5 mg 08/07/17 10:00 08/09/17 09:43 Norvasc - PO 5 mg DAILY [facility] Administration Chlorhexidine Gluconate 1 applic 08/03/17 22:00 08/08/17 21:25 Hibiclens For Decolonization - TP 1 applic HS [facility] Administration Heparin Sodium (Porcine) 1,000 unit 08/07/17 08:20 Heparin - IVPUSH PRN PRN Heparin Heparin Sodium (Porcine) 5,000 unit 08/07/17 08:20 Heparin - IVPUSH PRN PRN Heparin Hydrochlorothiazide 25 mg 08/09/17 14:00 Hctz - PO DAILY [facility] Heparin Sodium (Porcine) 25, 500 mls @ 32.4 mls/hr 08/07/17 08:20 08/09/17 09 :44 000 unit/ Sodium Chloride IV 1,650 unit/hr TITR [facility] 33 mls/hr Protocol Administration 1,620 UNIT/HR Pantoprazole Sodium 40 mg 08/04/17 12:15 08/09/17 09:44 Protonix Iv IVPUSH 40 mg DAILY [facility] Administration Polyethylene Glycol 17 gm 08/07/17 10:00 08/09/17 09:44 Miralax (For Daily Use) - PO 17 grams DAILY [facility] Administration Rosuvastatin Calcium 5 mg 08/07/17 22:00 08/08/17 21:25 Crestor - PO 5 mg HS [facility] Administration Tiotropium [place] 1 puff 08/07/17 10:00 08/09/17 09:46 Spiriva - IH 1 puff DAILY [facility] Administration Impression 1. ELLIS 2. pulmonary emboli on catheter thrombolysis 3. acute resp failrue 4. hypotension with shock requiring pressors 5. positive troponins 6. arthritis 7. gerd 8. s/p fall at home 9. hx HTN 10. shock 11. rhabdo Plan - renal function is improving - can d/c carlos - can stop fluids - monitor renal function - avoid nsaids - discussed with ICU Dr Heredia
[2017-08-09] MEDS: HYDROCHLOROTHIAZIDE 25 MG TABLET (FP) PO SCH (18:07)
--- NOTE | 2017-08-09 18:24 | PN ---
Teaching Attending Note Name of Resident: Carlitos Cortés ATTENDING PHYSICIAN STATEMENT I saw and evaluated the patient. I reviewed the resident's note and discussed the case with the resident. I agree with the resident's findings and plan as documented. SUBJECTIVE: Patient appears comfortable sitting in chair. She has no complaints. OBJECTIVE: Vital Signs Period Temp Pulse Resp BP Sys/Seth Pulse Ox Last 24 Hr 98.3 F-99.5 F 73-81 20-24 139-170/65-85 93-96 HEART: S1S2, RRR LUNGS: Clear ABDOMEN: Obese, soft, non-tender, non-distended, normal BS EXTREMITIES: No edema Laboratory Results - last 24 hr 08/08/17 08/09/17 08/09/17 20:15 05:40 05:40 WBC 5.7 RBC 3.94 Hgb 11.5 D Hct 33.9 MCV 86.0 MCH 29.1 MCHC 33.8 RDW 14.3 Plt Count 184 D MPV 9.1 PTT (Actin FS) 89.8 H 77.3 H Sodium Potassium Chloride Carbon Dioxide Anion Gap BUN Creatinine Creat Clearance w eGFR Random Glucose Calcium Phosphorus Magnesium Total Bilirubin AST ALT Alkaline Phosphatase Total Protein Albumin 08/09/17 05:40 WBC RBC Hgb Hct MCV MCH MCHC RDW Plt Count MPV PTT (Actin FS) Sodium 140 Potassium 3.4 L Chloride 101 Carbon Dioxide 31 Anion Gap 8 BUN 8 D Creatinine 0.4 L Creat Clearance w eGFR > 60 Random Glucose 96 Calcium 8.1 L Phosphorus 2.6 Magnesium 2.0 Total Bilirubin 0.7 D AST 54 H ALT 147 H Alkaline Phosphatase 53 Total Protein 5.8 L Albumin 2.8 L Current Medications Generic Name Dose Route Start Last Admin Trade Name Freq PRN Reason Stop Dose Admin Albuterol/Ipratropium 1 amp 08/07/17 08:20 Duoneb - NEB Q4H PRN SHORTNESS OF BREATH Amlodipine Besylate 5 mg 08/07/17 10:00 08/09/17 09:43 Norvasc - PO 5 mg DAILY [facility] Administration Chlorhexidine Gluconate 1 applic 08/03/17 22:00 08/08/17 21:25 Hibiclens For Decolonization - TP 1 applic HS [facility] Administration Heparin Sodium (Porcine) 1,000 unit 08/07/17 08:20 Heparin - IVPUSH PRN PRN Heparin Heparin Sodium (Porcine) 5,000 unit 08/07/17 08:20 Heparin - IVPUSH PRN PRN Heparin Hydrochlorothiazide 25 mg 08/09/17 14:00 08/09/17 18:07 Hctz - PO 25 mg DAILY [facility] Administration Heparin Sodium (Porcine) 25, 500 mls @ 32.4 mls/hr 08/07/17 08:20 08/09/17 09 :44 000 unit/ Sodium Chloride IV 1,650 unit/hr TITR [facility] 33 mls/hr Protocol Administration 1,620 UNIT/HR Pantoprazole Sodium 40 mg 08/04/17 12:15 08/09/17 09:44 Protonix Iv IVPUSH 40 mg DAILY [facility] Administration Polyethylene Glycol 17 gm 08/07/17 10:00 08/09/17 09:44 Miralax (For Daily Use) - PO 17 grams DAILY [facility] Administration Rosuvastatin Calcium 5 mg 08/07/17 22:00 08/08/17 21:25 Crestor - PO 5 mg HS [facility] Administration Tiotropium [place] 1 puff 08/07/17 10:00 08/09/17 09:46 Spiriva - IH 1 puff DAILY [facility] Administration ASSESSMENT AND PLAN: This is an 86 year old woman with a history of HTN, hyperlipidemia, OA, GERD who presented with back pain after a fall. 1. Acute hypoxic respiratory failure secondary to massive pulmonary embolism with right heart strain and shock - s/p thrombectomy and catheter-directed thrombolysis - Continue heparin IV drip - Off pressors 2. Hypokalemia - Replete potassium 3. Demand ischemia 4. Acute kidney injury secondary to ATN from hypotension - Resolved 5. HTN - Continue Norvasc, HCTZ 6. Hyperlipidemia - Continue Crestor 7. Back pain s/p fall - Resume PT 8. Rhabdomyolysis - Resolved 9. GERD - Continue Protonix 10. Disposition - Expect patient will need short term rehab
[2017-08-09] MEDS: CHLORHEXIDINE GLUCONATE 4% CLEANSER FOR DECOLONIZATION TP SCH (22:17)
[2017-08-09] MEDS: ROSUVASTATIN CA 5 MG TABLET (FP) PO SCH (22:17)
[2017-08-10 06:18] LABS: BASO % 0.7 % (0-2.0); EOS % 1.1 % (0-4.5); HEMATOCRIT 37.6 % (32.4-45.2); HEMOGLOBIN 12.8 GM/dL (10.7-15.3); LYMPH % 21.6 % (8-40); MCH 29.1 pg (25.7-33.7); MEAN CELL VOLUME 85.5 fl (80-96); MEAN PLT VOLUME 9.1 fl (7.5-11.1); MONO % 9.1 % (3.8-10.2); NEUT % 67.5 % (42.8-82.8); PLATELET COUNT 205 K/MM3 (134-434); RDW 14.4 % (11.6-15.6); WHITE BLOOD COUNT 7.6 K/mm3 (4.0-10.0)
[2017-08-10 06:44] LABS: ALBUMIN 2.8 g/dl (3.4-5.0); ANION GAP 5 (8-16); BLOOD UREA NITROGEN 9 mg/dL (7-18); CALCIUM 8.3 mg/dL (8.5-10.1); CHLORIDE 99 mmol/L (98-107); CO2 32 mmol/L (21-32); CREATININE 0.4 mg/dL (0.55-1.02); GLUCOSE,RANDOM 105 mg/dL (74-106); POTASSIUM 3.7 mmol/L (3.5-5.1); SGOT/AST 36 U/L (15-37); SGPT/ALT 109 U/L (12-78); SODIUM 136 mmol/L (136-145)
[2017-08-10 06:45] LABS: ALK PHOS 52 U/L (45-117); BILIRUBIN,TOTAL 0.7 mg/dL (0.2-1.0); TOT PROT 5.9 g/dl (6.4-8.2)
--- NOTE | 2017-08-10 08:35 | PN ---
Physical Exam: SUBJECTIVE: Patient seen and examined No acute events overnight. Patient is comfortable in bed this morning. Complains of having to urinate frequently. Currently on ventimask. Patient denies fever, chills, chest pain, shortness of breath. OBJECTIVE: Vital Signs Period Temp Pulse Resp BP Sys/Seth Pulse Ox Last 24 Hr 97.3 F-99.5 F 79-90 18-24 142-164/65-81 90-93 General: Patient is awake, alert and in no acute distress Chest: Decreased Breath sounds b/l. satting well on NC Heart: S1S2 positive, +OZZIE 2/6 Abdomen: positive bowel sounds, no tenderness Neuro: awake, follows commands. CN intact 2-12 MSK: paraspinal tenderness Laboratory Results - last 24 hr 08/10/17 08/10/17 05:30 05:30 WBC 7.6 D RBC 4.40 Hgb 12.8 D Hct 37.6 MCV 85.5 MCH 29.1 MCHC 34.0 RDW 14.4 Plt Count 205 MPV 9.1 Neutrophils % 67.5 Lymphocytes % 21.6 Monocytes % 9.1 Eosinophils % 1.1 Basophils % 0.7 Sodium 136 Potassium 3.7 Chloride 99 Carbon Dioxide 32 Anion Gap 5 L BUN 9 Creatinine 0.4 L Creat Clearance w eGFR > 60 Random Glucose 105 Calcium 8.3 L Total Bilirubin 0.7 AST 36 ALT 109 H Alkaline Phosphatase 52 Total Protein 5.9 L Albumin 2.8 L Active Medications Generic Name Dose Route Start Last Admin Trade Name Freq PRN Reason Stop Dose Admin Albuterol/Ipratropium 1 amp 08/07/17 08:20 Duoneb - NEB Q4H PRN SHORTNESS OF BREATH Amlodipine Besylate 5 mg 08/07/17 10:00 08/09/17 09:43 Norvasc - PO 5 mg DAILY [facility] Administration Chlorhexidine Gluconate 1 applic 08/03/17 22:00 08/09/17 22:17 Hibiclens For Decolonization - TP 1 applic HS [facility] Administration Heparin Sodium (Porcine) 1,000 unit 08/07/17 08:20 Heparin - IVPUSH PRN PRN Heparin Heparin Sodium (Porcine) 5,000 unit 08/07/17 08:20 Heparin - IVPUSH PRN PRN Heparin Hydrochlorothiazide 25 mg 08/09/17 14:00 08/09/17 18:07 Hctz - PO 25 mg DAILY [facility] Administration Heparin Sodium (Porcine) 25, 500 mls @ 32.4 mls/hr 08/07/17 08:20 08/09/17 09 :44 000 unit/ Sodium Chloride IV 1,650 unit/hr TITR [facility] 33 mls/hr Protocol Administration 1,620 UNIT/HR Pantoprazole Sodium 40 mg 08/04/17 12:15 08/09/17 09:44 Protonix Iv IVPUSH 40 mg DAILY [facility] Administration Polyethylene Glycol 17 gm 08/07/17 10:00 08/09/17 09:44 Miralax (For Daily Use) - PO 17 grams DAILY [facility] Administration Rosuvastatin Calcium 5 mg 08/07/17 22:00 08/09/17 22:17 Crestor - PO 5 mg HS [facility] Administration Tiotropium [place] 1 puff 08/07/17 10:00 08/09/17 09:46 Spiriva - IH 1 puff DAILY [facility] Administration ASSESSMENT/PLAN: 86 year old woman with HTN, HLD, arthritis, and GERD presented s/p mechanical fall found to have elevated troponins and bilataral pulmonary emboli #Acute hypoxic respiratory failure 2/2 to bilateral PE with obstructive shock, shock resolved. Likely present on admission. -s/p TPA thrombectomy/thrombolysis and s/p IVC filter - weaned off of pressors - Switched heparin drip to eliquis 5mg po bid - will need outpatient evaluation of unprovoked PE and AC for 6months post-dc #Excessive urination -UA ordered -Heparin stopped and switched to eliquis #elevated troponins, creatine kinase - likely from PE causing obstructive shock vs demand ischemia - Resolved #HLD - Continue crestor #HTN - HCTZ and Norvasc #ELLIS- likely due to pre-renal hypoperfusion, resolved - No IVF - monitor cr, urine output - Dr. Heredia consulted # COPD - Spiriva/duonebs prn #fen/gi - no IVF - hypokalemia, replete - regular diet - protonix 40mg IV dialy Patient will need physical therapy, possible NEVAEH. Family previously denying NEVAEH but when speaking to son today, they are more open to options. Visit type - Emergency Visit Emergency Visit: Yes ED Registration Date: 07/31/17 Care time: The patient presented to the Emergency Department on the above date and was hospitalized for further evaluation of their emergent condition. - New Patient This patient is new to me today: No - Critical Care Critical Care patient: No
[2017-08-10] MEDS ORDERED: PT OWN MED DRAWER 7, Y5N ONE (10:12)
--- NOTE | 2017-08-10 10:20 | PN ---
Progress Note, Physician History of Present Illness: 86 year old F with pmh of HTN, HLD, arthritis, and GERD presented after a mechanical fall without near or true syncope on 07/31 after she slipped on a wet surface and landed on her back. She was subsequently brought to hospital and complained of some mild back pain. She denied any shortness of breath, chest pain, palpitations, orthopnea, mear or syncope episode. She was coincidentally found to have elevated troponin and CK -MB on blood work. PMH Cholelithiasis 2011 HTN Hyperlipidemia Negative MIBI stress test [address] Nov 2011 Angie - Current Medication List Current Medications: Active Medications Albuterol/Ipratropium (Duoneb -) 1 amp NEB Q4H PRN PRN Reason: SHORTNESS OF BREATH Amlodipine Besylate (Norvasc -) 5 mg PO DAILY [facility] Last Admin: 08/09/17 09:43 Dose: 5 mg Chlorhexidine Gluconate (Hibiclens For Decolonization -) 1 applic TP HS [facility] Last Admin: 08/09/17 22:17 Dose: 1 applic Heparin Sodium (Porcine) (Heparin -) 1,000 unit IVPUSH PRN PRN PRN Reason: Heparin Heparin Sodium (Porcine) (Heparin -) 5,000 unit IVPUSH PRN PRN PRN Reason: Heparin Hydrochlorothiazide (Hctz -) 25 mg PO DAILY [facility] Last Admin: 08/09/17 18:07 Dose: 25 mg Heparin Sodium (Porcine) 25, (000 unit/ Sodium Chloride) 500 mls @ 32.4 mls/hr IV TITR [facility]; 1,620 UNIT/HR PRN Reason: Protocol Last Admin: 08/09/17 09:44 Dose: 1,650 unit/hr, 33 mls/hr Pantoprazole Sodium (Protonix Iv) 40 mg IVPUSH DAILY [facility] Last Admin: 08/09/17 09:44 Dose: 40 mg Polyethylene Glycol (Miralax (For Daily Use) -) 17 gm PO DAILY [facility] Last Admin: 08/09/17 09:44 Dose: 17 grams Rosuvastatin Calcium (Crestor -) 5 mg PO HS [facility] Last Admin: 08/09/17 22:17 Dose: 5 mg Tiotropium [place] (Spiriva -) 1 puff IH DAILY [facility] Last Admin: 08/09/17 09:46 Dose: 1 puff - Objective Vital Signs: Vital Signs Temperature 98.2 F 08/10/17 10:00 Pulse Rate 87 08/10/17 10:00 Respiratory Rate 28 H 08/10/17 10:00 Blood Pressure 140/90 08/10/17 10:00 O2 Sat by Pulse Oximetry (%) 90 L 08/09/17 21:00 Eyes: Yes: WNL, Conjunctiva Clear, EOM Intact HENT: Yes: WNL, Atraumatic, Normocephalic Neck: Yes: WNL, Supple, Trachea Midline Cardiovascular: Yes: WNL, Regular Rate and Rhythm Respiratory: Yes: WNL, Regular, CTA Bilaterally Gastrointestinal: Yes: WNL, Normal Bowel Sounds Genitourinary: Yes: WNL Musculoskeletal: Yes: WNL Extremities: Yes: WNL Edema: Yes Integumentary: Yes: WNL Neurological: Yes: WNL, Alert, Oriented ...Motor Strength: WNL Psychiatric: Yes: WNL Labs: CBC, BMP 08/10/17 05:30 08/10/17 05:30 INR, PTT INR 1.19 (0.82-1.09) H 08/04/17 20:55 Problem List - Problems (1) Antiplatelet or antithrombotic long-term use Code(s): Z79.02 - CARE HOME (CURRENT) USE OF ANTITHROMBOTICS/ANTIPLATELETS (2) Demand ischemia Code(s): I24.8 - OTHER FORMS OF ACUTE ISCHEMIC HEART DISEASE (3) Hyperlipidemia Code(s): E78.5 - HYPERLIPIDEMIA, UNSPECIFIED Qualifiers: Hyperlipidemia type: pure hypercholesterolemia Qualified Code(s): E78.00 - Pure hypercholesterolemia, unspecified; E78.0 - Pure hypercholesterolemia (4) Hypertensive cardiovascular disease Code(s): I11.9 - HYPERTENSIVE HEART DISEASE WITHOUT HEART FAILURE Qualifiers: Heart failure presence: without heart failure Qualified Code(s): I11.9 - Hypertensive heart disease without heart failure (5) NSTEMI (non-ST elevated myocardial infarction) Code(s): I21.4 - NON-ST ELEVATION (NSTEMI) MYOCARDIAL INFARCTION (6) Back pain Code(s): M54.9 - DORSALGIA, UNSPECIFIED Qualifiers: Back pain location: low back pain Chronicity: acute (7) DJD (degenerative joint disease) Code(s): M19.90 - UNSPECIFIED OSTEOARTHRITIS, UNSPECIFIED SITE (8) Insect bite Code(s): W57.XXXA - BIT/STUNG BY NONVENOM INSECT & OTH NONVENOM ARTHROPODS, INIT Qualifiers: Encounter type: initial encounter Qualified Code(s): W57.XXXA - Bitten or stung by nonvenomous insect and other nonvenomous arthropods, initial encounter (9) Knee pain Code(s): M25.569 - PAIN IN UNSPECIFIED KNEE (10) Skin irritation due to topical agent Code(s): R23.8 - OTHER SKIN CHANGES; T49.95XA - ADVERSE EFFECT OF UNSPECIFIED TOPICAL AGENT, INIT ENCNTR (11) Ulcer (traumatic) of oral mucosa Code(s): K12.1 - OTHER FORMS OF STOMATITIS Assessment/Plan Acute Hypoxic Respiratory Failure Massive Pulmonary Emboli S/P catheter directed thrombectomy/thrombolysis Obstructive Shock improving Likely Right Heart Strain Acute Kidney Injury +Troponins likely from above s/p Fall HTN Hyperlipidemia r/o UTI - Follow H&H - O2 to keep SpO2 >90% - antibiotics for possible UTI as per Critical Care - inhaled bronchodilators - monitor urine output, creatinine - IV Heparin per protocol - continue ICU monitoring Hemodynamically stable at this time.
[2017-08-10] MEDS: amLODIPine BESYLATE 5 MG TABLET (FP) PO SCH (10:21)
[2017-08-10] MEDS: TIOTROPIUM BROMIDE 18 MCG CAPSULES IH SCH (10:21)
[2017-08-10] MEDS: HYDROCHLOROTHIAZIDE 25 MG TABLET (FP) PO SCH (10:21)
[2017-08-10] MEDS: POLYETHYLENE GLYCOL 3350 119 GM BTL PO SCH (10:21)
[2017-08-10] MEDS: HEPARIN - 25,000 UNIT in SODIUM CHLORIDE 495 ML IV SCH (12:00)
[2017-08-10] MEDS: PANTOPRAZOLE SODIUM 40 MG VIAL IVPUSH SCH (12:16)
--- NOTE | 2017-08-10 14:59 | PN ---
Progress Note, Physician History of Present Illness: Pt seen and examined at bedside. She is out of bed to chair. She denies shortness of breath. She says that she feels better. - Current Medication List Current Medications: Active Medications Albuterol/Ipratropium (Duoneb -) 1 amp NEB Q4H PRN PRN Reason: SHORTNESS OF BREATH Amlodipine Besylate (Norvasc -) 5 mg PO DAILY [facility] Last Admin: 08/10/17 10:21 Dose: 5 mg Apixaban (Eliquis -) 5 mg PO BID [facility] Chlorhexidine Gluconate (Hibiclens For Decolonization -) 1 applic TP HS [facility] Last Admin: 08/09/17 22:17 Dose: 1 applic Hydrochlorothiazide (Hctz -) 25 mg PO DAILY [facility] Last Admin: 08/10/17 10:21 Dose: 25 mg Pantoprazole Sodium (Protonix Iv) 40 mg IVPUSH DAILY [facility] Last Admin: 08/10/17 12:16 Dose: 40 mg Polyethylene Glycol (Miralax (For Daily Use) -) 17 gm PO DAILY [facility] Last Admin: 08/10/17 10:21 Dose: 17 grams Rosuvastatin Calcium (Crestor -) 5 mg PO HS [facility] Last Admin: 08/09/17 22:17 Dose: 5 mg Tiotropium [place] (Spiriva -) 1 puff IH DAILY [facility] Last Admin: 08/10/17 10:21 Dose: 1 puff - Objective Vital Signs: Vital Signs Temperature 98.4 F 08/10/17 13:14 Pulse Rate 88 08/10/17 13:14 Respiratory Rate 18 08/10/17 13:14 Blood Pressure 137/74 08/10/17 13:14 O2 Sat by Pulse Oximetry (%) 89 L 08/10/17 10:32 Constitutional: Yes: Calm Eyes: Yes: Conjunctiva Clear HENT: Yes: Atraumatic Neck: Yes: Supple Cardiovascular: Yes: S1, S2 Respiratory: Yes: CTA Bilaterally, On Nasal O2 Gastrointestinal: Yes: Soft, Abdomen, Obese Genitourinary: Yes: WNL Musculoskeletal: Yes: WNL Edema: No Neurological: Yes: Oriented Psychiatric: Yes: Oriented Labs: CBC, BMP 08/10/17 05:30 08/10/17 05:30 INR, PTT INR 1.19 (0.82-1.09) H 08/04/17 20:55 Problem List - Problems (1) ELLIS (acute kidney injury) Code(s): N17.9 - ACUTE KIDNEY FAILURE, UNSPECIFIED Assessment/Plan Current Medications Generic Name Dose Route Start Last Admin Trade Name Freq PRN Reason Stop Dose Admin Albuterol/Ipratropium 1 amp 08/07/17 08:20 Duoneb - NEB Q4H PRN SHORTNESS OF BREATH Amlodipine Besylate 5 mg 08/07/17 10:00 08/10/17 10:21 Norvasc - PO 5 mg DAILY [facility] Administration Apixaban 5 mg 08/10/17 22:00 Eliquis - PO BID [facility] Chlorhexidine Gluconate 1 applic 08/03/17 22:00 08/09/17 22:17 Hibiclens For Decolonization - TP 1 applic HS [facility] Administration Hydrochlorothiazide 25 mg 08/09/17 14:00 08/10/17 10:21 Hctz - PO 25 mg DAILY [facility] Administration Pantoprazole Sodium 40 mg 08/04/17 12:15 08/10/17 12:16 Protonix Iv IVPUSH 40 mg DAILY [facility] Administration Polyethylene Glycol 17 gm 08/07/17 10:00 08/10/17 10:21 Miralax (For Daily Use) - PO 17 grams DAILY [facility] Administration Rosuvastatin Calcium 5 mg 08/07/17 22:00 08/09/17 22:17 Crestor - PO 5 mg HS [facility] Administration Tiotropium [place] 1 puff 08/07/17 10:00 08/10/17 10:21 Spiriva - IH 1 puff DAILY [facility] Administration Impression 1. ELLIS 2. pulmonary emboli on catheter thrombolysis 3. acute resp failrue 4. hypotension with shock requiring pressors 5. positive troponins 6. arthritis 7. gerd 8. s/p fall at home 9. hx HTN 10. shock 11. rhabdo Plan - renal function is stable - check UA to evaluate for proteinuria and hematuria - management per primary team - monitor renal function - avoid nsaids - will follow PRN Dr Heredia
--- NOTE | 2017-08-10 16:09 | PN ---
Teaching Attending Note Name of Resident: Carlitos Cortés ATTENDING PHYSICIAN STATEMENT I saw and evaluated the patient. I reviewed the resident's note and discussed the case with the resident. I agree with the resident's findings and plan as documented. SUBJECTIVE: Patient complains of urinating frequently. OBJECTIVE: Vital Signs Period Temp Pulse Resp BP Sys/Seth Pulse Ox Last 24 Hr 97.3 F-98.4 F 82-90 18-28 137-164/73-90 88-90 HEART: S1S2, RRR LUNGS: Clear ABDOMEN: Obese, soft, non-tender, non-distended, normal BS EXTREMITIES: No edema Laboratory Results - last 24 hr 08/10/17 08/10/17 05:30 05:30 WBC 7.6 D RBC 4.40 Hgb 12.8 D Hct 37.6 MCV 85.5 MCH 29.1 MCHC 34.0 RDW 14.4 Plt Count 205 MPV 9.1 Neutrophils % 67.5 Lymphocytes % 21.6 Monocytes % 9.1 Eosinophils % 1.1 Basophils % 0.7 Sodium 136 Potassium 3.7 Chloride 99 Carbon Dioxide 32 Anion Gap 5 L BUN 9 Creatinine 0.4 L Creat Clearance w eGFR > 60 Random Glucose 105 Calcium 8.3 L Total Bilirubin 0.7 AST 36 ALT 109 H Alkaline Phosphatase 52 Total Protein 5.9 L Albumin 2.8 L Current Medications Generic Name Dose Route Start Last Admin Trade Name Freq PRN Reason Stop Dose Admin Albuterol/Ipratropium 1 amp 08/07/17 08:20 Duoneb - NEB Q4H PRN SHORTNESS OF BREATH Amlodipine Besylate 5 mg 08/07/17 10:00 08/10/17 10:21 Norvasc - PO 5 mg DAILY GIOVANNA Administration Apixaban 5 mg 08/10/17 22:00 Eliquis - PO BID GIOVANNA Chlorhexidine Gluconate 1 applic 08/03/17 22:00 08/09/17 22:17 Hibiclens For Decolonization - TP 1 applic HS GIOVANNA Administration Hydrochlorothiazide 25 mg 08/09/17 14:00 08/10/17 10:21 Hctz - PO 25 mg DAILY GIOVANNA Administration Pantoprazole Sodium 40 mg 08/04/17 12:15 08/10/17 12:16 Protonix Iv IVPUSH 40 mg DAILY GIOVANNA Administration Polyethylene Glycol 17 gm 08/07/17 10:00 08/10/17 10:21 Miralax (For Daily Use) - PO 17 grams DAILY GIOVANNA Administration Rosuvastatin Calcium 5 mg 08/07/17 22:00 08/09/17 22:17 Crestor - PO 5 mg HS GIOVANNA Administration Tiotropium [place] 1 puff 08/07/17 10:00 08/10/17 10:21 Spiriva - IH 1 puff DAILY GIOVANNA Administration ASSESSMENT AND PLAN: This is an 86 year old woman with a history of HTN, hyperlipidemia, OA, GERD who presented with back pain after a fall. 1. Acute hypoxic respiratory failure secondary to massive pulmonary embolism with right heart strain and shock - s/p thrombectomy and catheter-directed thrombolysis - On heparin IV drip - change to Eliquis - Off pressors - Continues to require VM O2 2. Urinary frequency - Check urinalysis 3. Hypokalemia - Improved 4. Demand ischemia 5. Acute kidney injury secondary to ATN from hypotension - Resolved 6. HTN - Continue Norvasc, HCTZ 7. Hyperlipidemia - Continue Crestor 8. Back pain s/p fall 9. Rhabdomyolysis - Resolved 10. GERD - Continue Protonix 11. Disposition - Continue PT - Expect patient will need short term rehab - discussed with her son
[2017-08-10] MEDS: ROSUVASTATIN CA 5 MG TABLET (FP) PO SCH (21:25)
[2017-08-10] MEDS: CHLORHEXIDINE GLUCONATE 4% CLEANSER FOR DECOLONIZATION TP SCH (21:26)
[2017-08-10] MEDS: APIXABAN 5 MG TABLET PO SCH (21:30)
[2017-08-11 06:33] LABS: BASO % 0.6 % (0-2.0); EOS % 1.3 % (0-4.5); HEMOGLOBIN 12.6 GM/dL (10.7-15.3); LYMPH % 19.3 % (8-40); MCHC 33.9 g/dl (32.0-36.0); MEAN CELL VOLUME 85.6 fl (80-96); MEAN PLT VOLUME 9.2 fl (7.5-11.1); MONO % 10.2 % (3.8-10.2); NEUT % 68.6 % (42.8-82.8); PLATELET COUNT 197 K/MM3 (134-434); RBC 4.33 M/mm3 (3.60-5.2); RDW 14.8 % (11.6-15.6); WHITE BLOOD COUNT 7.8 K/mm3 (4.0-10.0)
[2017-08-11 07:12] LABS: ALBUMIN 2.9 g/dl (3.4-5.0); ANION GAP 9 (8-16); BLOOD UREA NITROGEN 10 mg/dL (7-18); CALCIUM 8.7 mg/dL (8.5-10.1); CHLORIDE 96 mmol/L (98-107); CO2 31 mmol/L (21-32); GLUCOSE,RANDOM 115 mg/dL (74-106); SGOT/AST 28 U/L (15-37); SODIUM 136 mmol/L (136-145)
[2017-08-11 07:14] LABS: ALK PHOS 49 U/L (45-117); BILIRUBIN,TOTAL 0.9 mg/dL (0.2-1.0); CREATININE 0.5 mg/dL (0.55-1.02); SGPT/ALT 79 U/L (12-78); TOT PROT 6.1 g/dl (6.4-8.2)
[2017-08-11] MEDS: APIXABAN 5 MG TABLET PO SCH (09:46)
[2017-08-11] MEDS: HYDROCHLOROTHIAZIDE 25 MG TABLET (FP) PO SCH (09:47)
[2017-08-11] MEDS: amLODIPine BESYLATE 5 MG TABLET (FP) PO SCH (09:47)
[2017-08-11] MEDS: POLYETHYLENE GLYCOL 3350 119 GM BTL PO SCH (09:49)
[2017-08-11] MEDS: TIOTROPIUM BROMIDE 18 MCG CAPSULES IH SCH (09:50)
[2017-08-11] MEDS ORDERED: APIXABAN 5 MG TABLET PO SCH (10:10)
--- NOTE | 2017-08-11 11:13 | PN ---
Progress Note, Physician History of Present Illness: 86 year old F with pmh of HTN, HLD, arthritis, and GERD presented after a mechanical fall without near or true syncope on 07/31 after she slipped on a wet surface and landed on her back. She was subsequently brought to hospital and complained of some mild back pain. She denied any shortness of breath, chest pain, palpitations, orthopnea, mear or syncope episode. She was coincidentally found to have elevated troponin and CK -MB on blood work. PMH Cholelithiasis 2011 HTN Hyperlipidemia Negative MIBI stress test [address] Nov 2011 [place] - Current Medication List Current Medications: Active Medications Albuterol/Ipratropium (Duoneb -) 1 amp NEB Q4H PRN PRN Reason: SHORTNESS OF BREATH Amlodipine Besylate (Norvasc -) 5 mg PO DAILY [facility] Last Admin: 08/11/17 09:47 Dose: 5 mg Apixaban (Eliquis -) 10 mg PO BID [facility] Chlorhexidine Gluconate (Hibiclens For Decolonization -) 1 applic TP [facility] Last Admin: 08/10/17 21:26 Dose: 1 applic Metoprolol Succinate (Toprol Xl -) 12.5 mg PO DAILY [facility] Pantoprazole Sodium (Protonix Iv) 40 mg IVPUSH DAILY [facility] Last Admin: 08/10/17 12:16 Dose: 40 mg Polyethylene Glycol (Miralax (For Daily Use) -) 17 gm PO DAILY [facility] Last Admin: 08/11/17 09:49 Dose: 17 grams Rosuvastatin Calcium (Crestor -) 5 mg PO HS [facility] Last Admin: 08/10/17 21:25 Dose: 5 mg Tiotropium [place] (Spiriva -) 1 puff IH DAILY [facility] Last Admin: 08/11/17 09:50 Dose: 1 puff - Objective Vital Signs: Vital Signs Temperature 99.1 F 08/11/17 06:00 Pulse Rate 86 08/11/17 06:00 Respiratory Rate 19 08/11/17 06:00 Blood Pressure 120/72 08/11/17 06:00 O2 Sat by Pulse Oximetry (%) 89 L 08/10/17 19:47 Eyes: Yes: WNL, Conjunctiva Clear, EOM Intact HENT: Yes: WNL, Atraumatic, Normocephalic Neck: Yes: WNL, Supple, Trachea Midline Cardiovascular: Yes: WNL, Regular Rate and Rhythm Respiratory: Yes: WNL, Regular, CTA Bilaterally Gastrointestinal: Yes: WNL, Normal Bowel Sounds Genitourinary: Yes: WNL Musculoskeletal: Yes: WNL Extremities: Yes: WNL Edema: No Integumentary: Yes: WNL Neurological: Yes: WNL, Alert, Oriented ...Motor Strength: WNL Psychiatric: Yes: WNL Labs: CBC, BMP 08/11/17 06:05 08/11/17 06:05 INR, PTT INR 1.19 (0.82-1.09) H 08/04/17 20:55 Problem List - Problems (1) Antiplatelet or antithrombotic long-term use Code(s): Z79.02 - MANUFACTURING CLERK (CURRENT) USE OF ANTITHROMBOTICS/ANTIPLATELETS (2) Demand ischemia Code(s): I24.8 - OTHER FORMS OF ACUTE ISCHEMIC HEART DISEASE (3) Hyperlipidemia Code(s): E78.5 - HYPERLIPIDEMIA, UNSPECIFIED Qualifiers: Hyperlipidemia type: pure hypercholesterolemia Qualified Code(s): E78.00 - Pure hypercholesterolemia, unspecified; E78.0 - Pure hypercholesterolemia (4) Hypertensive cardiovascular disease Code(s): I11.9 - HYPERTENSIVE HEART DISEASE WITHOUT HEART FAILURE Qualifiers: Heart failure presence: without heart failure Qualified Code(s): I11.9 - Hypertensive heart disease without heart failure (5) NSTEMI (non-ST elevated myocardial infarction) Code(s): I21.4 - NON-ST ELEVATION (NSTEMI) MYOCARDIAL INFARCTION (6) Back pain Code(s): M54.9 - DORSALGIA, UNSPECIFIED Qualifiers: Back pain location: low back pain Chronicity: acute (7) DJD (degenerative joint disease) Code(s): M19.90 - UNSPECIFIED OSTEOARTHRITIS, UNSPECIFIED SITE (8) Insect bite Code(s): W57.XXXA - BIT/STUNG BY NONVENOM INSECT & OTH NONVENOM ARTHROPODS, INIT Qualifiers: Encounter type: initial encounter Qualified Code(s): W57.XXXA - Bitten or stung by nonvenomous insect and other nonvenomous arthropods, initial encounter (9) Knee pain Code(s): M25.569 - PAIN IN UNSPECIFIED KNEE (10) Skin irritation due to topical agent Code(s): R23.8 - OTHER SKIN CHANGES; T49.95XA - ADVERSE EFFECT OF UNSPECIFIED TOPICAL AGENT, INIT ENCNTR (11) Ulcer (traumatic) of oral mucosa Code(s): K12.1 - OTHER FORMS OF STOMATITIS Assessment/Plan Acute Hypoxic Respiratory Failure Massive Pulmonary Emboli S/P catheter directed thrombectomy/thrombolysis Obstructive Shock improving Likely Right Heart Strain Acute Kidney Injury - resolved +Troponins likely from above s/p Fall HTN Hyperlipidemia r/o UTI - Follow H&H - O2 to keep SpO2 >90% - antibiotics for possible UTI as per Critical Care - inhaled bronchodilators - monitor urine output, creatinine - AC as per protocol - Hemodynamically stable at this time.
[2017-08-11] MEDS: PANTOPRAZOLE SODIUM 40 MG VIAL IVPUSH SCH (11:19)
--- NOTE | 2017-08-11 11:43 | EKG ---
Test Reason : Blood Pressure : / mmHG Vent. Rate : 083 BPM Atrial Rate : 083 BPM P-R Int : 162 ms QRS Dur : 104 ms QT Int : 414 ms P-R-T Axes : 031 -48 005 degrees QTc Int : 486 ms NORMAL SINUS RHYTHM LEFT ANTERIOR FASCICULAR BLOCK VOLTAGE CRITERIA FOR LEFT VENTRICULAR HYPERTROPHY ABNORMAL ECG WHEN COMPARED WITH ECG OF 04-AUG-2017 12:25, RIGHT BUNDLE BRANCH BLOCK IS NO LONGER PRESENT Confirmed by MARINO HOYT, VIVIENNE ([id number]) on 08/11/2017 11:43:10 AM Referred By: Ke VYAS Confirmed By:VIVIENNE PICHARDO MD
[2017-08-11 12:28] LABS: PHOSPHOROUS 3.8 mg/dL (2.5-4.9)
[2017-08-11 13:29] VITALS: TEMP 98.6
--- NOTE | 2017-08-11 14:27 | PN ---
Progress Note (short form) - Note Progress Note: PULMONARY Breathing better. No chest pain. Last Vital Signs Temp Pulse Resp BP Pulse Ox 98.6 F 95 H 20 129/82 93 L 08/11/17 13:29 08/11/17 13:29 08/11/17 13:29 08/11/17 13:29 08/11/17 09:00 Gen: NAD in chair Heart: RRR Lung: decreased breath sounds at the bases Abd: soft, nontender Ext: no edema CBC, BMP 08/11/17 06:05 08/11/17 06:05 Active Medications Albuterol/Ipratropium (Duoneb -) 1 amp NEB Q4H PRN PRN Reason: SHORTNESS OF BREATH Amlodipine Besylate (Norvasc -) 5 mg PO DAILY [facility] Last Admin: 08/11/17 09:47 Dose: 5 mg Apixaban (Eliquis -) 10 mg PO BID [facility] Chlorhexidine Gluconate (Hibiclens For Decolonization -) 1 applic TP [facility] Last Admin: 08/10/17 21:26 Dose: 1 applic Metoprolol Succinate (Toprol Xl -) 12.5 mg PO DAILY [facility] Pantoprazole Sodium (Protonix Iv) 40 mg IVPUSH DAILY [facility] Last Admin: 08/11/17 11:19 Dose: 40 mg Polyethylene Glycol (Miralax (For Daily Use) -) 17 gm PO DAILY [facility] Last Admin: 08/11/17 09:49 Dose: 17 grams Rosuvastatin Calcium (Crestor -) 5 mg PO HS [facility] Last Admin: 08/10/17 21:25 Dose: 5 mg Tiotropium [place] (Spiriva -) 1 puff IH DAILY [facility] Last Admin: 08/11/17 09:50 Dose: 1 puff A/P Acute Hypoxic Respiratory Failure Massive Pulmonary Emboli s/p catheter directed thrombectomy/thrombolysis s/p Obstructive Shock Likely Right Heart Strain Acute Kidney Injury improving +Troponins likely from above s/p Fall HTN Hyperlipidemia - continue anticoagulation - O2 to keep SpO2 >90% - monitor H/H - monitor urine output, creatinine - rehab/PT
[2017-08-11 14:52] VITALS: PULSE 91
--- NOTE | 2017-08-11 15:23 | DS ---
Physical Exam: Selected Entries 08/04/17 08/04/17 08/04/17 11:15 12:06 14:00 Temperature Pulse Rate Blood Pressure 121/86 82/62 87/61 O2 Sat by Pulse Oximetry (%) Oxygen Delivery Method Oxygen Flow Rate 08/04/17 08/04/17 08/05/17 18:00 20:00 01:00 Temperature Pulse Rate Blood Pressure 107/75 90/63 98/46 O2 Sat by Pulse Oximetry (%) Oxygen Delivery Method Oxygen Flow Rate 08/11/17 08/11/17 08/11/17 09:00 14:00 14:47 Temperature 98.6 F Pulse Rate 91 H Blood Pressure O2 Sat by Pulse 93 L Oximetry (%) Oxygen Delivery Nasal Cannula Method Oxygen Flow 5 Rate 08/11/17 16:00 Temperature Pulse Rate Blood Pressure 136/69 O2 Sat by Pulse Oximetry (%) Oxygen Delivery Method Oxygen Flow Rate Laboratory Tests 08/11/17 06:05 WBC 7.8 Hgb 12.6 Hct 37.0 Plt Count 197 cxr 07/31 Impression: Chronic changes. No acute pathology. No significant change since 09/29/2012. cervical spine ct 07/31 Impression: 1. No definite acute fracture or traumatic subluxation in the cervical spine. Degenerative grade 1 anterolisthesis of C7 on T1. 2. Cervical spondylosis with multilevel canal and neural foraminal stenosis as described above. 3. Enlarged and heterogeneous thyroid gland with multiple nodules and calcifications likely attributed to multinodular goiter. head ct 07/31 Impression: No acute intracranial hemorrhage, mass effects or hydrocephalus. ct pelvis 07/31 IMPRESSION: 1. No definite acute pelvic bone or hip fracture with anatomic alignment. Osseous demineralization decreases sensitivity for nondisplaced acute fractures. If there is continued clinical concern for acute fracture, then MRI or nuclear medicine bone scintigraphy may be obtained. 2. Chronic healed fracture deformities of bilateral pubic rami. 3. Moderate osteoarthritic changes in bilateral hips. 4. Urinary bladder distention is presumably physiologic. Please correlate clinically for pathologic urinary retention. 5. Cholelithiasis. chest cta 08/03 IMPRESSION: 1. No definite acute pelvic bone or hip fracture with anatomic alignment. Osseous demineralization decreases sensitivity for nondisplaced acute fractures. If there is continued clinical concern for acute fracture, then MRI or nuclear medicine bone scintigraphy may be obtained. 2. Chronic healed fracture deformities of bilateral pubic rami. 3. Moderate osteoarthritic changes in bilateral hips. 4. Urinary bladder distention is presumably physiologic. Please correlate clinically for pathologic urinary retention. 5. Cholelithiasis. duplex 2 legs 08/03 Impression: No DVT is identified involving either leg. renal u/s and bladder u/s 08/06- IMPRESSION: Pelvic right kidney without gross evidence of hydronephrosis Normal-appearing left kidney. Incidentally noted gallstones are again seen ECHO- rv not well visualized, LA was mildly dilated, trace MR, PASP 25-30 [facility] HOSPITAL COURSE: Date of Admission:07/31/17 Date of Discharge: 08/11/17 86 year old F with pmh of HTN, HLD, arthritis, and GERD presented s/p mechanical fall. Patient found to have elevated troponins and admitted to the hospital. No fracture was found and patient was being adequately pain controlled. On 08/03, patient became increasingly tachypneic and hypoxic. Patient underwent chest CTA (results above). Patient underwent further testing including duplex of b/l LE and started on heparin drip. Patient was referred to IR for further management. Patient's family deffered procedure on 08/03. During the night of 08/03, patient became increasingly hypoxic, hypotensive, and unstable. Patient started on pressors and transferred to the ICU. On the morning of 08/04, patient and family agreed to IR guided tPA procedure, which patient underwent and tolerated. Patient was transferred back to the ICU and closely monitored. Patient's blood pressure and hypoxia improved, however she requied 5L of O2 which she was d/c on. Patient also had ellis 2/2 to ATN from the hypotension. Her creatinine improved. Patient's BP medications were adjusted while she was here. We stopped her HCTZ and valsartan and started Toprol XL 12.5 daily due to an episode of NSVT for 16 beats on 08/11. Patient will f/u with PCP, hematology, pulmnonary, IR, and nephrology outpatient. She will need further cancer screening and testing for an unprovoked PE. She will need to get urine studies to evaluate hematuria/ proteinuria. Minutes to complete discharge: 55 Discharge Summary Reason For Visit: NON-ST ELEVATION (NSTEMI) MYOCARDIAN INFARCTION Current Active Problems ELLIS (acute kidney injury) (Acute) Antiplatelet or antithrombotic long-term use (Acute) Anxiety (Acute) Demand ischemia (Acute) Hyperlipidemia (Acute) Hypertensive cardiovascular disease (Acute) NSTEMI (non-ST elevated myocardial infarction) (Acute) Pulmonary emboli (Acute) Condition: Stable - Instructions Diet, Activity, Other Instructions: You were in the hospital because you fell. While you were here you were found to have a large pulmonary embolism( a clot) for which you underwent a procedure to remove it. You will need medication to thin your blood for the near future and possibly for lifetime. Please take Eliquis 10 mg (2 tablets) twice per day for 6 more days (Stop on ) and then take 5 mg twice per day. Stop taking the following medication: -Valsartan/Hydrochlorothiazide Start taking the following medication: -Toprol XL 12.5 mg by mouth daily Continue your other home medications as prescribed. You will need close follow up with many physicians: Please follow up with a primary care provider within 1 week (a referral has been provided to the resident clinic). You will need further screening, such as colonoscopy and a mammogram. Please follow up with a training project manager within 1 week (a referral has been provided). You will need to undergo further testing to find out more information regarding your blood clot. Please follow up with a cosmetics machine operator within 1 week (a referral has been provided). Please follow up with the interventional radiologist you saw in the hospital within 1 week (a referral has been provided) for post-procedure evaluation. Please follow up with the supervisor speech you saw in the hospital within 1 week (a referral has been provided). You will be going home with oxygen. You will need to use 5 L of oxygen through a nasal cannula at home. Tips for safe oxygen use include the following: Avoid open flames. This includes cigarettes, matches, candles, fireplaces, gas burners, pipes, or anything else that could start a fire. Don't smoke or be around others who are smoking. Keep oxygen tanks at least 5 feet from gas stoves, space heaters, electric or gas heaters, or any heat source. Keep the door to the room open so that air circulates and it is not stuffy. Protect your oxygen tank from being knocked over. Store the oxygen tank upright in a secure, approved storage device. Turn the tank off right away if it is knocked over and makes a hissing noise. If the regulator breaks or you cannot safely turn the tank off, remove the tubing and leave the room. Then call the supply company or the fire department for help right away. Be careful not to trip over the tubing of your oxygen tank. Don't use lotions or creams that contain petroleum jelly. This substance can be flammable when mixed with oxygen. Turn oxygen off when you are not using it. Always follow the instructions for safe use as recommended by your medical supply company. If you have chest pain, shortness of breath, or any new/worsening symptoms please come back to the hospital immediately.report any bleeding to your doctor Referrals: Aleksandr Latham MD [Staff Physician] - 1 Week Edgardo Lerma MD [Staff Physician] - 1 Week Donnie Auguste MD [Staff Physician] - 1 Week Roselyn Guzmán MD [Staff Physician] - 1 Week Celeste Heredia MD [Staff Physician] - Disposition: VNS/HOME HEALTH CARE - Home Medications Comprehensive Discharge Medication List: Ambulatory Orders Multivitamin [Multivitamins] 1 each PO DAILY 03/24/13 Rosuvastatin Calcium [Crestor] 5 mg PO DAILY 03/24/13 Amlodipine Besylate [Norvasc -] 5 mg PO DAILY 12/28/13 Docusate Sodium [Colace] 200 mg PO HS 12/28/13 Omeprazole Magnesium [Prilosec (OTC)] 20 mg PO DAILY 12/28/13 Tiotropium [place] [Spiriva] 1 inh PO DAILY 12/28/13 Diphenhydramine HCl [Benadryl Capsule -] 25 mg PO Q6H PRN 08/01/17 Neomycin/Polymyx/Hc Ophth Susp [Cortisporin *Ophthalmic Suspension* -] 1 - 4 drop AU TID 08/01/17 Apixaban [Eliquis -] 5 mg PO BID #66 tablet 08/11/17 Metoprolol Succinate [Toprol XL -] 12.5 mg PO DAILY #30 tab.sr.24h 08/11/17 This patient is new to me today: No Emergency Visit: Yes ED Registration Date: 07/31/17 Care time: The patient presented to the Emergency Department on the above date and was hospitalized for further evaluation of their emergent condition. Critical Care patient: No - Discharge Referral Referred to [facility] Med P.C.: No
--- NOTE | 2017-08-11 16:15 | PN ---
Teaching Attending Note Name of Resident: Carlitos Cortés ATTENDING PHYSICIAN STATEMENT I saw and evaluated the patient. I reviewed the resident's note and discussed the case with the resident. I agree with the resident's findings and plan as documented. SUBJECTIVE: no fever or chills , has no SOB . walked with no SOB OBJECTIVE: NA D Cv : RRR Lungs: CTAB No JVD EXt: no edema ASSESSMENT AND PLAN: 86 y/o lady with h/o HTN, GERD, OA , and HL who presented with syncope and was found to have massive PE s 1- massive b/l PE s s/p thrombolysis and IVC filter. - change eliquis dosing to 10 BID x 7 wang then 5 BID - hypercoagulable w/u as out pt . f/u with heme - durationto be determined as out pt no less than 6 months - instructed about risk of bleed and need to report - cont to need O2. 5 L with ambulation and rest - f/u with IR for filter removal in 3 months 2- ELLIS : due to hypotension . resolved f/u with renal regarding hematuria and proteinuria d/w Dr. ma 3- HTN: sheri alberts dc HCTZ and add toprol xl instead due to the short run of Vtach on tele dispo : neftali home with VNS today
[2017-08-11 16:26] VITALS: BP 136/69
[2017-08-12] MEDS ORDERED: metoPROLOL SUCCINATE 25 MG TAB.SR.24H (FP) PO SCH (10:00)
== END 2017-08-11 18:44 | disposition home health service (06) | DRG 163 ==
LOC: SUPCPDRO 20:17 → JER 20:17 → JERBED 23:52 → J4W 08-02 15:01 → JICU 08-03 20:05 → J2W 08-09 20:50
PROVIDERS: ADMIT Internal Medicine; ATTEND Internal Medicine
PROC: 02CR3ZZ Extirpation of Matter from Left Pulmonary Artery, Percutaneous Approach (ICD-10-PCS; principal; 2017-08-04)
PROC: 02CQ3ZZ Extirpation of Matter from Right Pulmonary Artery, Percutaneous Approach (ICD-10-PCS; 2017-08-04)
PROC: B31TZZZ Fluoroscopy of Left Pulmonary Artery (ICD-10-PCS; 2017-08-04)
PROC: B31SZZZ Fluoroscopy of Right Pulmonary Artery (ICD-10-PCS; 2017-08-04)
PROC: 3E07317 Introduction of Other Thrombolytic into Coronary Artery, Percutaneous Approach (ICD-10-PCS; 2017-08-04)
PROC: 06H03DZ Insertion of Intraluminal Device into Inferior Vena Cava, Percutaneous Approach (ICD-10-PCS; 2017-08-05)
PROC: 3E0F7GC Introduction of Other Therapeutic Substance into Respiratory Tract, Via Natural or Artificial Opening (ICD-10-PCS; 2017-08-08)
DX: I26.99 Other pulmonary embolism without acute cor pulmonale (principal); J96.01 Acute respiratory failure with hypoxia; R57.8 Other shock; N17.0 Acute kidney failure with tubular necrosis; I24.8 Other forms of acute ischemic heart disease; M62.82 Rhabdomyolysis; N39.0 Urinary tract infection, site not specified; E78.5 Hyperlipidemia, unspecified; K21.9 Gastro-esophageal reflux disease without esophagitis; N32.81 Overactive bladder; J44.9 Chronic obstructive pulmonary disease, unspecified; Y92.89 Other specified places as the place of occurrence of the external cause; M19.90 Unspecified osteoarthritis, unspecified site; R00.0 Tachycardia, unspecified; R06.82 Tachypnea, not elsewhere classified; R33.8 Other retention of urine; F41.9 Anxiety disorder, unspecified; E87.6 Hypokalemia; I95.9 Hypotension, unspecified; M54.9 Dorsalgia, unspecified; R29.6 Repeated falls; I11.9 Hypertensive heart disease without heart failure; Z79.02 Long term (current) use of antithrombotics/antiplatelets; W01.0XXA Fall on same level from slipping, tripping and stumbling without subsequent striking against object, initial encounter; Y93.89 Activity, other specified
CPT/HCPCS: 36415; 36600; 37187; 37191; 37212; 70450-TC; 71045-TC-FY; 71275-TC; 72100-TC-FY; 72125-TC; 72192-TC; 74018-TC-FY; 75743-TC-FY; 76000-TC-FY; 76775-TC; 76856-TC; 76937-TC; 80048; 80053; 80061; 81003; 81015; 82550; 82553; 82570; 82803; 83605; 83721; 83735; 84100; 84300; 84439; 84443; 84484; 85025; 85027; 85379; 85610; 85730; 87086; 93005; 93010; 93306-TC; 93970-TC; 94010; 94640; 94761; 97116-GP; 97161-GP; 99282-25; C1769; C1880; C1887; C1894; C9999; J0131; J1644; J2997; J7030

== ENCOUNTER 2020-05-09 15:11 | Inpatient (IN) | payer OTHER ==
[2020-05-09] MEDS ORDERED: morphine CARPU-JECT 2 MG/1 ML DISP.SYRIN IVPUSH ONE ×2 (19:14→20:12)
[2020-05-09] MEDS ORDERED: MORPHINE SULFATE 2 MG/ML VIAL ONE ×2 (20:09→20:12)
[2020-05-09 20:46] LABS: EOS % 0.1 % (0-4.5); HEMATOCRIT 35.9 % (32.4-45.2); HEMOGLOBIN 11.7 GM/dL (10.7-15.3); LYMPH % 11.5 % (8-40); MCH 28.7 pg (25.7-33.7); MCHC 32.5 g/dl (32.0-36.0); MEAN CELL VOLUME 88.3 fl (80-96); MEAN PLT VOLUME 8.7 fl (7.5-11.1); NEUT % 80.4 % (42.8-82.8); PLATELET COUNT 252 K/MM3 (134-434); RBC 4.07 M/mm3 (3.60-5.2); RDW 14.4 % (11.6-15.6); WHITE BLOOD COUNT 11.9 K/mm3 (4.0-10.0)
[2020-05-09 20:59] LABS: INR 1.14 (0.83-1.09)
[2020-05-09 21:09] LABS: CHLORIDE 103 mmol/L (98-107); SODIUM 141 mmol/L (136-145)
[2020-05-09 21:10] LABS: ALBUMIN 3.6 g/dl (3.4-5.0); CALCIUM 8.9 mg/dL (8.5-10.1)
[2020-05-09 21:12] LABS: ANION GAP 10 MMOL/L (8-16); BLOOD UREA NITROGEN 19.6 mg/dL (7-18); CO2 29 mmol/L (21-32); GLUCOSE,RANDOM 118 mg/dL (74-106)
[2020-05-09 21:14] LABS: CREATININE 0.7 mg/dL (0.55-1.3); SGOT/AST 18 U/L (15-37); SGPT/ALT 19 U/L (13-61)
[2020-05-09 21:16] LABS: BILIRUBIN,TOTAL 0.4 mg/dL (0.2-1); TOT PROT 7.1 g/dl (6.4-8.2)
[2020-05-09 21:17] LABS: ALK PHOS 64 U/L (45-117)
[2020-05-09] MEDS ORDERED: MORPHINE SULFATE 2 MG/ML VIAL IVPUSH PRN (23:41)
[2020-05-09] MEDS ORDERED: LACTATED RINGERS SOLUTION 1,000 ML IV SCH (23:45)
[2020-05-10] MEDS ORDERED: SODIUM CHLORIDE 1,000 ML IV SCH (00:30)
[2020-05-10] MEDS ORDERED: MELATONIN 5 MG TABLETS PO ONE (00:35)
[2020-05-10 00:40] LABS: URINE APPEARANCE Clear; URINE BILIRUBIN Negative (NEGATIVE); URINE COLOR Yellow; URINE GLUCOSE (UA) Negative (NEGATIVE); URINE KETONE Negative (NEGATIVE); URINE LEUK ESTERASE 3+ (NEGATIVE); URINE NITRITE Positive (NEGATIVE); URINE PROTEIN Trace (NEGATIVE); URINE UROBILINOGEN 0.2 mg/dL (0.2-1.0)
[2020-05-10] MEDS ORDERED: MELATONIN 5 MG TABLETS ONE (02:27)
[2020-05-10] MEDS ORDERED: NITROFURANTOIN MACROCRYSTAL 50 MG CAPSULE (FP) PO SCH (06:00)
[2020-05-10 09:03] LABS: HEMATOCRIT 33.5 % (32.4-45.2); HEMOGLOBIN 11.2 GM/dL (10.7-15.3); MCH 29.3 pg (25.7-33.7); MCHC 33.5 g/dl (32.0-36.0); MEAN CELL VOLUME 87.4 fl (80-96); MEAN PLT VOLUME 8.8 fl (7.5-11.1); PLATELET COUNT 244 K/MM3 (134-434); RBC 3.83 M/mm3 (3.60-5.2); RDW 14.2 % (11.6-15.6); WHITE BLOOD COUNT 8.4 K/mm3 (4.0-10.0)
[2020-05-10 09:08] LABS: INR 1.13 (0.83-1.09); PROTHROMBIN TIME (PATIENT) 13.6 SEC (9.7-13.0)
[2020-05-10 09:18] LABS: POTASSIUM 3.8 mmol/L (3.5-5.1)
[2020-05-10 09:43] LABS: ALBUMIN 3.2 g/dl (3.4-5.0)
[2020-05-10 09:45] LABS: PHOSPHOROUS 4.3 mg/dL (2.5-4.9)
[2020-05-10 09:47] LABS: BILIRUBIN,TOTAL 0.6 mg/dL (0.2-1); TOT PROT 6.5 g/dl (6.4-8.2)
[2020-05-10 09:48] LABS: CREATININE 0.6 mg/dL (0.55-1.3)
[2020-05-10 09:59] LABS: CALCIUM 8.6 mg/dL (8.5-10.1)
[2020-05-10 10:00] LABS: BLOOD UREA NITROGEN 20.3 mg/dL (7-18)
[2020-05-10] MEDS ORDERED: TOLTERODINE TARTRATE LA 4 MG CAP.SR.24H (FP) PO SCH (10:00)
[2020-05-10] MEDS ORDERED: amLODIPine BESYLATE 5 MG TABLET (FP) PO SCH ×2 (10:00→15:06)
[2020-05-10 10:02] LABS: MAGNESIUM 2.1 mg/dL (1.8-2.4)
[2020-05-10] MEDS: ROSUVASTATIN CA 5 MG TABLET (FP) PO SCH (10:22)
[2020-05-10] MEDS ORDERED: ALBUTEROL SO4 HFA INHALER IH PRN (15:28)
[2020-05-10] MEDS: ACETAMINOPHEN 325 MG TABLET (FP) PO PRN (17:50)
[2020-05-10] MEDS: ENOXAPARIN NA (PORCINE) 80 MG/0.8 ML DISP.SYRIN SQ SCH (21:19)
[2020-05-10] MEDS: BUDESONIDE/FORMETEROL FUMARATE 80/4.5 mcg INHALER IH SCH (21:19)
[2020-05-10] MEDS: metoPROLOL SUCCINATE 25 MG TAB.SR.24H (FP) PO SCH (21:19)
[2020-05-11] MEDS: ACETAMINOPHEN 325 MG TABLET (FP) PO PRN ×2 (07:00→17:39)
[2020-05-11 09:36] LABS: HEMATOCRIT 30.4 % (32.4-45.2); HEMOGLOBIN 10.1 GM/dL (10.7-15.3); MCH 29.3 pg (25.7-33.7); MCHC 33.2 g/dl (32.0-36.0); MEAN CELL VOLUME 88.4 fl (80-96); MEAN PLT VOLUME 9.3 fl (7.5-11.1); PLATELET COUNT 223 K/MM3 (134-434); RBC 3.44 M/mm3 (3.60-5.2); RDW 14.4 % (11.6-15.6); WHITE BLOOD COUNT 8.8 K/mm3 (4.0-10.0)
[2020-05-11 10:00] LABS: POTASSIUM 3.9 mmol/L (3.5-5.1)
[2020-05-11 10:07] LABS: ALBUMIN 2.9 g/dl (3.4-5.0); MAGNESIUM 2.2 mg/dL (1.8-2.4)
[2020-05-11 10:08] LABS: CALCIUM 8.4 mg/dL (8.5-10.1)
[2020-05-11 10:09] LABS: BLOOD UREA NITROGEN 17.4 mg/dL (7-18)
[2020-05-11 10:10] LABS: CREATININE 0.6 mg/dL (0.55-1.3)
[2020-05-11] MEDS: amLODIPine BESYLATE 10 MG TABLET (FP) PO SCH (10:11)
[2020-05-11] MEDS: PANTOPRAZOLE 40 MG TABLET PO SCH (10:11)
[2020-05-11] MEDS: ROSUVASTATIN CA 5 MG TABLET (FP) PO SCH (10:11)
[2020-05-11] MEDS: ENOXAPARIN NA (PORCINE) 80 MG/0.8 ML DISP.SYRIN SQ SCH (10:11)
[2020-05-11 10:12] LABS: TOT PROT 6.1 g/dl (6.4-8.2)
[2020-05-11 10:14] LABS: BILIRUBIN,TOTAL 0.8 mg/dL (0.2-1)
[2020-05-11] MEDS: BUDESONIDE/FORMETEROL FUMARATE 80/4.5 mcg INHALER IH SCH ×2 (10:15→21:04)
[2020-05-11] MEDS ORDERED: cefTRIAXone SODIUM 1 GM VIAL ONE (20:34)
[2020-05-11] MEDS ORDERED: DEXTROSE 5%-WATER - 50 ML IVPB ONE (20:35)
[2020-05-11] MEDS: CEFTRIAXONE 1 GM in DEXTROSE 5%-WATER - 50 ML IVPB SCH (20:47)
[2020-05-11] MEDS: metoPROLOL SUCCINATE 25 MG TAB.SR.24H (FP) PO SCH (21:03)
[2020-05-12] MEDS ORDERED: cefTRIAXone SODIUM 1 GM VIAL ONE (09:18)
[2020-05-12] MEDS ORDERED: DEXTROSE 5%-WATER - 50 ML IVPB ONE (09:18)
[2020-05-12] MEDS: amLODIPine BESYLATE 10 MG TABLET (FP) PO SCH (09:20)
[2020-05-12] MEDS: CEFTRIAXONE 1 GM in DEXTROSE 5%-WATER - 50 ML IVPB SCH (09:20)
[2020-05-12] MEDS: BUDESONIDE/FORMETEROL FUMARATE 80/4.5 mcg INHALER IH SCH ×2 (09:30→21:40)
[2020-05-12] MEDS ORDERED: MIDAZOLAM HCL 2 MG/2 ML SINGLE DOSE VIAL ONE (09:43)
[2020-05-12] MEDS ORDERED: PROPOFOL 20 ML ONE ×4 (09:43→11:04)
[2020-05-12] MEDS ORDERED: ceFAZolin SODIUM 1 GM VIAL IVPB ONE (10:25)
[2020-05-12] MEDS ORDERED: PHENYLEPHRINE HCL 10 MG/1 ML SINGLE DOSE VIAL ONE (10:36)
[2020-05-12] MEDS ORDERED: oxyCODONE HCL 5 MG TABLET PO PRN (12:28)
[2020-05-12] MEDS ORDERED: ALBUTEROL SO4 HFA INHALER IH PRN (12:39)
[2020-05-12] MEDS ORDERED: MORPHINE SULFATE 2 MG/ML VIAL IVPUSH PRN (12:39)
[2020-05-12] MEDS: ACETAMINOPHEN 325 MG TABLET (FP) PO PRN ×2 (15:25→21:33)
[2020-05-12] MEDS: ROSUVASTATIN CA 5 MG TABLET (FP) PO SCH (18:49)
[2020-05-12] MEDS: PANTOPRAZOLE 40 MG TABLET PO SCH (18:49)
[2020-05-12] MEDS: metoPROLOL SUCCINATE 25 MG TAB.SR.24H (FP) PO SCH (21:33)
[2020-05-13] MEDS ORDERED: DEXTROSE 5%-WATER - 50 ML IVPB ONE (09:34)
[2020-05-13] MEDS ORDERED: cefTRIAXone SODIUM 1 GM VIAL ONE (09:34)
[2020-05-13] MEDS: amLODIPine BESYLATE 10 MG TABLET (FP) PO SCH (09:36)
[2020-05-13] MEDS: PANTOPRAZOLE 40 MG TABLET PO SCH (09:36)
[2020-05-13] MEDS: ROSUVASTATIN CA 5 MG TABLET (FP) PO SCH (09:36)
[2020-05-13] MEDS: APIXABAN 2.5 MG TABLET PO SCH ×2 (09:36→21:11)
[2020-05-13] MEDS: CEFTRIAXONE 1 GM in DEXTROSE 5%-WATER - 50 ML IVPB SCH (09:37)
[2020-05-13] MEDS: BUDESONIDE/FORMETEROL FUMARATE 80/4.5 mcg INHALER IH SCH ×2 (09:46→21:11)
[2020-05-13 09:59] LABS: HEMATOCRIT 24.5 % (32.4-45.2); HEMOGLOBIN 8.1 GM/dL (10.7-15.3); MCH 29.2 pg (25.7-33.7); MCHC 33.2 g/dl (32.0-36.0); MEAN PLT VOLUME 9.1 fl (7.5-11.1); PLATELET COUNT 203 K/MM3 (134-434); RBC 2.78 M/mm3 (3.60-5.2); RDW 14.2 % (11.6-15.6); WHITE BLOOD COUNT 7.6 K/mm3 (4.0-10.0)
[2020-05-13 10:19] LABS: POTASSIUM 3.9 mmol/L (3.5-5.1)
[2020-05-13 10:21] LABS: CALCIUM 7.9 mg/dL (8.5-10.1)
[2020-05-13 10:22] LABS: BLOOD UREA NITROGEN 18.9 mg/dL (7-18)
[2020-05-13 10:25] LABS: CREATININE 0.5 mg/dL (0.55-1.3)
[2020-05-13 14:26] LABS: ALBUMIN 2.4 g/dl (3.4-5.0)
[2020-05-13] MEDS: metoPROLOL SUCCINATE 25 MG TAB.SR.24H (FP) PO SCH (21:11)
[2020-05-13] MEDS: ACETAMINOPHEN 325 MG TABLET (FP) PO PRN (21:25)
[2020-05-14 09:18] LABS: HEMATOCRIT 23.2 % (32.4-45.2); HEMOGLOBIN 7.9 GM/dL (10.7-15.3); MCH 29.6 pg (25.7-33.7); MEAN CELL VOLUME 86.9 fl (80-96); MEAN PLT VOLUME 8.7 fl (7.5-11.1); PLATELET COUNT 209 K/MM3 (134-434); RBC 2.67 M/mm3 (3.60-5.2); RDW 13.9 % (11.6-15.6)
[2020-05-14 09:30] LABS: POTASSIUM 3.9 mmol/L (3.5-5.1)
[2020-05-14 09:39] LABS: BLOOD UREA NITROGEN 20.7 mg/dL (7-18)
[2020-05-14 09:42] LABS: CREATININE 0.4 mg/dL (0.55-1.3); PHOSPHOROUS 3.4 mg/dL (2.5-4.9)
[2020-05-14 09:46] LABS: CALCIUM 7.8 mg/dL (8.5-10.1); MAGNESIUM 2.4 mg/dL (1.8-2.4)
[2020-05-14] MEDS ORDERED: cefTRIAXone SODIUM 1 GM VIAL ONE (10:06)
[2020-05-14] MEDS ORDERED: DEXTROSE 5%-WATER - 50 ML IVPB ONE (10:06)
[2020-05-14] MEDS: APIXABAN 2.5 MG TABLET PO SCH ×2 (10:14→21:16)
[2020-05-14] MEDS: ROSUVASTATIN CA 5 MG TABLET (FP) PO SCH (10:14)
[2020-05-14] MEDS: CEFTRIAXONE 1 GM in DEXTROSE 5%-WATER - 50 ML IVPB SCH (10:14)
[2020-05-14] MEDS: PANTOPRAZOLE 40 MG TABLET PO SCH (10:14)
[2020-05-14] MEDS: amLODIPine BESYLATE 10 MG TABLET (FP) PO SCH (10:14)
[2020-05-14] MEDS: BUDESONIDE/FORMETEROL FUMARATE 80/4.5 mcg INHALER IH SCH ×2 (10:16→21:17)
[2020-05-14] MEDS: ACETAMINOPHEN 325 MG TABLET (FP) PO PRN ×2 (15:45→21:22)
[2020-05-14] MEDS: metoPROLOL SUCCINATE 25 MG TAB.SR.24H (FP) PO SCH (21:16)
[2020-05-15 08:47] LABS: HEMATOCRIT 24.2 % (32.4-45.2); MEAN CELL VOLUME 87.8 fl (80-96); MEAN PLT VOLUME 8.8 fl (7.5-11.1); PLATELET COUNT 222 K/MM3 (134-434); RBC 2.76 M/mm3 (3.60-5.2); RDW 14.6 % (11.6-15.6); WHITE BLOOD COUNT 8.6 K/mm3 (4.0-10.0)
[2020-05-15 09:12] LABS: CALCIUM 8.2 mg/dL (8.5-10.1)
[2020-05-15 09:13] LABS: ALBUMIN 2.3 g/dl (3.4-5.0); BLOOD UREA NITROGEN 17.8 mg/dL (7-18); MAGNESIUM 2.3 mg/dL (1.8-2.4)
[2020-05-15 09:16] LABS: CREATININE 0.4 mg/dL (0.55-1.3)
[2020-05-15] MEDS ORDERED: PT OWN MED DRAWER 7, Y5N ONE (09:27)
[2020-05-15] MEDS ORDERED: DEXTROSE 5%-WATER - 50 ML IVPB ONE (09:29)
[2020-05-15] MEDS ORDERED: cefTRIAXone SODIUM 1 GM VIAL ONE (09:29)
[2020-05-15] MEDS: CEFTRIAXONE 1 GM in DEXTROSE 5%-WATER - 50 ML IVPB SCH (09:36)
[2020-05-15] MEDS: ROSUVASTATIN CA 5 MG TABLET (FP) PO SCH (09:37)
[2020-05-15] MEDS: ACETAMINOPHEN 325 MG TABLET (FP) PO PRN ×2 (09:37→18:50)
[2020-05-15] MEDS: PANTOPRAZOLE 40 MG TABLET PO SCH (09:37)
[2020-05-15] MEDS: amLODIPine BESYLATE 10 MG TABLET (FP) PO SCH (09:37)
[2020-05-15] MEDS: APIXABAN 2.5 MG TABLET PO SCH ×2 (09:37→22:22)
[2020-05-15] MEDS: BUDESONIDE/FORMETEROL FUMARATE 80/4.5 mcg INHALER IH SCH ×2 (09:38→22:23)
[2020-05-15 18:14] LABS: HEMATOCRIT 23.9 % (32.4-45.2); MCH 29.1 pg (25.7-33.7); MCHC 33.3 g/dl (32.0-36.0); MEAN CELL VOLUME 87.2 fl (80-96); MEAN PLT VOLUME 8.9 fl (7.5-11.1); PLATELET COUNT 242 K/MM3 (134-434); RBC 2.75 M/mm3 (3.60-5.2); RDW 14.3 % (11.6-15.6); WHITE BLOOD COUNT 10.6 K/mm3 (4.0-10.0)
[2020-05-15] MEDS: metoPROLOL SUCCINATE 25 MG TAB.SR.24H (FP) PO SCH (22:22)
[2020-05-16] MEDS: ACETAMINOPHEN 325 MG TABLET (FP) PO PRN ×2 (07:09→18:54)
[2020-05-16 08:32] LABS: HEMATOCRIT 23.2 % (32.4-45.2); HEMOGLOBIN 7.7 GM/dL (10.7-15.3); MCH 28.9 pg (25.7-33.7); MCHC 33.1 g/dl (32.0-36.0); MEAN CELL VOLUME 87.4 fl (80-96); MEAN PLT VOLUME 9.1 fl (7.5-11.1); PLATELET COUNT 259 K/MM3 (134-434); RBC 2.66 M/mm3 (3.60-5.2); RDW 14.4 % (11.6-15.6)
[2020-05-16 08:38] LABS: POTASSIUM 3.9 mmol/L (3.5-5.1)
[2020-05-16 08:54] LABS: ALBUMIN 2.2 g/dl (3.4-5.0)
[2020-05-16 08:55] LABS: BLOOD UREA NITROGEN 18.3 mg/dL (7-18); CALCIUM 8.3 mg/dL (8.5-10.1); MAGNESIUM 2.2 mg/dL (1.8-2.4)
[2020-05-16 08:57] LABS: PHOSPHOROUS 3.4 mg/dL (2.5-4.9)
[2020-05-16 08:58] LABS: CREATININE 0.4 mg/dL (0.55-1.3)
[2020-05-16 08:59] LABS: BILIRUBIN,TOTAL 1.4 mg/dL (0.2-1); TOT PROT 5.5 g/dl (6.4-8.2)
[2020-05-16] MEDS ORDERED: PT OWN MED DRAWER 7, Y5N ONE (09:02)
[2020-05-16] MEDS ORDERED: DEXTROSE 5%-WATER - 50 ML IVPB ONE (09:03)
[2020-05-16] MEDS ORDERED: cefTRIAXone SODIUM 1 GM VIAL ONE (09:03)
[2020-05-16] MEDS: APIXABAN 2.5 MG TABLET PO SCH ×2 (09:05→21:32)
[2020-05-16] MEDS: CEFTRIAXONE 1 GM in DEXTROSE 5%-WATER - 50 ML IVPB SCH (09:05)
[2020-05-16] MEDS: PANTOPRAZOLE 40 MG TABLET PO SCH (09:05)
[2020-05-16] MEDS: ROSUVASTATIN CA 5 MG TABLET (FP) PO SCH (09:05)
[2020-05-16] MEDS: amLODIPine BESYLATE 10 MG TABLET (FP) PO SCH (09:05)
[2020-05-16] MEDS: BUDESONIDE/FORMETEROL FUMARATE 80/4.5 mcg INHALER IH SCH ×2 (09:06→21:33)
[2020-05-16] MEDS: metoPROLOL SUCCINATE 25 MG TAB.SR.24H (FP) PO SCH (21:33)
[2020-05-17 09:40] LABS: BASO % 0.7 % (0-2.0); EOS % 1.6 % (0-4.5); HEMATOCRIT 23.5 % (32.4-45.2); HEMOGLOBIN 7.9 GM/dL (10.7-15.3); LYMPH % 19.8 % (8-40); MCH 29.5 pg (25.7-33.7); MCHC 33.8 g/dl (32.0-36.0); MEAN CELL VOLUME 87.4 fl (80-96); MEAN PLT VOLUME 8.8 fl (7.5-11.1); MONO % 11.4 % (3.8-10.2); NEUT % 66.5 % (42.8-82.8); PLATELET COUNT 286 K/MM3 (134-434); RBC 2.68 M/mm3 (3.60-5.2); RDW 14.3 % (11.6-15.6); WHITE BLOOD COUNT 7.7 K/mm3 (4.0-10.0)
[2020-05-17 09:56] LABS: ALBUMIN 2.2 g/dl (3.4-5.0); BLOOD UREA NITROGEN 19.3 mg/dL (7-18)
[2020-05-17 10:01] LABS: CREATININE 0.4 mg/dL (0.55-1.3)
[2020-05-17 10:03] LABS: BILIRUBIN,TOTAL 0.9 mg/dL (0.2-1); CALCIUM 8.3 mg/dL (8.5-10.1); MAGNESIUM 2.3 mg/dL (1.8-2.4); PHOSPHOROUS 3.9 mg/dL (2.5-4.9); TOT PROT 5.4 g/dl (6.4-8.2)
[2020-05-17] MEDS ORDERED: DEXTROSE 5%-WATER - 50 ML IVPB ONE (10:30)
[2020-05-17] MEDS ORDERED: cefTRIAXone SODIUM 1 GM VIAL ONE (10:30)
[2020-05-17] MEDS: CEFTRIAXONE 1 GM in DEXTROSE 5%-WATER - 50 ML IVPB SCH (10:33)
[2020-05-17] MEDS: PANTOPRAZOLE 40 MG TABLET PO SCH (10:33)
[2020-05-17] MEDS: amLODIPine BESYLATE 10 MG TABLET (FP) PO SCH (10:33)
[2020-05-17] MEDS: APIXABAN 2.5 MG TABLET PO SCH ×2 (10:33→21:14)
[2020-05-17] MEDS: ROSUVASTATIN CA 5 MG TABLET (FP) PO SCH (10:33)
[2020-05-17] MEDS: BUDESONIDE/FORMETEROL FUMARATE 80/4.5 mcg INHALER IH SCH ×2 (10:34→21:22)
[2020-05-17 13:16] VITALS: BMI 37.3
[2020-05-17] MEDS: ACETAMINOPHEN 325 MG TABLET (FP) PO PRN (21:15)
[2020-05-17] MEDS: metoPROLOL SUCCINATE 25 MG TAB.SR.24H (FP) PO SCH (21:15)
[2020-05-18 08:12] LABS: BASO % 0.9 % (0-2.0); HEMATOCRIT 25.5 % (32.4-45.2); HEMOGLOBIN 8.5 GM/dL (10.7-15.3); MCHC 33.3 g/dl (32.0-36.0); MEAN PLT VOLUME 8.7 fl (7.5-11.1); MONO % 11.9 % (3.8-10.2); NEUT % 60.2 % (42.8-82.8); PLATELET COUNT 353 K/MM3 (134-434); RBC 2.93 M/mm3 (3.60-5.2); RDW 14.6 % (11.6-15.6)
[2020-05-18 08:24] LABS: POTASSIUM 4.1 mmol/L (3.5-5.1)
[2020-05-18 08:42] LABS: BILIRUBIN,TOTAL 0.9 mg/dL (0.2-1)
[2020-05-18 08:43] LABS: BLOOD UREA NITROGEN 18.6 mg/dL (7-18); CREATININE 0.4 mg/dL (0.55-1.3); TOT PROT 5.5 g/dl (6.4-8.2)
[2020-05-18 08:46] LABS: CALCIUM 8.6 mg/dL (8.5-10.1); PHOSPHOROUS 3.9 mg/dL (2.5-4.9)
[2020-05-18 08:47] LABS: ALBUMIN 2.3 g/dl (3.4-5.0); MAGNESIUM 2.2 mg/dL (1.8-2.4)
[2020-05-18] MEDS ORDERED: cefTRIAXone SODIUM 1 GM VIAL ONE (09:34)
[2020-05-18] MEDS ORDERED: DEXTROSE 5%-WATER - 50 ML IVPB ONE ×3 (09:34→17:20)
[2020-05-18] MEDS: PANTOPRAZOLE 40 MG TABLET PO SCH (10:10)
[2020-05-18] MEDS: CEFTRIAXONE 1 GM in DEXTROSE 5%-WATER - 50 ML IVPB SCH (10:10)
[2020-05-18] MEDS: ROSUVASTATIN CA 5 MG TABLET (FP) PO SCH (10:10)
[2020-05-18] MEDS: amLODIPine BESYLATE 10 MG TABLET (FP) PO SCH (10:10)
[2020-05-18] MEDS: APIXABAN 2.5 MG TABLET PO SCH ×2 (10:10→21:00)
[2020-05-18] MEDS: ACETAMINOPHEN 325 MG TABLET (FP) PO PRN ×2 (10:11→19:03)
[2020-05-18] MEDS: BUDESONIDE/FORMETEROL FUMARATE 80/4.5 mcg INHALER IH SCH ×2 (10:12→21:00)
[2020-05-18] MEDS ORDERED: AZTREONAM 1 GM VIAL (RESTRICTED TO ID) ONE ×2 (14:52→17:20)
[2020-05-18 15:03] LABS: ANISOCYTOSIS 1+; MACROCYTOSIS 1+; PLATELET ESTIMATE NORMAL
[2020-05-18] MEDS: AZTREONAM 1 GM in DEXTROSE 5%-WATER - 50 ML IVPB SCH ×2 (15:18→19:02)
[2020-05-18] MEDS: metoPROLOL SUCCINATE 25 MG TAB.SR.24H (FP) PO SCH (21:00)
[2020-05-19] MEDS ORDERED: AZTREONAM 1 GM VIAL (RESTRICTED TO ID) ONE ×3 (00:54→19:31)
[2020-05-19] MEDS ORDERED: DEXTROSE 5%-WATER - 50 ML IVPB ONE ×3 (00:55→19:31)
[2020-05-19] MEDS: AZTREONAM 1 GM in DEXTROSE 5%-WATER - 50 ML IVPB SCH ×3 (01:09→19:33)
[2020-05-19 08:38] LABS: HEMATOCRIT 25.6 % (32.4-45.2); HEMOGLOBIN 8.5 GM/dL (10.7-15.3); MCH 29.1 pg (25.7-33.7); MCHC 33.1 g/dl (32.0-36.0); MEAN CELL VOLUME 87.9 fl (80-96); MEAN PLT VOLUME 8.3 fl (7.5-11.1); PLATELET COUNT 388 K/MM3 (134-434); RBC 2.92 M/mm3 (3.60-5.2); RDW 14.5 % (11.6-15.6); WHITE BLOOD COUNT 8.3 K/mm3 (4.0-10.0)
[2020-05-19 08:40] LABS: POTASSIUM 4.1 mmol/L (3.5-5.1)
[2020-05-19 08:43] LABS: ALBUMIN 2.4 g/dl (3.4-5.0); BLOOD UREA NITROGEN 17.1 mg/dL (7-18); CALCIUM 8.6 mg/dL (8.5-10.1); MAGNESIUM 2.1 mg/dL (1.8-2.4)
[2020-05-19 08:47] LABS: CREATININE 0.4 mg/dL (0.55-1.3); PHOSPHOROUS 3.9 mg/dL (2.5-4.9)
[2020-05-19 08:48] LABS: BILIRUBIN,TOTAL 1.2 mg/dL (0.2-1); TOT PROT 5.7 g/dl (6.4-8.2)
[2020-05-19] MEDS: PANTOPRAZOLE 40 MG TABLET PO SCH (09:21)
[2020-05-19] MEDS: ROSUVASTATIN CA 5 MG TABLET (FP) PO SCH (09:21)
[2020-05-19] MEDS: APIXABAN 2.5 MG TABLET PO SCH ×2 (09:21→22:10)
[2020-05-19] MEDS: amLODIPine BESYLATE 10 MG TABLET (FP) PO SCH (09:21)
[2020-05-19] MEDS: BUDESONIDE/FORMETEROL FUMARATE 80/4.5 mcg INHALER IH SCH ×2 (13:26→22:08)
[2020-05-19] MEDS: ACETAMINOPHEN 325 MG TABLET (FP) PO PRN (20:20)
[2020-05-19] MEDS: metoPROLOL SUCCINATE 25 MG TAB.SR.24H (FP) PO SCH (22:11)
[2020-05-20] MEDS ORDERED: AZTREONAM 1 GM VIAL (RESTRICTED TO ID) ONE ×2 (01:45→08:54)
[2020-05-20] MEDS ORDERED: DEXTROSE 5%-WATER - 50 ML IVPB ONE ×2 (01:45→08:54)
[2020-05-20] MEDS: AZTREONAM 1 GM in DEXTROSE 5%-WATER - 50 ML IVPB SCH ×2 (01:57→10:27)
[2020-05-20 08:09] LABS: BASO % 0.7 % (0-2.0); EOS % 1.7 % (0-4.5); HEMATOCRIT 25.6 % (32.4-45.2); HEMOGLOBIN 8.3 GM/dL (10.7-15.3); LYMPH % 19.2 % (8-40); MCH 28.7 pg (25.7-33.7); MCHC 32.3 g/dl (32.0-36.0); MEAN CELL VOLUME 88.9 fl (80-96); MEAN PLT VOLUME 8.5 fl (7.5-11.1); NEUT % 68.4 % (42.8-82.8); PLATELET COUNT 395 K/MM3 (134-434); RBC 2.88 M/mm3 (3.60-5.2); RDW 15.2 % (11.6-15.6); WHITE BLOOD COUNT 8.4 K/mm3 (4.0-10.0)
[2020-05-20 08:38] LABS: POTASSIUM 4.1 mmol/L (3.5-5.1)
[2020-05-20 08:41] LABS: CALCIUM 8.4 mg/dL (8.5-10.1)
[2020-05-20 08:42] LABS: ALBUMIN 2.4 g/dl (3.4-5.0); BLOOD UREA NITROGEN 14.4 mg/dL (7-18); MAGNESIUM 2.1 mg/dL (1.8-2.4)
[2020-05-20 08:45] LABS: CREATININE 0.4 mg/dL (0.55-1.3)
[2020-05-20 08:46] LABS: BILIRUBIN,TOTAL 0.9 mg/dL (0.2-1)
[2020-05-20 08:47] LABS: TOT PROT 5.5 g/dl (6.4-8.2)
[2020-05-20] MEDS: amLODIPine BESYLATE 10 MG TABLET (FP) PO SCH (10:27)
[2020-05-20] MEDS: PANTOPRAZOLE 40 MG TABLET PO SCH (10:27)
[2020-05-20] MEDS: APIXABAN 2.5 MG TABLET PO SCH ×2 (10:27→22:02)
[2020-05-20] MEDS: BUDESONIDE/FORMETEROL FUMARATE 80/4.5 mcg INHALER IH SCH ×2 (10:27→22:02)
[2020-05-20] MEDS: ROSUVASTATIN CA 5 MG TABLET (FP) PO SCH (10:27)
[2020-05-20] MEDS ORDERED: PT OWN MED DRAWER 7, Y5N ONE (21:51)
[2020-05-20] MEDS: metoPROLOL SUCCINATE 25 MG TAB.SR.24H (FP) PO SCH (22:02)
[2020-05-21 08:38] LABS: HEMATOCRIT 25.3 % (32.4-45.2); HEMOGLOBIN 8.3 GM/dL (10.7-15.3); MCHC 32.7 g/dl (32.0-36.0); MEAN CELL VOLUME 88.8 fl (80-96); PLATELET COUNT 400 K/MM3 (134-434); RBC 2.85 M/mm3 (3.60-5.2); RDW 15.5 % (11.6-15.6); WHITE BLOOD COUNT 6.6 K/mm3 (4.0-10.0)
[2020-05-21 08:52] LABS: POTASSIUM 4.3 mmol/L (3.5-5.1)
[2020-05-21 08:56] LABS: BLOOD UREA NITROGEN 12.8 mg/dL (7-18); CALCIUM 8.3 mg/dL (8.5-10.1)
[2020-05-21 08:59] LABS: CREATININE 0.4 mg/dL (0.55-1.3)
[2020-05-21 09:00] LABS: PHOSPHOROUS 3.8 mg/dL (2.5-4.9)
[2020-05-21] MEDS: PANTOPRAZOLE 40 MG TABLET PO SCH (10:13)
[2020-05-21] MEDS: amLODIPine BESYLATE 10 MG TABLET (FP) PO SCH (10:13)
[2020-05-21] MEDS: BUDESONIDE/FORMETEROL FUMARATE 80/4.5 mcg INHALER IH SCH ×2 (10:13→21:12)
[2020-05-21] MEDS: ROSUVASTATIN CA 5 MG TABLET (FP) PO SCH (10:13)
[2020-05-21] MEDS: APIXABAN 2.5 MG TABLET PO SCH ×2 (10:13→21:08)
[2020-05-21] MEDS: metoPROLOL SUCCINATE 25 MG TAB.SR.24H (FP) PO SCH (21:09)
[2020-05-21] MEDS: ACETAMINOPHEN 325 MG TABLET (FP) PO PRN (21:09)
[2020-05-22 08:16] LABS: HEMATOCRIT 25.6 % (32.4-45.2); HEMOGLOBIN 8.4 GM/dL (10.7-15.3); MCH 29.1 pg (25.7-33.7); MEAN CELL VOLUME 88.2 fl (80-96); PLATELET COUNT 431 K/MM3 (134-434); RDW 15.5 % (11.6-15.6); WHITE BLOOD COUNT 6.5 K/mm3 (4.0-10.0)
[2020-05-22 08:36] LABS: POTASSIUM 4.1 mmol/L (3.5-5.1)
[2020-05-22 08:46] LABS: CALCIUM 8.1 mg/dL (8.5-10.1)
[2020-05-22 08:47] LABS: BLOOD UREA NITROGEN 13.8 mg/dL (7-18); MAGNESIUM 2.1 mg/dL (1.8-2.4)
[2020-05-22 08:50] LABS: CREATININE 0.4 mg/dL (0.55-1.3)
[2020-05-22] MEDS: PANTOPRAZOLE 40 MG TABLET PO SCH (10:26)
[2020-05-22] MEDS: ROSUVASTATIN CA 5 MG TABLET (FP) PO SCH (10:26)
[2020-05-22] MEDS: amLODIPine BESYLATE 10 MG TABLET (FP) PO SCH (10:26)
[2020-05-22] MEDS: APIXABAN 2.5 MG TABLET PO SCH ×2 (10:26→22:13)
[2020-05-22] MEDS: BUDESONIDE/FORMETEROL FUMARATE 80/4.5 mcg INHALER IH SCH ×2 (10:27→22:13)
[2020-05-22] MEDS: metoPROLOL SUCCINATE 25 MG TAB.SR.24H (FP) PO SCH (22:13)
[2020-05-23 09:39] LABS: HEMATOCRIT 25.5 % (32.4-45.2); HEMOGLOBIN 8.5 GM/dL (10.7-15.3); MCH 29.7 pg (25.7-33.7); MCHC 33.4 g/dl (32.0-36.0); MEAN PLT VOLUME 8.1 fl (7.5-11.1); PLATELET COUNT 405 K/MM3 (134-434); RBC 2.87 M/mm3 (3.60-5.2); RDW 15.8 % (11.6-15.6); WHITE BLOOD COUNT 5.4 K/mm3 (4.0-10.0)
[2020-05-23 09:45] LABS: POTASSIUM 3.9 mmol/L (3.5-5.1)
[2020-05-23 09:47] LABS: BLOOD UREA NITROGEN 11.1 mg/dL (7-18); CALCIUM 7.8 mg/dL (8.5-10.1); MAGNESIUM 2.1 mg/dL (1.8-2.4)
[2020-05-23 09:50] LABS: CREATININE 0.4 mg/dL (0.55-1.3)
[2020-05-23] MEDS: APIXABAN 2.5 MG TABLET PO SCH ×2 (10:16→21:03)
[2020-05-23] MEDS: ROSUVASTATIN CA 5 MG TABLET (FP) PO SCH (10:16)
[2020-05-23] MEDS: amLODIPine BESYLATE 10 MG TABLET (FP) PO SCH (10:16)
[2020-05-23] MEDS: PANTOPRAZOLE 40 MG TABLET PO SCH (10:16)
[2020-05-23] MEDS: BUDESONIDE/FORMETEROL FUMARATE 80/4.5 mcg INHALER IH SCH ×2 (10:17→21:03)
[2020-05-23] MEDS: ACETAMINOPHEN 325 MG TABLET (FP) PO PRN (15:12)
[2020-05-23] MEDS: metoPROLOL SUCCINATE 25 MG TAB.SR.24H (FP) PO SCH (21:03)
[2020-05-24] MEDS: APIXABAN 2.5 MG TABLET PO SCH ×2 (10:00→21:24)
[2020-05-24] MEDS: amLODIPine BESYLATE 10 MG TABLET (FP) PO SCH (10:00)
[2020-05-24] MEDS: ROSUVASTATIN CA 5 MG TABLET (FP) PO SCH (10:00)
[2020-05-24] MEDS: PANTOPRAZOLE 40 MG TABLET PO SCH (10:00)
[2020-05-24] MEDS: BUDESONIDE/FORMETEROL FUMARATE 80/4.5 mcg INHALER IH SCH ×2 (10:00→21:24)
[2020-05-24] MEDS: ACETAMINOPHEN 325 MG TABLET (FP) PO PRN (18:08)
[2020-05-24] MEDS: metoPROLOL SUCCINATE 25 MG TAB.SR.24H (FP) PO SCH (21:24)
[2020-05-25 08:20] LABS: EOS % 2.5 % (0-4.5); HEMATOCRIT 26.5 % (32.4-45.2); HEMOGLOBIN 8.7 GM/dL (10.7-15.3); MCH 29.1 pg (25.7-33.7); MEAN CELL VOLUME 88.3 fl (80-96); MEAN PLT VOLUME 8.1 fl (7.5-11.1); MONO % 8.2 % (3.8-10.2); NEUT % 61.3 % (42.8-82.8); PLATELET COUNT 421 K/MM3 (134-434); RDW 15.7 % (11.6-15.6); WHITE BLOOD COUNT 4.6 K/mm3 (4.0-10.0)
[2020-05-25 08:51] LABS: POTASSIUM 3.9 mmol/L (3.5-5.1)
[2020-05-25 08:53] LABS: ALBUMIN 2.4 g/dl (3.4-5.0); BLOOD UREA NITROGEN 8.7 mg/dL (7-18); CALCIUM 8.1 mg/dL (8.5-10.1); MAGNESIUM 2.1 mg/dL (1.8-2.4)
[2020-05-25 08:56] LABS: CREATININE 0.4 mg/dL (0.55-1.3); PHOSPHOROUS 4.1 mg/dL (2.5-4.9)
[2020-05-25 08:58] LABS: BILIRUBIN,TOTAL 0.8 mg/dL (0.2-1); TOT PROT 5.7 g/dl (6.4-8.2)
[2020-05-25] MEDS: amLODIPine BESYLATE 10 MG TABLET (FP) PO SCH (09:36)
[2020-05-25] MEDS: ROSUVASTATIN CA 5 MG TABLET (FP) PO SCH (09:36)
[2020-05-25] MEDS: PANTOPRAZOLE 40 MG TABLET PO SCH (09:36)
[2020-05-25] MEDS: APIXABAN 2.5 MG TABLET PO SCH ×2 (09:36→21:51)
[2020-05-25] MEDS: BUDESONIDE/FORMETEROL FUMARATE 80/4.5 mcg INHALER IH SCH ×2 (10:02→21:57)
[2020-05-25] MEDS: metoPROLOL SUCCINATE 25 MG TAB.SR.24H (FP) PO SCH (21:50)
[2020-05-25] MEDS: ACETAMINOPHEN 325 MG TABLET (FP) PO PRN (21:51)
[2020-05-26 08:22] LABS: HEMOGLOBIN 9.6 GM/dL (10.7-15.3); MCH 29.2 pg (25.7-33.7); MEAN CELL VOLUME 88.3 fl (80-96); MEAN PLT VOLUME 7.7 fl (7.5-11.1); PLATELET COUNT 432 K/MM3 (134-434); RBC 3.28 M/mm3 (3.60-5.2); RDW 15.8 % (11.6-15.6); WHITE BLOOD COUNT 4.1 K/mm3 (4.0-10.0)
[2020-05-26 08:38] LABS: POTASSIUM 3.9 mmol/L (3.5-5.1)
[2020-05-26 08:40] LABS: ALBUMIN 2.6 g/dl (3.4-5.0); CALCIUM 8.3 mg/dL (8.5-10.1)
[2020-05-26 08:41] LABS: BLOOD UREA NITROGEN 10.2 mg/dL (7-18); MAGNESIUM 2.1 mg/dL (1.8-2.4)
[2020-05-26 08:44] LABS: CREATININE 0.4 mg/dL (0.55-1.3); PHOSPHOROUS 3.9 mg/dL (2.5-4.9)
[2020-05-26 08:45] LABS: BILIRUBIN,TOTAL 0.8 mg/dL (0.2-1)
[2020-05-26 09:34] LABS: ERYTHROCYTE SEDIMENTATION RATE 81 mm/hr (0-30)
[2020-05-26] MEDS: amLODIPine BESYLATE 10 MG TABLET (FP) PO SCH (10:01)
[2020-05-26] MEDS: ROSUVASTATIN CA 5 MG TABLET (FP) PO SCH (10:01)
[2020-05-26] MEDS: APIXABAN 2.5 MG TABLET PO SCH ×2 (10:01→21:58)
[2020-05-26] MEDS: PANTOPRAZOLE 40 MG TABLET PO SCH (10:01)
[2020-05-26] MEDS: BUDESONIDE/FORMETEROL FUMARATE 80/4.5 mcg INHALER IH SCH ×2 (10:15→22:01)
[2020-05-26] MEDS: metoPROLOL SUCCINATE 25 MG TAB.SR.24H (FP) PO SCH (21:59)
[2020-05-27 07:59] LABS: HEMATOCRIT 28.7 % (32.4-45.2); HEMOGLOBIN 9.5 GM/dL (10.7-15.3); MCHC 32.9 g/dl (32.0-36.0); MEAN CELL VOLUME 88.2 fl (80-96); MEAN PLT VOLUME 7.9 fl (7.5-11.1); PLATELET COUNT 375 K/MM3 (134-434); RBC 3.26 M/mm3 (3.60-5.2); RDW 16.3 % (11.6-15.6); WHITE BLOOD COUNT 3.4 K/mm3 (4.0-10.0)
[2020-05-27 08:05] LABS: ALBUMIN 2.6 g/dl (3.4-5.0); BLOOD UREA NITROGEN 10.3 mg/dL (7-18); CALCIUM 8.2 mg/dL (8.5-10.1)
[2020-05-27 08:06] LABS: MAGNESIUM 2.2 mg/dL (1.8-2.4)
[2020-05-27 08:08] LABS: CREATININE 0.4 mg/dL (0.55-1.3)
[2020-05-27 08:09] LABS: BILIRUBIN,TOTAL 0.8 mg/dL (0.2-1); TOT PROT 5.8 g/dl (6.4-8.2)
[2020-05-27 08:47] LABS: ERYTHROCYTE SEDIMENTATION RATE 75 mm/hr (0-30)
[2020-05-27] MEDS: ROSUVASTATIN CA 5 MG TABLET (FP) PO SCH (10:00)
[2020-05-27] MEDS: ACETAMINOPHEN 325 MG TABLET (FP) PO PRN (10:00)
[2020-05-27] MEDS: amLODIPine BESYLATE 10 MG TABLET (FP) PO SCH (10:00)
[2020-05-27] MEDS: APIXABAN 2.5 MG TABLET PO SCH ×2 (10:00→21:42)
[2020-05-27] MEDS: PANTOPRAZOLE 40 MG TABLET PO SCH (10:00)
[2020-05-27] MEDS: BUDESONIDE/FORMETEROL FUMARATE 80/4.5 mcg INHALER IH SCH ×2 (10:29→21:43)
[2020-05-27] MEDS: metoPROLOL SUCCINATE 25 MG TAB.SR.24H (FP) PO SCH (21:42)
[2020-05-28 09:23] LABS: HEMATOCRIT 28.9 % (32.4-45.2); HEMOGLOBIN 9.5 GM/dL (10.7-15.3); MCHC 32.9 g/dl (32.0-36.0); PLATELET COUNT 327 K/MM3 (134-434); RBC 3.29 M/mm3 (3.60-5.2); RDW 16.2 % (11.6-15.6); WHITE BLOOD COUNT 4.8 K/mm3 (4.0-10.0)
[2020-05-28 09:49] LABS: POTASSIUM 3.9 mmol/L (3.5-5.1)
[2020-05-28 09:53] LABS: ALBUMIN 2.6 g/dl (3.4-5.0); BLOOD UREA NITROGEN 11.3 mg/dL (7-18); MAGNESIUM 2.1 mg/dL (1.8-2.4)
[2020-05-28 09:57] LABS: CREATININE 0.4 mg/dL (0.55-1.3)
[2020-05-28 09:58] LABS: PHOSPHOROUS 3.7 mg/dL (2.5-4.9)
[2020-05-28 09:59] LABS: BILIRUBIN,TOTAL 0.7 mg/dL (0.2-1); TOT PROT 5.9 g/dl (6.4-8.2)
[2020-05-28] MEDS: ROSUVASTATIN CA 5 MG TABLET (FP) PO SCH (10:22)
[2020-05-28] MEDS: APIXABAN 2.5 MG TABLET PO SCH ×2 (10:22→21:44)
[2020-05-28] MEDS: amLODIPine BESYLATE 10 MG TABLET (FP) PO SCH (10:22)
[2020-05-28] MEDS: PANTOPRAZOLE 40 MG TABLET PO SCH (10:22)
[2020-05-28] MEDS: BUDESONIDE/FORMETEROL FUMARATE 80/4.5 mcg INHALER IH SCH ×2 (10:23→21:45)
[2020-05-28 10:44] LABS: ERYTHROCYTE SEDIMENTATION RATE 74 mm/hr (0-30)
[2020-05-28] MEDS ORDERED: PT OWN MED DRAWER 7, Y5N ONE (15:04)
[2020-05-28] MEDS: metoPROLOL SUCCINATE 25 MG TAB.SR.24H (FP) PO SCH (21:44)
[2020-05-29 08:20] LABS: HEMATOCRIT 28.7 % (32.4-45.2); HEMOGLOBIN 9.4 GM/dL (10.7-15.3); MCHC 32.7 g/dl (32.0-36.0); MEAN CELL VOLUME 88.7 fl (80-96); MEAN PLT VOLUME 8.3 fl (7.5-11.1); PLATELET COUNT 295 K/MM3 (134-434); RBC 3.23 M/mm3 (3.60-5.2); RDW 16.3 % (11.6-15.6); WHITE BLOOD COUNT 3.8 K/mm3 (4.0-10.0)
[2020-05-29 08:42] LABS: POTASSIUM 3.8 mmol/L (3.5-5.1)
[2020-05-29 08:44] LABS: ALBUMIN 2.5 g/dl (3.4-5.0); BLOOD UREA NITROGEN 11.7 mg/dL (7-18); CALCIUM 8.2 mg/dL (8.5-10.1); MAGNESIUM 2.2 mg/dL (1.8-2.4)
[2020-05-29 08:49] LABS: BILIRUBIN,TOTAL 0.7 mg/dL (0.2-1); CREATININE 0.3 mg/dL (0.55-1.3); PHOSPHOROUS 3.8 mg/dL (2.5-4.9); TOT PROT 5.6 g/dl (6.4-8.2)
[2020-05-29] MEDS: PANTOPRAZOLE 40 MG TABLET PO SCH (09:45)
[2020-05-29] MEDS: ROSUVASTATIN CA 5 MG TABLET (FP) PO SCH (09:45)
[2020-05-29] MEDS: BUDESONIDE/FORMETEROL FUMARATE 80/4.5 mcg INHALER IH SCH ×2 (09:45→21:03)
[2020-05-29] MEDS: APIXABAN 2.5 MG TABLET PO SCH ×2 (09:45→21:03)
[2020-05-29] MEDS: amLODIPine BESYLATE 10 MG TABLET (FP) PO SCH (09:49)
[2020-05-29] MEDS ORDERED: DEXAMETHASONE SOD PHOSPHATE 10 MG/1 ML VIAL IVPUSH SCH (10:15)
[2020-05-29 11:10] LABS: ERYTHROCYTE SEDIMENTATION RATE 56 mm/hr (0-30)
[2020-05-29] MEDS: metoPROLOL SUCCINATE 25 MG TAB.SR.24H (FP) PO SCH (21:03)
[2020-05-30 08:36] LABS: HEMATOCRIT 27.6 % (32.4-45.2); MCH 28.9 pg (25.7-33.7); MCHC 32.6 g/dl (32.0-36.0); MEAN CELL VOLUME 88.6 fl (80-96); MEAN PLT VOLUME 8.7 fl (7.5-11.1); PLATELET COUNT 239 K/MM3 (134-434); RBC 3.12 M/mm3 (3.60-5.2); RDW 16.3 % (11.6-15.6); WHITE BLOOD COUNT 3.7 K/mm3 (4.0-10.0)
[2020-05-30 08:56] LABS: POTASSIUM 3.7 mmol/L (3.5-5.1)
[2020-05-30 09:04] LABS: ALBUMIN 2.5 g/dl (3.4-5.0); BLOOD UREA NITROGEN 11.1 mg/dL (7-18); CALCIUM 8.4 mg/dL (8.5-10.1); MAGNESIUM 2.2 mg/dL (1.8-2.4)
[2020-05-30 09:06] LABS: CREATININE 0.3 mg/dL (0.55-1.3)
[2020-05-30 09:07] LABS: PHOSPHOROUS 3.2 mg/dL (2.5-4.9)
[2020-05-30 09:09] LABS: BILIRUBIN,TOTAL 0.8 mg/dL (0.2-1); TOT PROT 5.6 g/dl (6.4-8.2)
[2020-05-30] MEDS: ROSUVASTATIN CA 5 MG TABLET (FP) PO SCH (09:30)
[2020-05-30] MEDS: APIXABAN 2.5 MG TABLET PO SCH ×2 (09:30→22:08)
[2020-05-30] MEDS: BUDESONIDE/FORMETEROL FUMARATE 80/4.5 mcg INHALER IH SCH ×2 (09:30→22:09)
[2020-05-30] MEDS: amLODIPine BESYLATE 10 MG TABLET (FP) PO SCH (09:30)
[2020-05-30] MEDS: PANTOPRAZOLE 40 MG TABLET PO SCH (09:30)
[2020-05-30 09:39] LABS: ERYTHROCYTE SEDIMENTATION RATE 62 mm/hr (0-30)
[2020-05-30] MEDS: ACETAMINOPHEN 325 MG TABLET (FP) PO PRN (13:29)
[2020-05-30] MEDS: metoPROLOL SUCCINATE 25 MG TAB.SR.24H (FP) PO SCH (22:08)
[2020-05-31 08:56] LABS: HEMOGLOBIN 9.3 GM/dL (10.7-15.3); MCH 28.4 pg (25.7-33.7); MCHC 32.2 g/dl (32.0-36.0); MEAN CELL VOLUME 88.1 fl (80-96); MEAN PLT VOLUME 8.7 fl (7.5-11.1); PLATELET COUNT 250 K/MM3 (134-434); RBC 3.29 M/mm3 (3.60-5.2); RDW 15.4 % (11.6-15.6); WHITE BLOOD COUNT 3.6 K/mm3 (4.0-10.0)
[2020-05-31 09:18] LABS: POTASSIUM 3.7 mmol/L (3.5-5.1)
[2020-05-31 09:21] LABS: CALCIUM 8.5 mg/dL (8.5-10.1)
[2020-05-31 09:22] LABS: ALBUMIN 2.6 g/dl (3.4-5.0); BLOOD UREA NITROGEN 10.5 mg/dL (7-18); MAGNESIUM 2.2 mg/dL (1.8-2.4)
[2020-05-31 09:25] LABS: CREATININE 0.3 mg/dL (0.55-1.3); PHOSPHOROUS 3.6 mg/dL (2.5-4.9)
[2020-05-31 09:26] LABS: BILIRUBIN,TOTAL 0.7 mg/dL (0.2-1); TOT PROT 5.7 g/dl (6.4-8.2)
[2020-05-31] MEDS: PANTOPRAZOLE 40 MG TABLET PO SCH (10:41)
[2020-05-31] MEDS: ROSUVASTATIN CA 5 MG TABLET (FP) PO SCH (10:41)
[2020-05-31] MEDS: AMINO ACIDS/PROTEIN HYDROLYS 30 ML LIQUID.PKT PO SCH ×2 (10:41→17:16)
[2020-05-31] MEDS: MULTIVITAMINS THER W-MINERALS COMBO TABLET (FP) PO SCH (10:41)
[2020-05-31] MEDS: BUDESONIDE/FORMETEROL FUMARATE 80/4.5 mcg INHALER IH SCH ×2 (10:41→21:36)
[2020-05-31] MEDS: APIXABAN 2.5 MG TABLET PO SCH ×2 (10:41→21:36)
[2020-05-31] MEDS: amLODIPine BESYLATE 10 MG TABLET (FP) PO SCH (10:41)
[2020-05-31] MEDS: ACETAMINOPHEN 325 MG TABLET (FP) PO PRN (10:42)
[2020-05-31] MEDS: metoPROLOL SUCCINATE 25 MG TAB.SR.24H (FP) PO SCH (21:36)
[2020-06-01] MEDS: MULTIVITAMINS THER W-MINERALS COMBO TABLET (FP) PO SCH (10:27)
[2020-06-01] MEDS: ROSUVASTATIN CA 5 MG TABLET (FP) PO SCH (10:27)
[2020-06-01] MEDS: amLODIPine BESYLATE 10 MG TABLET (FP) PO SCH (10:27)
[2020-06-01] MEDS: PANTOPRAZOLE 40 MG TABLET PO SCH (10:27)
[2020-06-01] MEDS: APIXABAN 2.5 MG TABLET PO SCH ×2 (10:27→21:46)
[2020-06-01] MEDS: ACETAMINOPHEN 325 MG TABLET (FP) PO PRN (10:27)
[2020-06-01] MEDS: AMINO ACIDS/PROTEIN HYDROLYS 30 ML LIQUID.PKT PO SCH ×2 (10:28→17:17)
[2020-06-01] MEDS: BUDESONIDE/FORMETEROL FUMARATE 80/4.5 mcg INHALER IH SCH ×2 (10:28→21:45)
[2020-06-01] MEDS: metoPROLOL SUCCINATE 25 MG TAB.SR.24H (FP) PO SCH (21:46)
[2020-06-02 08:40] LABS: HEMATOCRIT 29.1 % (32.4-45.2); HEMOGLOBIN 9.5 GM/dL (10.7-15.3); MCH 28.7 pg (25.7-33.7); MCHC 32.8 g/dl (32.0-36.0); MEAN CELL VOLUME 87.5 fl (80-96); MEAN PLT VOLUME 9.4 fl (7.5-11.1); PLATELET COUNT 231 K/MM3 (134-434); RBC 3.32 M/mm3 (3.60-5.2); RDW 16.1 % (11.6-15.6); WHITE BLOOD COUNT 4.7 K/mm3 (4.0-10.0)
[2020-06-02 09:02] LABS: POTASSIUM 3.5 mmol/L (3.5-5.1)
[2020-06-02 09:05] LABS: CALCIUM 8.4 mg/dL (8.5-10.1)
[2020-06-02 09:06] LABS: ALBUMIN 2.6 g/dl (3.4-5.0); BLOOD UREA NITROGEN 14.2 mg/dL (7-18)
[2020-06-02 09:09] LABS: CREATININE 0.3 mg/dL (0.55-1.3)
[2020-06-02 09:10] LABS: BILIRUBIN,TOTAL 1.3 mg/dL (0.2-1); TOT PROT 5.9 g/dl (6.4-8.2)
[2020-06-02 10:02] LABS: ERYTHROCYTE SEDIMENTATION RATE 77 mm/hr (0-30)
[2020-06-02] MEDS: PANTOPRAZOLE 40 MG TABLET PO SCH (10:07)
[2020-06-02] MEDS: amLODIPine BESYLATE 10 MG TABLET (FP) PO SCH (10:07)
[2020-06-02] MEDS: MULTIVITAMINS THER W-MINERALS COMBO TABLET (FP) PO SCH (10:07)
[2020-06-02] MEDS: ROSUVASTATIN CA 5 MG TABLET (FP) PO SCH (10:07)
[2020-06-02] MEDS: APIXABAN 2.5 MG TABLET PO SCH ×2 (10:07→21:59)
[2020-06-02] MEDS: ACETAMINOPHEN 325 MG TABLET (FP) PO PRN (10:07)
[2020-06-02] MEDS: BUDESONIDE/FORMETEROL FUMARATE 80/4.5 mcg INHALER IH SCH ×2 (10:08→22:02)
[2020-06-02] MEDS: AMINO ACIDS/PROTEIN HYDROLYS 30 ML LIQUID.PKT PO SCH ×2 (10:09→17:47)
[2020-06-02] MEDS: metoPROLOL SUCCINATE 25 MG TAB.SR.24H (FP) PO SCH (21:59)
[2020-06-03] MEDS: ACETAMINOPHEN 325 MG TABLET (FP) PO PRN (04:28)
[2020-06-03 08:38] LABS: HEMATOCRIT 31.2 % (32.4-45.2); MCH 28.2 pg (25.7-33.7); MCHC 32.1 g/dl (32.0-36.0); MEAN PLT VOLUME 9.7 fl (7.5-11.1); PLATELET COUNT 239 K/MM3 (134-434); RBC 3.55 M/mm3 (3.60-5.2); WHITE BLOOD COUNT 4.8 K/mm3 (4.0-10.0)
[2020-06-03 08:45] LABS: POTASSIUM 3.6 mmol/L (3.5-5.1)
[2020-06-03 08:52] LABS: ALBUMIN 2.6 g/dl (3.4-5.0); BLOOD UREA NITROGEN 14.1 mg/dL (7-18); CALCIUM 8.3 mg/dL (8.5-10.1)
[2020-06-03 08:55] LABS: BILIRUBIN,TOTAL 0.7 mg/dL (0.2-1); CREATININE 0.4 mg/dL (0.55-1.3); PHOSPHOROUS 3.5 mg/dL (2.5-4.9)
[2020-06-03] MEDS: BUDESONIDE/FORMETEROL FUMARATE 80/4.5 mcg INHALER IH SCH ×2 (10:40→22:06)
[2020-06-03] MEDS: ROSUVASTATIN CA 5 MG TABLET (FP) PO SCH (10:40)
[2020-06-03] MEDS: amLODIPine BESYLATE 10 MG TABLET (FP) PO SCH (10:40)
[2020-06-03] MEDS: AMINO ACIDS/PROTEIN HYDROLYS 30 ML LIQUID.PKT PO SCH ×2 (10:40→17:58)
[2020-06-03] MEDS: APIXABAN 2.5 MG TABLET PO SCH ×2 (10:40→22:06)
[2020-06-03] MEDS: PANTOPRAZOLE 40 MG TABLET PO SCH (10:40)
[2020-06-03] MEDS: MULTIVITAMINS THER W-MINERALS COMBO TABLET (FP) PO SCH (10:40)
[2020-06-03] MEDS: COLLAGENASE CLOSTRIDIUM HIST. 30 GRAMS TUBE TP SCH (17:58)
[2020-06-03] MEDS: metoPROLOL SUCCINATE 25 MG TAB.SR.24H (FP) PO SCH (22:06)
[2020-06-04 08:16] LABS: HEMATOCRIT 31.1 % (32.4-45.2); HEMOGLOBIN 10.1 GM/dL (10.7-15.3); MCH 28.4 pg (25.7-33.7); MCHC 32.4 g/dl (32.0-36.0); MEAN CELL VOLUME 87.7 fl (80-96); MEAN PLT VOLUME 9.2 fl (7.5-11.1); PLATELET COUNT 260 K/MM3 (134-434); RBC 3.55 M/mm3 (3.60-5.2); RDW 16.4 % (11.6-15.6); WHITE BLOOD COUNT 5.9 K/mm3 (4.0-10.0)
[2020-06-04 08:36] LABS: POTASSIUM 3.5 mmol/L (3.5-5.1)
[2020-06-04 08:38] LABS: CALCIUM 8.3 mg/dL (8.5-10.1)
[2020-06-04 08:39] LABS: BLOOD UREA NITROGEN 15.5 mg/dL (7-18)
[2020-06-04 08:43] LABS: CREATININE 0.4 mg/dL (0.55-1.3)
[2020-06-04] MEDS: AMINO ACIDS/PROTEIN HYDROLYS 30 ML LIQUID.PKT PO SCH ×2 (08:55→17:30)
[2020-06-04] MEDS: APIXABAN 2.5 MG TABLET PO SCH ×2 (10:58→21:18)
[2020-06-04] MEDS: ROSUVASTATIN CA 5 MG TABLET (FP) PO SCH (10:58)
[2020-06-04] MEDS: MULTIVITAMINS THER W-MINERALS COMBO TABLET (FP) PO SCH (10:58)
[2020-06-04] MEDS: PANTOPRAZOLE 40 MG TABLET PO SCH (10:58)
[2020-06-04] MEDS: amLODIPine BESYLATE 10 MG TABLET (FP) PO SCH (10:58)
[2020-06-04] MEDS: ACETAMINOPHEN 325 MG TABLET (FP) PO PRN (10:58)
[2020-06-04] MEDS: BUDESONIDE/FORMETEROL FUMARATE 80/4.5 mcg INHALER IH SCH ×2 (10:59→21:18)
[2020-06-04] MEDS: COLLAGENASE CLOSTRIDIUM HIST. 30 GRAMS TUBE TP SCH (10:59)
[2020-06-04] MEDS: POTASSIUM CHLORIDE TABS 20 MEQ TABLET.ER (FP) PO SCH (17:30)
[2020-06-04] MEDS: metoPROLOL SUCCINATE 25 MG TAB.SR.24H (FP) PO SCH (21:18)
[2020-06-05] MEDS: ACETAMINOPHEN 325 MG TABLET (FP) PO PRN (07:11)
[2020-06-05 09:49] LABS: HEMATOCRIT 29.8 % (32.4-45.2); HEMOGLOBIN 9.5 GM/dL (10.7-15.3); MCH 28.3 pg (25.7-33.7); MEAN CELL VOLUME 88.6 fl (80-96); MEAN PLT VOLUME 9.5 fl (7.5-11.1); PLATELET COUNT 251 K/MM3 (134-434); RBC 3.37 M/mm3 (3.60-5.2); RDW 16.1 % (11.6-15.6); WHITE BLOOD COUNT 5.5 K/mm3 (4.0-10.0)
[2020-06-05 10:10] LABS: POTASSIUM 3.6 mmol/L (3.5-5.1)
[2020-06-05 10:11] LABS: CALCIUM 8.5 mg/dL (8.5-10.1)
[2020-06-05 10:16] LABS: CREATININE 0.3 mg/dL (0.55-1.3)
[2020-06-05] MEDS ORDERED: PT OWN MED DRAWER 7, Y5N ONE (11:50)
[2020-06-05] MEDS: PANTOPRAZOLE 40 MG TABLET PO SCH (11:53)
[2020-06-05] MEDS: APIXABAN 2.5 MG TABLET PO SCH ×2 (11:53→21:53)
[2020-06-05] MEDS: ROSUVASTATIN CA 5 MG TABLET (FP) PO SCH (11:53)
[2020-06-05] MEDS: AMINO ACIDS/PROTEIN HYDROLYS 30 ML LIQUID.PKT PO SCH ×3 (11:53→17:33)
[2020-06-05] MEDS: BUDESONIDE/FORMETEROL FUMARATE 80/4.5 mcg INHALER IH SCH ×2 (11:53→21:55)
[2020-06-05] MEDS: COLLAGENASE CLOSTRIDIUM HIST. 30 GRAMS TUBE TP SCH (11:53)
[2020-06-05] MEDS: amLODIPine BESYLATE 10 MG TABLET (FP) PO SCH (11:53)
[2020-06-05] MEDS: POTASSIUM CHLORIDE TABS 20 MEQ TABLET.ER (FP) PO SCH (11:53)
[2020-06-05 12:30] LABS: EPI CELLS 13 /uL (0-25.1); HYALINE CASTS 3 /uL (0-3.1); PH,URINE 5.5 (5.0-8.0); URINE APPEARANCE CLEAR; URINE BACTERIA 42 /uL (0-1359); URINE BILIRUBIN 1+ (NEGATIVE); URINE COLOR DK YELLOW; URINE GLUCOSE (UA) NEGATIVE (NEGATIVE); URINE KETONE TRACE (NEGATIVE); URINE LEUK ESTERASE TRACE (NEGATIVE); URINE NITRITE NEGATIVE (NEGATIVE); URINE PROTEIN TRACE (NEGATIVE); URINE RBC 12 /uL (0-23.9); URINE WBC 13 /uL (0-25.8)
[2020-06-05 12:45] LABS: URINE CRYSTALS CA OXALATE: FEW /hpf
[2020-06-05] MEDS: MULTIVITAMINS THER W-MINERALS COMBO TABLET (FP) PO SCH (19:13)
[2020-06-05] MEDS: metoPROLOL SUCCINATE 25 MG TAB.SR.24H (FP) PO SCH (21:53)
[2020-06-06 09:20] LABS: HEMATOCRIT 30.1 % (32.4-45.2); HEMOGLOBIN 9.9 GM/dL (10.7-15.3); MCH 28.6 pg (25.7-33.7); MEAN CELL VOLUME 86.7 fl (80-96); MEAN PLT VOLUME 9.4 fl (7.5-11.1); PLATELET COUNT 303 K/MM3 (134-434); RBC 3.47 M/mm3 (3.60-5.2); RDW 16.2 % (11.6-15.6); WHITE BLOOD COUNT 6.5 K/mm3 (4.0-10.0)
[2020-06-06 10:13] LABS: CALCIUM 8.5 mg/dL (8.5-10.1)
[2020-06-06 10:14] LABS: BLOOD UREA NITROGEN 15.1 mg/dL (7-18)
[2020-06-06 10:16] LABS: CREATININE 0.4 mg/dL (0.55-1.3); PHOSPHOROUS 3.4 mg/dL (2.5-4.9)
[2020-06-06] MEDS: APIXABAN 2.5 MG TABLET PO SCH ×2 (11:08→21:55)
[2020-06-06] MEDS: MULTIVITAMINS THER W-MINERALS COMBO TABLET (FP) PO SCH (11:08)
[2020-06-06] MEDS: ROSUVASTATIN CA 5 MG TABLET (FP) PO SCH (11:08)
[2020-06-06] MEDS: PANTOPRAZOLE 40 MG TABLET PO SCH (11:08)
[2020-06-06] MEDS: amLODIPine BESYLATE 10 MG TABLET (FP) PO SCH (11:08)
[2020-06-06] MEDS: POTASSIUM CHLORIDE TABS 20 MEQ TABLET.ER (FP) PO SCH (11:09)
[2020-06-06] MEDS: BUDESONIDE/FORMETEROL FUMARATE 80/4.5 mcg INHALER IH SCH ×2 (11:10→21:54)
[2020-06-06] MEDS: AMINO ACIDS/PROTEIN HYDROLYS 30 ML LIQUID.PKT PO SCH ×2 (11:10→17:38)
[2020-06-06] MEDS: COLLAGENASE CLOSTRIDIUM HIST. 30 GRAMS TUBE TP SCH (18:10)
[2020-06-06] MEDS: metoPROLOL SUCCINATE 25 MG TAB.SR.24H (FP) PO SCH (21:54)
[2020-06-07] MEDS ORDERED: ACETAMINOPHEN 325 MG TABLET (FP) PO ONE (06:45)
[2020-06-07 07:03] VITALS: BP 135/62; PULSE 80; TEMP 100.9
[2020-06-07 07:55] LABS: HEMATOCRIT 29.1 % (32.4-45.2); HEMOGLOBIN 9.6 GM/dL (10.7-15.3); MCH 28.6 pg (25.7-33.7); MCHC 33.1 g/dl (32.0-36.0); MEAN CELL VOLUME 86.6 fl (80-96); MEAN PLT VOLUME 9.1 fl (7.5-11.1); PLATELET COUNT 315 K/MM3 (134-434); RBC 3.36 M/mm3 (3.60-5.2); WHITE BLOOD COUNT 7.8 K/mm3 (4.0-10.0)
[2020-06-07 08:46] LABS: CALCIUM 8.3 mg/dL (8.5-10.1)
[2020-06-07 08:47] LABS: BLOOD UREA NITROGEN 14.8 mg/dL (7-18)
[2020-06-07 08:48] LABS: MAGNESIUM 1.9 mg/dL (1.8-2.4)
[2020-06-07 08:50] LABS: PHOSPHOROUS 3.6 mg/dL (2.5-4.9)
[2020-06-07 08:52] LABS: CREATININE 0.3 mg/dL (0.55-1.3)
[2020-06-07] MEDS: AMINO ACIDS/PROTEIN HYDROLYS 30 ML LIQUID.PKT PO SCH (09:41)
[2020-06-07] MEDS: PANTOPRAZOLE 40 MG TABLET PO SCH (09:42)
[2020-06-07] MEDS: APIXABAN 2.5 MG TABLET PO SCH (09:42)
[2020-06-07] MEDS: ROSUVASTATIN CA 5 MG TABLET (FP) PO SCH (09:42)
[2020-06-07] MEDS: MULTIVITAMINS THER W-MINERALS COMBO TABLET (FP) PO SCH (09:42)
[2020-06-07] MEDS: BUDESONIDE/FORMETEROL FUMARATE 80/4.5 mcg INHALER IH SCH (09:42)
[2020-06-07] MEDS: POTASSIUM CHLORIDE TABS 20 MEQ TABLET.ER (FP) PO SCH (09:42)
[2020-06-07] MEDS: amLODIPine BESYLATE 10 MG TABLET (FP) PO SCH (09:42)
[2020-06-07] MEDS: COLLAGENASE CLOSTRIDIUM HIST. 30 GRAMS TUBE TP SCH (09:42)
== END 2020-06-07 13:57 | DRG 480 ==
LOC: JER 15:11 → JERBED 20:38 → J8W 05-10 02:58
PROVIDERS: ADMIT Internal Medicine; ATTEND Internal Medicine
PROC: 0QS806Z Reposition Right Femoral Shaft with Intramedullary Internal Fixation Device, Open Approach (ICD-10-PCS; principal; 2020-05-12 09:30)
DX: S72.21XA Displaced subtrochanteric fracture of right femur, initial encounter for closed fracture (principal); U07.1 COVID-19; N39.0 Urinary tract infection, site not specified; D62 Acute posthemorrhagic anemia; S72.001A Fracture of unspecified part of neck of right femur, initial encounter for closed fracture; I10 Essential (primary) hypertension; E78.5 Hyperlipidemia, unspecified; R19.7 Diarrhea, unspecified; K21.9 Gastro-esophageal reflux disease without esophagitis; J44.9 Chronic obstructive pulmonary disease, unspecified; R32 Unspecified urinary incontinence; E66.9 Obesity, unspecified; I25.119 Atherosclerotic heart disease of native coronary artery with unspecified angina pectoris; D64.9 Anemia, unspecified; R73.9 Hyperglycemia, unspecified; Z68.37 Body mass index [BMI] 37.0-37.9, adult; D50.9 Iron deficiency anemia, unspecified; Z86.711 Personal history of pulmonary embolism; W18.39XA Other fall on same level, initial encounter; Y92.098 Other place in other non-institutional residence as the place of occurrence of the external cause; B96.20 Unspecified Escherichia coli [E. coli] as the cause of diseases classified elsewhere; R50.9 Fever, unspecified
CPT/HCPCS: 36415; 70450-TC; 71045-TC-FY; 72125-TC; 73523-TC-FY; 73552-TC-RT-FY; 80048; 80053; 80061; 81003; 82040; 82272; 82436; 82550; 82553; 82728; 83036; 83615; 83721; 83735; 84100; 84484; 85025; 85027; 85379; 85610; 85651; 85730; 86140; 86769; 86850; 86900; 86901; 86922; 87040; 87077; 87086; 87186; 87324; 87449; 93005; 93010; 93306-TC; 93970-TC; 93971-TC; 94010; 94660; 94760; 94761; 97116-GP; 97161-GP; 99285-25; C9803; E0186; J1100; U0003

== ENCOUNTER 2020-08-01 18:59 | Inpatient (IN) | payer OTHER ==
[2020-08-01 19:19] VITALS: BMI 30.9
[2020-08-01] MEDS ORDERED: ACETAMINOPHEN 325 MG TABLET (FP) PO ONE (21:14)
[2020-08-01] MEDS ORDERED: LIDOCAINE 5% TOPICAL PATCH TP ONE (21:14)
[2020-08-01 21:17] LABS: BASO % 0.9 % (0-2.0); EOS % 2.2 % (0-4.5); HEMATOCRIT 33.1 % (32.4-45.2); HEMOGLOBIN 10.6 GM/dL (10.7-15.3); LYMPH % 46.1 % (8-40); MCH 26.8 pg (25.7-33.7); MEAN CELL VOLUME 83.7 fl (80-96); MEAN PLT VOLUME 8.2 fl (7.5-11.1); MONO % 9.2 % (3.8-10.2); NEUT % 41.6 % (42.8-82.8); PLATELET COUNT 399 K/MM3 (134-434); RBC 3.95 M/mm3 (3.60-5.2); RDW 19.1 % (11.6-15.6); WHITE BLOOD COUNT 6.8 K/mm3 (4.0-10.0)
[2020-08-01] MEDS ORDERED: LIDOCAINE 5% TOPICAL PATCH ONE (21:17)
[2020-08-01] MEDS ORDERED: ACETAMINOPHEN 325 MG TABLET (FP) ONE (21:17)
[2020-08-01 21:40] LABS: INR 1.28 (0.83-1.09); PROTHROMBIN TIME (PATIENT) 15.6 SEC (9.7-13.0)
[2020-08-01 21:42] LABS: ACTIVATED PTT 31.4 SECONDS (25.2-36.5)
[2020-08-01 21:44] LABS: ALBUMIN 1.6 g/dl (3.4-5.0); BLOOD UREA NITROGEN 17.6 mg/dL (7-18); CALCIUM 7.8 mg/dL (8.5-10.1)
[2020-08-01 21:45] LABS: MAGNESIUM 1.9 mg/dL (1.8-2.4)
[2020-08-01 21:48] LABS: CREATININE 0.4 mg/dL (0.55-1.3)
[2020-08-01 21:49] LABS: BILIRUBIN,TOTAL 0.5 mg/dL (0.2-1); TOT PROT 5.1 g/dl (6.4-8.2)
[2020-08-01] MEDS ORDERED: LIDOCAINE PATCH REMOVAL MC SCH (22:00)
[2020-08-01] MEDS ORDERED: HEPARIN NA (PORCINE) 5,000 UNITS/ML 1ML VIAL IVPUSH PRN ×2 (22:18)
[2020-08-01] MEDS ORDERED: HEPARIN INFUSION - 25,000 UNITS/500 ML INFUS.BAG IVPB ONE (23:05)
[2020-08-01] MEDS ORDERED: SODIUM CHLORIDE 0.9% 1000 ML INFUS.BAG IV ONE (23:09)
[2020-08-01] MEDS ORDERED: morphine CARPU-JECT 2 MG/1 ML DISP.SYRIN IVPUSH ONE (23:09)
[2020-08-01] MEDS: HEPARIN - 25,000 UNIT in SODIUM CHLORIDE 495 ML IV SCH (23:17)
[2020-08-01] MEDS ORDERED: MORPHINE SULFATE 2 MG/ML VIAL ONE (23:53)
[2020-08-02] MEDS ORDERED: ALBUTEROL SO4 HFA INHALER IH PRN (01:40)
[2020-08-02] MEDS ORDERED: MEROPENEM 1 GM in DEXTROSE 5%-WATER 100 ML IVPB ONE (03:39)
[2020-08-02] MEDS ORDERED: VANCOMYCIN 1 GM in D5W (PRE-DOCKED) 1,000 MG/250 ML IVPB ONE (03:40)
[2020-08-02] MEDS ORDERED: VANCOMYCIN 1 GRAM (PRE-DOCKED) 1,000 MG/250 ML BAG IVPB ONE ×2 (03:45→04:21)
[2020-08-02] MEDS ORDERED: MEROPENEM 1 GM VIAL (RESTRICTED TO ID) IVPB ONE ×2 (03:54→16:37)
[2020-08-02 08:05] LABS: BASO % 1.3 % (0-2.0); EOS % 3.2 % (0-4.5); HEMATOCRIT 30.8 % (32.4-45.2); HEMOGLOBIN 9.9 GM/dL (10.7-15.3); LYMPH % 45.8 % (8-40); MCHC 32.1 g/dl (32.0-36.0); MEAN CELL VOLUME 84.3 fl (80-96); MEAN PLT VOLUME 8.5 fl (7.5-11.1); MONO % 10.5 % (3.8-10.2); NEUT % 39.2 % (42.8-82.8); PLATELET COUNT 375 K/MM3 (134-434); RBC 3.66 M/mm3 (3.60-5.2); RDW 19.2 % (11.6-15.6); WHITE BLOOD COUNT 6.9 K/mm3 (4.0-10.0)
[2020-08-02 08:17] LABS: ALBUMIN 1.5 g/dl (3.4-5.0)
[2020-08-02 08:19] LABS: CALCIUM 7.6 mg/dL (8.5-10.1)
[2020-08-02 08:21] LABS: CREATININE 0.4 mg/dL (0.55-1.3)
[2020-08-02 08:22] LABS: BILIRUBIN,TOTAL 0.4 mg/dL (0.2-1)
[2020-08-02 08:23] LABS: TOT PROT 4.6 g/dl (6.4-8.2)
[2020-08-02 08:33] LABS: PHOSPHOROUS 3.3 mg/dL (2.5-4.9)
[2020-08-02] MEDS ORDERED: LIDOCAINE PATCH REMOVAL MC ONE (09:00)
[2020-08-02] MEDS ORDERED: PT OWN MED DRAWER 7, Y5N ONE (10:29)
[2020-08-02] MEDS ORDERED: amLODIPine BESYLATE 10 MG TABLET (FP) PO SCH (14:45)
[2020-08-02] MEDS ORDERED: FUROSEMIDE 40 MG TABLET (FP) PO SCH (14:45)
[2020-08-02] MEDS ORDERED: DEXTROSE 5%-WATER 100 ML IVPB ONE (16:37)
[2020-08-02] MEDS: MEROPENEM 1 GM in DEXTROSE 5%-WATER 100 ML IVPB SCH (17:04)
[2020-08-02] MEDS: ROSUVASTATIN CA 5 MG TABLET (FP) PO SCH (21:44)
[2020-08-02] MEDS: metoPROLOL SUCCINATE 25 MG TAB.SR.24H (FP) PO SCH ×2 (21:44→21:48)
[2020-08-02] MEDS: BUDESONIDE/FORMETEROL FUMARATE 80/4.5 mcg INHALER IH SCH (21:44)
[2020-08-02] MEDS: HEPARIN - 25,000 UNIT in SODIUM CHLORIDE 495 ML IV SCH (21:45)
[2020-08-03] MEDS ORDERED: MEROPENEM 1 GM VIAL (RESTRICTED TO ID) IVPB ONE ×3 (02:30→17:38)
[2020-08-03] MEDS ORDERED: DEXTROSE 5%-WATER 100 ML IVPB ONE ×3 (02:30→17:38)
[2020-08-03] MEDS: MEROPENEM 1 GM in DEXTROSE 5%-WATER 100 ML IVPB SCH ×3 (02:35→18:00)
[2020-08-03 09:08] LABS: HEMATOCRIT 32.1 % (32.4-45.2); HEMOGLOBIN 10.5 GM/dL (10.7-15.3); MCH 27.2 pg (25.7-33.7); MCHC 32.8 g/dl (32.0-36.0); MEAN CELL VOLUME 83.2 fl (80-96); MEAN PLT VOLUME 7.9 fl (7.5-11.1); PLATELET COUNT 369 K/MM3 (134-434); RBC 3.86 M/mm3 (3.60-5.2); RDW 18.8 % (11.6-15.6)
[2020-08-03 09:30] LABS: BLOOD UREA NITROGEN 9.8 mg/dL (7-18); CALCIUM 7.8 mg/dL (8.5-10.1)
[2020-08-03 09:31] LABS: MAGNESIUM 1.9 mg/dL (1.8-2.4)
[2020-08-03 09:32] LABS: CREATININE 0.3 mg/dL (0.55-1.3); PHOSPHOROUS 3.1 mg/dL (2.5-4.9)
[2020-08-03] MEDS: COLLAGENASE CLOSTRIDIUM HIST. 30 GRAMS TUBE TP SCH (09:42)
[2020-08-03] MEDS: BUDESONIDE/FORMETEROL FUMARATE 80/4.5 mcg INHALER IH SCH ×3 (13:09→21:38)
[2020-08-03] MEDS ORDERED: LACTULOSE 20 GM/30 ML UDC (FOR ORAL USE ONLY) PO PRN (14:19)
[2020-08-03] MEDS: DOCUSATE SODIUM 100 MG CAPSULE (FP) PO SCH (17:59)
[2020-08-03] MEDS: POLYETHYLENE GLYCOL 3350 119 GM BTL PO SCH (17:59)
[2020-08-03] MEDS ORDERED: WARFARIN NA 2.5 MG TABLET PO ONE (18:00)
[2020-08-03] MEDS: WARFARIN PROTOCOL PO SCH (21:34)
[2020-08-03] MEDS: POTASSIUM CHLORIDE TABS 20 MEQ TABLET.ER (FP) PO SCH (21:34)
[2020-08-03] MEDS: ROSUVASTATIN CA 5 MG TABLET (FP) PO SCH (21:34)
[2020-08-03] MEDS: metoPROLOL SUCCINATE 25 MG TAB.SR.24H (FP) PO SCH (21:44)
[2020-08-03] MEDS: HEPARIN - 25,000 UNIT in SODIUM CHLORIDE 495 ML IV SCH (22:33)
[2020-08-04] MEDS ORDERED: MEROPENEM 1 GM VIAL (RESTRICTED TO ID) IVPB ONE ×3 (01:44→17:05)
[2020-08-04] MEDS ORDERED: DEXTROSE 5%-WATER 100 ML IVPB ONE ×3 (01:44→17:05)
[2020-08-04] MEDS: MEROPENEM 1 GM in DEXTROSE 5%-WATER 100 ML IVPB SCH ×3 (02:11→17:32)
[2020-08-04] MEDS: POTASSIUM CHLORIDE TABS 20 MEQ TABLET.ER (FP) PO SCH (02:11)
[2020-08-04 09:55] LABS: INR 1.25 (0.83-1.09)
[2020-08-04 09:56] LABS: HEMATOCRIT 32.8 % (32.4-45.2); HEMOGLOBIN 10.7 GM/dL (10.7-15.3); MCH 27.3 pg (25.7-33.7); MCHC 32.6 g/dl (32.0-36.0); MEAN CELL VOLUME 83.9 fl (80-96); PLATELET COUNT 371 K/MM3 (134-434); RBC 3.91 M/mm3 (3.60-5.2); WHITE BLOOD COUNT 6.8 K/mm3 (4.0-10.0)
[2020-08-04] MEDS: DOCUSATE SODIUM 100 MG CAPSULE (FP) PO SCH (10:11)
[2020-08-04] MEDS: POLYETHYLENE GLYCOL 3350 119 GM BTL PO SCH (10:14)
[2020-08-04] MEDS: COLLAGENASE CLOSTRIDIUM HIST. 30 GRAMS TUBE TP SCH (10:15)
[2020-08-04] MEDS: BUDESONIDE/FORMETEROL FUMARATE 80/4.5 mcg INHALER IH SCH ×2 (10:17→22:13)
[2020-08-04] MEDS: WARFARIN PROTOCOL PO SCH (17:26)
[2020-08-04] MEDS ORDERED: WARFARIN NA 2.5 MG TABLET PO ONE (18:00)
[2020-08-04] MEDS: HEPARIN - 25,000 UNIT in SODIUM CHLORIDE 495 ML IV SCH ×2 (18:07→22:13)
[2020-08-04] MEDS: ROSUVASTATIN CA 5 MG TABLET (FP) PO SCH (22:13)
[2020-08-04] MEDS: metoPROLOL SUCCINATE 25 MG TAB.SR.24H (FP) PO SCH (22:13)
[2020-08-05] MEDS ORDERED: MEROPENEM 1 GM VIAL (RESTRICTED TO ID) IVPB ONE ×3 (01:27→16:35)
[2020-08-05] MEDS ORDERED: DEXTROSE 5%-WATER 100 ML IVPB ONE ×3 (01:28→16:35)
[2020-08-05] MEDS: MEROPENEM 1 GM in DEXTROSE 5%-WATER 100 ML IVPB SCH ×3 (02:01→17:13)
[2020-08-05 08:55] LABS: HEMATOCRIT 31.2 % (32.4-45.2); HEMOGLOBIN 10.2 GM/dL (10.7-15.3); MCH 27.6 pg (25.7-33.7); MCHC 32.7 g/dl (32.0-36.0); MEAN CELL VOLUME 84.4 fl (80-96); MEAN PLT VOLUME 8.6 fl (7.5-11.1); PLATELET COUNT 352 K/MM3 (134-434); RDW 19.5 % (11.6-15.6); WHITE BLOOD COUNT 6.7 K/mm3 (4.0-10.0)
[2020-08-05 08:58] LABS: INR 1.3 (0.83-1.09); PROTHROMBIN TIME (PATIENT) 15.9 SEC (9.7-13.0)
[2020-08-05 09:00] LABS: ACTIVATED PTT 45.3 SECONDS (25.2-36.5)
[2020-08-05 09:27] LABS: BLOOD UREA NITROGEN 7.1 mg/dL (7-18); CALCIUM 7.8 mg/dL (8.5-10.1); MAGNESIUM 1.9 mg/dL (1.8-2.4)
[2020-08-05 09:30] LABS: CREATININE 0.2 mg/dL (0.55-1.3); PHOSPHOROUS 2.7 mg/dL (2.5-4.9)
[2020-08-05] MEDS: DOCUSATE SODIUM 100 MG CAPSULE (FP) PO SCH (09:38)
[2020-08-05] MEDS: POLYETHYLENE GLYCOL 3350 119 GM BTL PO SCH (09:40)
[2020-08-05] MEDS: BUDESONIDE/FORMETEROL FUMARATE 80/4.5 mcg INHALER IH SCH ×2 (09:40→21:42)
[2020-08-05] MEDS: ACETAMINOPHEN 325 MG TABLET (FP) PO PRN (16:37)
[2020-08-05] MEDS: WARFARIN PROTOCOL PO SCH (18:44)
[2020-08-05] MEDS ORDERED: WARFARIN NA 5 MG TABLET PO ONE (18:45)
[2020-08-05] MEDS: ROSUVASTATIN CA 5 MG TABLET (FP) PO SCH (21:42)
[2020-08-05] MEDS: metoPROLOL SUCCINATE 25 MG TAB.SR.24H (FP) PO SCH (21:42)
[2020-08-06] MEDS ORDERED: MEROPENEM 1 GM VIAL (RESTRICTED TO ID) IVPB ONE ×3 (02:18→17:33)
[2020-08-06] MEDS ORDERED: DEXTROSE 5%-WATER 100 ML IVPB ONE ×3 (02:18→17:33)
[2020-08-06] MEDS: MEROPENEM 1 GM in DEXTROSE 5%-WATER 100 ML IVPB SCH ×3 (02:24→17:55)
[2020-08-06] MEDS: HEPARIN - 25,000 UNIT in SODIUM CHLORIDE 495 ML IV SCH ×3 (07:17→22:30)
[2020-08-06 08:45] LABS: HEMATOCRIT 32.2 % (32.4-45.2); HEMOGLOBIN 10.5 GM/dL (10.7-15.3); MCH 27.6 pg (25.7-33.7); MCHC 32.7 g/dl (32.0-36.0); MEAN CELL VOLUME 84.2 fl (80-96); MEAN PLT VOLUME 8.1 fl (7.5-11.1); PLATELET COUNT 361 K/MM3 (134-434); RBC 3.82 M/mm3 (3.60-5.2); RDW 19.4 % (11.6-15.6); WHITE BLOOD COUNT 6.7 K/mm3 (4.0-10.0)
[2020-08-06 08:53] LABS: INR 1.65 (0.83-1.09); PROTHROMBIN TIME (PATIENT) 19.7 SEC (9.7-13.0)
[2020-08-06 08:56] LABS: ACTIVATED PTT 97.8 SECONDS (25.2-36.5)
[2020-08-06 09:09] LABS: ALBUMIN 1.4 g/dl (3.4-5.0); BLOOD UREA NITROGEN 7.6 mg/dL (7-18); CALCIUM 7.5 mg/dL (8.5-10.1); MAGNESIUM 1.9 mg/dL (1.8-2.4)
[2020-08-06 09:12] LABS: CREATININE 0.2 mg/dL (0.55-1.3)
[2020-08-06 09:13] LABS: PHOSPHOROUS 2.9 mg/dL (2.5-4.9)
[2020-08-06 09:14] LABS: BILIRUBIN,TOTAL 0.2 mg/dL (0.2-1); TOT PROT 4.6 g/dl (6.4-8.2)
[2020-08-06 10:40] LABS: INR 1.78 (0.83-1.09); PROTHROMBIN TIME (PATIENT) 21.2 SEC (9.7-13.0)
[2020-08-06 10:44] LABS: ACTIVATED PTT 79.9 SECONDS (25.2-36.5)
[2020-08-06] MEDS: POLYETHYLENE GLYCOL 3350 119 GM BTL PO SCH (10:56)
[2020-08-06] MEDS: ACETAMINOPHEN 325 MG TABLET (FP) PO PRN (11:02)
[2020-08-06] MEDS: DOCUSATE SODIUM 100 MG CAPSULE (FP) PO SCH (11:02)
[2020-08-06] MEDS: BUDESONIDE/FORMETEROL FUMARATE 80/4.5 mcg INHALER IH SCH ×2 (11:04→20:59)
[2020-08-06] MEDS: WARFARIN PROTOCOL PO SCH (17:50)
[2020-08-06] MEDS ORDERED: WARFARIN NA 5 MG TABLET PO ONE (18:00)
[2020-08-06] MEDS: metoPROLOL SUCCINATE 25 MG TAB.SR.24H (FP) PO SCH (20:59)
[2020-08-06] MEDS: ROSUVASTATIN CA 5 MG TABLET (FP) PO SCH (20:59)
[2020-08-07] MEDS ORDERED: MEROPENEM 1 GM VIAL (RESTRICTED TO ID) IVPB ONE ×3 (01:07→17:36)
[2020-08-07] MEDS ORDERED: DEXTROSE 5%-WATER 100 ML IVPB ONE ×3 (01:07→17:36)
[2020-08-07] MEDS: MEROPENEM 1 GM in DEXTROSE 5%-WATER 100 ML IVPB SCH ×3 (01:29→17:46)
[2020-08-07] MEDS: ACETAMINOPHEN 325 MG TABLET (FP) PO PRN ×2 (06:21→16:08)
[2020-08-07 09:21] LABS: EOS % 3.9 % (0-4.5); HEMATOCRIT 29.7 % (32.4-45.2); HEMOGLOBIN 9.7 GM/dL (10.7-15.3); LYMPH % 45.2 % (8-40); MCH 27.4 pg (25.7-33.7); MCHC 32.8 g/dl (32.0-36.0); MEAN CELL VOLUME 83.5 fl (80-96); MEAN PLT VOLUME 8.2 fl (7.5-11.1); MONO % 10.2 % (3.8-10.2); NEUT % 39.7 % (42.8-82.8); PLATELET COUNT 359 K/MM3 (134-434); RBC 3.56 M/mm3 (3.60-5.2); WHITE BLOOD COUNT 6.4 K/mm3 (4.0-10.0)
[2020-08-07 09:27] LABS: INR 3.13 (0.83-1.09); PROTHROMBIN TIME (PATIENT) 37.2 SEC (9.7-13.0)
[2020-08-07 09:30] LABS: ACTIVATED PTT 78.5 SECONDS (25.2-36.5)
[2020-08-07] MEDS: DOCUSATE SODIUM 100 MG CAPSULE (FP) PO SCH ×2 (11:23→11:34)
[2020-08-07] MEDS: POLYETHYLENE GLYCOL 3350 119 GM BTL PO SCH (11:33)
[2020-08-07] MEDS: BUDESONIDE/FORMETEROL FUMARATE 80/4.5 mcg INHALER IH SCH ×2 (11:33→22:01)
[2020-08-07] MEDS ORDERED: WARFARIN NA 5 MG TABLET PO SCH (18:00)
[2020-08-07] MEDS ORDERED: WARFARIN NA 2 MG TABLET PO SCH (18:00)
[2020-08-07] MEDS ORDERED: FAMOTIDINE 20 MG/50 ML IVPB 20 MG/50 ML MG IVPB ONE (18:16)
[2020-08-07] MEDS: ROSUVASTATIN CA 5 MG TABLET (FP) PO SCH (22:32)
[2020-08-07] MEDS: metoPROLOL SUCCINATE 25 MG TAB.SR.24H (FP) PO SCH (22:32)
[2020-08-08] MEDS ORDERED: MEROPENEM 1 GM VIAL (RESTRICTED TO ID) IVPB ONE ×3 (01:29→17:24)
[2020-08-08] MEDS ORDERED: DEXTROSE 5%-WATER 100 ML IVPB ONE ×3 (01:29→17:24)
[2020-08-08] MEDS: MEROPENEM 1 GM in DEXTROSE 5%-WATER 100 ML IVPB SCH ×3 (01:48→17:34)
[2020-08-08 09:24] LABS: HEMATOCRIT 32.4 % (32.4-45.2); HEMOGLOBIN 10.6 GM/dL (10.7-15.3); MCH 27.3 pg (25.7-33.7); MCHC 32.8 g/dl (32.0-36.0); MEAN CELL VOLUME 83.2 fl (80-96); MEAN PLT VOLUME 7.9 fl (7.5-11.1); PLATELET COUNT 380 K/MM3 (134-434); RBC 3.89 M/mm3 (3.60-5.2); RDW 19.4 % (11.6-15.6); WHITE BLOOD COUNT 6.4 K/mm3 (4.0-10.0)
[2020-08-08 09:39] LABS: ACTIVATED PTT 40.9 SECONDS (25.2-36.5)
[2020-08-08 10:11] LABS: ALBUMIN 1.7 g/dl (3.4-5.0); BLOOD UREA NITROGEN 9.8 mg/dL (7-18); MAGNESIUM 1.8 mg/dL (1.8-2.4)
[2020-08-08 10:14] LABS: PHOSPHOROUS 2.6 mg/dL (2.5-4.9)
[2020-08-08 10:15] LABS: CREATININE 0.3 mg/dL (0.55-1.3)
[2020-08-08 10:16] LABS: BILIRUBIN,TOTAL 0.4 mg/dL (0.2-1); TOT PROT 5.2 g/dl (6.4-8.2)
[2020-08-08 10:19] LABS: INR 5.11 (0.83-1.09)
[2020-08-08] MEDS: POLYETHYLENE GLYCOL 3350 119 GM BTL PO SCH (10:24)
[2020-08-08] MEDS: BUDESONIDE/FORMETEROL FUMARATE 80/4.5 mcg INHALER IH SCH ×2 (10:24→22:16)
[2020-08-08] MEDS: DOCUSATE SODIUM 100 MG CAPSULE (FP) PO SCH (10:24)
[2020-08-08] MEDS ORDERED: FAMOTIDINE 20 MG/50 ML IVPB 20 MG/50 ML MG IVPB ONE (13:00)
[2020-08-08] MEDS ORDERED: traMADol HCL 50 MG TABLET PO PRN (17:46)
[2020-08-08] MEDS: metoPROLOL SUCCINATE 25 MG TAB.SR.24H (FP) PO SCH (22:16)
[2020-08-08] MEDS: ROSUVASTATIN CA 5 MG TABLET (FP) PO SCH (22:16)
[2020-08-09] MEDS ORDERED: MEROPENEM 1 GM VIAL (RESTRICTED TO ID) IVPB ONE ×3 (02:06→18:17)
[2020-08-09] MEDS ORDERED: DEXTROSE 5%-WATER 100 ML IVPB ONE ×3 (02:06→18:17)
[2020-08-09] MEDS: MEROPENEM 1 GM in DEXTROSE 5%-WATER 100 ML IVPB SCH ×2 (02:14→09:42)
[2020-08-09 08:52] LABS: HEMATOCRIT 30.2 % (32.4-45.2); HEMOGLOBIN 10.1 GM/dL (10.7-15.3); MCH 28.1 pg (25.7-33.7); MCHC 33.4 g/dl (32.0-36.0); MEAN PLT VOLUME 8.3 fl (7.5-11.1); PLATELET COUNT 357 K/MM3 (134-434); RBC 3.59 M/mm3 (3.60-5.2); RDW 19.8 % (11.6-15.6); WHITE BLOOD COUNT 6.1 K/mm3 (4.0-10.0)
[2020-08-09 09:10] LABS: CALCIUM 8.2 mg/dL (8.5-10.1)
[2020-08-09 09:13] LABS: CREATININE 0.3 mg/dL (0.55-1.3)
[2020-08-09 09:14] LABS: PHOSPHOROUS 2.6 mg/dL (2.5-4.9)
[2020-08-09 09:29] LABS: INR 5.38 (0.83-1.09)
[2020-08-09] MEDS: DOCUSATE SODIUM 100 MG CAPSULE (FP) PO SCH (09:45)
[2020-08-09] MEDS: BUDESONIDE/FORMETEROL FUMARATE 80/4.5 mcg INHALER IH SCH ×2 (09:45→21:20)
[2020-08-09] MEDS: POLYETHYLENE GLYCOL 3350 119 GM BTL PO SCH (09:45)
[2020-08-09] MEDS: ACETAMINOPHEN 325 MG TABLET (FP) PO PRN (11:17)
[2020-08-09] MEDS ORDERED: POTASSIUM CHLORIDE TABS 20 MEQ TABLET.ER (FP) PO ONE (12:30)
[2020-08-09] MEDS ORDERED: PT OWN MED DRAWER 7, Y5N ONE (17:20)
[2020-08-09] MEDS: metoPROLOL SUCCINATE 25 MG TAB.SR.24H (FP) PO SCH (21:19)
[2020-08-09] MEDS: ROSUVASTATIN CA 5 MG TABLET (FP) PO SCH (21:19)
[2020-08-10] MEDS ORDERED: MEROPENEM 1 GM VIAL (RESTRICTED TO ID) IVPB ONE ×3 (01:05→18:03)
[2020-08-10] MEDS ORDERED: DEXTROSE 5%-WATER 100 ML IVPB ONE ×3 (01:06→18:03)
[2020-08-10] MEDS: MEROPENEM 1 GM in DEXTROSE 5%-WATER 100 ML IVPB SCH ×3 (01:15→18:14)
[2020-08-10] MEDS: DOCUSATE SODIUM 100 MG CAPSULE (FP) PO SCH (09:37)
[2020-08-10] MEDS: ACETAMINOPHEN 325 MG TABLET (FP) PO PRN (09:37)
[2020-08-10] MEDS: BUDESONIDE/FORMETEROL FUMARATE 80/4.5 mcg INHALER IH SCH ×2 (09:39→21:19)
[2020-08-10] MEDS: POLYETHYLENE GLYCOL 3350 119 GM BTL PO SCH (09:45)
[2020-08-10 10:12] LABS: HEMATOCRIT 32.1 % (32.4-45.2); HEMOGLOBIN 10.5 GM/dL (10.7-15.3); MCH 27.8 pg (25.7-33.7); MCHC 32.7 g/dl (32.0-36.0); MEAN CELL VOLUME 84.9 fl (80-96); MEAN PLT VOLUME 8.5 fl (7.5-11.1); PLATELET COUNT 380 K/MM3 (134-434); RBC 3.78 M/mm3 (3.60-5.2); RDW 19.9 % (11.6-15.6); WHITE BLOOD COUNT 5.9 K/mm3 (4.0-10.0)
[2020-08-10 10:19] LABS: PROTHROMBIN TIME (PATIENT) 46.9 SEC (9.7-13.0)
[2020-08-10 10:44] LABS: INR 4.04 (0.83-1.09)
[2020-08-10 10:58] LABS: BLOOD UREA NITROGEN 6.1 mg/dL (7-18); MAGNESIUM 1.9 mg/dL (1.8-2.4)
[2020-08-10 11:01] LABS: CREATININE 0.2 mg/dL (0.55-1.3); PHOSPHOROUS 2.6 mg/dL (2.5-4.9)
[2020-08-10] MEDS: ROSUVASTATIN CA 5 MG TABLET (FP) PO SCH (21:19)
[2020-08-10] MEDS: metoPROLOL SUCCINATE 25 MG TAB.SR.24H (FP) PO SCH (21:19)
[2020-08-11] MEDS ORDERED: MEROPENEM 1 GM VIAL (RESTRICTED TO ID) IVPB ONE ×2 (00:09→09:30)
[2020-08-11] MEDS ORDERED: DEXTROSE 5%-WATER 100 ML IVPB ONE ×2 (00:10→09:30)
[2020-08-11] MEDS: MEROPENEM 1 GM in DEXTROSE 5%-WATER 100 ML IVPB SCH ×3 (01:05→18:06)
[2020-08-11] MEDS: BUDESONIDE/FORMETEROL FUMARATE 80/4.5 mcg INHALER IH SCH ×2 (09:38→21:37)
[2020-08-11] MEDS: POLYETHYLENE GLYCOL 3350 119 GM BTL PO SCH ×2 (09:38→09:57)
[2020-08-11] MEDS: MULTIVITAMINS (DAILY MVI) TABLET (FP) PO SCH (09:38)
[2020-08-11] MEDS: DOCUSATE SODIUM 100 MG CAPSULE (FP) PO SCH (09:38)
[2020-08-11 09:41] LABS: HEMOGLOBIN 10.5 GM/dL (10.7-15.3); MCH 27.7 pg (25.7-33.7); MCHC 32.6 g/dl (32.0-36.0); MEAN CELL VOLUME 84.9 fl (80-96); MEAN PLT VOLUME 8.1 fl (7.5-11.1); PLATELET COUNT 387 K/MM3 (134-434); RBC 3.77 M/mm3 (3.60-5.2); RDW 20.3 % (11.6-15.6); WHITE BLOOD COUNT 5.5 K/mm3 (4.0-10.0)
[2020-08-11 09:48] LABS: INR 2.71 (0.83-1.09); PROTHROMBIN TIME (PATIENT) 32.4 SEC (9.7-13.0)
[2020-08-11 10:13] LABS: BLOOD UREA NITROGEN 7.5 mg/dL (7-18); CALCIUM 8.5 mg/dL (8.5-10.1)
[2020-08-11 10:16] LABS: CREATININE 0.3 mg/dL (0.55-1.3)
[2020-08-11] MEDS: WARFARIN NA 2 MG TABLET PO SCH (17:33)
[2020-08-11] MEDS: ACETAMINOPHEN 325 MG TABLET (FP) PO PRN (18:28)
[2020-08-11] MEDS: metoPROLOL SUCCINATE 25 MG TAB.SR.24H (FP) PO SCH (21:37)
[2020-08-11] MEDS: ROSUVASTATIN CA 5 MG TABLET (FP) PO SCH (21:37)
[2020-08-12] MEDS ORDERED: MEROPENEM 1 GM VIAL (RESTRICTED TO ID) IVPB ONE ×2 (00:30→09:46)
[2020-08-12] MEDS ORDERED: DEXTROSE 5%-WATER 100 ML IVPB ONE ×2 (00:30→09:47)
[2020-08-12] MEDS: MEROPENEM 1 GM in DEXTROSE 5%-WATER 100 ML IVPB SCH ×2 (01:05→09:57)
[2020-08-12 09:12] LABS: HEMATOCRIT 30.1 % (32.4-45.2); HEMOGLOBIN 9.9 GM/dL (10.7-15.3); MCH 27.8 pg (25.7-33.7); MCHC 32.8 g/dl (32.0-36.0); MEAN CELL VOLUME 84.5 fl (80-96); MEAN PLT VOLUME 7.9 fl (7.5-11.1); PLATELET COUNT 376 K/MM3 (134-434); RBC 3.56 M/mm3 (3.60-5.2); RDW 20.3 % (11.6-15.6); WHITE BLOOD COUNT 5.3 K/mm3 (4.0-10.0)
[2020-08-12 09:19] LABS: INR 2.43 (0.83-1.09); PROTHROMBIN TIME (PATIENT) 28.6 SEC (9.7-13.0)
[2020-08-12 09:50] LABS: BLOOD UREA NITROGEN 9.6 mg/dL (7-18); MAGNESIUM 2.1 mg/dL (1.8-2.4)
[2020-08-12 09:53] LABS: CREATININE 0.2 mg/dL (0.55-1.3); PHOSPHOROUS 3.1 mg/dL (2.5-4.9)
[2020-08-12] MEDS: MULTIVITAMINS (DAILY MVI) TABLET (FP) PO SCH (09:58)
[2020-08-12] MEDS: DOCUSATE SODIUM 100 MG CAPSULE (FP) PO SCH (09:58)
[2020-08-12] MEDS: BUDESONIDE/FORMETEROL FUMARATE 80/4.5 mcg INHALER IH SCH (09:58)
[2020-08-12] MEDS: POLYETHYLENE GLYCOL 3350 119 GM BTL PO SCH (10:01)
[2020-08-12 14:26] VITALS: PULSE 64; TEMP 97.8
[2020-08-12] MEDS: WARFARIN NA 2 MG TABLET PO SCH (17:20)
[2020-08-12 19:01] VITALS: BP 105/45
== END 2020-08-12 20:07 | disposition home health service (06) | DRG 299 ==
LOC: JER 18:59 → JERBED 23:05 → J6S 08-02 11:04
PROVIDERS: ADMIT Internal Medicine; ATTEND Student in an Organized Health Care Education/Training Program
DX: I82.4Z2 Acute embolism and thrombosis of unspecified deep veins of left distal lower extremity (principal); L89.154 Pressure ulcer of sacral region, stage 4; I10 Essential (primary) hypertension; E78.5 Hyperlipidemia, unspecified; K21.9 Gastro-esophageal reflux disease without esophagitis; J44.9 Chronic obstructive pulmonary disease, unspecified; E66.9 Obesity, unspecified; Z68.35 Body mass index [BMI] 35.0-35.9, adult
CPT/HCPCS: 36415; 71045-TC-FY; 73552-TC-RT-FY; 80048; 80053; 82272; 82728; 83540; 83550; 83735; 84100; 84436; 84439; 84443; 85025; 85027; 85610; 85730; 86850; 86900; 86901; 87040; 87070; 87076; 87186; 87205; 93005; 93010; 93971-TC; 97162-GP; 99285-25; C9803; E0186; J1644; U0003; U0005

== ENCOUNTER 2020-09-13 13:27 | Emergency (ER) | payer OTHER ==
[2020-09-13 13:58] VITALS: BMI 32.8
[2020-09-13 20:10] VITALS: BP 133/80; PULSE 88; TEMP 98
== END 2020-09-13 20:04 | disposition home or self-care (01) ==
LOC: JER 13:27
DX: L89.154 Pressure ulcer of sacral region, stage 4 (principal)
CPT/HCPCS: 71045-TC-FY; 93005; 93010; 99285-25